=== PATIENT | female | born 1955 | race Caucasian/White ===

== ENCOUNTER 2023-12-20 21:27 | Outpatient (REF) | payer MEDICARE, MEDICAID, SELFPAY | END 2023-12-20 21:28 | disposition home or self-care (01) | LOC: LAB 21:27 | DX: E87.5 Hyperkalemia (principal) | CPT/HCPCS: 36415; 84132 ==

== ENCOUNTER 2024-01-14 17:17 | Outpatient (REF) | payer MEDICARE, MEDICAID, SELFPAY ==
--- OUTSIDE RECORDS SUMMARY | 2024-01-14 17:38 | XMS_ITS | CCD ---
Author Name Unknown Address [address] [place] [address] Organization [facility] Care Team Providers Care Infrastructure Architect Name Role Phone VALENTINA Santos Attending Provider [phone] Lizandro Mcpherson MD Primary Care Provider MD Lizandro Mcpherson Attending Provider [phone] MD Lizandro Mcpherson Primary Care Provider LIZANDRO MCPHERSON Primary Care Unavailable FILOMENA SKELTON Attending Unavailable KARMEN BAGLEY Consulting Unavailable SHANTEL ALEX Admitting Unavailable GEORGESCU CHAPIN A Consulting Unavailable RELIEF, [facility]MPT[facility] Cons ulting Unavailable FILOMENA SKELTON Attending Unavailable FILOMENA SKELTON Referring Unavailable VIDA, LIZANDRO Primary Care Unavailable FELIBERTOTOMMY PEREZUSH Referring Unavailable VIDA, LIZANDRO Primary Care Unavailable NANCY MCPHERSONWN Referring Unavailable VIDA, LIZANDRO Primary Care Unavailable NANCY MCPHERSONWN Referring Unavailable VIDA, LIZANDRO Primary Care Unavailable NANCY MCPHERSONWN Referring Unavailable VIDA, LIZANDRO Primary Care Unavailable Nancy Mcphersonwn W Attending Unavailable NO FAMILY, PHYSICIAN Primary Care Unavailable Nancy Mcphersonwn W Admitting Unavailable Nancy Mcphersonwn W Admitting Unavailable Vida Lizandro W Primary Care Unavailable Nancy Mcphersonwn W Attending Unavailable Medications Current Medications Medication Drug Class(es) Dates Sig (Normalized) Sig (Original) acetaminophen 500 mg oral tablet (10 sources) take 1 tablet by mouth every six hours as needed for pain acetaminophen (TYLENOL EXTRA STRENGTH) 500 mg tablet Take 1 tablet (500 mg total) by mouth every 6 (six) hours as needed for pain. 0 Active acetaminophen 325 mg / HYDROcodone bitartrate 5 mg oral tablet (11 sources) Opioid Agonist take 1 tablet by mouth every six hours as needed for pain HYDROcodone-acetamin ophen (NORCO) 5-325 mg per tablet Indications: pain Take 1 tablet by mouth every 6 (six) hours as needed for pain Indications: pain. 0 Active aspirin 81 mg delayed release oral tablet (11 sources) Platelet Aggregation Inhibitor, Nonsteroidal Anti-inflammatory Drug take 1 tablet by mouth in the morning aspirin 81 mg Take 1 tablet (81 mg total) by mouth in the morning. 0 Active calcitriol 0.30042 mg oral capsule (11 sources) Vitamin D3 Analog take 2 capsules by mouth in the morning calcitriol (ROCALTROL) 0.25 MCG capsule Take 2 capsules (0.5 mcg total) by mouth in the morning. 0 Active take 1 capsule by mouth once nelsy ly calcitriol (ROCALTROL) 0.25 MCG capsule Take 0.25 mcg by mouth daily. 0 Active carvedilol 12.5 mg oral tablet (9 sources) alpha-Adrenergic Ghassan, beta-Adrenergic Ghassan Start: 11-17-2023 take 1 tablet by mouth in the morning, then take 1 tablet by mouth at bedtime carvediloL (COREG) 12.5 mg tablet Take 1 tablet (12.5 mg total) by mouth in the morning and 1 tablet (12.5 mg total) before bedtime. 60 tablet 1 11/17/2023 Active cholecalciferol 1.25 mg oral capsule (7 sources) Vitamin D take 1 capsule by mouth in the morning cholecalciferol (VITAMIN D3) 50,000 units capsule Take 1 capsule (50,000 Units total) by mouth in the morning. 0 Active dextran 70 1 mg/ml / hypromellose 3 mg/ml ophthalmic solution (9 sources) Plasma Volume Radio Mechanic hypromellose (NATURES TEARS) drops Administer 1 drop to both eyes as needed for dry eyes. 0 Active docusate sodium 100 mg oral capsule (2 sources) take 1 capsule by mouth twice daily docusate sodium (COLACE) 100 mg capsule Take 100 mg by mouth 2 (two) times a day. 0 Active ergocalciferol 1.25 mg oral capsule (10 sources) Provitamin D2 Compound take 1 capsule by mouth once ergocalciferol (DRISDOL) 1,250 mcg (50,000 unit) capsule Take 1 capsule (50,000 Units total) by mouth every 14 (fourteen) days. 0 Active ertapenem 1,000 mg in sodium chloride 0.9 % 50 mL IVPB MINI-BAG Plus (2 sources) Start: 11-16-2023 End: 11-20-2023 take 1000 mg intravenously every twenty-four hours ertapenem 1,000 mg in sodium chloride 0.9 % 50 mL IVPB MINI-BAG Plus Infuse 1,000 mg into a venous catheter daily for 4 days. 1 each 0 11/16/2023 11/20/2023 Active ferrous sulfate 250 mg extended release oral tablet (11 sources) take 1 tablet by mouth in the morning ferrous sulfate 250 mg (50 mg iron) tablet extended release Take 50 mg by mouth in the morning. 0 Active ferrous sulfate 325 (65 FE) mg tablet Take 1 tablet (325 mg total) by mouth daily with breakfast. ER Tablet Extended Release 50 MG 0 Active FLUoxetine 20 mg oral capsule (10 sources) Serotonin Reuptake Inhibitor take 1 capsule by mouth in the morning FLUoxetine (PROzac) 20 mg capsule Take 1 capsule (20 mg total) by mouth in the morning. HCL Capsule. 0 Active folic acid 1 mg oral tablet (10 sources) take 1 tablet by mouth in the morning folic acid (FOLVITE) 1 mg tablet Take 400 mcg by mouth in the morning. 0 Active gabapentin 100 mg oral capsule (10 sources) Anti-epileptic Agent take 1 capsule by mouth three times daily gabapentin (NEURONTIN) 100 mg capsule Take 1 capsule (100 mg total) by mouth 3 (three) times a day. 0 Active hydroCHLOROthiazide 12.5 mg oral tablet (1 source) Thiazide Diuretic take 1 tablet by mouth once daily hydroCHLOROthiazide (HYDRODIURIL) 12.5 mg tablet Take 1 tablet (12.5 mg total) by mouth daily. 0 Active hypromellose 25 mg/ml ophthalmic solution (10 sources) take 1 drop(s) into the eye(s) in the morning hydroxypropyl methylcellulose (GONAK) 2.5 % ophthalmic solution Administer 1 drop to both eyes in the morning and 1 drop before bedtime. 0 Active ibuprofen 600 mg oral tablet (5 sources) Nonsteroidal Anti-inflammatory Drug End: 2023 take 1 tablet by mouth in the morning, then take 1 tablet by mouth at bedtime ibuprofen (ADVIL,MOTRIN) 600 mg tablet Take 1 tablet (600 mg total) by mouth in the morning and 1 tablet (600 mg total) before bedtime. 0 11/28/2023 Discontinued ammonium lactate 120 mg/ml topical cream (10 sources) ammonium lactate (AMLACTIN) 12 % cream Apply 1 Application topically as needed for dry skin. 0 Active lactulose 667 mg/ml oral solution (4 sources) Osmotic Laxative End: 2023 take 15 mL by mouth every other day lactulose (CHRONULAC) 10 gram/15 mL solution Take 15 mL (10 g total) by mouth every other day. 0 11/28/2023 Discontinued take 30 mL by mouth every other day lactulose (CHRONULAC) 10 gram/15 mL solution Take 30 mL (20 g total) by mouth every other day. 0 Active latanoprost 0.05 mg/ml ophthalmic solution (10 sources) Prostaglandin Analog take 1 drop(s) into the eye(s) once daily latanoprost (XALATAN) 0.005 % ophthalmic solution Administer 1 drop to both eyes nightly. 0 Active levothyroxine sodium 0.15 mg oral tablet (11 sources) l-Thyroxine take 1 tablet by mouth in the morning levothyroxine (SYNTHROID, LEVOTHROID) 150 MCG tablet Take 1 tablet (150 mcg total) by mouth in the morning. 0 Active levothyroxine (S YNTHROID, LEVOTHROID) 125 MCG tablet Take 150 mcg by mouth daily. 0 Active magnesium oxide 400 mg oral tablet (11 sources) take 1 tablet by rinku th in the morning magnesium oxide (MAG-OX) 400 mg tablet Take 1 tablet (400 mg total) by mouth in the morning. 0 Active melatonin 3 mg oral capsule (10 sources) take 1 capsule by mo uth once daily melatonin 3 mg capsule Take 3 mg by mouth nightly. 0 Active mirtazapine 15 mg oral table t (11 sources) take 0.5 tablet by m outh in the morning mirtazapine (REMERON) 15 mg tablet Take 0.5 tablets (7.5 mg total) by mouth in the morning. 0 Active take 1 tablet by mouth once pierce y mirtazapine (REMERON) 15 mg tablet Take 15 mg by mouth nightly. 0 Active MULTIVITAMIN ORAL (2 sources) take 1 tablet by mouth once daily MULTIVITAMIN ORAL Take 1 tablet by mouth daily. 0 Active phenytoin sodium 30 mg extended release oral capsule (20 sources) Anti-epileptic Agent take 1 capsule by mouth in the morning, then take 1 capsule by mouth at bedtime phenytoin (DILANTIN) 100 mg ER capsule Take 1 capsule (100 mg total) by mouth in the morning and 1 capsule (100 mg total) before bedtime. 0 Active take 1 capsule by mo uth in the morning, then take 1 capsule by mouth at bedtime phenytoin (DILANTIN) 30 mg ER capsule Take 1 capsule (30 mg total) by mouth in the morning and 1 capsule (30 mg total) before bedtime. 0 Active sevelamer carbonate 800 mg oral tablet (10 sources) Phosphate Binder sevelamer (RENV SHAQUILLE) 800 mg tablet Take 1 tablet (800 mg total) by mouth in the morning and 1 tablet (800 mg total) at noon and 1 tablet (800 mg total) in the evening. Take with meals. 0 Active sodium bicarbonate 650 mg oral tablet (7 sources) take 1 tablet by mouth three times daily sodium bicarbonate 650 mg tablet Take 1 tablet (650 mg total) by mouth 3 (three) times a day. 0 Active tiZANidine 4 mg oral tablet (10 sources) Central alpha-2 Adrenergic Agonist take 1 tablet by mouth in the morning tiZANidine (ZANAFLEX) 4 mg tablet Take 1 tablet (4 mg total) by mouth in the morning. 0 Active traZODone hydrochloride 50 mg oral tablet (10 sources) Serotonin Reuptake Inhibitor take 1 tablet by mouth once daily traZODone (DESYREL) 50 mg tablet Take 1 tablet (50 mg total) by mouth nightly. 0 Active divalproex sodium 125 mg delayed release oral tablet (9 sources) Mood Stabilizer, Anti-epileptic Agent Start: 10-27-20 take 1 tablet by mouth in the morning, then take 1 tablet by mouth at bedtime divalproex (DEPAKOTE) 125 mg EC tablet Take 1 tablet (125 mg total) by mouth in the morning and 1 tablet (125 mg total) before bedtime. 0 10/27/2023 Active vitamin b12 1 mg oral tablet (10 sources) Vitamin B12 take 1 tablet by mouth in the morning cyanocobalamin 1000 MCG tablet Take 1 tablet (1,000 mcg total) by mouth in the morning. 0 Active Problems Active Problems Problem Classification Problem Date Documented Date Episodic/Chronic Acute and unspecified renal failure (2 sources) Acute injury of kidney; Translations: [Acute kidney failure, unspecified] Onset: 11-13-2023 11-28-2023 Episodic Acute cerebrovascular disease (11 sources) Embolic stroke; Translations: [Cerebral infarction due to embolism of unspecified precerebral artery] Onset: 02-26-2018 02-26-2018 Chronic Chronic kidney disease (5 sources) Chronic kidney disease stage 3B ; Translations: [Stage 3b chronic kidney disease (CKD) ([facility])] Onset: 11-26-2023 11-10-2023 Chronic Diseases of white blood cells (1 source) Elevated white blood cell count, unspecified; Translations: [Elevated white blood cell count, unspecified] Onset: 11-13-2023 Chronic E Codes: Adverse effects of medical drugs (1 source) Adverse effect of macrolides, initial encounter; Translations: [Adverse effect of macrolides, initial encounter] Onset: 11-13-2023 Episodic Essential hypertension (11 sources) Benign essential hypertension; Translations: [Essential (primary) hypertension] Onset: 02-26-2018 05-28-2018 Chronic Fluid and electrolyte disorders (2 sources) Hypo-osmolality and hyponatremia; Translations: [Other disorders of electrolyte and fluid balance, not elsewhere classified] Onset: 11-13-2023 Episodic Immunizations and screening for infectious disease (1 source) Anti-nuclear factor positive; Translations: [Other specified abnormal immunological findings in serum] 12-13-2023 Episodic Other and ill-defined cerebrovascular disease (11 sources) Moyamoya disease; 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] Onset: 02-26-2018 02-26-2018 Chronic Other circulatory disease (10 sources) Low blood pressure; Translations: [Hypotension, unspecified] Onset: 11-13-2023 11-13-2023 Episodic Other circulatory disease (1 source) Hypotension, unspecified; Translations: [Hypotension, unspecified] Onset: 11-13-2023 Episodic Other nutritional; endocrine; and metabolic disorders (11 sources) Disorder of mineral metabolism; 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 Onset: 11-13-2023 Past or Other Problems Problem Classification Problem Date Documented Da te Episodic/Chronic Calculus of urinary tract (20 sources) Kidney stone; Translations: [Calculus of kidney] Onset: 02-26-2018 10-21-2019 Episodic Other bone disease and musculoskeletal deformities (11 sources) Osteopenia; Translations: [Other specified disorders of bone density and structure, multiple sites] Onset: 03-24-2018 03-09-2020 Episodic Results Test Name Value Interpretation Reference Range Facility Comprehensive metabolic 2000 panelon 01-12-2024 Albumin BCP dye [Mass/Vol] 3.1 g/dL Low 3.4-5.0 [facility] Comment on above: Performed By: #### 2 4323-8 #### KATLIN ANGLIN ([id number]) [facility] ([facility]) [address] [place] [address] ALP [Catalytic activity/Vol] 60 U/L Normal 33-136 [facility] Comment on above: Performed By: #### 2 4323-8 #### KATLIN ANGLIN ([id number]) [facility] ([facility]) [address] [place] [address] ALT With P-5'-P [Catalytic activity/Vol] 5 U/L Low 7-45 [facility] Comment on above: Result Comment: Kanchan ents treated with Sulfasalazine may generate falsely decreased results for ALT. Performed By: #### 2 4323-8 #### KATLIN ANGLIN ([id number]) [facility] ([facility]) [address] [place] [address] Anion gap [Moles/Vol] 13 mmol/L Normal 10-20 [facility] Comment on above: Performed By: #### 2 4323-8 #### KATLIN ANGLIN ([id number]) [facility] ([facility]) [address] [place] [address] AST With P-5'-P [Catalytic activity/Vol] 10 U/L Normal 9-39 [facility] Comment on above: Performed By: #### 2 4323-8 #### KATLIN ANGLIN ([id number]) [facility] ([facility]) [address] [place] [address] Bilirubin [Mass/Vol] 0.2 mg/dL Normal 0.0-1.2 [facility] Comment on above: Performed By: #### 2 4323-8 #### KATLIN ANGLIN ([id number]) [facility] ([facility]) [address] [place] [address] Calcium [Mass/Vol] 8.1 mg/dL Low 8.6-10.3 [facility] Comment on above: Performed By: #### 2 432-8 #### KATLIN ANGLIN ([id number]) [facility] ([facility]) [address] [place] [address] Chloride [Moles/Vol] 106 mmol/L Normal 98-107 [facility] Comment on above: Performed By: #### 2 4323-8 #### KATLIN KNOWLESI ([id number]) [facility] ([facility]) [address] [place] [address] CO2 [Moles/Vol] 27 mmol/L Normal 21-32 [facility] Comment on above: Performed By: #### 2 4323-8 #### KATLIN KNOWLESI ([id number]) [facility] ([facility]) [address] [place] [address] Creatinine [Mass/Vol] 2.03 mg/dL High 0.50-1.05 [facility] Comment on above: Performed By: #### 2 4323-8 #### KATLIN DASILVAFRI ([id number]) [facility] ([facility]) [address] [place] [address] Glomerular filtration rate/1.73 sq M.predicted 26 mL/min/1.73m*2 Low >60 [facility] Comment on above: Result Comment: Calc ulations of estimated GFR are performed using the 2020 CKD-EPI Study Refit equation without the race variable for the IDMS-Traceable creatinine methods. https://jasn.asnjournals.org/content//ASN.485 4648389 Performed By: #### 2 4323-8 #### KATLIN ANGLIN ([id number]) [facility] ([facility]) [address] [place] [address] Glucose [Mass/Vol] 82 mg/dL Normal 74-99 [facility] Comment on above: Performed By: #### 2 4323-8 #### KATLIN ANGLIN ([id number]) [facility] ([facility]) [address] [place] [address] Potassium [Moles/Vol] 4.6 mmol/L Normal 3.5-5.3 [facility] Comment on above: Performed By: #### 2 4323-8 #### KATLIN ANGLIN ([id number]) [facility] ([facility]) [address] [place] [address] Protein [Mass/Vol] 6.0 g/dL Low 6.4-8.2 [facility] Comment on above: Performed By: #### 2 4323-8 #### KATLIN ANGLIN ([id number]) [facility] ([facility]) [address] [place] [address] Sodium [Moles/Vol] 141 mmol/L Normal 136-145 [facility] Comment on above: Performed By: #### 2 4323-8 #### KATLIN ANGLIN ([id number]) [facility] ([facility]) [address] [place] [address] Urea nitrogen [Mass/Vol] 62 mg/dL High 6-23 [facility] Comment on above: Performed By: #### 2 4323-8 #### KATLIN ANGLIN ([id number]) [facility] ([facility]) [address] [place] [address] Potassiumon 12-22-2023 Potassium [Moles/Vol] 4.8 mmol/L Normal 3.4-4.9 [facility] Comment on above: Order Comment: CALL doctor [id number] tel. [phone], [place] [facility] [place] [id number] tel. [phone], [place] [facility] Performed By: #### K #### [facility] [address] [place] [address] 36on 12-03-2023 36 I think monitoring would be ok. She has no oral options. Seeing as initial infection was from urinary source I would be less worried Normal [facility] Potassiumon 11-27-2023 Potassium [Moles/Vol] 5.7 mmol/L High 3.5-5.1 [facility] Comment on above: Result Comment: Crit ical Result Called to and read back by: LIZANDRO MCPHERSON at: 11/27/2023 17:45:10 by:[id number] PERFORMED BY: [place] [address] PATHOLOGIST DRAG SEINER JONG SORENSON M.D. Performed By: #### K #### [facility] [address] Potassium [Moles/volume] in Serum or PlasmaOrdered By: Lizandro Mcpherson on 11-27-2023 Potassium [Moles/Vol] 5.7 mmol/L 3.5-5.1 [facility] Comment on above: Critical Result Call ed to and read back by: LIZANDRO MCPHERSON at: 11/27/2023 17:45:10 by:[id number] Basic Metabolic Panelon 11-11 Anion gap [Moles/Vol] 14.0 mmol/L Normal 6.0-15.0 [facility] Comment on above: Performed By: #### B MP, CBC, MG, PHOS #### [facility] [address] [place] [id number] [place] Calcium [Mass/Vol] 9.0 mg/dL Normal 8.6-10.3 [facility] Comment on above: Performed By: #### B MP, CBC, MG, PHOS #### [facility] [address] [place] [address] [place] Chloride [Moles/Vol] 109 mmol/L High 98-107 [facility] Comment on above: Performed By: #### B MP, CBC, MG, PHOS #### [facility] [address] CO2 [Moles/Vol] 23.1 mmol/L Normal 21.0-31.0 [facility] Comment on above: Performed By: #### B MP, CBC, MG, PHOS #### [facility] [address] Creatinine [Mass/Vol] 1.61 mg/dL High 0.60-1.20 [facility] Comment on above: Performed By: #### B MP, CBC, MG, PHOS #### [facility] [address] [place] [address] [place] GFR/1.73 sq M.predicted MDRD (S/P/Bld) [Vol rate/Area] 34.868 mL/min/{1.73_m2} Normal [facility] Comment on above: Performed By: #### B MP, CBC, MG, PHOS #### [facility] [address] Glucose [Mass/Vol] 91 mg/dL Normal 70-100 [facility] Comment on above: Result Comment: [place] Glucose Reference Range is dependent on time and content of last meal. Glucose of more than 200 mg/dL in a nonstressed, ambulatory subject supports the diagnosis of Diabetes Mellitus. ADA recommended reference range Performed By: #### B MP, CBC, MG, PHOS #### [facility] [address] [place] [address] [place] Potassium [Moles/Vol] 6.1 mmol/L Off scale high 3.5-5.1 [facility] Comment on above: Result Comment: Crit ical Result Called to and read back by: MARIA T CHING at: 11/26/2023 21:14:05 by:HELADIO Performed By: #### B MP, CBC, MG, PHOS #### [facility] [address] Sodium [Moles/Vol] 140 mmol/L Normal 136-145 [facility] Comment on above: Performed By: #### B MP, CBC, MG, PHOS #### [facility] [address] Urea nitrogen [Mass/Vol] 30 mg/dL High 7-25 [facility] Comment on above: Performed By: #### B MP, CBC, MG, PHOS #### [facility] [address] Basophils Auto (Bld) [#/Vol] Ordered By: Lizandro Mcpherson on 11-26-2023 Basophils (Bld) [#/Vol] 0.1 10*3/uL 0.0-0.2 [facility] Basophils/100 WBC Auto (Bld) Ordered By: Lizandro Mcpherson on 11-26-2023 Basophils/100 WBC (Bld) 1.6 % . F [facility] Calcium [Mass/volume] in Ser um or PlasmaOrdered By: Lizandro Mcpherson on 11-26-2023 Calcium [Mass/Vol] 9.0 mg/dL 8.6-10.3 [facility] Carbon dioxide, total [Moles /volume] in Serum or PlasmaOrdered By: Lizandro Mcpherson on 11-26-2023 CO2 [Moles/Vol] 23.1 mmol/L 21.0-31.0 [facility] Chloride [Moles/volume] in [place] or PlasmaOrdered By: Lizandro Mcpherson on 11-26-2023 Chloride [Moles/Vol] 109 mmol/L 98-107 [facility] Complete Blood Count Auto Di ffon 11-26-2023 Basophils (Bld) [#/Vol] 0.1 10*3/uL Normal 0.0-0.2 [facility] Comment on above: Result Comment: PERF ORMED BY: [facility] [address] [place] [address] PATHOLOG[address] DRAG SEINER JONG SORENSON M.D. Performed By: #### B MP, CBC, MG, PHOS #### [facility] [address] [place] [address] Basophils/100 WBC (Bld) 1.6 % Normal . [facility] Comment on above: Performed By: #### B MP, CBC, MG, PHOS #### [facility] [address] [place] [address] Eosinophils (Bld) [#/Vol] 0.2 10*3/uL Normal 0.0-0.45 [facility] Comment on above: Performed By: #### B MP, CBC, MG, PHOS #### [facility] [address] [place] [address] Eosinophils/100 WBC (Bld) 3.0 % Normal . [facility] Comment on above: Performed By: #### B MP, CBC, MG, PHOS #### [address] Erythrocyte distribution width (RBC) [Ratio] 16.9 % High 11.9-15.3 [facility] Comment on above: Performed By: #### B MP, CBC, MG, PHOS #### [address] Hematocrit (Bld) [Volume fraction] 26.7 % Low 34.0-46.4 [facility] Comment on above: Performed By: #### B MP, CBC, MG, PHOS #### [place] [address] [place] Hemoglobin (Bld) [Mass/Vol] 8.5 g/dL Low 11.8-15.4 [facility] Comment on above: Performed By: #### B MP, CBC, MG, PHOS #### [facility] [address] [place] [address] [place] Lymphocytes (Bld) [#/Vol] 1.8 10*3/uL Normal 1.00-4.8 [facility] Comment on above: Performed By: #### B MP, CBC, MG, PHOS #### [facility] [address] [place] [address] [place] Lymphocytes/100 WBC (Bld) 24.2 % Normal . [facility] Comment on above: Performed By: #### B MP, CBC, MG, PHOS #### [address] MCH (RBC) [Entitic mass] 30.3 pg Normal 24.7-34.3 [facility] Comment on above: Performed By: #### B MP, CBC, MG, PHOS #### [address] MCV (RBC) [Entitic vol] 95.5 fL Normal 80-100 [facility] Comment on above: Performed By: #### B MP, CBC, MG, PHOS #### [address] Mean Corpuscular HGB Conc 31.8 g/dL Low 32.0-35.0 [facility] Comment on above: Performed By: #### B MP, CBC, MG, PHOS #### [address] Monocytes (Bld) [#/Vol] 0.3 10*3/uL Normal 0.0-0.8 [facility] Comment on above: Performed By: #### B MP, CBC, MG, PHOS #### [address] Monocytes/100 WBC (Bld) 4.2 % Normal . [facility] Comment on above: Performed By: #### B MP, CBC, MG, PHOS #### [address] Neutrophils (Bld) [#/Vol] 4.9 10*3/uL Normal 1.8-7.7 [facility] Comment on above: Performed By: #### B MP, CBC, MG, PHOS #### [address] Neutrophils/100 WBC (Bld) 67.0 % Normal . [facility] Comment on above: Performed By: #### B MP, CBC, MG, PHOS #### [facility] [address] [place] [address] NRBC% 0.1 /100{WBC} Normal 0-0.5 [facility] Comment on above: Performed By: #### B MP, CBC, MG, PHOS #### [facility] [address] [place] [address] Platelet mean volume (Bld) [Entitic vol] 8.4 fL Normal 6.3-10.7 [facility] Comment on above: Performed By: #### B MP, CBC, MG, PHOS #### [facility] [address] [place] [address] Platelets (Bld) [#/Vol] 585 10*3/uL High 150-450 [facility] Comment on above: Performed By: #### B MP, CBC, MG, PHOS #### [facility] [address] [place] [address] RBC (Bld) [#/Vol] 2.80 10*6/uL Low 3.60-5.00 [facility] Comment on above: Performed By: #### B MP, CBC, MG, PHOS #### [facility] [address] [place] [address] WBC (Bld) [#/Vol] 7.3 10*3/uL Normal 3.8-11.6 [facility] Comment on above: Performed By: #### B MP, CBC, MG, PHOS #### [facility] [address] [place] [address] Creatinine [Mass/volume] in Serum or PlasmaOrdered By: Lizandro Mcpherson on 11-26-2023 Creatinine [Mass/Vol] 1.61 mg/dL 0.60-1.20 [facility] Eosinophils Auto (Bld) [#/Vo l]Ordered By: Lizandro Mcpherson on 11-26-2023 Eosinophils (Bld) [#/Vol] 0.2 10*3/uL 0.0-0.45 [facility] Eosinophils/100 WBC Auto (Bl d)Ordered By: Lizandro Mcpherson on 11-26-2023 Eosinophils/100 WBC (Bld) 3.0 % . [facility] Erythrocyte distribution wid th Auto (RBC) [Ratio]Ordered By: Lizandro Mcpherson on 11-26-2023 Erythrocyte distribution width (RBC) [Ratio] 16.9 % 11.9-15.3 [facility] Glucose [Mass/volume] in Ser um or PlasmaOrdered By: Lizandro Mcpherson on 11-26-2023 Glucose [Mass/Vol] 91 mg/dL 70-100 [facility] Comment on above: ADA recommended refe rence rangeRandom Glucose Reference Range is dependent on time and content of last meal. Glucose of more than 200 mg/dL in a nonstressed, ambulatory subject supports the diagnosis of Diabetes Mellitus. Hematocrit Auto (Bld) [Volum e fraction]Ordered By: Lizandro Mcpherson on 11-26-2023 Hematocrit (Bld) [Volume fraction] 26.7 % 34.0-46.4 [facility] Hemoglobin [Mass/volume] in BloodOrdered By: Lizandro Mcpherson on 11-26-2023 Hemoglobin (Bld) [Mass/Vol] 8.5 g/dL 11.8-15.4 [facility] Leukocytes [#/volume] correc dominick for nucleated erythrocytes in Blood by Automated counOrdered By: Lizandro Mcpherson on 11-26-2023 WBC corrected for nucl RBC Auto (Bld) [#/Vol] 7.3 10*3/uL 3.8-11.6 [facility] Lymphocytes Auto (Bld) [#/Vo l]Ordered By: Lizandro Mcpherson on 11-26-2023 Lymphocytes (Bld) [#/Vol] 1.8 10*3/uL 1.00-4.8 [facility] Lymphocytes/100 WBC Auto (Bl d)Ordered By: Lizandro Mcpherson on 11-26-2023 Lymphocytes/100 WBC (Bld) 24.2 % . [facility] MCH Auto (RBC) [Entitic mass ]Ordered By: Lizandro Mcpherson on 11-26-2023 MCH (RBC) [Entitic mass] 30.3 pg 24.7-34.3 [facility] MCHC Auto (RBC) [Mass/Vol]Or dered By: Lizandro Mcpherson on 11-26-2023 MCHC (RBC) [Mass/Vol] 31.8 g/dL 32.0-35.0 [facility] MCV Auto (RBC) [Entitic vol] Ordered By: Lizandro Mcpherson on 11-26-2023 MCV (RBC) [Entitic vol] 95.5 fL 80-100 [facility] Magnesiumon 11-26-2023 Magnesium [Mass/Vol] 1.9 mg/dL Normal 1.9-2.7 [facility] Comment on above: Result Comment: PERF ORMED BY: [place] [address] PATHOLOGIST DRAG SEINER JONG SORENSON M.D. Performed By: #### B MP, CBC, MG, PHOS #### [address] Magnesium [Mass/volume] in S [place] or PlasmaOrdered By: Lizandro Mcpherson on 11-26-2023 Magnesium [Mass/Vol] 1.9 mg/dL 1.9-2.7 [facility] Monocytes Auto (Bld) [#/Vol] Ordered By: Lizandro Mcpherson on 11-26-2023 Monocytes (Bld) [#/Vol] 0.3 10*3/uL 0.0-0.8 [facility] Monocytes/100 WBC Auto (Bld) Ordered By: Lizandro Mcpherson on 11-26-2023 Monocytes/100 WBC (Bld) 4.2 % . F [facility] Neutrophils Auto (Bld) [#/Vo l]Ordered By: Lizandro Mcpherson on 11-26-2023 Neutrophils (Bld) [#/Vol] 4.9 10*3/uL 1.8-7.7 [facility] Neutrophils/100 WBC Auto (Bl d)Ordered By: Lizandro Mcpherson on 11-26-2023 Neutrophils/100 WBC (Bld) 67.0 % . [facility] No Panel InformationOrdered By: Lizandro Mcpherson on 11-26-2023 Estimated GFR (CKD-EPI) 34.868 mL/Min [facility] Creatinine Clearance (Chem N/A [facility] Nucleated erythrocytes [Pres ence] in Blood by Automated countOrdered By: Lizandro Mcpherson on 11-26-2023 Nucleated RBC Auto Ql (Bld) 0.1 /100{WBC} 0-0.5 [facility] Phosphate [Mass/volume] in S [place] or PlasmaOrdered By: Lizandro Mcpherson on 11-26-2023 Phosphate [Mass/Vol] 5.2 mg/dL 2.5-4.5 [facility] Phosphoruson 11-26-2023 Phosphate [Mass/Vol] 5.2 mg/dL High 2.5-4.5 [facility] Comment on above: Performed By: #### B MP, CBC, MG, PHOS #### [facility] [address] Platelet mean volume Auto (B ld) [Entitic vol]Ordered By: Liznadro Mcpherson on 11-26-2023 Platelet mean volume (Bld) [Entitic vol] 8.4 fL 6.3-10.7 [facility] Platelets Auto (Bld) [#/Vol] Ordered By: Lizandro Mcpherson on 11-26-2023 Platelets (Bld) [#/Vol] 585 10*3/uL 150-450 [facility] Potassium [Moles/volume] in Serum or PlasmaOrdered By: Lizandro Mcpherson on 11-26-2023 Potassium [Moles/Vol] 6.1 mmol/L 3.5-5.1 [facility] Comment on above: Critical Result Call ed to and read back by: MARIA T CHING at: 11/26/2023 21:14:05 by:HELADIO RBC Auto (Bld) [#/Vol]Ordere d By: Lizandro Mcpherson on 11-26-2023 RBC (Bld) [#/Vol] 2.80 10*6/uL 3.60-5.00 [facility] Serum or plasma anion gap de terminationOrdered By: Lizandro Mcpherson on 11-26-2023 Anion gap [Moles/Vol] 14.0 mmol/L 6.0-15.0 [facility] Sodium [Moles/volume] in Ser um or PlasmaOrdered By: Lizandro Mcpherson on 11-26-2023 Sodium [Moles/Vol] 140 mmol/L 136-145 [facility] Urea nitrogen [Mass/volume] in Serum or PlasmaOrdered By: Lizandro Mcpherson on 11-26-2023 Urea nitrogen [Mass/Vol] 30 mg/dL 7-25 [facility] WBC Auto (Bld) [#/Vol]Ordere d By: Lizandro Mcpherson on 11-26-2023 WBC (Bld) [#/Vol] 7.3 10*3/uL 3.8-11.6 [facility] CBC AND AUTO DIFFon 11-17-19 24 ABSOLUTE BASOPHIL 0.0 X10E9/L Normal 0.0-0.2 [facility] Comment on above: Performed By: #### C BCA, 81277-5, CMP, THYR, 6873-4 #### [facility] ([id number]) [address] [place] [address] ABSOLUTE NEUTROPHIL 6.9 X10E9/L High 1.5-6.6 [facility] Comment on above: Performed By: #### C BCA, 28321-0, CMP, THYR, 6873-4 #### [facility] ([id number]) [address], [address] [place] [address] Basophils/100 WBC (Bld) 0.3 % Normal [facility] Comment on above: Performed By: #### C BCA, 13578-9, CMP, THYR, 6873-4 #### [facility] ([id number]) [address], [address] [place] [address] Eosinophils (Bld) [#/Vol] 0.4 10*3/uL Normal 0.0-0.[address] [facility] Comment on above: Performed By: #### C BCA, 48773-2, CMP, THYR, 6873-4 #### [facility] ([id number]) [address], [address] [place] [address] Eosinophils/100 WBC (Bld) 4.0 % Normal [facility] Comment on above: Performed By: #### C BCA, 90679-6, CMP, THYR, 6873-4 #### [facility] ([id number]) [address], [address] [place] [address] Erythrocyte distribution width (RBC) [Ratio] 16.1 % High 11.5-15.[address] [facility] Comment on above: Performed By: #### C BCA, 17309-2, CMP, THYR, 6873-4 #### [facility] ([id number]) [address], [facility] [address] [place] [address] Hematocrit (Bld) [Volume fraction] 21.5 % Low 35-[address] [facility] Comment on above: Performed By: #### Rohith BCA, 11357-0, CMP, THYR, 6873-4 #### [facility] ([id number]) [address], [facility] [address] [place] [address] Hemoglobin (Bld) [Mass/Vol] 7.2 g/dL Low 11.7-15.[address] [facility] Comment on above: Performed By: #### C BCA, 74770-7, CMP, THYR, 6873-4 #### [facility] ([id number]) [address] [address] [place] [address] Lymphocytes (Bld) [#/Vol] 1.5 10*3/uL Normal 1.0-3.[address] [facility] Comment on above: Performed By: #### C BCA, 69535-4, CMP, THYR, 6873-4 #### [facility] ([id number]) [address] [address] [place] [address] Lymphocytes/100 WBC (Bld) 15.8 % Normal [facility] Comment on above: Performed By: #### C BCA, 25638-1, CMP, THYR, 6873-4 #### [facility] ([id number]) [address], [address] [place] [address] MCH (RBC) [Entitic mass] 30.6 pg Normal 27-[address] [facility] Comment on above: Performed By: #### C BCA, 65453-8, CMP, THYR, 6873-4 #### [facility] ([id number]) [address], [address] [place] [address] MCHC (RBC) [Mass/Vol] 33.4 g/dL Normal 32-[address] [facility] Comment on above: Performed By: #### C BCA, 29818-8, CMP, THYR, 6873-4 #### [facility] ([id number]) [address], [address] [place] [address] MCV (RBC) [Entitic vol] 92 fL Normal 80-100 [facility] Comment on above: Performed By: #### C BCA, 47780-8, CMP, THYR, 6873-4 #### [facility] ([id number]) [address], [address] [place] [address] Monocytes (Bld) [#/Vol] 0.6 10*3/uL Normal 0-0.[address] [facility] Comment on above: Performed By: #### C BCA, 27619-8, CMP, THYR, 6873-4 #### [facility] ([id number]) [address], [address] [place] [address] Monocytes/100 WBC (Bld) 6.4 % Normal P [facility] Comment on above: Performed By: #### C BCA, 18823-2, CMP, THYR, 6873-4 #### [facility] ([id number]) [address], [address] [place] [address] Neutrophils/100 WBC (Bld) 73.5 % Normal [facility] Comment on above: Performed By: #### C BCA, 67681-3, CMP, THYR, 6873-4 #### [facility] ([id number]) [address], [address] [place] [address] Platelet mean volume (Bld) [Entitic vol] 8.1 fL Normal 7-[address] [facility] Comment on above: Performed By: #### C BCA, 22173-0, CMP, THYR, 6873-4 #### [facility] ([id number]) [address], [address] [place] [address] Platelets (Bld) [#/Vol] 611 10*3/uL High 150-[address] [facility] Comment on above: Performed By: #### C BCA, 79338-6, CMP, THYR, 6873-4 #### [facility] ([id number]) [address], [facility] [address] [place] [address] RBC COUNT 2.34 X10E12/L Low 3.80-5.[address] [facility] Comment on above: Performed By: #### C BCA, 97686-0, CMP, THYR, 6873-4 #### [facility] ([id number]) [address], [address] [place] [address] WBC (Bld) [#/Vol] 9.4 10*3/uL Normal 4.0-11.0 [facility] Comment on above: Performed By: #### C BCA, 95922-9, CMP, THYR, 6873-4 #### [facility] ([id number]) [address], [address] [place] [address] COMPREHENSIVE METABOLIC PANE Edstin 11-17-2023 Albumin [Mass/Vol] 2.3 g/dL Low 3.2-5.3 [facility] Comment on above: Performed By: #### C BCA, 68862-8, CMP, THYR, 6873-4 #### [facility] ([id number]) [address], [address] [place] [address] ALP [Catalytic activity/Vol] 91 U/L Normal 39-[address] [facility] Comment on above: Performed By: #### C BCA, 75004-0, CMP, THYR, 6873-4 #### [facility] ([id number]) [address], [address] [place] [address] ALT [Catalytic activity/Vol] 6 U/L Normal 0-[address] [facility] Comment on above: Performed By: #### C BCA, 65929-4, CMP, THYR, 6873-4 #### [facility] ([id number]) [address], [address] [place] [address] Anion gap [Moles/Vol] 8 mmol/L Normal 5-[address] [facility] Comment on above: Performed By: #### C BCA, 77166-3, CMP, THYR, 6873-4 #### [facility] ([id number]) [address], [address] [place] [address] AST [Catalytic activity/Vol] 17 U/L Normal 0-[address] [facility] Comment on above: Performed By: #### C BCA, 58186-7, CMP, THYR, 6873-4 #### [facility] ([id number]) [address], [address] [place] [address] Bilirubin [Mass/Vol] 0.2 mg/dL Low 0.3-1.2 [facility] Comment on above: Performed By: #### C BCA, 30764-9, CMP, THYR, 6873-4 #### [facility] ([id number]) [address], [address] [place] [address] Calcium [Mass/Vol] 7.3 mg/dL Low 8.5-10.5 [facility] Comment on above: Performed By: #### C BCA, 94884-9, CMP, THYR, 6873-4 #### [facility] ([id number]) [address], [address] [place] [address] Chloride [Moles/Vol] 110 mmol/L High 98-109 [facility] Comment on above: Performed By: #### C BCA, 05527-4, CMP, THYR, 6873-4 #### [facility] ([id number]) [address], [address] [place] [address] CO2 [Moles/Vol] 22 mmol/L Normal 22-[address] [facility] Comment on above: Performed By: #### C BCA, 19568-1, CMP, THYR, 6873-4 #### [facility] ([id number]) [address], [address] [place] [address] Creatinine [Mass/Vol] 1.16 mg/dL High 0.40-1.[address] [facility] Comment on above: Result Comment: METH OD TRACEABLE TO IDMS STANDARD Performed By: #### C BCA, 58206-3, CMP, THYR, 6873-4 #### [facility] ([id number]) [address], [address] [place] [address] GFR/1.73 sq M.predicted among non-blacks MDRD (S/P/Bld) [Vol rate/Area] 52 mL/min/{1.73_m2} Low >[address] [facility] Comment on above: Result Comment: Reported eGFR is based on the CKD-EPI 2020 equation that does not use a race coefficient. Performed By: #### C BCA, 67585-0, CMP, THYR, 6873-4 #### [facility] ([id number]) [address] [place] [address] Glucose [Mass/Vol] 115 mg/dL High 65-99 [facility] Comment on above: Performed By: #### C BCA, 33262-0, CMP, THYR, 6873-4 #### [facility] ([id number]) [address], [address] [place] [address] Potassium [Moles/Vol] 4.4 mmol/L Normal 3.5-5.[address] [facility] Comment on above: Performed By: #### C BCA, 11750-2, CMP, THYR, 6873-4 #### [facility] ([id number]) [address], [address] [place] [address] Protein [Mass/Vol] 5.4 g/dL Low 6.0-8.0 [facility] Comment on above: Performed By: #### C BCA, 13175-7, CMP, THYR, 6873-4 #### [facility] ([id number]) [address], [address] [place] [address] Sodium [Moles/Vol] 140 mmol/L Normal 134-146 [facility] Comment on above: Performed By: #### C BCA, 76178-2, CMP, THYR, 6873-4 #### [facility] ([id number]) [address] [place] [address] Urea nitrogen [Mass/Vol] 32 mg/dL High 5-[address] [facility] Comment on above: Performed By: #### C BCA, 78128-1, CMP, THYR, 6873-4 #### [facility] ([id number]) [address], [address] [place] [address] FERRITINon 11-17-2023 Ferritin [Mass/Vol] 1382 ng/mL High 11-307 [facility] Comment on above: Performed By: #### C BCA, 23143-0, CMP, THYR, 6873-4 #### [facility] ([id number]) [address], [address] [place] [address] IRON PROFILEon 11-17-2023 Iron [Mass/Vol] 31 ug/dL Low 50-[address] [facility] Comment on above: Performed By: #### C BCA, 81340-1, CMP, THYR, 6873-4 #### [facility] ([id number]) [address] [address] IRON BINDING <105 Low 250-[address] [facility] Comment on above: Performed By: #### C BCA, 86502-6, CMP, THYR, 6873-4 #### [facility] ([id number]) [address], [address] [place] [address] IRON SATURATION >30 Normal 15-[address] [facility] Comment on above: Performed By: #### C BCA, 45237-1, CMP, THYR, 6873-4 #### [facility] ([id number]) [address] [address] MAGNESIUMon 11-17-2023 Magnesium [Mass/Vol] 2.8 mg/dL High 1.8-2.6 [facility] Comment on above: Performed By: #### C BCA, 35983-1, CMP, THYR, 6873-4 #### [facility] ([id number]) [address] [address] CBC AND AUTO DIFFon 11-16-19 24 ABSOLUTE BASOPHIL 0.2 X10E9/L Normal 0.0-0.2 [facility] Comment on above: Performed By: #### C BCA, 38798-8, CMP, THYR, 6873-4 #### [facility] ([id number]) [address] [address] ABSOLUTE NEUTROPHIL 11.0 X10E9/L High 1.5-6.[address] [facility] Comment on above: Performed By: #### C BCA, 96554-1, CMP, THYR, 6873-4 #### [facility] ([id number]) [address] [address] [place] [address] Basophils/100 WBC (Bld) 1.4 % Normal [facility] Comment on above: Performed By: #### C BCA, 50576-5, CMP, THYR, 6873-4 #### [facility] ([id number]) [address] [address] [place] [address] Eosinophils (Bld) [#/Vol] 0.3 10*3/uL Normal 0.0-0.[address] [facility] Comment on above: Performed By: #### C BCA, 21400-6, CMP, THYR, 6873-4 #### [facility] ([id number]) [address], [facility] [address] [place] [address] Eosinophils/100 WBC (Bld) 2.3 % Normal [facility] Comment on above: Performed By: #### C BCA, 49905-5, CMP, THYR, 6873-4 #### [facility] ([id number]) [address], [facility] [address] [place] [address] Erythrocyte distribution width (RBC) [Ratio] 15.9 % High 11.5-15.[address] [facility] Comment on above: Performed By: #### C BCA, 33864-1, CMP, THYR, 6873-4 #### [facility] ([id number]) [address] [address] [place] [address] Hematocrit (Bld) [Volume fraction] 22.4 % Low 35-[address] [facility] Comment on above: Performed By: #### C BCA, 00841-4, CMP, THYR, 6873-4 #### [facility] ([id number]) [address] [address] [place] [address] Hemoglobin (Bld) [Mass/Vol] 7.4 g/dL Low 11.7-15.[address] [facility] Comment on above: Performed By: #### C BCA, 50563-0, CMP, THYR, 6873-4 #### [facility] ([id number]) [address] [place] [address] Lymphocytes (Bld) [#/Vol] 1.1 10*3/uL Normal 1.0-3.[address] [facility] Comment on above: Performed By: #### C BCA, 49974-5, CMP, THYR, 6873-4 #### [facility] ([id number]) [address], [facility] [address] [place] [address] Lymphocytes/100 WBC (Bld) 8.2 % Normal [facility] Comment on above: Performed By: #### C BCA, 51260-0, CMP, THYR, 6873-4 #### [facility] ([id number]) [address], [facility] [address] [place] [address] MCH (RBC) [Entitic mass] 30.1 pg Normal 27-[address] [facility] Comment on above: Performed By: #### C BCA, 23594-5, CMP, THYR, 6873-4 #### [facility] ([id number]) [address] [address] [place] [address] MCHC (RBC) [Mass/Vol] 32.9 g/dL Normal 32-[address] [facility] Comment on above: Performed By: #### C BCA, 18490-4, CMP, THYR, 6873-4 #### [facility] ([id number]) [address] [address] [place] [address] MCV (RBC) [Entitic vol] 91 fL Normal 80-100 [facility] Comment on above: Performed By: #### C BCA, 35501-0, CMP, THYR, 6873-4 #### [facility] ([id number]) [address] [address] [place] [address] Monocytes (Bld) [#/Vol] 0.7 10*3/uL Normal 0-0.[address] [facility] Comment on above: Performed By: #### C BCA, 65104-7, CMP, THYR, 6873-4 #### [facility] ([id number]) [address] [place] [address] Monocytes/100 WBC (Bld) 5.5 % Normal P [facility] Comment on above: Performed By: #### C BCA, 19890-8, CMP, THYR, 6873-4 #### [facility] ([id number]) [address] [place] [address] Neutrophils/100 WBC (Bld) 82.6 % Normal [facility] Comment on above: Performed By: #### C BCA, 59160-6, CMP, THYR, 6873-4 #### [facility] ([id number]) [address] [place] [address] Platelet mean volume (Bld) [Entitic vol] 8.5 fL Normal 7-[address] [facility] Comment on above: Performed By: #### C BCA, 87630-0, CMP, THYR, 6873-4 #### [facility] ([id number]) [address] [place] [address] Platelets (Bld) [#/Vol] 632 10*3/uL High 150-[address] [facility] Comment on above: Performed By: #### Rohith BCA, 77345-4, CMP, THYR, 6873-4 #### [facility] ([id number]) [address] [place] [address] RBC COUNT 2.46 X10E12/L Low 3.80-5.[address] [facility] Comment on above: Performed By: #### C BCA, 92884-8, CMP, THYR, 6873-4 #### [facility] ([id number]) [address] [place] [address] WBC (Bld) [#/Vol] 13.3 10*3/uL High 4.0-11.0 [facility] Comment on above: Performed By: #### C BCA, 77900-3, CMP, THYR, 6873-4 #### [facility] ([id number]) [address] [place] [address] COMPREHENSIVE METABOLIC PANE Destin 11-16-2023 Albumin [Mass/Vol] 2.3 g/dL Low 3.2-5.3 [facility] Comment on above: Performed By: #### C BCA, 54080-8, CMP, THYR, 6873-4 #### [facility] ([id number]) [address], [address] [place] [address] ALP [Catalytic activity/Vol] 107 U/L Normal 39-[address] [facility] Comment on above: Performed By: #### C BCA, 53132-9, CMP, THYR, 6873-4 #### [facility] ([id number]) [address], [address] [place] [address] ALT [Catalytic activity/Vol] 7 U/L Normal 0-[address] [facility] Comment on above: Performed By: #### C BCA, 23066-1, CMP, THYR, 6873-4 #### [facility] ([id number]) [address], [address] [place] [address] Anion gap [Moles/Vol] 8 mmol/L Normal 5-[address] [facility] Comment on above: Performed By: #### C BCA, 70534-4, CMP, THYR, 6873-4 #### [facility] ([id number]) [address], [address] [place] [address] AST [Catalytic activity/Vol] 17 U/L Normal 0-[address] [facility] Comment on above: Performed By: #### C BCA, 32164-1, CMP, THYR, 6873-4 #### [facility] ([id number]) [address], [address] [place] [address] Bilirubin [Mass/Vol] 0.2 mg/dL Low 0.3-1.2 [facility] Comment on above: Performed By: #### C BCA, 95748-5, CMP, THYR, 6873-4 #### [facility] ([id number]) [address], [address] [place] [address] Calcium [Mass/Vol] 7.2 mg/dL Low 8.5-10.5 [facility] Comment on above: Performed By: #### C BCA, 54991-7, CMP, THYR, 6873-4 #### [facility] ([id number]) [address], [address] [place] [address] Chloride [Moles/Vol] 114 mmol/L High 98-109 [facility] Comment on above: Performed By: #### C BCA, 37369-1, CMP, THYR, 6873-4 #### [facility] ([id number]) [address] [place] [address] CO2 [Moles/Vol] 19 mmol/L Low 22-[address] [facility] Comment on above: Performed By: #### C BCA, 57077-6, CMP, THYR, 6873-4 #### [facility] ([id number]) [address] [place] [address] Creatinine [Mass/Vol] 1.30 mg/dL High 0.40-1.[address] [facility] Comment on above: Result Comment: METH OD TRACEABLE TO IDMS STANDARD Performed By: #### C BCA, 23171-9, CMP, THYR, 6873-4 #### [facility] ([id number]) [address], [address] [place] [address] GFR/1.73 sq M.predicted among non-blacks MDRD (S/P/Bld) [Vol rate/Area] 45 mL/min/{1.73_m2} Low >[address] [facility] Comment on above: Result Comment: Reported eGFR is based on the CKD-EPI 2020 equation that does not use a race coefficient. Performed By: #### C BCA, 86186-1, CMP, THYR, 6873-4 #### [facility] ([id number]) [address], [address] [place] [address] Glucose [Mass/Vol] 121 mg/dL High 65-99 [facility] Comment on above: Performed By: #### C BCA, 44259-3, CMP, THYR, 6873-4 #### [facility] ([id number]) [address], [address] [place] [address] Potassium [Moles/Vol] 4.3 mmol/L Normal 3.5-5.[address] [facility] Comment on above: Performed By: #### C BCA, 22239-8, CMP, THYR, 6873-4 #### [facility] ([id number]) [address], [address] [place] [address] Protein [Mass/Vol] 5.5 g/dL Low 6.0-8.0 [facility] Comment on above: Performed By: #### C BCA, 46966-4, CMP, THYR, 6873-4 #### [facility] ([id number]) [address], [address] [place] [address] Sodium [Moles/Vol] 141 mmol/L Normal 134-146 [facility] Comment on above: Performed By: #### C BCA, 68648-1, CMP, THYR, 6873-4 #### [facility] ([id number]) [address], [address] [place] [address] Urea nitrogen [Mass/Vol] 38 mg/dL High 5-[address] [facility] Comment on above: Performed By: #### C BCA, 81705-6, CMP, THYR, 6873-4 #### [facility] ([id number]) [address] [place] [address] Lactate (P abida) [Moles/Vol]o n 11-16-2023 LACTATE W/REFLEX 1.3 mmol/L Normal 0.4-2.0 [facility] Comment on above: Result Comment: Result did not trigger repeat Lactate, re-order if needed. Performed By: #### C BCA, 04395-0, CMP, THYR, 6873-4 #### [facility] ([id number]) [address], [address] [place] [address] MAGNESIUMon 11-16-2023 Magnesium [Mass/Vol] 1.6 mg/dL Low 1.8-2.6 [facility] Comment on above: Performed By: #### C JAVIER, 09325-0, CMP, THYR, 6873-4 #### [facility] ([id number]) [address] [place] [address] BLOOD CULTUREon 11-15-2023 Bacteria identified Aer cx Nom (Bld) SPECIMEN NOTES SUBOPTIMAL VOLUME OF BLOOD COLLECTED, RESULTS MAY BE AFFECTED. CULTURE RESULTS NO GROWTH 5 DAYS Normal [facility] Comment on above: Performed By: #### C BCA, 93347-0, CMP, THYR, 6873-4 #### [facility] ([id number]) [address] [address] CBC AND AUTO DIFFon 11-15-19 24 ABSOLUTE BASOPHIL 0.1 X10E9/L Normal 0.0-0.2 [facility] Comment on above: Performed By: #### C BCA, 92509-3, CMP, THYR, 6873-4 #### [facility] ([id number]) [address], [address] [place] [address] ABSOLUTE NEUTROPHIL 15.3 X10E9/L High 1.5-6.[address] [facility] Comment on above: Performed By: #### C BCA, 98530-4, CMP, THYR, 6873-4 #### [facility] ([id number]) [address], [address] [place] [address] Basophils/100 WBC (Bld) 0.5 % Normal [facility] Comment on above: Performed By: #### C BCA, 56346-5, CMP, THYR, 6873-4 #### [facility] ([id number]) [address], [facility] [address] [place] [address] Eosinophils (Bld) [#/Vol] 0.2 10*3/uL Normal 0.0-0.[address] [facility] Comment on above: Performed By: #### C BCA, 40044-3, CMP, THYR, 6873-4 #### [facility] ([id number]) [address] [address] [place] [address] Eosinophils/100 WBC (Bld) 1.3 % Normal [facility] Comment on above: Performed By: #### C BCA, 74183-9, CMP, THYR, 6873-4 #### [facility] ([id number]) [address] [address] [place] [address] Erythrocyte distribution width (RBC) [Ratio] 15.9 % High 11.5-15.[address] [facility] Comment on above: Performed By: #### C BCA, 18586-9, CMP, THYR, 6873-4 #### [facility] ([id number]) [address] [address] [place] [address] Hematocrit (Bld) [Volume fraction] 22.9 % Low 35-[address] [facility] Comment on above: Performed By: #### C BCA, 21550-1, CMP, THYR, 6873-4 #### [facility] ([id number]) [address] [address] [place] [address] Hemoglobin (Bld) [Mass/Vol] 7.7 g/dL Low 11.7-15.[address] [facility] Comment on above: Performed By: #### C BCA, 82772-0, CMP, THYR, 6873-4 #### [facility] ([id number]) [address] [address] Lymphocytes (Bld) [#/Vol] 1.0 10*3/uL Normal 1.0-3.[address] [facility] Comment on above: Performed By: #### C BCA, 57008-6, CMP, THYR, 6873-4 #### [facility] ([id number]) [address] [address] Lymphocytes/100 WBC (Bld) 5.6 % Normal [facility] Comment on above: Performed By: #### C BCA, 82928-4, CMP, THYR, 6873-4 #### [facility] ([id number]) [address] [address] MCH (RBC) [Entitic mass] 30.8 pg Normal 27-[address] [facility] Comment on above: Performed By: #### C BCA, 29787-3, CMP, THYR, 6873-4 #### [facility] ([id number]) [address] [address] MCHC (RBC) [Mass/Vol] 33.6 g/dL Normal 32-36 [facility] Comment on above: Performed By: #### C BCA, 90253-8, CMP, THYR, 6873-4 #### [facility] ([id number]) [address] [address] [place] [address] MCV (RBC) [Entitic vol] 92 fL Normal 80-100 [facility] Comment on above: Performed By: #### C BCA, 97410-8, CMP, THYR, 6873-4 #### [facility] ([id number]) [address], [address] [place] [address] Monocytes (Bld) [#/Vol] 0.9 10*3/uL Normal 0-0.[address] [facility] Comment on above: Performed By: #### C BCA, 27761-7, CMP, THYR, 6873-4 #### [facility] ([id number]) [address], [facility] [address] [place] [address] Monocytes/100 WBC (Bld) 5.1 % Normal P [facility] Comment on above: Performed By: #### C BCA, 45897-3, CMP, THYR, 6873-4 #### [facility] ([id number]) [address], [address] [place] [address] Neutrophils/100 WBC (Bld) 87.5 % Normal [facility] Comment on above: Performed By: #### Rohith BCA, 70734-4, CMP, THYR, 6873-4 #### [facility] ([id number]) [address] [place] [address] Platelet mean volume (Bld) [Entitic vol] 8.5 fL Normal 7-[address] [facility] Comment on above: Performed By: #### C BCA, 78385-6, CMP, THYR, 6873-4 #### [facility] ([id number]) [address], [address] [place] [address] Platelets (Bld) [#/Vol] 559 10*3/uL High 150-[address] [facility] Comment on above: Performed By: #### C BCA, 74382-6, CMP, THYR, 6873-4 #### [facility] ([id number]) [address], [address] [place] [address] RBC COUNT 2.49 X10E12/L Low 3.80-5.[address] [facility] Comment on above: Performed By: #### C BCA, 08219-3, CMP, THYR, 6873-4 #### [facility] ([id number]) [address], [address] [place] [address] WBC (Bld) [#/Vol] 17.5 10*3/uL High 4.0-11.0 [facility] Comment on above: Performed By: #### C BCA, 11190-6, CMP, THYR, 6873-4 #### [facility] ([id number]) [address], [address] [place] [address] COMPREHENSIVE METABOLIC PANE Destin 11-15-2023 Albumin [Mass/Vol] 2.4 g/dL Low 3.2-5.3 [facility] Comment on above: Performed By: #### C BCA, 89918-7, CMP, THYR, 6873-4 #### [facility] ([id number]) [address], [address] [place] [address] ALP [Catalytic activity/Vol] 109 U/L Normal 39-[address] [facility] Comment on above: Performed By: #### C BCA, 16022-9, CMP, THYR, 6873-4 #### [facility] ([id number]) [address], [address] [place] [address] ALT [Catalytic activity/Vol] 5 U/L Normal 0-[address] [facility] Comment on above: Performed By: #### C BCA, 29451-4, CMP, THYR, 6873-4 #### [facility] ([id number]) [address], [address] [place] [address] Anion gap [Moles/Vol] 9 mmol/L Normal 5-[address] [facility] Comment on above: Performed By: #### C BCA, 82375-5, CMP, THYR, 6873-4 #### [facility] ([id number]) [address], [address] [place] [address] AST [Catalytic activity/Vol] 10 U/L Normal 0-[address] [facility] Comment on above: Performed By: #### C BCA, 59211-3, CMP, THYR, 6873-4 #### [facility] ([id number]) [address], [address] [place] [address] Bilirubin [Mass/Vol] 0.2 mg/dL Low 0.3-1.2 [facility] Comment on above: Performed By: #### C BCA, 30397-1, CMP, THYR, 6873-4 #### [facility] ([id number]) [address], [address] [place] [address] Calcium [Mass/Vol] 7.4 mg/dL Low 8.5-10.5 [facility] Comment on above: Performed By: #### C BCA, 38521-2, CMP, THYR, 6873-4 #### [facility] ([id number]) [address], [address] [place] [address] Chloride [Moles/Vol] 112 mmol/L High 98-109 [facility] Comment on above: Performed By: #### C BCA, 87051-8, CMP, THYR, 6873-4 #### [facility] ([id number]) [address], [address] [place] [address] CO2 [Moles/Vol] 16 mmol/L Low 22-[address] [facility] Comment on above: Performed By: #### C BCA, 39907-8, CMP, THYR, 6873-4 #### [facility] ([id number]) [address], [address] [place] [address] Creatinine [Mass/Vol] 1.59 mg/dL High 0.40-1.[address] [facility] Comment on above: Result Comment: METH OD TRACEABLE TO IDMS STANDARD Performed By: #### C BCA, 37527-1, CMP, THYR, 6873-4 #### [facility] ([id number]) [address] [address] [place] [address] GFR/1.73 sq M.predicted among non-blacks MDRD (S/P/Bld) [Vol rate/Area] 35 mL/min/{1.73_m2} Low >[address] [facility] Comment on above: Result Comment: Reported eGFR is based on the CKD-EPI 2020 equation that does not use a race coefficient. Performed By: #### C BCA, 21362-6, CMP, THYR, 6873-4 #### [facility] ([id number]) [address] [address] [place] [address] Glucose [Mass/Vol] 124 mg/dL High 65-99 [facility] Comment on above: Performed By: #### C BCA, 30249-9, CMP, THYR, 6873-4 #### [facility] ([id number]) [address] [address] [place] [address] Potassium [Moles/Vol] 4.1 mmol/L Normal 3.5-5.[address] [facility] Comment on above: Performed By: #### C BCA, 04835-0, CMP, THYR, 6873-4 #### [facility] ([id number]) [address] [address] [place] [address] Protein [Mass/Vol] 5.6 g/dL Low 6.0-8.0 [facility] Comment on above: Performed By: #### C BCA, 79010-1, CMP, THYR, 6873-4 #### [facility] ([id number]) [address] [address] [place] [address] Sodium [Moles/Vol] 137 mmol/L Normal 134-146 [facility] Comment on above: Performed By: #### C BCA, 54708-0, CMP, THYR, 6873-4 #### [facility] ([id number]) [address] [address] [place] [address] Urea nitrogen [Mass/Vol] 49 mg/dL High 5-[address] [facility] Comment on above: Performed By: #### C BCA, 64605-7, CMP, THYR, 6873-4 #### [facility] ([id number]) [address] [place] [address] MAGNESIUMon 11-15-2023 Magnesium [Mass/Vol] 1.8 mg/dL Normal 1.8-2.6 [facility] Comment on above: Performed By: #### C BCA, 09102-4, CMP, THYR, 6873-4 #### [facility] ([id number]) [address], [address] [address] CBC AND AUTO DIFFon 11-14-19 24 ABSOLUTE BASOPHIL 0.1 X10E9/L Normal 0.0-0.2 [facility] Comment on above: Performed By: #### C BCA, 63925-1, CMP, THYR, 6873-4 #### [facility] ([id number]) [address], [address] [place] [address] ABSOLUTE NEUTROPHIL 15.6 X10E9/L High 1.5-6.[address] [facility] Comment on above: Performed By: #### C BCA, 35693-5, CMP, THYR, 6873-4 #### [facility] ([id number]) [address], [address] [place] [address] Basophils/100 WBC (Bld) 0.4 % Normal [facility] Comment on above: Performed By: #### C BCA, 34708-2, CMP, THYR, 6873-4 #### [facility] ([id number]) [address] [place] [address] Eosinophils (Bld) [#/Vol] 0.2 10*3/uL Normal 0.0-0.[address] [facility] Comment on above: Performed By: #### C BCA, 10789-1, CMP, THYR, 6873-4 #### [facility] ([id number]) [address] [place] [address] Eosinophils/100 WBC (Bld) 1.2 % Normal [facility] Comment on above: Performed By: #### C BCA, 70872-8, CMP, THYR, 6873-4 #### [facility] ([id number]) [address] [address] [place] [address] Erythrocyte distribution width (RBC) [Ratio] 15.6 % High 11.5-15.[address] [facility] Comment on above: Performed By: #### C BCA, 77179-3, CMP, THYR, 6873-4 #### [facility] ([id number]) [address] [address] [place] [address] Hematocrit (Bld) [Volume fraction] 21.1 % Low 35-[address] [facility] Comment on above: Performed By: #### C BCA, 25131-3, CMP, THYR, 6873-4 #### [facility] ([id number]) [address] [address] [place] [address] Hemoglobin (Bld) [Mass/Vol] 6.8 g/dL Critically low 11.7-15.[address] [facility] Comment on above: Performed By: #### Rohith BCA, 54265-6, CMP, THYR, 6873-4 #### [facility] ([id number]) [address] [address] [place] [address] Lymphocytes (Bld) [#/Vol] 1.0 10*3/uL Normal 1.0-3.[address] [facility] Comment on above: Performed By: #### C BCA, 50235-3, CMP, THYR, 6873-4 #### [facility] ([id number]) [address] [place] [address] Lymphocytes/100 WBC (Bld) 5.4 % Normal [facility] Comment on above: Performed By: #### C BCA, 08471-3, CMP, THYR, 6873-4 #### [facility] ([id number]) [address] [place] [address] MCH (RBC) [Entitic mass] 29.9 pg Normal 27-[address] [facility] Comment on above: Performed By: #### C BCA, 29287-0, CMP, THYR, 6873-4 #### [facility] ([id number]) [address] [address] [place] [address] MCHC (RBC) [Mass/Vol] 32.3 g/dL Normal 32-[address] [facility] Comment on above: Performed By: #### C BCA, 68888-6, CMP, THYR, 6873-4 #### [facility] ([id number]) [address] [place] [address] MCV (RBC) [Entitic vol] 93 fL Normal 80-100 [facility] Comment on above: Performed By: #### C BCA, 50637-0, CMP, THYR, 6873-4 #### [facility] ([id number]) [address] [address] [place] [address] Monocytes (Bld) [#/Vol] 1.0 10*3/uL High 0-0.[address] [facility] Comment on above: Performed By: #### C BCA, 71724-4, CMP, THYR, 6873-4 #### [facility] ([id number]) [address] [address] [place] [address] Monocytes/100 WBC (Bld) 5.4 % Normal [facility] Comment on above: Performed By: #### C BCA, 94292-2, CMP, THYR, 6873-4 #### [facility] ([id number]) [address] [place] [address] Neutrophils/100 WBC (Bld) 87.6 % Normal [facility] Comment on above: Performed By: #### C BCA, 85974-9, CMP, THYR, 6873-4 #### [facility] ([id number]) [address] [address] Platelet mean volume (Bld) [Entitic vol] 8.8 fL Normal 7-[address] [facility] Comment on above: Performed By: #### C BCA, 31577-8, CMP, THYR, 6873-4 #### [facility] ([id number]) [address] [address] Platelets (Bld) [#/Vol] 493 10*3/uL High 150-[address] [facility] Comment on above: Performed By: #### C BCA, 02136-8, CMP, THYR, 6873-4 #### [facility] ([id number]) [address] [address] RBC COUNT 2.28 X10E12/L Low 3.80-5.[address] [facility] Comment on above: Performed By: #### C BCA, 61715-7, CMP, THYR, 6873-4 #### [facility] ([id number]) [address] [address] WBC (Bld) [#/Vol] 17.8 10*3/uL High 4.0-11.0 [facility] Comment on above: Performed By: #### C BCA, 17049-7, CMP, THYR, 6873-4 #### [facility] ([id number]) [address] [address] COMPREHENSIVE METABOLIC PANE Destin 11-14-2023 Albumin [Mass/Vol] 2.4 g/dL Low 3.2-5.3 [facility] Comment on above: Performed By: #### C BCA, 50244-0, CMP, THYR, 6873-4 #### [facility] ([id number]) [address] [place] [address] ALP [Catalytic activity/Vol] 97 U/L Normal 39-[address] [facility] Comment on above: Performed By: #### C BCA, 14117-7, CMP, THYR, 6873-4 #### [facility] ([id number]) [address] [place] [address] ALT [Catalytic activity/Vol] 5 U/L Normal 0-[address] [facility] Comment on above: Performed By: #### C BCA, 40376-4, CMP, THYR, 6873-4 #### [facility] ([id number]) [address] [place] [address] Anion gap [Moles/Vol] 11 mmol/L Normal 5-[address] [facility] Comment on above: Performed By: #### C BCA, 81051-3, CMP, THYR, 6873-4 #### [facility] ([id number]) [address] [place] [address] AST [Catalytic activity/Vol] 9 U/L Normal 0-[address] [facility] Comment on above: Performed By: #### C BCA, 64483-6, CMP, THYR, 6873-4 #### [facility] ([id number]) [address] [place] [address] Bilirubin [Mass/Vol] 0.2 mg/dL Low 0.3-1.2 [facility] Comment on above: Performed By: #### C BCA, 16007-2, CMP, THYR, 6873-4 #### [facility] ([id number]) [address] [place] [address] Calcium [Mass/Vol] 7.4 mg/dL Low 8.5-10.5 [facility] Comment on above: Performed By: #### C BCA, 84441-3, CMP, THYR, 6873-4 #### [facility] ([id number]) [address] [place] [address] Chloride [Moles/Vol] 107 mmol/L Normal 98-109 [facility] Comment on above: Performed By: #### C BCA, 97824-7, CMP, THYR, 6873-4 #### [facility] ([id number]) [address] [place] [address] CO2 [Moles/Vol] 16 mmol/L Low 22-[address] [facility] Comment on above: Performed By: #### C BCA, 49608-4, CMP, THYR, 6873-4 #### [facility] ([id number]) [address] [place] [address] Creatinine [Mass/Vol] 2.06 mg/dL High 0.40-1.[address] [facility] Comment on above: Result Comment: METH OD TRACEABLE TO IDMS STANDARD Performed By: #### C BCA, 00738-1, CMP, THYR, 6873-4 #### [facility] ([id number]) [address] [place] [address] GFR/1.73 sq M.predicted among non-blacks MDRD (S/P/Bld) [Vol rate/Area] 26 mL/min/{1.73_m2} Low >[address] [facility] Comment on above: Result Comment: Reported eGFR is based on the CKD-EPI 2020 equation that does not use a race coefficient. Performed By: #### C BCA, 40738-5, CMP, THYR, 6873-4 #### [facility] ([id number]) [address] [place] [address] Glucose [Mass/Vol] 103 mg/dL High 65-99 [facility] Comment on above: Performed By: #### C BCA, 15835-2, CMP, THYR, 6873-4 #### [facility] ([id number]) [address] [place] [address] Potassium [Moles/Vol] 3.9 mmol/L Normal 3.5-5.[address] [facility] Comment on above: Performed By: #### C BCA, 77422-8, CMP, THYR, 6873-4 #### [facility] ([id number]) [address] [place] [address] Protein [Mass/Vol] 5.3 g/dL Low 6.0-8.0 [facility] Comment on above: Performed By: #### C BCA, 18934-9, CMP, THYR, 6873-4 #### [facility] ([id number]) [address] [place] [address] Sodium [Moles/Vol] 134 mmol/L Normal 134-146 [facility] Comment on above: Performed By: #### C BCA, 31477-0, CMP, THYR, 6873-4 #### [facility] ([id number]) [address] [place] [address] Urea nitrogen [Mass/Vol] 61 mg/dL High 5-[address] [facility] Comment on above: Performed By: #### C BCA, 19429-0, CMP, THYR, 6873-4 #### [facility] ([id number]) [address] [place] [address] HGB AND HCTon 11-14-2023 Hematocrit (Bld) [Volume fraction] 23.7 % Low 35-[address] [facility] Comment on above: Performed By: #### C BCA, 99255-3, CMP, THYR, 6873-4 #### [facility] ([id number]) [address], [address] [place] [address] Hemoglobin (Bld) [Mass/Vol] 7.7 g/dL Low 11.7-15.[address] [facility] Comment on above: Performed By: #### C BCA, 83128-9, CMP, THYR, 6873-4 #### [facility] ([id number]) [address], [address] [place] [address] MAGNESIUMon 11-14-2023 Magnesium [Mass/Vol] 1.8 mg/dL Normal 1.8-2.6 [facility] Comment on above: Performed By: #### C JAVIER, 57839-3, CMP, THYR, 6873-4 #### [facility] ([id number]) [address], [address] [place] [address] PHOSPHORUSon 11-14-2023 Phosphate [Mass/Vol] 3.8 mg/dL Normal 2.4-4.9 [facility] Comment on above: Performed By: #### C JAVIER, 71941-5, CMP, THYR, 6873-4 #### [facility] ([id number]) [address], [address] [place] [address] BLOOD CULTUREon 11-13-2023 Bacteria identified Aer cx Nom (Bld) SPECIMEN NOTES SUBOPTIMAL VOLUME OF BLOOD COLLECTED, RESULTS MAY BE AFFECTED. CULTURE RESULTS ESCHERICHIA COLI Escherichia coli detected by PCR. CTXM gene detected by PCR (ESBL). Organism: ESCHERICHIA COLI Antibiotic Interpretation VIRGINIE Status AMPICILLIN R >=32 F AMP/SULBACTAM R >=32/16 F CEFAZOLIN R >=64 F CEFTRIAXONE R >=64 F CIPROFLOXACIN R >=4 F GENTAMICIN R >=16 F LEVOFLOXACIN R >=8 F PIPERACIL/TAZOBACTA M S 8 F TOBRAMYCIN R >=16 F TRIMETH/SULFAMETHOX AZOLE R >=16/304 F ESBL Test A F ESBL Test Organism produces an extended spectrum beta lactamase (ESBL). It may be clinically resistant to therapy with penicillins, cephalosporins, or aztreonam. Contact laboratory if further information is required. F ERTAPENEM S <=0.5 F Susceptible [facility] Comment on above: Performed By: #### C BCA, 58582-1, CMP, THYR, 6873-4 #### [facility] ([id number]) [address] [address] [place] [address] Bacteria identified Aer cx Nom (Bld) CULTURE RESULTS NO GROWTH 5 DAYS Normal [facility] Beta hydroxybutyrate [Moles/ Vol]on 11-13-2023 BetaHydroxybutyrate 0.16 mmol/L Normal 0.02-0.27 [facility] Comment on above: Performed By: #### C BCA, 54841-1, CMP, THYR, 6873-4 #### [facility] ([id number]) [address] [address] CBC AND AUTO DIFFon 11-13-19 24 ABSOLUTE BASOPHIL 0.0 X10E9/L Normal 0.0-0.2 [facility] Comment on above: Performed By: #### C BCA, 84621-8, CMP, THYR, 6873-4 #### [facility] ([id number]) [address] [address] ABSOLUTE NEUTROPHIL 17.3 X10E9/L High 1.5-6.[address] [facility] Comment on above: Performed By: #### Rohith BCA, 19123-8, CMP, THYR, 6873-4 #### [facility] ([id number]) [address] [address] Basophils/100 WBC (Bld) 0.2 % Normal [facility] Comment on above: Performed By: #### C BCA, 35350-5, CMP, THYR, 6873-4 #### [facility] ([id number]) [address] [address] [place] [address] Eosinophils (Bld) [#/Vol] 0.1 10*3/uL Normal 0.0-0.[address] [facility] Comment on above: Performed By: #### C BCA, 04847-8, CMP, THYR, 6873-4 #### [facility] ([id number]) [address] [place] [address] Eosinophils/100 WBC (Bld) 0.3 % Normal [facility] Comment on above: Performed By: #### C BCA, 31336-8, CMP, THYR, 6873-4 #### [facility] ([id number]) [address] [facility] [address] [place] [address] Erythrocyte distribution width (RBC) [Ratio] 15.6 % High 11.5-15.[address] [facility] Comment on above: Performed By: #### C BCA, 74416-6, CMP, THYR, 6873-4 #### [facility] ([id number]) [address] [address] [place] [address] Hematocrit (Bld) [Volume fraction] 24.1 % Low 35-[address] [facility] Comment on above: Performed By: #### C BCA, 12285-5, CMP, THYR, 6873-4 #### [facility] ([id number]) [address] [address] [place] [address] Hemoglobin (Bld) [Mass/Vol] 7.8 g/dL Low 11.7-15.[address] [facility] Comment on above: Performed By: #### C BCA, 31234-5, CMP, THYR, 6873-4 #### [facility] ([id number]) [address] [place] [address] Lymphocytes (Bld) [#/Vol] 1.2 10*3/uL Normal 1.0-3.[address] [facility] Comment on above: Performed By: #### C BCA, 27928-9, CMP, THYR, 6873-4 #### [facility] ([id number]) [address] [place] [address] Lymphocytes/100 WBC (Bld) 6.1 % Normal [facility] Comment on above: Performed By: #### C BCA, 37313-1, CMP, THYR, 6873-4 #### [facility] ([id number]) [address] [address] [place] [address] MCH (RBC) [Entitic mass] 29.7 pg Normal 27-[address] [facility] Comment on above: Performed By: #### C BCA, 53541-2, CMP, THYR, 6873-4 #### [facility] ([id number]) [address] [address] [place] [address] MCHC (RBC) [Mass/Vol] 32.4 g/dL Normal 32-[address] [facility] Comment on above: Performed By: #### C BCA, 12499-7, CMP, THYR, 6873-4 #### [facility] ([id number]) [address] [address] [place] [address] MCV (RBC) [Entitic vol] 92 fL Normal 80-100 P [facility] Comment on above: Performed By: #### Rohith BCA, 78990-7, CMP, THYR, 6873-4 #### [facility] ([id number]) [address] [address] Monocytes (Bld) [#/Vol] 0.7 10*3/uL Normal 0-0.[address] [facility] Comment on above: Performed By: #### C BCA, 67012-3, CMP, THYR, 6873-4 #### [facility] ([id number]) [address] [address] Monocytes/100 WBC (Bld) 3.8 % Normal P [facility] Comment on above: Performed By: #### C BCA, 67903-0, CMP, THYR, 6873-4 #### [facility] ([id number]) [address] [place] [address] Neutrophils/100 WBC (Bld) 89.6 % Normal [facility] Comment on above: Performed By: #### C BCA, 73654-4, CMP, THYR, 6873-4 #### [facility] ([id number]) [address] [facility] [address] [place] [address] Platelet mean volume (Bld) [Entitic vol] 8.8 fL Normal 7-[address] [facility] Comment on above: Performed By: #### C BCA, 34880-8, CMP, THYR, 6873-4 #### [facility] ([id number]) [address] [address] Platelets (Bld) [#/Vol] 508 10*3/uL High 150-[address] [facility] Comment on above: Performed By: #### C BCA, 77213-0, CMP, THYR, 6873-4 #### [facility] ([id number]) [address] [place] [address] RBC COUNT 2.63 X10E12/L Low 3.80-5.[address] [facility] Comment on above: Performed By: #### C BCA, 37920-2, CMP, THYR, 6873-4 #### [facility] ([id number]) [address] [address] [place] [address] WBC (Bld) [#/Vol] 19.3 10*3/uL High 4.0-11.0 [facility] Comment on above: Performed By: #### C BCA, 92275-3, CMP, THYR, 6873-4 #### [facility] ([id number]) [address] [place] [address] COMPREHENSIVE METABOLIC PANE [place] 11-13-2023 Albumin [Mass/Vol] 2.9 g/dL Low 3.2-5.3 [facility] Comment on above: Performed By: #### C BCA, 39403-5, CMP, THYR, 6873-4 #### [facility] ([id number]) [address] [place] [address] ALP [Catalytic activity/Vol] 111 U/L Normal 39-[address] [facility] Comment on above: Performed By: #### C BCA, 10803-2, CMP, THYR, 6873-4 #### [facility] ([id number]) [address] [place] [address] ALT [Catalytic activity/Vol] 5 U/L Normal 0-[address] [facility] Comment on above: Performed By: #### C BCA, 23019-5, CMP, THYR, 6873-4 #### [facility] ([id number]) [address] [place] [address] Anion gap [Moles/Vol] 12 mmol/L Normal 5-[address] [facility] Comment on above: Performed By: #### C BCA, 88235-6, CMP, THYR, 6873-4 #### [facility] ([id number]) [address] [place] [address] AST [Catalytic activity/Vol] 10 U/L Normal 0-[address] [facility] Comment on above: Performed By: #### C BCA, 27426-8, CMP, THYR, 6873-4 #### [facility] ([id number]) [address] [place] [address] Bilirubin [Mass/Vol] 0.3 mg/dL Normal 0.3-1.2 [facility] Comment on above: Performed By: #### C BCA, 65261-1, CMP, THYR, 6873-4 #### [facility] ([id number]) [address] [place] [address] Calcium [Mass/Vol] 8.1 mg/dL Low 8.5-10.5 [facility] Comment on above: Performed By: #### C BCA, 53614-7, CMP, THYR, 6873-4 #### [facility] ([id number]) [address] [place] [address] Chloride [Moles/Vol] 103 mmol/L Normal 98-109 [facility] Comment on above: Performed By: #### C BCA, 42751-7, CMP, THYR, 6873-4 #### [facility] ([id number]) [address] [place] [address] CO2 [Moles/Vol] 16 mmol/L Low 22-[address] [facility] Comment on above: Performed By: #### C BCA, 70579-3, CMP, THYR, 6873-4 #### [facility] ([id number]) [address] [place] [address] Creatinine [Mass/Vol] 2.34 mg/dL High 0.40-1.[address] [facility] Comment on above: Result Comment: METH OD TRACEABLE TO IDMS STANDARD Performed By: #### C BCA, 88775-4, CMP, THYR, 6873-4 #### [facility] ([id number]) [address] [place] [address] GFR/1.73 sq M.predicted among non-blacks MDRD (S/P/Bld) [Vol rate/Area] 22 mL/min/{1.73_m2} Low >[address] [facility] Comment on above: Result Comment: Reported eGFR is based on the CKD-EPI 2020 equation that does not use a race coefficient. Performed By: #### C BCA, 73796-7, CMP, THYR, 6873-4 #### [facility] ([id number]) [address] [place] [address] Glucose [Mass/Vol] 147 mg/dL High 65-99 [facility] Comment on above: Performed By: #### C BCA, 91322-8, CMP, THYR, 6873-4 #### [facility] ([id number]) [address] [place] [address] Potassium [Moles/Vol] 4.3 mmol/L Normal 3.5-5.[address] [facility] Comment on above: Performed By: #### C BCA, 60623-4, CMP, THYR, 6873-4 #### [facility] ([id number]) [address] [place] [address] Protein [Mass/Vol] 6.4 g/dL Normal 6.0-8.0 [facility] Comment on above: Performed By: #### C BCA, 52511-2, CMP, THYR, 6873-4 #### [facility] ([id number]) [address] [place] [address] Sodium [Moles/Vol] 131 mmol/L Low 134-146 [facility] Comment on above: Performed By: #### C BCA, 71258-4, CMP, THYR, 6873-4 #### [facility] ([id number]) [address] [place] [address] Urea nitrogen [Mass/Vol] 67 mg/dL High 5-[address] [facility] Comment on above: Performed By: #### C BCA, 54697-8, CMP, THYR, 6873-4 #### [facility] ([id number]) [address] [place] [address] Creatinine (U) [Mass/Vol]on 11-13-2023 URINE CREATININE,RDM 60.20 mg/dL Normal [facility] Comment on above: Performed By: #### C BCA, 96413-3, CMP, THYR, 6873-4 #### [facility] ([id number]) [address] [place] [address] Lactate (P abida) [Moles/Vol]o n 11-13-2023 LACTATE W/REFLEX 0.8 mmol/L Normal 0.4-2.0 [facility] Comment on above: Result Comment: Result did not trigger repeat Lactate, re-order if needed. Performed By: #### C BCA, 47758-1, CMP, THYR, 6873-4 #### [facility] ([id number]) [address] [place] [address] Protein (U) [Mass/Vol]on RANDOM URINE PROTEIN 1280 mg/L High <120 [facility] Comment on above: Performed By: #### C BCA, 98673-7, CMP, THYR, 6873-4 #### [facility] ([id number]) [address] [place] [address] THYROID PROFILEon 11-13-2023 Free T4 [Mass/Vol] 1.07 ng/dL Normal 0.61-1.60 [facility] Comment on above: Performed By: #### C BCA, 00876-0, CMP, THYR, 6873-4 #### [facility] ([id number]) [address] [place] [address] TSH 1.09 uIU/mL Normal 0.49-4.[address] [facility] Comment on above: Performed By: #### C BCA, 26742-2, CMP, THYR, 6873-4 #### [facility] ([id number]) [address] [place] [address] Troponin I.cardiac (Bld) [Ma ss/Vol]on 11-13-2023 PORTABLE TROPONIN <0.01 Normal 0.00-0.08 [facility] Comment on above: Result Comment: NEW REFERENCE RANGE Performed By: #### 4 2757-5 #### [facility] ([id number]) [address] [place] [address] URINALYSISon 11-13-2023 Bilirubin Ql (U) Negative Normal NEG [facility] Comment on above: Performed By: #### U A #### [facility] ([id number]) [address] [place] [address] BLOOD/HGB MODERATE Abnormal NEG [facility] Comment on above: Performed By: #### U A #### [facility] ([id number]) [address] [place] [address] Color (U) YELLOW Normal YELLOW [facility] Comment on above: Performed By: #### U A #### [facility] ([id number]) [address] [facility] [facility] [place] [address] Glucose Ql (U) Negative Normal NEG [facility] Comment on above: Performed By: #### U A #### [facility] ([id number]) [address] [facility] [place] [address] Ketones Ql (U) Negative Normal NEG [facility] Comment on above: Performed By: #### U A #### [facility] ([id number]) [address] [place] [address] Leukocyte esterase Test strip Ql (U) Large Abnormal NEG [facility] Comment on above: Performed By: #### U A #### [facility] ([id number]) [address] [place] [address] MUCOUS PRESENT Abnormal NONE [facility] Comment on above: Performed By: #### U A #### [facility] ([id number]) [address] [facility] [facility] [place] [address] Nitrite Ql (U) Negative Normal NEG [facility] Comment on above: Performed By: #### U A #### [facility] ([id number]) [address] [place] [address] pH (U) 5.5 [pH] Normal 5.0-8.[address] [facility] Comment on above: Performed By: #### U A #### [facility] ([id number]) [address] [address] Protein Ql (U) 70 mg/dL Abnormal NEG [facility] Comment on above: Performed By: #### U A #### [facility] ([id number]) [address] [address] R.B.CELLS 16 /hpf High 0-[address] [facility] Comment on above: Performed By: #### U A #### [facility] ([id number]) [address] [address] Specific gravity (U) [Rel density] 1.013 Normal 1.003-1.[address] [facility] Comment on above: Performed By: #### U A #### [facility] ([id number]) [address] [address] TURBIDITY HAZY Abnormal CLEAR [facility] Comment on above: Performed By: #### U A #### [facility] ([id number]) [address] [address] Urinalysis dipstick W Reflex Microscopic panel (U) URINE RECEIVED WITHOUT PRESERVATIVE-DELAYS IN TRANSPORT MAY AFFECT RESULTS.INTERPRET WITH CAUTION AND CLINICAL CORRELATION IS RECOMMENDED. Normal [facility] Comment on above: Performed By: #### U A #### [facility] ([id number]) [address] [address] Urobilinogen (U) [Mass/Vol] mg/dL Normal <1.[address] [facility] Comment on above: Performed By: #### U A #### [facility] ([id number]) [address] [address] W.B.CELLS 493 /hpf High 0-[address] [facility] Comment on above: Performed By: #### U A #### [facility] ([id number]) [address] [facility] [place] [address] URINE CULTUREon 11-13-2023 Bacteria identified Cx Nom (U) CULTURE RESULTS >100,000 ORGANISMS/mL ESCHERICHIA COLI ALONG WITH RARE NORMAL URO GENITAL TILA Organism: ESCHERICHIA COLI Antibiotic Interpretation VIRGINIE Status AMPICILLIN R >=32 F AMP/SULBACTAM R >=32/16 F CEFAZOLIN R >=64 F CEFTRIAXONE R >=64 F CIPROFLOXACIN R >=4 F GENTAMICIN R >=16 F LEVOFLOXACIN R >=8 F NITROFURANTOIN R 128 F PIPERACIL/TAZOBACTA M S 8 F TOBRAMYCIN R >=16 F TRIMETH/SULFAMETHOX AZOLE R >=16/304 F ESBL Test A F ESBL Test Organism produces an extended spectrum beta lactamase (ESBL). It may be clinically resistant to therapy with penicillins, cephalosporins, or aztreonam. Contact laboratory if further information is required. F ERTAPENEM S <=0.5 F Susceptible [facility] Comment on above: Performed By: #### C BCA, 52349-6, CMP, THYR, 6873-4 #### [facility] ([id number]) [address] [facility] [facility] [place] [address] URN MACROSCOPIC NURon 2023 BILIRUBIN CHLOE Negative Normal NEG [facility] Comment on above: Performed By: #### N UM #### [facility] ([id number]) [address] [place] [address] BLOOD/HGB CHLOE Large Abnormal NEG [facility] Comment on above: Performed By: #### N UM #### [facility] ([id number]) [address] [place] [address] GLUCOSE CHLOE Negative Normal NEG [facility] Comment on above: Performed By: #### N UM #### [facility] ([id number]) [address] [place] [address] KETONES CHLOE Negative Normal NEG [facility] Comment on above: Performed By: #### N UM #### [facility] ([id number]) [address] [place] [address] LEUKOCYTE ESTERASE CHLOE Large Abnormal NEG [facility] Comment on above: Performed By: #### N UM #### [facility] ([id number]) [address] [place] [address] NITRITE CHLOE Negative Normal NEG [facility] Comment on above: Performed By: #### N UM #### [facility] ([id number]) [address] [place] [address] PH CHLOE 5.5 Normal 5.0-8.[address] [facility] Comment on above: Performed By: #### N UM #### [facility] ([id number]) [address] [place] [address] PROTEIN CHLOE 100 mg/dL Abnormal NEG [facility] Comment on above: Performed By: #### N UM #### [facility] ([id number]) [address] [place] [address] SPECIFIC GRAVITY CHLOE 1.015 Normal 1.003-1.[address] [facility] Comment on above: Performed By: #### N UM #### [facility] ([id number]) [address] [place] [address] UROBILINOGEN CHLOE 0.2 eu/dL Normal <1.1 [facility] Comment on above: Performed By: #### N UM #### [facility] ([id number]) [address] [place] [address] US RETROPERITONEAL COMPLETEo n 11-13-2023 US RETROPERITONEAL COMPLETE US RETROPERITONEAL COMPLETE Urinary tract Ultrasound History: nidia on ckd, concerns for pyelonephritis Comparison:None Technique: Real-time ultrasound performed of the kidneys and bladder Findings: Kidneys show appropriate size and echo pattern. No hydronephrosis. Bladder grossly appropriate but incompletely distended measuring only 24 mL. Urine jets not documented. Right kidney 98 and left kidney 99 mm in length Impression: * No acute urinary tract findings. 0 Finalized by David Card MD on 11/13/2023 9:46 PM Normal [facility] Urea nitrogen (U) [Mass/Vol] on 11-13-2023 URINE UREA NITROGEN,RANDOM 420 mg/dL Normal [facility] Comment on above: Performed By: #### C BCA, 81826-9, CMP, THYR, 6873-4 #### [facility] ([id number]) [address] [place] [address] Urine collection deviceon ER EXTRA URINES ER EXTRA URINE ORDER IN PROCESS Normal [facility] XR CHEST 1 VWon 11-13-2023 XR CHEST 1 VW XR CHEST 1 VW Indication: Evaluate central line placement. TECHNIQUE: Frontal view the chest obtained portably and compared to prior exam dated 09/15/2013. FINDINGS: The heart is moderately enlarged. Mild left lower lobe airspace process is present with possible small left effusion. Central pulmonary vasculature appears congested. Right IJ central venous catheter tip overlies proximal SVC region. No pneumothorax seen. Patient's turned somewhat to the right which makes mediastinum appear more prominent. IMPRESSION: 1. Apparent congestive changes. Superimposed pneumonic process is never excluded in the appropriate clinical setting. 2. Right IJ central venous catheter placement with tip over superior SVC region and no pneumothorax. 3. Mediastinal widening is apparent but this is at least partially due to portable technique and patient position turned to the right. 0 Finalized by Anna Mcnair MD on 11/13/2023 2:32 PM Normal [facility] aPTT Coag (PPP) [Time]on aPTT Coag (Bld) [Time] 32 s Normal 26-37 [facility] Comment on above: Performed By: #### C BCA, 48772-0, CMP, THYR, 6873-4 #### [facility] ([id number]) [address] [place] [address] Vital Signs Date Time Vital Sign Value Performing Clinician Eliazbeth campbell 11-28-2023 08:40-0500 Body height 165.1 cm January Oberneder TIGHTENING MACHINE OPERATOR-STATISTICAL REPORTING ANALYST Work Phone: [facility] [employer] 11-28-2023 08:40-0500 Body mass index (BMI) [Ratio] 23.53 kg/m2 January Oberneder TIGHTENING MACHINE OPERATOR-STATISTICAL REPORTING ANALYST Work Phone: [facility] [employer] 11-28-2023 08:40-0500 Body weight 64.14 kg January Oberneder TIGHTENING MACHINE OPERATOR-STATISTICAL REPORTING ANALYST [facility] 11-28-2023 08:40-0500 Diastolic blood pressure 68 mm[Hg] January Oberneder TIGHTENING MACHINE OPERATOR-STATISTICAL REPORTING ANALYST [facility] 11-28-2023 08:40-0500 Heart rate 62 /min January Oberneder TIGHTENING MACHINE OPERATOR-STATISTICAL REPORTING ANALYST Work Phone: [facility] [employer] 11-28-2023 08:40-0500 Systolic blood pressure 132 mm[Hg] January Oberneder TIGHTENING MACHINE OPERATOR-STATISTICAL REPORTING ANALYST Work Phone: [facility] [employer] 11-13-2023 08:09-0500 Body height 152.4 cm Karmen Bagley MD [facility] 11-13-2023 08:09-0500 Body mass index (BMI) [Ratio] 26.17 kg/m2 Karmen Bagley MD [facility] 11-13-2023 08:09-0500 Body weight 60.78 kg Karmen Bagley MD [facility] 11-13-2023 08:09-0500 Diastolic blood pressure 42 mm[Hg] Karmen Bagley MD [facility] 11-13-2023 08:09-0500 Heart rate 58 /min Karmen Bagley MD Work Phone: [facility] 11-13-2023 08:09-0500 SaO2% (BldA) [Mass fraction] 95 % Karmen Bagley MD Work Phone: [facility] 11-13-2023 08:09-0500 Systolic blood pressure 73 mm[Hg] Karmen Bagley MD Work Phone: [facility] Encounters Encounter Date Encounter Type Care Provider Facility Start: 01-07-2024 Telephone encounter Nery Manning CMA [facility] Start: 12-26-2023 Telephone encounter Tayla rinaldi LPN N [facility] Start: 12-11-2023 Telephone encounter Li hernandes TIGHTENING MACHINE OPERATOR-STATISTICAL REPORTING ANALYST Work Phone: [facility] Start: 12-10-2023 End: 12-10-2023 ambulatory [facility] Start: 12-02-2023 Telephone encounter Nery Manning CMA N [facility] Start: 11-29-2023 Telephone encounter Beatrice Goldstein RN [facility] Start: 11-28-2023 End: 11-28-2023 Office outpatient visit 25 minutes January Simpson TIGHTENING MACHINE OPERATOR-STATISTICAL REPORTING ANALYST Work Phone: [facility] Comment on above: NIDIA (acute kidney in jury) ([facility]) (Primary Dx); Stage 3a chronic kidney disease ([facility]) Start: 11-27-2023 End: 11-27-2023 ambulatory Lizandro Mcpherson Facility:[facility] Start: 11-27-2023 End: 11-27-2023 ambulatory MD Lizandro Mcpherson Work Phone: [facility] Work Phone: Start: 11-27-2023 End: 11-27-2023 Patient encounter procedure MD Lizandro Mcpherson Work Phone: [facility] Start: 11-26-2023 End: 11-26-2023 ambulatory Lizandro Mcpherson Facility:[facility] Start: 11-26-2023 End: 11-26-2023 ambulatory MD Lizandro Mcpherson Work Phone: [facility] Work Phone: Start: 11-26-2023 End: 11-26-2023 Departed Referred MD Lizandro Mcpherson Work Phone: [facility] [place] Work Phone: Start: 11-18-2023 End: 11-18-2023 Orders Only Li Alcantar TIGHTENING MACHINE OPERATOR-STATISTICAL REPORTING ANALYST Work Phone: [facility] Comment on above: Stage 3b chronic kid jen disease ([facility]) (Primary Dx) Start: 11-13-2023 End: 11-17-2023 Evaluation and management of inpatient [facility] Start: 11-13-2023 End: 11-17-2023 Emergency department patient visit [facility] Start: 11-13-2023 End: 11-17-2023 Evaluation and management of inpatient [facility] Start: 11-13-2023 End: 11-13-2023 Office outpatient new 45 minutes Karmen Bagley MD Work Phone: [facility] Comment on above: Stage 3b chronic kid jen disease (CKD) ([facility]) (Primary Dx); Stage 3 chronic kidney disease, unspecified whether stage 3a or 3b CKD ([facility]-HCC) Start: 10-29-2023 Telephone encounter Shanae King [facility] Start: 01-02-2023 End: 01-02-2023 ambulatory LIME H[employer] INSPECTOR Radha Santos Work Phone: [facility] Work Phone: Start: 01-02-2023 End: 01-02-2023 Departed Referred LIME HIDE INSPECTOR Radha Dashkenneth Work Phone: [facility] [place] Work Phone: Plan of Treatment Date Care Activity Detail Author Start: 11-28-2024 Adult BMI Screening Adult BMI Screening [facility] Start: 11-28-2024 Tobacco Screening Tobacco Screening [facility] Start: 11-16-2024 Adult BMI Screening Adult BMI Screening [facility] Start: 11-13-2024 Adult BMI Screening Adult BMI Screening [facility] Start: 08-20-2024 Tobacco Screening Tobacco Screening [facility] Start: 04-23-2024 End: 04-23-2024 Patient encounter procedure 04/23/2024 12:30 PM EDT [facility] [address] [facility] [address] [place] [phone] Li Alcantar, TIGHTENING MACHINE OPERATOR-STATISTICAL REPORTING ANALYST [address] [facility] [address] [place] [address] Cesario Keenan MD [address] [facility] [address] [place] [address] [facility] Start: 01-16-2024 End: 01-16-2024 Patient encounter procedure 01/16/2024 8:20 AM EST Office Visit [facility] [address] [place] [phone] January Simpson, TIGHTENING MACHINE OPERATOR-STATISTICAL REPORTING ANALYST [address] [facility], [address] [place], [place] [phone] [facility] Start: 12-05-2023 End: 11-28-2024 FELIX Screen w/ Reflex FELIX Screen w/ Reflex Lab Routine Stage 3a chronic kidney disease (CMS-HCC) Expected: 12/05/2023 (Approximate), Expires: 11/28/2024 [facility] Comment on above: Expected: 12/05/2023 (Approximate), Expi res: 11/28/2024 Start: 12-05-2023 End: 11-28-2024 ANCA ANCA Lab Routine Stage 3a chronic kidney disease ([facility]) Expected: 12/05/2023 (Approximate), Expires: 11/28/2024 [facility] Comment on above: Expected: 12/05/2023 (Approximate), Expi res: 11/28/2024 Start: 12-05-2023 End: 11-28-2024 Anti-DNA antibody, double-stranded Anti-DNA antibody, double-stranded Lab Routine Stage 3a chronic kidney disease ([facility]) Expected: 12/05/2023 (Approximate), Expires: 11/28/2024 [facility] Comment on above: Expected: 12/05/2023 (Approximate), Expi res: 11/28/2024 Start: 12-05-2023 End: 11-28-2024 Complement profile (C3 AND C4) Complement profile (C3 AND C4) Lab Routine Stage 3a chronic kidney disease ([facility]) Expected: 12/05/2023 (Approximate), Expires: 11/28/2024 [facility] Comment on above: Expected: 12/05/2023 (Approximate), Expi res: 11/28/2024 Start: 12-05-2023 End: 11-28-2024 Free light chains Free light chains Lab Routine Stage 3a chronic kidney disease ([facility]) Expected: 12/05/2023 (Approximate), Expires: 11/28/2024 [facility] Comment on above: Expected: 12/05/2023 (Approximate), Expi res: 11/28/2024 Start: 12-05-2023 End: 11-28-2024 Glomerular basement membrane IgG AB Glomerular basement membrane IgG AB Lab Routine Stage 3a chronic kidney disease ([facility]) Expected: 12/05/2023 (Approximate), Expires: 11/28/2024 [facility] Comment on above: Expected: 12/05/2023 (Approximate), Expi res: 11/28/2024 Start: 12-05-2023 End: 11-28-2024 Myeloperoxidase AB Myeloperoxidase AB Lab Routine Stage 3a chronic kidney disease ([facility]) Expected: 12/05/2023 (Approximate), Expires: 11/28/2024 [facility] Comment on above: Expected: 12/05/2023 (Approximate), Expi res: 11/28/2024 Start: 12-05-2023 End: 11-28-2024 Protein electrophoresis, serum Protein electrophoresis, serum Lab Routine Stage 3a chronic kidney disease ([facility]) Expected: 12/05/2023 (Approximate), Expires: 11/28/2024 [facility] Comment on above: Expected: 12/05/2023 (Approximate), Expi res: 11/28/2024 Start: 12-05-2023 End: 11-28-2024 Proteinase 3 AB PR3 Proteinase 3 AB PR3 Lab Routine Stage 3a chronic kidney disease ([facility]) Expected: 12/05/2023 (Approximate), Expires: 11/28/2024 [facility] Comment on above: Expected: 12/05/2023 (Approximate), Expi res: 11/28/2024 Start: 12-05-2023 End: 11-28-2024 Rheumatoid factor Rheumatoid factor Lab Routine Stage 3a chronic kidney disease ([facility]) Expected: 12/05/2023 (Approximate), Expires: 11/28/2024 [facility] Comment on above: Expected: 12/05/2023 (Approximate), Expi res: 11/28/2024 Start: 11-29-2023 End: 11-28-2024 Basic metabolic 2000 panel - Serum or Plasma Basic Metabolic Panel Lab Routine Stage 3a chronic kidney disease ([facility]) Expected: 11/29/2023 (Approximate), Expires: 11/28/2024 [facility] Comment on above: Expected: 11/29/2023 (Approximate), Expi res: 11/28/2024 Start: 11-29-2023 End: 11-28-2024 Magnesium [Mass/volume] in Serum or Plasma Magnesium Lab Routine Stage 3a chronic kidney disease ([facility]) Expected: 11/29/2023 (Approximate), Expires: 11/28/2024 [facility] Comment on above: Expected: 11/29/2023 (Approximate), Expi res: 11/28/2024 Start: 11-28-2023 End: 11-28-2023 Patient encounter procedure 11/28/2023 8:40 AM EST Office Visit [facility] [address] [place] [phone] January Simpson, TIGHTENING MACHINE OPERATOR-STATISTICAL REPORTING ANALYST [address] [facility], [address] [place], [place] [phone] [facility] Start: 11-25-2023 End: 11-18-2024 Basic metabolic 2000 panel - Serum or Plasma Basic Metabolic Panel Lab Routine Stage 3b chronic kidney disease ([facility]) Expected: 11/25/2023 (Approximate), Expires: 11/18/2024 [facility] Work Phone: Comment on above: Expected: 11/25/2023 (Approximate), Expi res: 11/18/2024 Start: 11-25-2023 End: 11-18-2024 CBC panel - Blood by Automated count CBC without diff Lab Routine Stage 3b chronic kidney disease ([facility]) Expected: 11/25/2023 (Approximate), Expires: 11/18/2024 [facility] Comment on above: Expected: 11/25/2023 (Approximate), Expi res: 11/18/2024 Start: 11-25-2023 End: 11-18-2024 Magnesium [Mass/volume] in Serum or Plasma Magnesium Lab Routine Stage 3b chronic kidney disease ([facility]) Expected: 11/25/2023 (Approximate), Expires: 11/18/2024 [facility] Comment on above: Expected: 11/25/2023 (Approximate), Expi res: 11/18/2024 Start: 11-25-2023 End: 11-18-2024 Parathyroid Hormone, intact Parathyroid Hormone, intact Lab Routine Stage 3b chronic kidney disease ([facility]) Expected: 11/25/2023 (Approximate), Expires: 11/18/2024 [facility] Comment on above: Expected: 11/25/2023 (Approximate), Expi res: 11/18/2024 Start: 11-25-2023 End: 11-18-2024 Phosphate [Mass/volume] in Serum or Plasma Phosphorus Lab Routine Stage 3b chronic kidney disease ([facility]) Expected: 11/25/2023 (Approximate), Expires: 11/18/2024 [facility] Comment on above: Expected: 11/25/2023 (Approximate), Expi res: 11/18/2024 Start: 11-25-2023 End: 11-18-2024 Protein creat ratio Protein creat ratio Lab Routine Stage 3b chronic kidney disease ([facility]) Expected: 11/25/2023 (Approximate), Expires: 11/18/2024 [facility] Comment on above: Expected: 11/25/2023 (Approximate), Expi res: 11/18/2024 Start: 11-25-2023 End: 11-18-2024 Urinalysis Urinalysis Lab Routine Stage 3b chronic kidney disease ([facility]) Expected: 11/25/2023 (Approximate), Expires: 11/18/2024 [facility] Comment on above: Expected: 11/25/2023 (Approximate), Expi res: 11/18/2024 Start: 11-25-2023 End: 11-18-2024 Vitamin D 25 hydroxy Vitamin D 25 hydroxy Lab Routine Stage 3b chronic kidney disease ([facility]) Expected: 11/25/2023 (Approximate), Expires: 11/18/2024 [facility] Comment on above: Expected: 11/25/2023 (Approximate), Expi res: 11/18/2024 Start: 11-19-2023 End: 11-19-2023 Patient encounter procedure 11/19/2023 10:30 AM EST Office Visit [facility] [address] [place] [phone] Kianna Bass MD [address] [place] [address], [address], [address] [place] [address] [facility] Start: 11-13-2023 End: 11-13-2023 Patient encounter procedure 11/13/2023 8:00 AM EST Office Visit [facility] [address] [place] [address] Karmen Bagley MD [address] [place] [phone] [facility] Start: 07-12-2023 Influenza vaccination Influenza Vaccine [facility] Start: 01-02-2023 Superficial Wound Culture Superficial Wound Culture [facility] Start: 2021 Fall Risk Screening Fall Risk Screening [facility] Start: 2006 Administration of varicella zoster vaccine Zoster (Shingles) Vaccine (1 of 2) [facility] Start: 1975 DTaP,Tdap and Td Vaccines (1 - Tdap) DTaP,Tdap and Td Vaccines (1 - Tdap) [facility] Start: 1974 Adult BMI Follow Up Plan Adult BMI Follow Up Plan [facility] Start: 1974 Adult BMI Screening Adult BMI Screening [facility] Start: 1974 Diabetic foot examination Diabetic Foot Exam [facility] Start: 1968 Depression Screening Depression Screening [facility] Start: 1956 Glaucoma screening Diabetic Ophthalmology Exam [facility] Start: 1956 Medicare Annual Wellness Visit Medicare Annual Wellness Visit [facility] Bacteria identified in Unspecified specimen by Aerobe culture [facility] End: 11-28-2024 Basic metabolic 2000 panel - Serum or Plasma Basic Metabolic Panel Lab Routine Stage 3a chronic kidney disease ([facility]) 1 Occurrences starting 11/28/2023 until 11/28/2024 [facility] Comment on above: 1 Occurrences starting 11/28/2023 until 11/28/2024 End: 11-28-2024 CBC panel - Blood by Automated count CBC without diff Lab Routine Stage 3a chronic kidney disease ([facility]) 1 Occurrences starting 11/28/2023 until 11/28/2024 [facility] Comment on above: 1 Occurrences starting 11/28/2023 until 11/28/2024 End: 11-28-2024 Magnesium [Mass/volume] in Serum or Plasma Magnesium Lab Routine Stage 3a chronic kidney disease ([facility]) 1 Occurrences starting 11/28/2023 until 11/28/2024 [facility] Comment on above: 1 Occurrences starting 11/28/2023 until 11/28/2024 End: 11-28-2024 Parathyroid Hormone, intact Parathyroid Hormone, intact Lab Routine Stage 3a chronic kidney disease ([facility]) 1 Occurrences starting 11/28/2023 until 11/28/2024 [facility] Work Phone: Comment on above: 1 Occurrences starting 11/28/2023 until 11/28/2024 End: 11-28-2024 Phosphate [Mass/volume] in Serum or Plasma Phosphorus Lab Routine Stage 3a chronic kidney disease ([facility]) 1 Occurrences starting 11/28/2023 until 11/28/2024 [facility] Comment on above: 1 Occurrences starting 11/28/2023 until 11/28/2024 End: 11-28-2024 Protein creat ratio Protein creat ratio Lab Routine Stage 3a chronic kidney disease ([facility]) 1 Occurrences starting 11/28/2023 until 11/28/2024 [facility] Comment on above: 1 Occurrences starting 11/28/2023 until 11/28/2024 End: 11-28-2024 Urinalysis Urinalysis Lab Routine Stage 3a chronic kidney disease ([facility]) 1 Occurrences starting 11/28/2023 until 11/28/2024 [facility] Comment on above: 1 Occurrences starting 11/28/2023 until 11/28/2024 End: 11-28-2024 Vitamin D 25 hydroxy Vitamin D 25 hydroxy Lab Routine Stage 3a chronic kidney disease ([facility]) 1 Occurrences starting 11/28/2023 until 11/28/2024 [facility] Comment on above: 1 Occurrences starting 11/28/2023 until 11/28/2024 Immunizations Immunization Date Immunization Notes Care Provider Fa erlinda 11-10-2020 influenza virus vaccine, unspecified formulation Scanning External [facility] Payers Date Payer Category Payer Self-pay 2017 [place] [id number] 2017-Present [phone] [address] [place] [address] [id number] 2017 Medicaid [id number] 1990 Medicare MEDICARE MEDICAR E PART A & B [id number] 1990-Present [phone] [address] [place] [address] [id number] 1990 Medicare [id number] 1955 Unknown [id number] 1956 Unknown [id number] 1956 Unknown [id number] 1956 Unknown [id number] 1956 Unknown [id number] 1955 Unknown [id number] Medicare [employer] [id number] Unknown [id number] Unknown [id number] Social History Date Type Detail Facility Tobacco smoking stat [facility] Unknown if ever smoked [facility] Work Phone: Start: 1955 Sex Assigned At Female F [facility] Start: 03-12-2018 End: 11-28-2023 Tobacco smoking status NHIS Never smoked tobacco [facility] Start: 03-12-2018 End: 11-28-2023 Tobacco use and exposure Smokeless tobacco non-user [facility] Start: 12-22-2020 End: 08-20-2023 History of Social function [facility] Start: 12-22-2020 End: 08-20-2023 Tobacco use panel [facility] Housing Instability Unknown [facility] Start: 1955 Sex Assigned At Not on file P [facility] Medical Equipment Procedure Code Equipment Code Equipment Origin al Text Equipment Identifier Dates Stnt Uret 6fr 26 cm Pgtl Crv Rpl [id number] - [id number] - [id number] Start: 10-10-2018 Stnt Uret 6fr 26 cm Pgtl Crv Rpl [id number] - [id number] Start: 11-27-2018 Clinical Notes 10-29-2023 to 01-07-2024 Telephone Encounter - Nery Manning - 01/07/2024 1:57 PM ESTTelephone Encounter - Nery Manning - 01/07/2024 1:57 PM ESTTelephone Encounter - Tayla Hargrove LPN - 12/26/2023 3:09 PM EST Note Date & Type Note Facility 01-07-2024 Miscellaneous Notes Call and spoke with Nurse at [facility] to confirm appt for 01/16/24 with Leather Tooler January at 8:20 as well faxed labs over. documented in this encounter [facility] 01-07-2024 Telephone encounter Note Call and spoke with Nurse at [facility] to confirm appt for 01/16/24 with Leather Tooler January at 8:20 as well faxed labs over. [facility] 12-26-2023 Miscellaneous Notes Orders faxed to [facility] documented in this encounter [facility] 12-26-2023 Telephone encounter Note Orders faxed to [facility] 12-26-2023 Miscellaneous Notes ----- Message from RACHELLE Horton sent at 12/24/2023 8:23 AM EST ----- K is 6.1 needs 30 g dose of kayexe or lokelma 10 g tid for 3 doses then start 10 g daily with weekly bmp RACHELLE Horton 12/24/23823 ----- Message ----- From: Fadia Spencer Sent: 12/23/2023 4:27 PM EST To: RACHELLE Horton documented in this encounter [facility] 12-26-2023 Telephone encounter Note ----- Message from RACHELLE Horton sent at 12/24/2023 8:23 AM EST ----- K is 6.1 needs 30 g dose of kayexe or lokelma 10 g tid for 3 doses then start 10 g daily with weekly bmp RACHELLE Horton 12/24/23823 ----- Message ----- From: Fadia Spencer Sent: 12/23/2023 4:27 PM EST To: RACHELLE Horton [facility] 12-11-2023 Miscellaneous Notes ----- Message from Fadia Spencer sent at 12/11/2023 12:25 PM EST ----- January is off Positive FELIX screen and positive C-ANCA although MPO and PR3 are negative. She is not on hydralazine that can cause a false positive. Please refer to rheumatology for further workup Referral placed for Rheumatology. Called [facility]-message will be given to DON-based off of positive FELIX and C-ANCA referral to Rheumatology was made. documented in this encounter [facility] 12-11-2023 Telephone encounter Note ----- Message from Fadia Spencer sent at 12/11/2023 12:25 PM EST ----- [facility] Work Phone: 12-11-2023 Telephone encounter Note Positive FELIX screen and positive C-ANCA although MPO and PR3 are negative. She is not on hydralazine that can cause a false positive. Please refer to rheumatology for further workup [facility] 12-11-2023 Telephone encounter Note Referral placed for Rheumatology. Called [facility]-message will be given to DON-based off of positive FELIX and C-ANCA referral to Rheumatology was made. [facility] 12-02-2023 Miscellaneous Notes Mahad from [facility] called in and wanting to know about a order that was for a fluid restriction she didn't state who wrote the other she would like for someone to call her back to recheck the order . [phone] she stated that she is on the 2nd floor documented in this encounter [facility] 12-02-2023 Telephone encounter Note Mahad from [facility] called in and wanting to know about a order that was for a fluid restriction she didn't state who wrote the other she would like for someone to call her back to recheck the order . [phone] she stated that she is on the 2nd floor [facility] 11-29-2023 Miscellaneous Notes ----- Message from Karmen Bagley MD sent at 11/27/2023 4:36 PM EST ----- Regarding: Hyperkalemia Note laboratories from the showing potassium of 6.1 and creatinine of 1.6 at [facility] in [place]. It is unclear whether she was admitted to that hospital and what was done to treat the patient's hyperkalemia. I have asked that the patient's sister, extended care facility and or [facility] be contacted to see what was done about the hyperkalemia or if the patient was admitted to the hospital. Her discharge med rec does not include potassium chloride. Karmen Bagley MD PhD FACP ----- Message ----- From: Fadia Spencer Sent: 11/27/2023 10:16 AM EST To: Karmen Bagley MD Late entry: After speaking w/Dr. Bagley-called [facility] and was on hold for a nurse x 13 minutes. Pt was treated with Lokelma 5g x 3 doses for hyperkalemia. I asked her if the patient had any other med changes and her response I don't usually work here I'm from agency . I asked her to fax pt's med list. Spoke with HEMA Turner and she will go over med list with Dr. Bagley in the morning-. Dr. Bagley notified of above. documented in this encounter [facility] 11-29-2023 Telephone encounter Note ----- Message from Karmen Bagley MD sent at 11/27/2023 4:36 PM EST ----- Regarding: Hyperkalemia Note laboratories from the showing potassium of 6.1 and creatinine of 1.6 at [facility] in [place]. It is unclear whether she was admitted to that hospital and what was done to treat the patient's hyperkalemia. I have asked that the patient's sister, extended care facility and or [facility] be contacted to see what was done about the hyperkalemia or if the patient was admitted to the hospital. Her discharge med rec does not include potassium chloride. Karmen Bagley MD PhD FACP ----- Message ----- From: Fadia Spencer Sent: 11/27/2023 10:16 AM EST To: [facility]-29-2023 Telephone encounter Note Late entry: After speaking w/Dr. Bagley-called [facility] and was on hold for a nurse x 13 minutes. Pt was treated with Lokelma 5g x 3 doses for hyperkalemia. I asked her if the patient had any other med changes and her response I don't usually work here I'm from agency . I asked her to fax pt's med list. Spoke with HEMA Turner and she will go over med list with Dr. Bagley in the morning-. Dr. Bagley notified of above. [facility] 11-28-2023 History of Presen t illness Narrative Images from the original note were not included. Date of Service: 11/28/23 PCP: LIZANDRO MCPHERSON MD History of Present Illness Lulu Yeung is a 68 y.o. female, who is following with us for management of her chronic kidney disease, hypertension, and volume status. She was seen in the hospital in November 2023 for acute kidney injury secondary to prerenal fluctuations. Renal function was down to 1.2 mg/dL by discharge. Most recent laboratory studies shows a creatinine of 1.6 mg/dL. Problem List Acute on Stage IIIB chronic kidney disease. Renal ultrasound from November 2023 showed a right kidney measuring 9.8 cm left kidney measuring 9.9 cm. 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 She is status post bilateral craniotomies in the past. Hypertension Hypothyroidism Nephrolithiasis with history of very large left-sided staghorn calculus which almost completely fills the left renal pelvis. There was right-sided staghorn calculus is well. In 2018 there was no evidence of obstruction. Risk factors have included low urine volume and hypocitraturia. She has been treated with increase fluid intake as well as Urocit-K. In 2017 she underwent a left percutaneous nephrolithotomy with stent placement. That same year she underwent right-sided percutaneous nephrolithotomy with Holmium in laser lithotripsy. On November 27, 2018 she had bilateral ureteroscopy with holmium laser lithotripsy, left-sided ureteral stent exchange right-sided ureteral stent placement. She was last seen by Dr. Cross in February of 2020. 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 Status post bilateral craniotomies in the past.with neurosurgical intervention at the [facility] or [facility] in the past History of gout History of anxiety and depression History of multi-infarct dementia History of seizure disorder Moyamoya Disease, an uncommon cerebrovascular condition characterized by progressive narrowing of large intracranial arteries and the secondary development of prominent small-vessel collaterals. Moyamoya is a progressive disorder that may lead to ischemic stroke or intracranial hemorrhage. DNR cc status. Medical, Surgical, Family & Social History Medical History: Past Medical History: Diagnosis Date Anemia Anxiety Apraxia Arthritis Carotid stenosis Chronic headaches Chronic renal failure CVA (cerebral vascular accident) ([facility]) Depression Difficult intravenous access Gout attack HTN (hypertension) Hypothyroidism ICH (intracerebral hemorrhage) ([facility]) Intracerebral hemorrhage ([facility] [place] Kidney stones Moyamoya disease Multi-infarct dementia ([facility] [place]) Renal artery stenosis ([facility] [place]) Rickets Seizures ([facility] [place]) Urinary tract infection Visual impairment glasses Surgical History: Past Surgical History: Procedure Laterality Date BILATERAL CYSTOSCOPY URETEROSCOPY / BILATERAL STENT INSERTION / BILATERAL LASER LITHOTRIPSY Bilateral 11/27/2018 Performed by Juan Pablo Cross MD at [facility] BRAIN SURGERY CYSTOSCOPY REMOVAL STENT Bilateral 12/31/2018 Performed by Juan Pablo Cross MD at [facility] CYTOSCOPY WITH INSERTION BALLOON OCCLUSION CATHETER N/A 10/09/2018 Performed by Juan Pablo Cross MD at [facility] CYTOSCOPY WITH INSERTION BALLOON OCCLUSION CATHETER RIGHT/RETROGRADE PYLEGRAM Right 2018 Performed by Juan Pablo Cross MD at [facility] PERCUTANEOUS NEPHROLITHOTOMY KIDNEY, URETERAL STENT PLACEMENT, LASER Left 10/10/2018 Performed by Juan Pablo Cross MD at [facility] PERCUTANEOUS NEPHROLITHOTOMY RIGHT WITH HOLMIUM LASER Right 06/05/2018 Performed by Juan Pablo Cross MD at [facility] TOOTH EXTRACTION Social History: Social History Socioeconomic History Marital status: Single Spouse name: Not on file Number of children: Not on file Years of education: Not on file Highest education level: Not on file Occupational History Not on file Tobacco Use Smoking status: Never Smokeless tobacco: Never Substance and Sexual Activity Alcohol use: Not on file Drug use: Not on file Sexual activity: Defer Other Topics Concern Not on file Social History Narrative Not on file Social Determinants of Health Financial Resource Strain: Not on file Food Insecurity: No Food Insecurity (11/13/2023) Hunger Screening Food Insecurity - Worry: Never True Food Insecurity - Inability: Never True Transportation Needs: Not on file Physical Activity: Not on file Stress: Not on file Social Connections: Not on file Interpersonal Safety: Not on file Family History: No family history on file. Allergies & Medications Allergies: No Known Allergies Current Meds: Current Outpatient Medications Medication Sig Dispense Refill acetaminophen (TYLENOL EXTRA STRENGTH) 500 mg tablet Take 1 tablet (500 mg total) by mouth every 6 (six) hours as needed for pain. ammonium lactate (AMLACTIN) 12 % cream Apply 1 Application topically as needed for dry skin. aspirin 81 mg Take 1 tablet (81 mg total) by mouth in the morning. calcitriol (ROCALTROL) 0.25 MCG capsule Take 2 capsules (0.5 mcg total) by mouth in the morning. carvediloL (COREG) 12.5 mg tablet Take 1 tablet (12.5 mg total) by mouth in the morning and 1 tablet (12.5 mg total) before bedtime. 60 tablet 1 cholecalciferol (VITAMIN D3) 50,000 units capsule Take 1 capsule (50,000 Units total) by mouth in the morning. cyanocobalamin 1000 MCG tablet Take 1 tablet (1,000 mcg total) by mouth in the morning. divalproex (DEPAKOTE) 125 mg EC tablet Take 1 tablet (125 mg total) by mouth in the morning and 1 tablet (125 mg total) before bedtime. ergocalciferol (DRISDOL) 1,250 mcg (50,000 unit) capsule Take 1 capsule (50,000 Units total) by mouth every 14 (fourteen) days. ferrous sulfate 250 mg (50 mg iron) tablet extended release Take 50 mg by mouth in the morning. FLUoxetine (PROzac) 20 mg capsule Take 1 capsule (20 mg total) by mouth in the morning. HCL Capsule. folic acid (FOLVITE) 1 mg tablet Take 400 mcg by mouth in the morning. gabapentin (NEURONTIN) 100 mg capsule Take 1 capsule (100 mg total) by mouth 3 (three) times a day. HYDROcodone-acetaminophen (NORCO) 5-325 mg per tablet Take 1 tablet by mouth every 6 (six) hours as needed for pain Indications: pain. hydroxypropyl methylcellulose (GONAK) 2.5 % ophthalmic solution Administer 1 drop to both eyes in the morning and 1 drop before bedtime. hypromellose (NATURES TEARS) drops Administer 1 drop to both eyes as needed for dry eyes. latanoprost (XALATAN) 0.005 % ophthalmic solution Administer 1 drop to both eyes nightly. levothyroxine (SYNTHROID, LEVOTHROID) 150 MCG tablet Take 1 tablet (150 mcg total) by mouth in the morning. magnesium oxide (MAG-OX) 400 mg tablet Take 1 tablet (400 mg total) by mouth in the morning. melatonin 3 mg capsule Take 3 mg by mouth nightly. mirtazapine (REMERON) 15 mg tablet Take 0.5 tablets (7.5 mg total) by mouth in the morning. phenytoin (DILANTIN) 100 mg ER capsule Take 1 capsule (100 mg total) by mouth in the morning and 1 capsule (100 mg total) before bedtime. phenytoin (DILANTIN) 30 mg ER capsule Take 1 capsule (30 mg total) by mouth in the morning and 1 capsule (30 mg total) before bedtime. sevelamer (RENVELA) 800 mg tablet Take 1 tablet (800 mg total) by mouth in the morning and 1 tablet (800 mg total) at noon and 1 tablet (800 mg total) in the evening. Take with meals. sodium bicarbonate 650 mg tablet Take 1 tablet (650 mg total) by mouth 3 (three) times a day. tiZANidine (ZANAFLEX) 4 mg tablet Take 1 tablet (4 mg total) by mouth in the morning. traZODone (DESYREL) 50 mg tablet Take 1 tablet (50 mg total) by mouth nightly. No current facility-administered medications for this visit. Review of Systems Review of Systems Constitutional: Negative for chills, diaphoresis, fatigue and fever. HENT: Negative for congestion, ear discharge, ear pain, facial swelling and hearing loss. Eyes: Negative for pain, discharge, redness and itching. Respiratory: Negative for cough, shortness of breath and wheezing. Cardiovascular: Negative for chest pain, palpitations and leg swelling. Gastrointestinal: Negative for abdominal pain, constipation, diarrhea, nausea and vomiting. Endocrine: Negative for polydipsia, polyphagia and polyuria. Genitourinary: Negative for decreased urine volume, difficulty urinating, dysuria, enuresis, flank pain, frequency, hematuria and urgency. Musculoskeletal: Negative for arthralgias, joint swelling and myalgias. Skin: Negative for rash and wound. Neurological: Negative for dizziness, tremors, weakness, light-headedness and numbness. Hematological: Negative for adenopathy. Does not bruise/bleed easily. Physical Exam Vital Signs: Vitals: 11/28/23 0840 BP: 132/68 BP Site: Right Arm BP Postition: Sitting BP CUFF SIZE: M (9-13 inches) Pulse: 62 Weight: 64.1 kg (141 lb 6.4 oz) Height: 165.1 cm (5' 5 ) BMI: Body mass index is 23.53 kg/m . General appearance: alert in no apparent distress. Psychiatric: Oriented to place, time and person HEENT: atraumatic, supple, moist oral mucosa, no JVD Cardiovascular: normal S1-S2 Respiratory: No respiratory distress with no use of accessory muscles. Clear to auscultation bilaterally with no wheezes or crackles Abdomen: soft, no tenderness, no guarding, positive bowel sounds and no hepato or splenomegaly Vascular: adequate pulses and no carotid bruits. Musculoskeletal: no joint swelling or tenderness. Neurologic: No focal deficit in upper or lower extremities Lymphatic: no cervical or axillary lymphadenopathy. Edema: No edema Laboratory Studies Chemistry: Lab Results Component Value Date SODIUM 140 11/17/2023 K 4.4 11/17/2023 CL 110 (H) 11/17/2023 CO2 22 11/17/2023 ANIONGAP 8 11/17/2023 BUN 32 (H) 11/17/2023 CREATININE 1.16 (H) 11/17/2023 EGFR 52 (L) 11/17/2023 CALCIUM 7.3 (L) 11/17/2023 MG 2.8 (H) 11/17/2023 PHOSPHORUS 3.8 11/14/2023 IONIZEDCALC 4.5 09/17/2013 Hematology: Lab Results Component Value Date WBC 9.4 11/17/2023 HGB 7.2 (L) 11/17/2023 HCT 21.5 (L) 11/17/2023 PLT 611 (H) 11/17/2023 Anemia Studies: Lab Results Component Value Date IRONSAT >30 11/17/2023 Mineral and Bone Labs: Lab Results Component Value Date CALCIUM 7.3 (L) 11/17/2023 PHOSPHORUS 3.8 11/14/2023 VITD25 30.0 11/07/2021 PTH 438 (H) 11/07/2021 Urine Studies: Lab Results Component Value Date COLOR YELLOW 11/13/2023 TURBIDITY HAZY (A) 11/13/2023 SPECIFICGRA 1.013 11/13/2023 SPECIFICGRA 1.015 11/13/2023 NITRITE Negative 11/13/2023 PHURINE 5.5 11/13/2023 LEUKOCYTE Large (A) 11/13/2023 LEUKOCYTE Large (A) 11/13/2023 PROTEIN 70 (A) 11/13/2023 KETONES Negative 11/13/2023 UROBILINOGEN <1.1 11/13/2023 UROBILINOGEN 0.2 11/13/2023 BLOODHGB MODERATE (A) 11/13/2023 No results found for: UPROCRTRAT , ALBCREATRA Immunology Profile No results found for: PROTELECTR , SEDRATE , CRP , RF , ANASCREEN , ANTIDSDNA , C3 , C4 , ANCA , MYELOP , PROTEINASE3 , ANTIGLOMERU No results found for: HAV , HEPAIGM , HEPBIGM , HEPBCAB , HBEAG , HEPCAB Imaging Echocardiogram: No results found. Assessment & Plan 1. Acute kidney injury on Chronic kidney disease stage IIIA with worsening creatinine since hospital discharge. With underlying kidney disease likely related hypertensive nephrosclerosis versus diabetic nephropathy. She was advised on the importance of proper blood pressure control, blood sugar control avoidance of NSAID medications, IV contrast dyes, possible. Follow-up in 2 months, as I am checking labs for her hyperkalemia tomorrow. I will check GN workup. 2. Hypertension: Blood pressures are well controlled. 3. Iron Deficiency anemia, on iron supplement. Anemia is improving. 4. Hyperkalemia. Potassium level was 6.1 per long term records she received 3 doses of 5 g of Lokelma. I will repeat labs tomorrow. Low-potassium and salt diet was educated Thank you LIZANDRO MCPHERSON MD for the allowing us to continue participant in the care of this patient. Please contact me at [phone] (Office) or [phone] (Answering service) with any questions. January Simpson, TIGHTENING MACHINE OPERATOR-STATISTICAL REPORTING ANALYST [facility] This note was created with the assistance of a speech-recognition program. Although the intention is to generate a document that actually reflects the content of the visit, no guarantees can be provided that every mistake has been identified and corrected by editing. RACHELLE Horton 11/28/23 0906 documented in this encounter [facility] 11-28-2023 Evaluation note Diagnosis NIDIA (acute kidney injury) ([facility] Primary Stage 3a chronic kidney disease ([facility]) documented in this encounter [facility]01-08-2024 Miscellaneous Notes* Telephone Encounter - Fadia Johanna - 11/18/2023 10:28 AM EST [facility] to schedule pts hos f/u appt in [place]. Appt scheduled and labs ordered and faxed to [facility]. [facility] Telephone encounter Note* Telephone Encounter - Fadiadoris Spencer - 11/18/2023 10:28 AM EST [facility] with Rebeca to schedule pts hos f/u appt in [place]. Appt scheduled and labs ordered and faxed to [facility]. [facility]01-03-2024 History of Present illness Narrative* Karmen Bagley MD - 11/13/2023 8:00 AM EST Images from the original note were not included. PCP: LIZANDRO MCPHERSON MD Date of Service: 11/13/23 Reason for Referral: Will stage 3B chronic kidney disease Referring Physician: Lizandro Mcpherson MD History of Present Illness Lulu Yeung is a 68 y.o. female, who was referred to us for evaluation of stage IIIB chronic kidney disease. In 10/03 she was treated for UTI for 2 weeks.She also has a recent episodeCOVID- 19 jsut after Thanksgiving. Her creatinine was 1.03 mg/dL on April 20, 2021. On 11/07/2021 the creatinine was 1.08. On November 16, 2021 the creatinine was 1.5 and the EGFR was 35 mL/min. Laboratories of October 21, 2023 show sodium of 141 potassium 6.3 chloride 111 total CO2 20 BUN 40 creatinine 1.8 calcium 8.8 hemoglobin 7.4 hematocrit 22.9 while platelet count 421. Repeat labs of 10/25/2023 show K 5, BUN 51 Cr 1.6 mg/dl.On11/08/2023 the K was 5.1, BUN 63, Cr 2.5 mg/dl. The patient resides at [facility]. She has a legal guardian. The patient was to have been transported from [facility] to my office but the transportation company never showed. She therefore was transported by her daughter and son-in-law. The patient apparently was hypotensive at [facility]. Her daughter feels as though her mentation is altered with right-sided weakness. The patientdenies nausea, vomiting, diarrhea, urgency or frequency. She does complain of flank pain. She was markedly hypotensive on my examination with 3 different blood pressures being measured between 63 and73 mmHg. Problem List Stage IIIB chronic kidney disease Hypertension Hypothyroidism Nephrolithiasis with history of very large left-sided staghorn calculus which almost completely fills the left renal pelvis. There was right-sided staghorn calculus is well. In 2018 there was no evidence of obstruction. Risk factors have included low urine volume and hypocitraturia. She has been treated with increase fluid intake as well as Urocit-K. In 2017 she underwent a left percutaneous nephrolithotomy with stent placement. That same year she underwent right-sided percutaneous nephrolithotomy with Holmium in laser lithotripsy. On November 27, 2018 she had bilateral ureteroscopy with holmium laser lithotripsy, left-sided ureteral stent exchange right-sided ureteral stent placement. She was last seen by Dr. Cross in February of 2020. 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 It appears that she had bilateral craniotomies in the past. History of gout History of anxiety and depression History of multi-infarct dementia History of seizure disorder Moyamoya Disease, an uncommon cerebrovascular condition characterized by progressive narrowing of large intracranial arteries and the secondary development of prominent small-vessel collaterals. Moyamoya is a progressive disorder that may lead to ischemic stroke or intracranial hemorrhage. DNR cc status. Surgical, Family & Social History Medical History: Surgical History: Past Surgical History: Procedure Laterality Date BILATERAL CYSTOSCOPY URETEROSCOPY / BILATERAL STENT INSERTION / BILATERAL LASER LITHOTRIPSY Bilateral 11/27/2018 Performed by Juan Pablo Cross MD at [facility] BRAIN SURGERY CYSTOSCOPY REMOVAL STENT Bilateral 12/31/2018 Performed by Juan Pablo Cross MD at [facility] CYTOSCOPY WITH INSERTION BALLOON OCCLUSION CATHETER N/A 10/09/2018 Performed by Juan Pablo Cross MD at [facility] CYTOSCOPY WITH INSERTION BALLOON OCCLUSION CATHETER RIGHT/RETROGRADE PYLEGRAM Right 2018 Performed by Juan Pablo Cross MD at [facility] PERCUTANEOUS NEPHROLITHOTOMY KIDNEY, URETERAL STENT PLACEMENT, LASER Left 10/10/2018 Performed by Juan Pablo Cross MD at [facility] PERCUTANEOUS NEPHROLITHOTOMY RIGHT WITH HOLMIUM LASER Right 06/05/2018 Performed by Juan Pablo Cross MD at [facility] TOOTH EXTRACTION Social History: Social History Socioeconomic History Marital status: Single Spouse name: Not on file Number of children: Not on file Years of education: Not on file Highest education level: Not on file Occupational History Not on file Tobacco Use Smoking status: Never Smokeless tobacco: Never Substance and Sexual Activity Alcohol use: Not on file Drug use: Not on file Sexual activity: Defer Other Topics Concern Not on file Social History Narrative Not on file Social Determinants of Health Financial Resource Strain: Not on file Food Insecurity: No Food Insecurity (08/20/2023) Hunger Screening Food Insecurity - Worry: Never True Food Insecurity - Inability: Never True Transportation Needs: Not on file Physical Activity: Not on file Stress: Not on file Social Connections: Not on file Interpersonal Safety: Not on file Family History: No family history on file. Allergies & Medications Allergies: No Known Allergies Current Meds: Current Outpatient Medications Medication Sig Dispense Refill aspirin 81 mg Take 81 mg by mouth daily. calcitriol (ROCALTROL) 0.25 MCG capsule Take 0.25 mcg by mouth daily. docusate sodium (COLACE) 100 mg capsule Take 100 mg by mouth 2 (two) times a day. ferrous sulfate 325 (65 FE) mg tablet Take 325 mg by mouth daily with breakfast. HYDROcodone-acetaminophen (NORCO) 5-325 mg per tablet Take 1 tablet by mouth every 6 (six) hours asneeded for pain. ibuprofen (ADVIL,MOTRIN) 600 mg tablet Take 600 mg by mouth 2 (two) times a day. levothyroxine (SYNTHROID, LEVOTHROID) 125 MCG tablet Take 150 mcg by mouth daily. magnesium oxide (MAG-OX) 400 mg tablet Take 400 mg by mouth daily. mirtazapine (REMERON) 15 mg tablet Take 15 mg by mouth nightly. MULTIVITAMIN ORAL Take 1 tablet by mouth daily. phenytoin (DILANTIN) 100 mg ER capsule Take 100 mg by mouth 2 (two) times a day. phenytoin (DILANTIN) 30 mg ER capsule Take 30 mg by mouth 2 (two) times a day. No current facility-administered medications for this visit. Review of Systems Review of Systems Constitutional: Negative for chills, diaphoresis, fatigue and fever. HENT: Negative for congestion, ear discharge, ear pain, facial swelling and hearing loss. Eyes: Positive for pain. Negative for discharge, redness and itching. Respiratory: Negative for cough, shortness of breath and wheezing. Cardiovascular: Positive for chest pain and leg swelling. Negative for palpitations. Gastrointestinal: Positive for diarrhea. Negative for abdominal pain, constipation, nausea and vomiting. Endocrine: Negative for polydipsia, polyphagia and polyuria. Genitourinary: Positive for flank pain. Negative for decreased urine volume, difficulty urinating, dysuria, enuresis, frequency, hematuria and urgency. Musculoskeletal: Negative for arthralgias, joint swelling and myalgias. Skin: Negative for rash and wound. Neurological: Positive for dizziness and weakness. Negative for tremors, light- headedness and numbness. Hematological: Negative for adenopathy. Bruises/bleeds easily. Physical Exam Vital Signs: Vitals: 11/13/23 0809 BP: (!) 73/42 BP Site: Right Arm BP Postition: Sitting BP CUFF SIZE: M (9-13 inches) Pulse: 58 SpO2: 95% Weight: 60.8 kg (134 lb) Height: 152.4 cm (5') BMI: Body mass index is 26.17 kg/m . General appearance chronically ill-appearing 68-year-old woman in no acute respiratory distress shedemonstrates right-sided weakness Pyhiatric: Oriented to place, time and person HEENT: atraumatic, supple, moist oral mucosa, no JVD Cardiovascular: normal S1-S2, no edema Respiratory: No respiratory distress with no use of accessory muscles. Clear to auscultation bilaterally with no wheezes or crackles Abdomen: soft, no tenderness, no guarding, positive bowel sounds and no hepato or splenomegaly Vascular: adequate pulses and no carotid bruits. Musculoskeletal: no joint swelling or tenderness. Neurologic: No focal deficit in upper or lower extremities Lymphatic: no cervical or axillary lymphadenopathy. Laboratory Studies Chemistry: Lab Results Component Value Date SODIUM 136 11/16/2021 SODIUM 139 11/07/2021 SODIUM 139 10/12/2021 SODIUM 142 04/20/2021 SODIUM 139 11/15/2020 K 3.7 11/16/2021 K 4.6 11/07/2021 K 4.9 10/12/2021 K 4.4 04/20/2021 K 4.0 11/15/2020 CL 104 11/16/2021 CL 107 11/07/2021 CL 106 10/12/2021 CL 111 (H) 04/20/2021 CL 107 11/15/2020 CO2 18 (L) 11/16/2021 CO2 24 11/07/2021 CO2 23 10/12/2021 CO2 22 04/20/2021 CO2 23 11/15/2020 ANIONGAP 14 11/16/2021 ANIONGAP 8 11/07/2021 ANIONGAP 10 10/12/2021 ANIONGAP 9 04/20/2021 ANIONGAP 9 11/15/2020 BUN 53 (H) 11/16/2021 BUN 48 (H) 11/07/2021 BUN 40 (H) 10/12/2021 BUN 45 (H) 04/20/2021 BUN 39 (H) 11/15/2020 CREATININE 1.50 (H) 11/16/2021 CREATININE 1.08 (H) 11/07/2021 CREATININE 1.06 (H) 10/12/2021 CREATININE 1.03 (H) 04/20/2021 CREATININE 0.92 11/15/2020 CALCIUM 8.0 (L) 11/16/2021 CALCIUM 7.9 (L) 11/07/2021 CALCIUM 7.8 (L) 11/07/2021 CALCIUM 8.0 (L) 10/12/2021 CALCIUM 8.2 (L) 04/20/2021 MG 2.5 11/07/2021 MG 2.1 11/15/2020 MG 2.2 05/16/2020 MG 2.3 11/16/2019 MG 2.2 09/02/2019 PHOSPHORUS 4.4 11/07/2021 PHOSPHORUS 4.2 04/19/2021 PHOSPHORUS 3.8 11/15/2020 PHOSPHORUS 3.8 08/15/2020 PHOSPHORUS 3.6 05/16/2020 IONIZEDCALC 4.5 09/17/2013 IONIZEDCALC 4.2 (L) 09/16/2013 IONIZEDCALC 4.5 09/15/2013 Lab Results Component Value Date TOTALPROTEI 6.5 11/16/2021 TOTALPROTEI 6.3 04/20/2021 ALBUMIN 3.5 11/16/2021 ALBUMIN 3.4 11/07/2021 AST 16 11/16/2021 AST 10 04/20/2021 ALT 11 11/16/2021 ALT 7 04/20/2021 BILIRUBIN 0.5 11/16/2021 BILIRUBIN 0.2 (L) 04/20/2021 ALKPHOS 101 11/16/2021 ALKPHOS 114 04/20/2021 Hematology: Lab Results Component Value Date WBC 4.9 10/12/2021 WBC 4.8 04/20/2021 HGB 9.1 (L) 10/12/2021 HGB 8.7 (L) 04/20/2021 HCT 28.2 (L) 10/12/2021 HCT 26.5 (L) 04/20/2021 PLT 297 10/12/2021 PLT 273 04/20/2021 Anemia Studies: Lab Results Component Value Date FERRITIN 516 (H) 06/29/2021 FERRITIN 601 (H) 06/13/2020 Mineral and Bone Labs: Lab Results Component Value Date CALCIUM 8.0 (L) 11/16/2021 CALCIUM 7.9 (L) 11/07/2021 CALCIUM 7.8 (L) 11/07/2021 PHOSPHORUS 4.4 11/07/2021 PHOSPHORUS 4.2 04/19/2021 VITD25 30.0 11/07/2021 VITD25 44.4 04/20/2021 PTH 438 (H) 11/07/2021 PTH 483 (H) 09/26/2021 Urine Studies: Lab Results Component Value Date COLOR YELLOW 09/23/2018 TURBIDITY CLEAR 09/23/2018 SPECIFICGRA 1.010 09/23/2018 NITRITE Negative 09/23/2018 PHURINE 6.0 09/23/2018 LEUKOCYTE Trace (A) 09/23/2018 PROTEIN Negative 09/23/2018 KETONES Negative 09/23/2018 UROBILINOGEN 0.2 09/23/2018 BLOODHGB MODERATE (A) 09/23/2018 No results found for: UPROCRTRAT , MICROALBUR , MICRAU Immunology Profile No results found for: PROTELECTR , SEDRATE , CRP , RF , ANASCREEN , ANTIDSDNA , C3 , C4 , ANCA , MYELOP , PROTEINASE3 , ANTIGLOMERU No results found for: HAV , HEPAIGM , HEPBIGM , HEPBCAB , HBEAG , HEPCAB Imaging Echocardiogram: No results found. IMPRESSION 1. Stage IIIB chronic kidney disease: The differential includes: 1. Decreased renal mass due to extensive involvement of staghorn calculi in both right and left kidney. 2. Obstruction may be playing a role she has not been seen by her urologist since February 2020. The last CT scan of the abdomen pelvis on October 11, 2018 demonstrated a a left percutaneous nephrostomycatheter and internal left ureteral stent to be in place. There was a significant decrease in stoneburden with each kidney at that time. However she has had additional urological procedures since that time. 3. Adverse effect of NSAID;s. 4. Ischemic acute tubular necrosis secondary 2. Nephrolithiasis with history of staghorn calculi: Status post numerous urological procedures. Contributing factors have included decreased urinary volume and hypocitraturia. It appears that she had a Litholink last in March of 2019. 3. Hyperkalemia: Contributing factors could include : 1. Chronic kidney disease. 2. Renal tubular acidosis 3.Adverse effect of NSAID ibuprofen.. 4. Hypotension: May be septic, hypovolemic or pharmacologically induced. PLAN 1. She cannot be managed in the office. I have sent her to the ER for volume resuscitation and evaluation. I discussed her care with the emergency room doctor. I advised her that the patient's code status is DNR cc and the family is not wanting aggressive interventions. 2. Further investigations may be done as an outpatient depending on the results of her evaluation today. Thank you LIZANDRO MCPHERSON MD for the referral and opportunity to participate in the care of your patients! Please contact me at [phone] (Office) or [phone] (Answering service) with any questions. KARMEN BAGLEY MD [facility] This note was created with the assistance of a speech-recognition program. Although the intention is to generate a document that actually reflects the content of the visit, no guarantees can be provided that every mistake has been identified and corrected by editing. documented [facility] this [email or web address] Evaluation note* Diagnosis Stage 3b chronic kidney disease (CKD) ([facility])- Primary Stage 3 chronic kidney disease, unspecified whether stage 3a or 3b CKD ([facility]) documented in this encounter [facility] Rapportive [id number] Reason for visit Narrative* Consultation (Routine) - Pending Review Specialty Diagnoses / Procedures Referred By Contbarbara t Referred To Contact Nephrology Diagnoses Stage 3 chronic kidney disease, unspecified whether stage 3a or 3b CKD ([facility]) n Nephrology [facility] [place] [address] [place] [address] Phn Nephrology [facility] [address] [place] [address] Referral ID Status Reason Start Date Expiration Date Visits Requested Visits Authorized [id number] Pending Review Specialty Services Required 3 10/28/2024 1 1 [facility] [id number] Miscellaneous Notes* Telephone Encounter - Fadia Spencer - 10/29/2023 11:39 AM EST Spoke to nurse for pt who stated they were willing to bring her to [place]. I informed of add on clinics and that I would call around 11/06/23 to schedule. * Telephone Encounter - Fadia Ramirezkenney - 10/29/2023 11:39 AM EST Called and spoke to pts nurse to schedule new pt appt. Nephro- No Other Spec- No Echo- No Abd Img- Epic Labs- in referral in media Reminders- [facility] encounter Note* Telephone Encounter - Fadia Johanna - 10/29/2023 11:39 AM EST Spoke to nurse for pt who stated they were willing to bring her to [place]. I informed of add on clinics and that I would call around 11/06/23 to schedule. [facility] Rapportive [id number] Telephone encounter Note* Telephone Encounter - Fadia Johanna - 10/29/2023 11:39 AM EST Called and spoke to pts nurse to schedule new pt appt. Nephro- No Other Spec- No Echo- No Abd Img- Epic Labs- in referral in media Reminders- Given [facility] Work Phone: Evaluation note* Diagnosis Stage 3b chronic kidney disease (CMS-HCC)- Primary [facility] encounter [facility] Diagnosis Positive FELIX (antinuclear antibody)- Primary Other and unspecified nonspecific immunological findings documented in this encounter [facility]ructionsNot on filedocumented in this encounter [facility]ructionsNot on filedocumented in this encounter [facility]ructionsNot on filedocumented in this encounter [facility] on filedocumented in this [facility] Advance Directives No Advanced Directives Records FoundDocuments on File 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 Date 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 Order 08/23/2023 10:19 AM Advance Directive 08/20/2023 6:16 PM DNR Latest Code Status on File Code Status Date Activated Date Inactivated Comments Full Code 10/10/2018 7:13 PM 10/12/2018 8:28 PM Code Status History Code Status Date Activated Date Inactivated Comments Full Code 06/05/2018 7:51 PM 06/07/2018 5:14 PM Documents on File Type Date 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 Order 08/23/2023 10:19 AM Advance Directive 08/20/2023 6:16 PM DNR Latest Code Status on File Code Status Date Activated Date Inactivated Comments Full Code 10/10/2018 7:13 PM 10/12/2018 8:28 PM Code Status History Code Status Date Activated Date Inactivated Comments Full Code 06/05/2018 7:51 PM 06/07/2018 5:14 PM Latest Code Status on File Code Status Date Activated Date Inactivated Comments Modified Code Status [place] 11/14/2023 2:57 PM 11/17/2023 9: 12 PM Question Answer Comments Code Limitations: No Intubation No Chest Compressions No Defibrillation or Cardioversion No Mechanical Ventilation Code Status History Code Status Date Activated Date Inactivated Comments DNR Comfort Care (DNRCC) [place] 11/13/2023 4:59 PM 2:57 PM Full Code 10/10/2018 7:13 PM 10/12/2018 8:28 PM Full Code 06/05/2018 7:51 PM 06/07/2018 5:14 PM Advance Directive Response Recorded Date/ Time Advance Directives No January 11 7:19pm Summary Purpose Family History No Family History Records FoundNo Family History Records FoundNo Family History Records FoundNo Family History Records FoundNo Family History Records Found Additional Source Comments Care Teams (unrecognized sec tion and content) Team Status: Inactive Member Role Status Dates Radha Santos NP Attending Provider Active Infrastructure Architect Relationship Specialty Start Date End Date Lizandro Mcpherson MD [address] [place] [address] PCP - General Internal Medicine 10/29/23 Infrastructure Architect Relationship Specialty Start Date End Date Lizandro Mcpherson MD [address] [place] [address] PCP - General Internal Medicine 10/29/23 Infrastructure Architect Relationship Specialty Start Date End Date Lizandro Mcpherson MD [address] [place] [address] PCP - General Internal Medicine 10/29/23 Infrastructure Architect Relationship Specialty Start Date End Date Lizandro Mcpherson MD [address] [place] [address] PCP - General Internal Medicine 10/29/23 Team Status: Inactive Member Role Status Dates Lizandro Mcpherson MD Attending Provider Active Team Status: Active Member Role Status Dates Lizandro Mcpherson MD Primary Care Provider Active Team Status: Inactive Member Role Status Dates Lizandro Mcpherson MD Attending Provider Active St art: November 26, 2023 End: November 26, 2023 Team Status: Inactive Member Role Status Dates Lizandro Mcpherson MD Primary Care Provide r, Attending Provider Active Start: November 27, 2023 End: November 27, 2023 Infrastructure Architect Relationship Specialty Start Date End Date Lizandro Mcpherson MD [address] [place] [address] PCP - General Internal Medicine 10/29/23 Infrastructure Architect Relationship Specialty Start Date End Date Lizandro Mcpherson MD [address] [place] [address] PCP - General Internal Medicine 10/29/23 Infrastructure Architect Relationship Specialty Start Date End Date Lizandro Mcpherson MD [address] [place] [address] PCP - General Internal Medicine 10/29/23 Infrastructure Architect Relationship Specialty Start Date End Date Lizandro Mcpherson MD [address] [place] [address] PCP - General Internal Medicine 10/29/23 Infrastructure Architect Relationship Specialty Start Date End Date Lizandro Mcpherson MD [address] [place] [address] PCP - General Internal Medicine 10/29/23 Goals (unrecognized section and content) Goals may be documented in a n alternate sectionNot on filedocumented as of this encounterNot on filedocumented as of this encounterNot on filedocumented as of this encounterNot on filedocumented as of this encounterGoals may be documented in an alternate sectionGoals may be documented in an alternate sectionNot on filedocumented as of this encounterNot on filedocumented as of this encounterNot on filedocumented as of this encounterNot on filedocumented as of this encounterNot on filedocumented as of this encounterNot on filedocumented as of this encounterNot on filedocumented as of this encounter INFORMATION SOURCE (unrecogn ized section and content) DATE CREATED AUTHOR 12/07/2023 [facility] DATE CREATED AUTHOR AUTHOR'S ORGANIZ ATION 12/15/[address] [facility] DATE CREATED AUTHOR AUTHOR'S ORGANIZ ATION 12/23/2023 [facility] DATE CREATED AUTHOR AUTHOR'S ORGANIZ ATION 01/11/2024 [facility] DATE CREATED AUTHOR AUTHOR'S ORGANIZ ATION 01/13/2024 [facility] FOR RECORDS PERTAINING TO PATIENTS WHO ARE OR HAVE BEEN ENROLLED IN A CHEMICAL DEPENDENCY/SUBSTANCEABUSE PROGRAM, SOME INFORMATION MAY BE OMITTED. This clinical summary was aggregated from multiple sources. Caution should be exercised in using it in the provision of clinical care. This summary normalizes information from multiple sources, and as a consequence, information in this document may materially change the coding, format and clinical context of patient data. In addition, data may be omitted in some cases. CLINICAL DECISIONS SHOULD BE BASED ON THE PRIMARY CLINICAL RECORDS. [employer] [facility]. provides no warranty or guarantee of the accuracy or completeness of information in this document.
[2024-01-14 18:21] LABS: BUN Creatinine Ratio 34.7; Calcium 8.8 mg/dL (8.5-10.1); Carbon Dioxide 28.3 mmol/L (21.0-32.0); Chloride 107 mmol/L (98-107); Estimated GFR (African America 36 (>=60); Estimated GFR (Non-African Ame 29 (>=60); Glucose 87 mg/dL (74-106); Potassium 5.3 mmol/L (3.5-5.1); Sodium 142 mmol/L (136-145)
== END 2024-01-14 17:18 | disposition home or self-care (01) ==
LOC: LAB 17:17
DX: E87.5 Hyperkalemia (principal)
CPT/HCPCS: 36415; 80048

== ENCOUNTER 2024-01-16 19:00 | Outpatient (REF) | payer MEDICARE, MEDICAID, SELFPAY ==
--- OUTSIDE RECORDS SUMMARY | 2024-01-16 19:04 | XMS_ITS | CCD ---
Author Name Unknown Address [id number] [place] [address] Organization [facility] Care Team Providers Care Sexton Helper Name Role Phone VALENTINA Santos Attending Provider Lizandro Mcpherson MD Primary Care Provider MD Lizandro Mcpherson Attending Provider [phone] MD Lizandro Mcpherson Primary Care Provider LIZANDRO MCPHERSON Primary Care Unavailable FILOMENA SKELTON Attending Unavailable KARMEN BAGLEY Consulting Unavailable SHANTEL, ALEX Admitting Unavailable GEORGEPHUCU CHAPIN A Consulting Unavailable RELIEF, SINC[facility] Cons ulting Unavailable FILOMENA SKELTON Attending Unavailable FILOMENA SKELTON Referring Unavailable VIDA, LIZANDRO Primary Care Unavailable FELIBERTOTOMMY PEREZUSH Referring Unavailable VIDA, LIZANDRO Primary Care Unavailable NANCY MCPHERSONWN Referring Unavailable VIDA, LIZANDRO Primary Care Unavailable NANCY MCPHERSONWN Referring Unavailable VIDA, LIZANDRO Primary Care Unavailable VIDA LIZANDRO Referring Unavailable VIDA, LIZANDRO Primary Care Unavailable Nancy Mcphersonwn W Attending Unavailable NO FAMILY, PHYSICIAN Primary Care Unavailable Nancy Mcphersonwn W Admitting Unavailable Vida Lizandro W Admitting Unavailable Vida Lizandro W Primary Care Unavailable Nancy Mcphersonwn W Attending Unavailable Medications Current Medications Medication Drug Class(es) Dates Sig (Normalized) Sig (Original) acetaminophen 500 mg oral tablet (11 sources) take 1 tablet by mouth every six hours as needed for pain acetaminophen (TYLENOL EXTRA STRENGTH) 500 mg tablet Take 1 tablet (500 mg total) by mouth every 6 (six) hours as needed for pain. 0 Active acetaminophen 325 mg / HYDROcodone bitartrate 5 mg oral tablet (12 sources) Opioid Agonist take 1 tablet by mouth every six hours as needed for pain HYDROcodone-acetamin ophen (NORCO) 5-325 mg per tablet Indications: pain Take 1 tablet by mouth every 6 (six) hours as needed for pain Indications: pain. 0 Active aspirin 81 mg delayed release oral tablet (12 sources) Platelet Aggregation Inhibitor, Nonsteroidal Anti-inflammatory Drug take 1 tablet by mouth in the morning aspirin 81 mg Take 1 tablet (81 mg total) by mouth in the morning. 0 Active calcitriol 0.34916 mg oral capsule (12 sources) Vitamin D3 Analog take 4 capsules by mouth in the morning calcitriol (ROCALTROL) 0.25 MCG capsule Take 4 capsules (1 mcg total) by mouth in the morning. 0 Active take 2 capsules by mouth in the morning calcitriol (ROCALTROL) 0.25 MCG capsule Take 2 capsules (0.5 mcg total) by mouth in the morning. 0 Active take 1 capsule by mouth once nelsy ly calcitriol (ROCALTROL) 0.25 MCG capsule Take 0.25 mcg by mouth daily. 0 Active carvedilol 12.5 mg oral tablet (10 sources) alpha-Adrenergic Ghassan, beta-Adrenergic Ghassan Start: 11-17-2023 take 1 tablet by mouth in the morning, then take 1 tablet by mouth at bedtime carvediloL (COREG) 12.5 mg tablet Take 1 tablet (12.5 mg total) by mouth in the morning and 1 tablet (12.5 mg total) before bedtime. 60 tablet 1 11/17/2023 Active cholecalciferol 1.25 mg oral capsule (8 sources) Vitamin D End: 01-16-2024 take 1 capsule by mouth in the morning cholecalciferol (VITAMIN D3) 50,000 units capsule Take 1 capsule (50,000 Units total) by mouth in the morning. 0 01/16/2024 Discontinued dextran 70 1 mg/ml / hypromellose 3 mg/ml ophthalmic solution (10 sources) Plasma Volume Senior Ui Web Developer hypromellose (NATURES TEARS) drops Administer 1 drop to both eyes as needed for dry eyes. 0 Active docusate sodium 100 mg oral capsule (2 sources) take 1 capsule by mouth twice daily docusate sodium (COLACE) 100 mg capsule Take 100 mg by mouth 2 (two) times a day. 0 Active ergocalciferol 1.25 mg oral capsule (11 sources) Provitamin D2 Compound take 1 capsule [...] sulfate 250 mg extended release oral tablet (12 sources) take 1 tablet by mouth in the morning ferrous sulfate 250 mg (50 mg iron) tablet extended release Take 50 mg by mouth in the morning. 0 Active ferrous sulfate 325 (65 FE) mg tablet Take 1 tablet (325 mg total) by mouth daily with breakfast. ER Tablet Extended Release 50 MG 0 Active FLUoxetine 20 mg oral capsule (11 sources) Serotonin Reuptake Inhibitor take 1 capsule by mouth in the morning FLUoxetine (PROzac) 20 mg capsule Take 1 capsule (20 mg total) by mouth in the morning. HCL Capsule. 0 Active folic acid 1 mg oral tablet (11 sources) take 1 tablet by mouth in the morning folic acid (FOLVITE) 1 mg tablet Take 400 mcg by mouth in the morning. 0 Active gabapentin 100 mg oral capsule (11 sources) Anti-epileptic Agent take 1 capsule by mouth three times daily gabapentin (NEURONTIN) 100 mg capsule Take 1 capsule (100 mg total) by mouth 3 (three) times a day. 0 Active hydrALAZINE hydrochloride 25 mg oral tablet (1 source) Arteriolar Vasodilator Start: take 1 tablet by mouth three times daily hydrALAZINE (APRESOLINE) 25 mg tablet Take 1 tablet (25 mg total) by mouth 3 (three) times a day. 0 01/16/2024 Active Start: 01-16-2024 take 1 tablet by rinku th three times daily hydrALAZINE (APRESOLINE) 25 mg tablet Take 1 tablet (25 mg total) by mouth 3 (three) times a day. 0 01/16/2024 Active hydroCHLOROthiazide 12.5 mg oral tablet (1 source) Thiazide Diuretic take 1 tablet by mouth once daily hydroCHLOROthiazide (HYDRODIURIL) 12.5 mg tablet Take 1 tablet (12.5 mg total) by mouth daily. 0 Active hypromellose 25 mg/ml ophthalmic solution (11 sources) take 1 drop(s) into the eye(s) [...] Discontinued ammonium lactate 120 mg/ml topical cream (11 sources) ammonium lactate (AMLACTIN) 12 % cream [...] 0 Active latanoprost 0.05 mg/ml ophthalmic solution (11 sources) Prostaglandin Analog take 1 drop(s) into the eye(s) once daily latanoprost (XALATAN) 0.005 % ophthalmic solution Administer 1 drop to both eyes nightly. 0 Active levothyroxine sodium 0.15 mg oral tablet (12 sources) l-Thyroxine take 1 tablet by mouth in the morning levothyroxine (SYNTHROID, LEVOTHROID) 150 MCG tablet Take 1 tablet (150 mcg total) by mouth in the morning. 0 Active levothyroxine (S YNTHROID, LEVOTHROID) 125 MCG tablet Take 150 mcg by mouth daily. 0 Active magnesium oxide 400 mg oral tablet (12 sources) take 1 tablet by rinku th in the morning magnesium oxide (MAG-OX) 400 mg tablet Take 1 tablet (400 mg total) by mouth in the morning. 0 Active melatonin 3 mg oral capsule (11 sources) take 1 capsule by mo uth once daily melatonin 3 mg capsule Take 3 mg by mouth nightly. 0 Active mirtazapine 15 mg oral table t (12 sources) take 0.5 tablet by m outh [...] Active sevelamer carbonate 800 mg oral tablet (11 sources) Phosphate Binder sevelamer (RENV SHAQUILLE) 800 mg tablet Take 1 tablet (800 mg total) by mouth in the morning and 1 tablet (800 mg total) at noon and 1 tablet (800 mg total) in the evening. Take with meals. 0 Active sodium bicarbonate 650 mg oral tablet (8 sources) take 1 tablet by mouth once daily after lunch sodium bicarbonate 650 mg tablet Take 1 tablet (650 mg total) by mouth Daily after lunch. 0 Active take 1 tablet by rinku three times daily sodium bicarbonate 650 mg tablet Take 1 tablet (650 mg total) by mouth 3 (three) times a day. 0 Active sodium zirconium cyclosilica te 5000 mg powder for oral suspension (1 source) Start: 01-17-2024 sodium zirconi um cyclosilicate (LOKELMA) 5 gram packet Take 5 g by mouth 3 (three) times a week. 0 01/17/2024 Active Start: 01-17-2024 sodium zirconi um cyclosilicate (LOKELMA) 5 gram packet Take 5 g by mouth 3 (three) times a week. 0 01/17/2024 Active tiZANidine 4 mg oral tablet (11 sources) Central alpha-2 Adrenergic Agonist take 1 tablet by mouth in the morning tiZANidine (ZANAFLEX) 4 mg tablet Take 1 tablet (4 mg total) by mouth in the morning. 0 Active traZODone hydrochloride 50 mg oral tablet (11 sources) Serotonin Reuptake Inhibitor take 1 tablet by mouth once daily traZODone (DESYREL) 50 mg tablet Take 1 tablet (50 mg total) by mouth nightly. 0 Active divalproex sodium 125 mg delayed release oral tablet (10 sources) Mood Stabilizer, Anti-epileptic Agent Start: 10-27-20 take 1 tablet by mouth in the morning, then take 1 tablet by mouth at bedtime divalproex (DEPAKOTE) 125 mg EC tablet Take 1 tablet (125 mg total) by mouth in the morning and 1 tablet (125 mg total) before bedtime. 0 10/27/2023 Active vitamin b12 1 mg oral tablet (11 sources) Vitamin B12 take 1 tablet by mouth in the morning cyanocobalamin 1000 MCG tablet Take 1 tablet (1,000 mcg total) by mouth in the morning. 0 Active Problems Active Problems Problem Classification Problem Date Documented Date Episodic/Chronic Acute and unspecified renal failure (2 sources) Acute injury of kidney; Translations: [Acute kidney failure, unspecified] Onset: 11-13-2023 11-28-2023 Episodic Acute cerebrovascular disease (12 sources) Embolic stroke; Translations: [Cerebral infarction due to embolism of unspecified precerebral artery] Onset: 02-26-2018 02-26-2018 Chronic Chronic kidney disease (6 sources) Chronic kidney disease stage 3B ; Translations: [Stage 3b chronic kidney disease (CKD) ([facility])] Onset: 11-26-2023 11-10-2023 Chronic Diseases of white blood cells (1 source) Elevated white blood cell count, unspecified; Translations: [Elevated white blood cell count, unspecified] Onset: 11-13-2023 Chronic E Codes: Adverse effects of medical drugs (1 source) Adverse effect of macrolides, initial encounter; Translations: [Adverse effect of macrolides, initial encounter] Onset: 11-13-2023 Episodic Essential hypertension (12 sources) Benign essential hypertension; Translations: [Essential (primary) hypertension] Onset: 02-26-2018 05-28-2018 Chronic Fluid and electrolyte disorders (2 sources) Hypo-osmolality and hyponatremia; Translations: [Other disorders of electrolyte and fluid balance, not elsewhere classified] Onset: 11-13-2023 Episodic Immunizations and screening for infectious disease (1 source) Anti-nuclear factor positive; Translations: [Other specified abnormal immunological findings in serum] 12-13-2023 Episodic Other and ill-defined cerebrovascular disease (12 sources) Moyamoya disease; 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] Onset: 02-26-2018 02-26-2018 Chronic Other circulatory disease (11 sources) Low blood pressure; Translations: [Hypotension, unspecified] Onset: 11-13-2023 11-13-2023 Episodic Other circulatory disease (1 source) Hypotension, unspecified; Translations: [Hypotension, unspecified] Onset: 11-13-2023 Episodic Other nutritional; endocrine; and metabolic disorders (12 sources) Disorder of mineral metabolism; 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 Onset: 11-13-2023 Past or Other Problems Problem Classification Problem Date Documented Da te Episodic/Chronic Calculus of urinary tract (20 sources) Kidney stone; Translations: [Calculus of kidney] Onset: 02-26-2018 10-21-2019 Episodic Other bone disease and musculoskeletal deformities (12 sources) Osteopenia; Translations: [Other specified disorders of bone density and structure, multiple sites] Onset: 03-24-2018 03-09-2020 Episodic Results Test Name Value Interpretation Reference Range Facility Comprehensive metabolic 2000 panelon 01-12-2024 Albumin BCP dye [Mass/Vol] 3.1 g/dL Low 3.4-5.0 [facility] Comment on above: Performed By: #### 2 4323-8 #### KATLIN ANGLIN ([id number]) [facility] ([facility]) [address] [place] [address] ALP [Catalytic activity/Vol] 60 U/L Normal 33-136 [facility] Comment on above: Performed By: #### 2 432-8 #### KATLIN ANGLIN ([id number]) [facility] ([facility]) [address] [place] [address] ALT With P-5'-P [Catalytic activity/Vol] 5 U/L Low 7-45 [facility] Comment on above: Result Comment: Kanchan ents treated with Sulfasalazine may generate falsely decreased results for ALT. Performed By: #### 2 432-8 #### KATLIN ANGLIN ([id number]) [facility] ([facility]) [address] [place] [address] Anion gap [Moles/Vol] 13 mmol/L Normal 10-20 [facility] Comment on above: Performed By: #### 2 432-8 #### KATLIN ANGLIN ([id number]) [facility] ([facility]) [address] [place] [address] AST With P-5'-P [Catalytic activity/Vol] 10 U/L Normal 9-39 [facility] Comment on above: Performed By: #### 2 432-8 #### KATLIN ANGLIN ([id number]) [facility] ([facility]) [address] [place] [address] Bilirubin [Mass/Vol] 0.2 mg/dL Normal 0.0-1.2 [facility] Comment on above: Performed By: #### 2 432-8 #### KATLIN ANGLIN ([id number]) [facility] ([facility]) [address] [place] [address] Calcium [Mass/Vol] 8.1 mg/dL Low 8.6-10.3 [facility] Comment on above: Performed By: #### 2 432-8 #### KATLIN ANGLIN ([id number]) [facility] ([facility]) [address] [facility] [place] [address] Chloride [Moles/Vol] 106 mmol/L Normal 98-107 [facility] Comment on above: Performed By: #### 2 4323-8 #### KATLIN DASILVAFRI ([id number]) [facility] ([facility]) [address] [place] [address] CO2 [Moles/Vol] 27 mmol/L Normal 21-32 [facility] Comment on above: Performed By: #### 2 4323-8 #### KATLIN DASILVAFRI ([id number]) [facility] ([facility]) [address] [place] [address] Creatinine [Mass/Vol] 2.03 mg/dL High 0.50-1.05 [facility] Comment on above: Performed By: #### 2 4323-8 #### KATLIN DASILVAFRI ([id number]) [facility] ([facility]) [address] [place] [address] Glomerular filtration rate/1.73 sq M.predicted 26 mL/min/1.73m*2 Low >60 [facility] Comment on above: Result Comment: Calc ulations of estimated GFR are performed using the 2020 CKD-EPI Study Refit equation without the race variable for the IDMS-Traceable creatinine methods. https://jasn.asnjournals.org/content//ASN.664 6292150 Performed By: #### 2 4323-8 #### KATLIN DASILVAFRI ([id number]) [facility] ([facility]) [address] [place] [address] Glucose [Mass/Vol] 82 mg/dL Normal 74-99 [facility] Comment on above: Performed By: #### 2 4323-8 #### KATLIN DASILVAFRI ([id number]) [facility]) [address] [place] [address] Potassium [Moles/Vol] 4.6 mmol/L Normal 3.5-5.3 [facility] Comment on above: Performed By: #### 2 4323-8 #### KATLIN ANGLIN ([id number]) [facility]) [address] [place] [address] Protein [Mass/Vol] 6.0 g/dL Low 6.4-8.2 [facility] Comment on above: Performed By: #### 2 4323-8 #### KATLIN ANGLIN ([id number]) [facility] ([facility]) [address] [place] [address] Sodium [Moles/Vol] 141 mmol/L Normal 136-145 [facility] Comment on above: Performed By: #### 2 4323-8 #### KATLIN ANGLIN ([id number]) [facility] ([facility]) [address] [place] [address] Urea nitrogen [Mass/Vol] 62 mg/dL High 6-23 [facility] Comment on above: Performed By: #### 2 4323-8 #### KATLIN ANGLIN ([id number]) [facility] ([facility]) [address] [place] [address] Potassiumon 12-22-2023 Potassium [Moles/Vol] 4.8 mmol/L Normal 3.4-4.9 [facility] Comment on above: Order Comment: CALL doctor [id number] tel. [phone], [facility] CALL doctor [id number] tel. [phone], [facility] Performed By: #### K #### [facility] [address] [place] [id number] 36on 12-03-2023 36 I think monitoring would be ok. She has no oral options. Seeing as initial infection was from urinary source I would be less worried Normal [facility] Potassiumon 11-27-2023 Potassium [Moles/Vol] 5.7 mmol/L High 3.5-5.1 [facility] Comment on above: Result Comment: Crit ical Result Called to and read back by: LIZANDRO MCPHERSON at: 11/27/2023 17:45:10 by:[id number] PERFORMED BY: [place] [address] PATHOLOGIST SUPERVISOR STAGE CARPENTRY JONG SORENSON M.D. Performed By: #### K #### [facility] [address] [place] [address] [place] Potassium [Moles/volume] in Serum or PlasmaOrdered By: Lizandro Mcpherson on 11-27-2023 Potassium [Moles/Vol] 5.7 mmol/L 3.5-5.1 [facility] Comment on above: Critical Result Call ed to and read back by: LIZANDRO MCPHERSON at: 11/27/2023 17:45:10 by:[id number] Basic Metabolic Panelon 11-11 Anion gap [Moles/Vol] 14.0 mmol/L Normal 6.0-15.0 [facility] Comment on above: Performed By: #### B MP, CBC, MG, PHOS #### [facility] [address] [place] [address] [place] Calcium [Mass/Vol] 9.0 mg/dL Normal 8.6-10.3 [facility] Comment on above: Performed By: #### B MP, CBC, MG, PHOS #### [facility] [address] [place] [address] [place] Chloride [Moles/Vol] 109 mmol/L High 98-107 [facility] Comment on above: Performed By: #### B MP, CBC, MG, PHOS #### [facility] [address] [place] [address] [place] CO2 [Moles/Vol] 23.1 mmol/L Normal 21.0-31.0 [place] Comment on above: Performed By: #### B MP, CBC, MG, PHOS #### [facility] [address] [place] [address] [place] Creatinine [Mass/Vol] 1.61 mg/dL High 0.60-1.20 [facility] Comment on above: Performed By: #### B MP, CBC, MG, PHOS #### [address] GFR/1.73 sq M.predicted MDRD (S/P/Bld) [Vol rate/Area] 34.868 mL/min/{1.73_m2} Normal [facility] Comment on above: Performed By: #### B MP, CBC, MG, PHOS #### [address] Glucose [Mass/Vol] 91 mg/dL Normal 70-100 [facility] Comment on above: Result Comment: [facility] Glucose Reference Range is dependent on time and content of last meal. Glucose of more than 200 mg/dL in a nonstressed, ambulatory subject supports the diagnosis of Diabetes Mellitus. ADA recommended reference range Performed By: #### B MP, CBC, MG, PHOS #### [address] Potassium [Moles/Vol] 6.1 mmol/L Off scale high 3.5-5.1 [facility] Comment on above: Result Comment: Crit ical Result Called to and read back by: MARIA T CHING at: 11/26/2023 21:14:05 by:HELADIO Performed By: #### B MP, CBC, MG, PHOS #### [address] Sodium [Moles/Vol] 140 mmol/L Normal 136-145 [facility] Comment on above: Performed By: #### B MP, CBC, MG, PHOS #### [address] Urea nitrogen [Mass/Vol] 30 mg/dL High 7-25 [facility] Comment on above: Performed By: #### B MP, CBC, MG, PHOS #### [address] Basophils Auto (Bld) [#/Vol] Ordered By: Lizandro Mcpherson on 11-26-2023 Basophils (Bld) [#/Vol] 0.1 10*3/uL 0.0-0.2 [facility] Basophils/100 WBC Auto (Bld) Ordered By: Lizandro Mcpherson on 11-26-2023 Basophils/100 WBC (Bld) 1.6 % . [facility] Calcium [Mass/volume] in Ser um or PlasmaOrdered By: Lizandro Mcpherson on 11-26-2023 Calcium [Mass/Vol] 9.0 mg/dL 8.6-10.3 [facility] Carbon dioxide, total [Moles /volume] in Serum or PlasmaOrdered By: Lizandro Mcpherson on 11-26-2023 CO2 [Moles/Vol] 23.1 mmol/L 21.0-31.0 [place] Chloride [Moles/volume] in [place] or PlasmaOrdered By: Lizandro Mcpherson on 11-26-2023 Chloride [Moles/Vol] 109 mmol/L 98-107 [facility] Complete Blood Count Auto Di ffon 11-26-2023 Basophils (Bld) [#/Vol] 0.1 10*3/uL Normal 0.0-0.2 [facility] Comment on above: Result Comment: PERF ORMED BY: [facility] [address] [place] [address] PATHOLOGIST SUPERVISOR STAGE CARPENTRY JONG SORENSON M.D. Performed By: #### B MP, CBC, MG, PHOS #### [facility] [address] [place] [address] [place] Basophils/100 WBC (Bld) 1.6 % Normal . [facility] Comment on above: Performed By: #### B MP, CBC, MG, PHOS #### [facility] [address] [place] [address] [place] Eosinophils (Bld) [#/Vol] 0.2 10*3/uL Normal 0.0-0.45 [facility] Comment on above: Performed By: #### B MP, CBC, MG, PHOS #### [facility] [address] [place] [address] [place] Eosinophils/100 WBC (Bld) 3.0 % Normal . [facility] Comment on above: Performed By: #### B MP, CBC, MG, PHOS #### [address] Erythrocyte distribution width (RBC) [Ratio] 16.9 % High 11.9-15.3 [facility] Comment on above: Performed By: #### B MP, CBC, MG, PHOS #### [address] Hematocrit (Bld) [Volume fraction] 26.7 % Low 34.0-46.4 [facility] Comment on above: Performed By: #### B MP, CBC, MG, PHOS #### [address] Hemoglobin (Bld) [Mass/Vol] 8.5 g/dL Low 11.8-15.4 [facility] Comment on above: Performed By: #### B MP, CBC, MG, PHOS #### [address] Lymphocytes (Bld) [#/Vol] 1.8 10*3/uL Normal 1.00-4.8 [facility] Comment on above: Performed By: #### B MP, CBC, MG, PHOS #### [address] Lymphocytes/100 WBC (Bld) 24.2 % Normal . [facility] Comment on above: Performed By: #### B MP, CBC, MG, PHOS #### [address] MCH (RBC) [Entitic mass] 30.3 pg Normal 24.7-34.3 [facility] Comment on above: Performed By: #### B MP, CBC, MG, PHOS #### [address] MCV (RBC) [Entitic vol] 95.5 fL Normal 80-100 [facility] Comment on above: Performed By: #### B MP, CBC, MG, PHOS #### [address] Mean Corpuscular HGB Conc 31.8 g/dL Low 32.0-35.0 [facility] Comment on above: Performed By: #### B MP, CBC, MG, PHOS #### [facility] [address] Monocytes (Bld) [#/Vol] 0.3 10*3/uL Normal 0.0-0.8 [facility] Comment on above: Performed By: #### B MP, CBC, MG, PHOS #### [address] Monocytes/100 WBC (Bld) 4.2 % Normal . [facility] Comment on above: Performed By: #### B MP, CBC, MG, PHOS #### [facility] [address] [place] [address] Neutrophils (Bld) [#/Vol] 4.9 10*3/uL Normal 1.8-7.7 [facility] Comment on above: Performed By: #### B MP, CBC, MG, PHOS #### [address] Neutrophils/100 WBC (Bld) 67.0 % Normal . [facility] Comment on above: Performed By: #### B MP, CBC, MG, PHOS #### [address] NRBC% 0.1 /100{WBC} Normal 0-0.5 [facility] Comment on above: Performed By: #### B MP, CBC, MG, PHOS #### [facility] [address] [place] [address] Platelet mean volume (Bld) [Entitic vol] 8.4 fL Normal 6.3-10.7 [facility] Comment on above: Performed By: #### B MP, CBC, MG, PHOS #### [facility] [address] [place] [address] [place] Platelets (Bld) [#/Vol] 585 10*3/uL High 150-450 [facility] Comment on above: Performed By: #### B MP, CBC, MG, PHOS #### [facility] [address] RBC (Bld) [#/Vol] 2.80 10*6/uL Low 3.60-5.00 [facility] Comment on above: Performed By: #### B MP, CBC, MG, PHOS #### [facility] [address] WBC (Bld) [#/Vol] 7.3 10*3/uL Normal 3.8-11.6 [facility] Comment on above: Performed By: #### B MP, CBC, MG, PHOS #### [facility] [address] Creatinine [Mass/volume] in Serum or PlasmaOrdered By: Lizandro Mcpherson on 11-26-2023 Creatinine [Mass/Vol] 1.61 mg/dL 0.60-1.20 [facility] Eosinophils Auto (Bld) [#/Vo l]Ordered By: Lizandro Mcpherson on 11-26-2023 Eosinophils (Bld) [#/Vol] 0.2 10*3/uL 0.0-0.45 [facility] Eosinophils/100 WBC Auto (Bl d)Ordered By: Lizandro Mcpherson on 11-26-2023 Eosinophils/100 WBC (Bld) 3.0 % . [facility] Erythrocyte distribution wid th Auto (RBC) [Ratio]Ordered By: Lizandro Mcpherson on 11-26-2023 Erythrocyte distribution width (RBC) [Ratio] 16.9 % 11.9-15.3 [facility] Glucose [Mass/volume] in Ser um or PlasmaOrdered By: Lizandro Mcpherson on 11-26-2023 Glucose [Mass/Vol] 91 mg/dL 70-100 [facility] Comment on above: ADA recommended refe rence rangeRandom Glucose Reference Range is dependent on time and content of last meal. Glucose of more than 200 mg/dL in a nonstressed, ambulatory subject supports the diagnosis of Diabetes Mellitus. Hematocrit Auto (Bld) [Volum e fraction]Ordered By: Lizandro Mcpherson on 11-26-2023 Hematocrit (Bld) [Volume fraction] 26.7 % 34.0-46.4 [facility] Hemoglobin [Mass/volume] in BloodOrdered By: Lizandro Mcpherson on 11-26-2023 Hemoglobin (Bld) [Mass/Vol] 8.5 g/dL 11.8-15.4 [facility] Leukocytes [#/volume] correc dominick for nucleated erythrocytes in Blood by Automated counOrdered By: Lizandro Mcpherson on 11-26-2023 WBC corrected for nucl RBC Auto (Bld) [#/Vol] 7.3 10*3/uL 3.8-11.6 [facility] Lymphocytes Auto (Bld) [#/Vo l]Ordered By: Lizandro Mcpherson on 11-26-2023 Lymphocytes (Bld) [#/Vol] 1.8 10*3/uL 1.00-4.8 [facility] Lymphocytes/100 WBC Auto (Bl d)Ordered By: Lizandro Mcpherson on 11-26-2023 Lymphocytes/100 WBC (Bld) 24.2 % . [facility] MCH Auto (RBC) [Entitic mass ]Ordered By: Lizandro Mcpherson on 11-26-2023 MCH (RBC) [Entitic mass] 30.3 pg 24.7-34.3 [facility] MCHC Auto (RBC) [Mass/Vol]Or dered By: Lizandro Mcpherson on 11-26-2023 MCHC (RBC) [Mass/Vol] 31.8 g/dL 32.0-35.0 [facility] MCV Auto (RBC) [Entitic vol] Ordered By: Lizandro Mcpherson on 11-26-2023 MCV (RBC) [Entitic vol] 95.5 fL 80-100 [facility] Magnesiumon 11-26-2023 Magnesium [Mass/Vol] 1.9 mg/dL Normal 1.9-2.7 [facility] Comment on above: Result Comment: PERF ORMED BY: [facility] [address] [place] [address] PATHOLOGIST SUPERVISOR [employer] JONG SORENSON M.D. Performed By: #### B MP, CBC, MG, PHOS #### [facility] [address] Magnesium [Mass/volume] in S [place] or PlasmaOrdered By: Lizandro Mcpherson on 11-26-2023 Magnesium [Mass/Vol] 1.9 mg/dL 1.9-2.7 [facility] Monocytes Auto (Bld) [#/Vol] Ordered By: Lizandro Mcpherson on 11-26-2023 Monocytes (Bld) [#/Vol] 0.3 10*3/uL 0.0-0.8 [facility] Monocytes/100 WBC Auto (Bld) Ordered By: Lizandro Mcpherson on 11-26-2023 Monocytes/100 WBC (Bld) 4.2 % . [facility] Neutrophils Auto (Bld) [#/Vo l]Ordered By: Lizandro Mcpherson on 11-26-2023 Neutrophils (Bld) [#/Vol] 4.9 10*3/uL 1.8-7.7 [facility] Neutrophils/100 WBC Auto (Bl d)Ordered By: Lizandro Mcpherson on 11-26-2023 Neutrophils/100 WBC (Bld) 67.0 % . [facility] No Panel InformationOrdered By: Lizandro Mcpherson on 11-26-2023 Estimated GFR (CKD-EPI) 34.868 mL/Min [facility] Creatinine Clearance (Chem N/A [facility] Nucleated erythrocytes [Pres ence] in Blood by Automated countOrdered By: Lizandro Mcpherson on 11-26-2023 Nucleated RBC Auto Ql (Bld) 0.1 /100{WBC} 0-0.5 [facility] Phosphate [Mass/volume] in S [place] or PlasmaOrdered By: Lizandro Mcpherson on 11-26-2023 Phosphate [Mass/Vol] 5.2 mg/dL 2.5-4.5 [facility] Phosphoruson 11-26-2023 Phosphate [Mass/Vol] 5.2 mg/dL High 2.5-4.5 [facility] Comment on above: Performed By: #### B MP, CBC, MG, PHOS #### [facility] [address] [place] [id number] [place] Platelet mean volume Auto (B ld) [Entitic vol]Ordered By: Lizandro Mcpherson on 11-26-2023 Platelet mean volume (Bld) [Entitic vol] 8.4 fL 6.3-10.7 [facility] Platelets Auto (Bld) [#/Vol] Ordered By: Lizandro Mcpherson on 11-26-2023 Platelets (Bld) [#/Vol] 585 10*3/uL 150-450 [facility] Potassium [Moles/volume] in Serum or PlasmaOrdered By: Lizandro Mcpherson on 11-26-2023 Potassium [Moles/Vol] 6.1 mmol/L 3.5-5.1 [facility] Comment on above: Critical Result Call ed to and read back by: MARIA T CHING at: 11/26/2023 21:14:05 by:HELADIO RBC Auto (Bld) [#/Vol]Ordere d By: Lizandro Mcpherson on 11-26-2023 RBC (Bld) [#/Vol] 2.80 10*6/uL 3.60-5.00 [facility] Serum or plasma anion gap de terminationOrdered By: Lizandro Mcpherson on 11-26-2023 Anion gap [Moles/Vol] 14.0 mmol/L 6.0-15.0 [facility] Sodium [Moles/volume] in Ser um or PlasmaOrdered By: Lizandro Mcpherson on 11-26-2023 Sodium [Moles/Vol] 140 mmol/L 136-145 [facility] Urea nitrogen [Mass/volume] in Serum or PlasmaOrdered By: Lizandro Mcpherson on 11-26-2023 Urea nitrogen [Mass/Vol] 30 mg/dL 7-25 [facility] WBC Auto (Bld) [#/Vol]Ordere d By: Lizandro Mcpherson on 11-26-2023 WBC (Bld) [#/Vol] 7.3 10*3/uL 3.8-11.6 [facility] CBC AND AUTO DIFFon 11-17-19 24 ABSOLUTE BASOPHIL 0.0 X10E9/L Normal 0.0-0.2 [facility] Comment on above: Performed By: #### C BCA, 07901-6, CMP, THYR, 6873-4 #### [facility] ([id number]) [address], [address] [place] [address] ABSOLUTE NEUTROPHIL 6.9 X10E9/L High 1.5-6.6 [facility] Comment on above: Performed By: #### C BCA, 81455-3, CMP, THYR, 6873-4 #### [facility] ([id number]) [address], [address] [place] [address] Basophils/100 WBC (Bld) 0.3 % Normal [facility] Comment on above: Performed By: #### C BCA, 23346-5, CMP, THYR, 6873-4 #### [facility] ([id number]) [address], [address] [place] [address] Eosinophils (Bld) [#/Vol] 0.4 10*3/uL Normal 0.0-0.4 [facility] Comment on above: Performed By: #### C BCA, 84183-2, CMP, THYR, 6873-4 #### [facility] ([id number]) [address], [address] [place] [address] Eosinophils/100 WBC (Bld) 4.0 % Normal [facility] Comment on above: Performed By: #### C BCA, 36115-0, CMP, THYR, 6873-4 #### [facility] ([id number]) [address], [address] [place] [address] Erythrocyte distribution width (RBC) [Ratio] 16.1 % High 11.5-15.0 [facility] Comment on above: Performed By: #### C BCA, 27732-6, CMP, THYR, 6873-4 #### [facility] ([id number]) [address], [address] [place] [address] Hematocrit (Bld) [Volume fraction] 21.5 % Low 35-47 [facility] Comment on above: Performed By: #### C BCA, 27824-4, CMP, THYR, 6873-4 #### [facility] ([id number]) [address], [address] [place] [address] Hemoglobin (Bld) [Mass/Vol] 7.2 g/dL Low 11.7-15.5 [facility] Comment on above: Performed By: #### C BCA, 16675-4, CMP, THYR, 6873-4 #### [facility] ([id number]) [address], [facility] [address] [place] [address] Lymphocytes (Bld) [#/Vol] 1.5 10*3/uL Normal 1.0-3.5 [facility] Comment on above: Performed By: #### Rohith BCA, 71586-9, CMP, THYR, 6873-4 #### [facility] ([id number]) [address], [facility] [address] [place] [address] Lymphocytes/100 WBC (Bld) 15.8 % Normal [facility] Comment on above: Performed By: #### Rohith BCA, 14200-9, CMP, THYR, 6873-4 #### [facility] ([id number]) [address], [address] [place] [address] MCH (RBC) [Entitic mass] 30.6 pg Normal 27-34 [facility] Comment on above: Performed By: #### C BCA, 87713-4, CMP, THYR, 6873-4 #### [facility] ([id number]) [address], [address] [place] [address] MCHC (RBC) [Mass/Vol] 33.4 g/dL Normal 32-36 [facility] Comment on above: Performed By: #### C BCA, 68528-3, CMP, THYR, 6873-4 #### [facility] ([id number]) [address], [address] [place] [address] MCV (RBC) [Entitic vol] 92 fL Normal 80-100 [facility] Comment on above: Performed By: #### C BCA, 24398-1, CMP, THYR, 6873-4 #### [facility] ([id number]) [address], [address] [place] [address] Monocytes (Bld) [#/Vol] 0.6 10*3/uL Normal 0-0.9 [facility] Comment on above: Performed By: #### C BCA, 70558-3, CMP, THYR, 6873-4 #### [facility] ([id number]) [address], [address] [place] [address] Monocytes/100 WBC (Bld) 6.4 % Normal [facility] Comment on above: Performed By: #### C BCA, 09670-2, CMP, THYR, 6873-4 #### [facility] ([id number]) [address], [address] [place] [address] Neutrophils/100 WBC (Bld) 73.5 % Normal [facility] Comment on above: Performed By: #### C BCA, 79672-9, CMP, THYR, 6873-4 #### [facility] ([id number]) [address], [address] [place] [address] Platelet mean volume (Bld) [Entitic vol] 8.1 fL Normal 7-12 [facility] Comment on above: Performed By: #### C BCA, 11112-3, CMP, THYR, 6873-4 #### [facility] ([id number]) [address], [address] [place] [address] Platelets (Bld) [#/Vol] 611 10*3/uL High 150-450 [facility] Comment on above: Performed By: #### C BCA, 21433-3, CMP, THYR, 6873-4 #### [facility] ([id number]) [address] [address] [place] [address] RBC COUNT 2.34 X10E12/L Low 3.80-5.20 [facility] Comment on above: Performed By: #### C BCA, 20133-0, CMP, THYR, 6873-4 #### [facility] ([id number]) [address], [facility] [address] [place] [address] WBC (Bld) [#/Vol] 9.4 10*3/uL Normal 4.0-11.0 [facility] Comment on above: Performed By: #### C BCA, 79170-1, CMP, THYR, 6873-4 #### [facility] ([id number]) [address], [address] [place] [address] COMPREHENSIVE METABOLIC PANE [place] 11-17-2023 Albumin [Mass/Vol] 2.3 g/dL Low 3.2-5.3 [facility] Comment on above: Performed By: #### C BCA, 50097-1, CMP, THYR, 6873-4 #### [facility] ([id number]) [address] [place] [address] ALP [Catalytic activity/Vol] 91 U/L Normal 39-130 [facility] Comment on above: Performed By: #### C BCA, 01871-0, CMP, THYR, 6873-4 #### [facility] ([id number]) [address], [address] [place] [address] ALT [Catalytic activity/Vol] 6 U/L Normal 0-31 [facility] Comment on above: Performed By: #### C BCA, 91083-9, CMP, THYR, 6873-4 #### [facility] ([id number]) [address] [place] [address] Anion gap [Moles/Vol] 8 mmol/L Normal 5-15 [facility] Comment on above: Performed By: #### C BCA, 32601-3, CMP, THYR, 6873-4 #### [facility] ([id number]) [address], [address] [place] [address] AST [Catalytic activity/Vol] 17 U/L Normal 0-41 [facility] Comment on above: Performed By: #### C BCA, 71979-0, CMP, THYR, 6873-4 #### [facility] ([id number]) [address], [address] [place] [address] Bilirubin [Mass/Vol] 0.2 mg/dL Low 0.3-1.2 [facility] Comment on above: Performed By: #### C BCA, 96844-1, CMP, THYR, 6873-4 #### [facility] ([id number]) [address], [address] [place] [address] Calcium [Mass/Vol] 7.3 mg/dL Low 8.5-10.5 [facility] Comment on above: Performed By: #### C BCA, 90765-5, CMP, THYR, 6873-4 #### [facility] ([id number]) [address], [address] [place] [address] Chloride [Moles/Vol] 110 mmol/L High 98-109 [facility] Comment on above: Performed By: #### C BCA, 27443-0, CMP, THYR, 6873-4 #### [facility] ([id number]) [address], [address] [place] [address] CO2 [Moles/Vol] 22 mmol/L Normal 22-32 [facility] Comment on above: Performed By: #### C BCA, 64016-6, CMP, THYR, 6873-4 #### [facility] ([id number]) [address] [place] [address] Creatinine [Mass/Vol] 1.16 mg/dL High 0.40-1.00 [facility] Comment on above: Result Comment: METH OD TRACEABLE TO IDMS STANDARD Performed By: #### C BCA, 67072-6, CMP, THYR, 6873-4 #### [facility] ([id number]) [address] [address] [place] [address] GFR/1.73 sq M.predicted among non-blacks MDRD (S/P/Bld) [Vol rate/Area] 52 mL/min/{1.73_m2} Low >59 [facility] Comment on above: Result Comment: Reported eGFR is based on the CKD-EPI 2020 equation that does not use a race coefficient. Performed By: #### C BCA, 65099-2, CMP, THYR, 6873-4 #### [facility] ([id number]) [address] [address] [place] [address] Glucose [Mass/Vol] 115 mg/dL High 65-99 [facility] Comment on above: Performed By: #### C BCA, 83611-0, CMP, THYR, 6873-4 #### [facility] ([id number]) [address] [address] [place] [address] Potassium [Moles/Vol] 4.4 mmol/L Normal 3.5-5.0 [facility] Comment on above: Performed By: #### C BCA, 35332-4, CMP, THYR, 6873-4 #### [facility] ([id number]) [address] [address] [place] [address] Protein [Mass/Vol] 5.4 g/dL Low 6.0-8.0 [facility] Comment on above: Performed By: #### C BCA, 06579-1, CMP, THYR, 6873-4 #### [facility] ([id number]) [address], [address] [place] [address] Sodium [Moles/Vol] 140 mmol/L Normal 134-146 [facility] Comment on above: Performed By: #### C BCA, 11757-8, CMP, THYR, 6873-4 #### [facility] ([id number]) [address], [address] [place] [address] Urea nitrogen [Mass/Vol] 32 mg/dL High 5-27 [facility] Comment on above: Performed By: #### C BCA, 44099-9, CMP, THYR, 6873-4 #### [facility] ([id number]) [address], [address] [place] [address] FERRITINon 11-17-2023 Ferritin [Mass/Vol] 1382 ng/mL High 11-307 [facility] Comment on above: Performed By: #### C BCA, 94679-6, CMP, THYR, 6873-4 #### [facility] ([id number]) [address], [address] [place] [address] IRON PROFILEon 11-17-2023 Iron [Mass/Vol] 31 ug/dL Low 50-170 [facility] Comment on above: Performed By: #### C BCA, 89829-2, CMP, THYR, 6873-4 #### [facility] ([id number]) [address], [address] [place] [address] IRON BINDING <105 Low 250-425 [facility] Comment on above: Performed By: #### C BCA, 49566-1, CMP, THYR, 6873-4 #### [facility] ([id number]) [address], [address] [place] [address] IRON SATURATION >30 Normal 15-50 [facility] Comment on above: Performed By: #### C BCA, 40677-0, CMP, THYR, 6873-4 #### [facility] ([id number]) [address], [address] [place] [address] MAGNESIUMon 11-17-2023 Magnesium [Mass/Vol] 2.8 mg/dL High 1.8-2.6 [facility] Comment on above: Performed By: #### C BCA, 15837-3, CMP, THYR, 6873-4 #### [facility] ([id number]) [address], [address] [place] [address] CBC AND AUTO DIFFon 11-16-19 24 ABSOLUTE BASOPHIL 0.2 X10E9/L Normal 0.0-0.2 [facility] Comment on above: Performed By: #### C BCA, 17601-4, CMP, THYR, 6873-4 #### [facility] ([id number]) [address], [address] [place] [address] ABSOLUTE NEUTROPHIL 11.0 X10E9/L High 1.5-6.6 [facility] Comment on above: Performed By: #### C BCA, 98666-2, CMP, THYR, 6873-4 #### [facility] ([id number]) [address], [address] [place] [address] Basophils/100 WBC (Bld) 1.4 % Normal P [facility] Comment on above: Performed By: #### C BCA, 87626-0, CMP, THYR, 6873-4 #### [facility] ([id number]) [address], [address] [place] [address] Eosinophils (Bld) [#/Vol] 0.3 10*3/uL Normal 0.0-0.4 [facility] Comment on above: Performed By: #### C BCA, 61882-9, CMP, THYR, 6873-4 #### [facility] ([id number]) [address], [address] [place] [address] Eosinophils/100 WBC (Bld) 2.3 % Normal [facility] Comment on above: Performed By: #### C BCA, 69772-6, CMP, THYR, 6873-4 #### [facility] ([id number]) [address] [address] [place] [address] Erythrocyte distribution width (RBC) [Ratio] 15.9 % High 11.5-15.0 [facility] Comment on above: Performed By: #### C BCA, 93360-9, CMP, THYR, 6873-4 #### [facility] ([id number]) [address] [address] [place] [address] Hematocrit (Bld) [Volume fraction] 22.4 % Low 35-47 [facility] Comment on above: Performed By: #### C BCA, 24066-8, CMP, THYR, 6873-4 #### [facility] ([id number]) [address] [address] [place] [address] Hemoglobin (Bld) [Mass/Vol] 7.4 g/dL Low 11.7-15.5 [facility] Comment on above: Performed By: #### C BCA, 01956-3, CMP, THYR, 6873-4 #### [facility] ([id number]) [address] [address] Lymphocytes (Bld) [#/Vol] 1.1 10*3/uL Normal 1.0-3.5 [facility] Comment on above: Performed By: #### C BCA, 18232-9, CMP, THYR, 6873-4 #### [facility] ([id number]) [address] [address] Lymphocytes/100 WBC (Bld) 8.2 % Normal [facility] Comment on above: Performed By: #### C BCA, 43573-9, CMP, THYR, 6873-4 #### [facility] ([id number]) [address], [address] [place] [address] MCH (RBC) [Entitic mass] 30.1 pg Normal 27-34 [facility] Comment on above: Performed By: #### C BCA, 43584-1, CMP, THYR, 6873-4 #### [facility] ([id number]) [address], [facility] [address] [place] [address] MCHC (RBC) [Mass/Vol] 32.9 g/dL Normal 32-36 [facility] Comment on above: Performed By: #### C BCA, 29082-8, CMP, THYR, 6873-4 #### [facility] ([id number]) [address], [facility] [address] [place] [address] MCV (RBC) [Entitic vol] 91 fL Normal 80-100 P [facility] Comment on above: Performed By: #### Rohith BCA, 49166-3, CMP, THYR, 73-4 #### [facility] ([id number]) [address], [facility] [address] [place] [address] Monocytes (Bld) [#/Vol] 0.7 10*3/uL Normal 0-0.9 [facility] Comment on above: Performed By: #### C BCA, 96811-6, CMP, THYR, 6873-4 #### [facility] ([id number]) [address], [facility] [address] [place] [address] Monocytes/100 WBC (Bld) 5.5 % Normal P [facility] Comment on above: Performed By: #### C BCA, 35340-6, CMP, THYR, 6873-4 #### [facility] ([id number]) [address], [facility] [address] [place] [address] Neutrophils/100 WBC (Bld) 82.6 % Normal [facility] Comment on above: Performed By: #### Rohith BCA, 77275-1, CMP, THYR, 6873-4 #### [facility] ([id number]) [address], [address] [place] [address] Platelet mean volume (Bld) [Entitic vol] 8.5 fL Normal 7-12 [facility] Comment on above: Performed By: #### C BCA, 26029-8, CMP, THYR, 6873-4 #### [facility] ([id number]) [address], [address] [place] [address] Platelets (Bld) [#/Vol] 632 10*3/uL High 150-450 [facility] Comment on above: Performed By: #### C BCA, 73238-8, CMP, THYR, 6873-4 #### [facility] ([id number]) [address] [address] [place] [address] RBC COUNT 2.46 X10E12/L Low 3.80-5.20 [facility] Comment on above: Performed By: #### C BCA, 47279-6, CMP, THYR, 6873-4 #### [facility] ([id number]) [address] [address] [place] [address] WBC (Bld) [#/Vol] 13.3 10*3/uL High 4.0-11.0 [facility] Comment on above: Performed By: #### C BCA, 33486-0, CMP, THYR, 6873-4 #### [facility] ([id number]) [address], [address] [place] [address] COMPREHENSIVE METABOLIC PANE [place] 11-16-2023 Albumin [Mass/Vol] 2.3 g/dL Low 3.2-5.3 [facility] Comment on above: Performed By: #### C BCA, 97106-8, CMP, THYR, 6873-4 #### [facility] ([id number]) [address], [address] [place] [address] ALP [Catalytic activity/Vol] 107 U/L Normal 39-130 [facility] Comment on above: Performed By: #### C BCA, 25156-9, CMP, THYR, 6873-4 #### [facility] ([id number]) [address], [address] [place] [address] ALT [Catalytic activity/Vol] 7 U/L Normal 0-31 [facility] Comment on above: Performed By: #### C BCA, 28079-0, CMP, THYR, 6873-4 #### [facility] ([id number]) [address] [place] [address] Anion gap [Moles/Vol] 8 mmol/L Normal 5-15 [facility] Comment on above: Performed By: #### C BCA, 97762-2, CMP, THYR, 6873-4 #### [facility] ([id number]) [address] [place] [address] AST [Catalytic activity/Vol] 17 U/L Normal 0-41 [facility] Comment on above: Performed By: #### C BCA, 04549-2, CMP, THYR, 6873-4 #### [facility] ([id number]) [address], [address] [place] [address] Bilirubin [Mass/Vol] 0.2 mg/dL Low 0.3-1.2 [facility] Comment on above: Performed By: #### C BCA, 84564-1, CMP, THYR, 6873-4 #### [facility] ([id number]) [address], [address] [place] [address] Calcium [Mass/Vol] 7.2 mg/dL Low 8.5-10.5 [facility] Comment on above: Performed By: #### C BCA, 91325-0, CMP, THYR, 6873-4 #### [facility] ([id number]) [address] [place] [place] [address] Chloride [Moles/Vol] 114 mmol/L High 98-109 [facility] Comment on above: Performed By: #### C BCA, 02776-3, CMP, THYR, 6873-4 #### [facility] ([id number]) [address], [address] [place] [address] CO2 [Moles/Vol] 19 mmol/L Low 22-32 [facility] Comment on above: Performed By: #### C BCA, 76433-0, CMP, THYR, 6873-4 #### [facility] ([id number]) [address], [address] [place] [address] Creatinine [Mass/Vol] 1.30 mg/dL High 0.40-1.00 [facility] Comment on above: Result Comment: METH OD TRACEABLE TO IDMS STANDARD Performed By: #### C BCA, 56931-8, CMP, THYR, 6873-4 #### [facility] ([id number]) [address], [address] [place] [address] GFR/1.73 sq M.predicted among non-blacks MDRD (S/P/Bld) [Vol rate/Area] 45 mL/min/{1.73_m2} Low >59 [facility] Comment on above: Result Comment: Reported eGFR is based on the CKD-EPI 2020 equation that does not use a race coefficient. Performed By: #### C BCA, 21662-8, CMP, THYR, 6873-4 #### [facility] ([id number]) [address], [address] [place] [address] Glucose [Mass/Vol] 121 mg/dL High 65-99 [facility] Comment on above: Performed By: #### C BCA, 96541-5, CMP, THYR, 6873-4 #### [facility] ([id number]) [address], [address] [place] [address] Potassium [Moles/Vol] 4.3 mmol/L Normal 3.5-5.0 [facility] Comment on above: Performed By: #### C BCA, 06997-5, CMP, THYR, 6873-4 #### [facility] ([id number]) [address], [address] [place] [address] Protein [Mass/Vol] 5.5 g/dL Low 6.0-8.0 [facility] Comment on above: Performed By: #### C BCA, 29297-6, CMP, THYR, 6873-4 #### [facility] ([id number]) [address], [address] [place] [address] Sodium [Moles/Vol] 141 mmol/L Normal 134-146 [facility] Comment on above: Performed By: #### C BCA, 53497-7, CMP, THYR, 6873-4 #### [facility] ([id number]) [address], [address] [place] [address] Urea nitrogen [Mass/Vol] 38 mg/dL High 5-27 [facility] Comment on above: Performed By: #### C BCA, 52500-5, CMP, THYR, 6873-4 #### [facility] ([id number]) [address], [address] [place] [address] Lactate (P abida) [Moles/Vol]o n 11-16-2023 LACTATE W/REFLEX 1.3 mmol/L Normal 0.4-2.0 [facility] Comment on above: Result Comment: Result did not trigger repeat Lactate, re-order if needed. Performed By: #### C BCA, 04023-0, CMP, THYR, 6873-4 #### [facility] ([id number]) [address], [address] [place] [address] MAGNESIUMon 11-16-2023 Magnesium [Mass/Vol] 1.6 mg/dL Low 1.8-2.6 [facility] Comment on above: Performed By: #### C BCA, 82196-3, CMP, THYR, 6873-4 #### [facility] ([id number]) [address], [address] [place] [address] BLOOD CULTUREon 11-15-2023 Bacteria identified Aer cx Nom (Bld) SPECIMEN NOTES SUBOPTIMAL VOLUME OF BLOOD COLLECTED, RESULTS MAY BE AFFECTED. CULTURE RESULTS NO GROWTH 5 DAYS Normal [facility] Comment on above: Performed By: #### C BCA, 98006-4, CMP, THYR, 6873-4 #### [facility] ([id number]) [address], [address] [address] CBC AND AUTO DIFFon 11-15-19 24 ABSOLUTE BASOPHIL 0.1 X10E9/L Normal 0.0-0.2 [facility] Comment on above: Performed By: #### C BCA, 94485-3, CMP, THYR, 6873-4 #### [facility] ([id number]) [address], [address] [place] [address] ABSOLUTE NEUTROPHIL 15.3 X10E9/L High 1.5-6.6 [facility] Comment on above: Performed By: #### C BCA, 25195-8, CMP, THYR, 6873-4 #### [facility] ([id number]) [address], [address] [address] Basophils/100 WBC (Bld) 0.5 % Normal [facility] Comment on above: Performed By: #### C BCA, 46746-4, CMP, THYR, 6873-4 #### [facility] ([id number]) [address] [place] [address] Eosinophils (Bld) [#/Vol] 0.2 10*3/uL Normal 0.0-0.4 [facility] Comment on above: Performed By: #### C BCA, 86932-7, CMP, THYR, 6873-4 #### [facility] ([id number]) [address], [address] [place] [address] Eosinophils/100 WBC (Bld) 1.3 % Normal [facility] Comment on above: Performed By: #### C BCA, 08483-4, CMP, THYR, 6873-4 #### [facility] ([id number]) [address], [facility] [address] [place] [address] Erythrocyte distribution width (RBC) [Ratio] 15.9 % High 11.5-15.0 [facility] Comment on above: Performed By: #### C BCA, 64095-2, CMP, THYR, 6873-4 #### [facility] ([id number]) [address], [facility] [address] [place] [address] Hematocrit (Bld) [Volume fraction] 22.9 % Low 35-47 [facility] Comment on above: Performed By: #### C BCA, 20007-3, CMP, THYR, 6873-4 #### [facility] ([id number]) [address], [facility] [address] [place] [address] Hemoglobin (Bld) [Mass/Vol] 7.7 g/dL Low 11.7-15.5 [facility] Comment on above: Performed By: #### C BCA, 05880-8, CMP, THYR, 6873-4 #### [facility] ([id number]) [address], [facility] [address] [place] [address] Lymphocytes (Bld) [#/Vol] 1.0 10*3/uL Normal 1.0-3.5 [facility] Comment on above: Performed By: #### C BCA, 86558-8, CMP, THYR, 6873-4 #### [facility] ([id number]) [address] [address] [place] [address] Lymphocytes/100 WBC (Bld) 5.6 % Normal [facility] Comment on above: Performed By: #### C BCA, 72873-1, CMP, THYR, 6873-4 #### [facility] ([id number]) [address], [address] [place] [address] MCH (RBC) [Entitic mass] 30.8 pg Normal 27-34 [facility] Comment on above: Performed By: #### C BCA, 02911-1, CMP, THYR, 6873-4 #### [facility] ([id number]) [address], [address] [place] [address] MCHC (RBC) [Mass/Vol] 33.6 g/dL Normal 32-36 [facility] Comment on above: Performed By: #### C BCA, 87943-6, CMP, THYR, 6873-4 #### [facility] ([id number]) [address], [address] [place] [address] MCV (RBC) [Entitic vol] 92 fL Normal 80-100 [facility] Comment on above: Performed By: #### Rohith BCA, 03471-2, CMP, THYR, 6873-4 #### [facility] ([id number]) [address], [address] [place] [address] Monocytes (Bld) [#/Vol] 0.9 10*3/uL Normal 0-0.9 [facility] Comment on above: Performed By: #### C BCA, 34457-0, CMP, THYR, 6873-4 #### [facility] ([id number]) [address], [address] [place] [address] Monocytes/100 WBC (Bld) 5.1 % Normal [facility] Comment on above: Performed By: #### C BCA, 27837-8, CMP, THYR, 6873-4 #### [facility] ([id number]) [address], [address] [place] [address] Neutrophils/100 WBC (Bld) 87.5 % Normal [facility] Comment on above: Performed By: #### C BCA, 86781-3, CMP, THYR, 6873-4 #### [facility] ([id number]) [address], [address] [place] [address] Platelet mean volume (Bld) [Entitic vol] 8.5 fL Normal 7-12 [facility] Comment on above: Performed By: #### C BCA, 10783-2, CMP, THYR, 6873-4 #### [facility] ([id number]) [address], [facility] [address] [place] [address] Platelets (Bld) [#/Vol] 559 10*3/uL High 150-450 [facility] Comment on above: Performed By: #### C BCA, 07057-7, CMP, THYR, 6873-4 #### [facility] ([id number]) [address], [address] [place] [address] RBC COUNT 2.49 X10E12/L Low 3.80-5.20 [facility] Comment on above: Performed By: #### C BCA, 03984-8, CMP, THYR, 6873-4 #### [facility] ([id number]) [address] [address] [place] [address] WBC (Bld) [#/Vol] 17.5 10*3/uL High 4.0-11.0 [facility] Comment on above: Performed By: #### C BCA, 79703-5, CMP, THYR, 6873-4 #### [facility] ([id number]) [address], [address] [place] [address] COMPREHENSIVE METABOLIC PANE Destin 11-15-2023 Albumin [Mass/Vol] 2.4 g/dL Low 3.2-5.3 [facility] Comment on above: Performed By: #### C BCA, 28587-7, CMP, THYR, 6873-4 #### [facility] ([id number]) [address], [address] [place] [address] ALP [Catalytic activity/Vol] 109 U/L Normal 39-130 [facility] Comment on above: Performed By: #### C BCA, 26124-9, CMP, THYR, 6873-4 #### [facility] ([id number]) [address], [address] [place] [address] ALT [Catalytic activity/Vol] 5 U/L Normal 0-31 [facility] Comment on above: Performed By: #### C BCA, 15597-1, CMP, THYR, 6873-4 #### [facility] ([id number]) [address], [address] [place] [address] Anion gap [Moles/Vol] 9 mmol/L Normal 5-15 [facility] Comment on above: Performed By: #### C BCA, 38277-1, CMP, THYR, 6873-4 #### [facility] ([id number]) [address], [address] [place] [address] AST [Catalytic activity/Vol] 10 U/L Normal 0-41 [facility] Comment on above: Performed By: #### C BCA, 43338-6, CMP, THYR, 6873-4 #### [facility] ([id number]) [address], [address] [place] [address] Bilirubin [Mass/Vol] 0.2 mg/dL Low 0.3-1.2 [facility] Comment on above: Performed By: #### C BCA, 28337-4, CMP, THYR, 6873-4 #### [facility] ([id number]) [address], [address] [place] [address] Calcium [Mass/Vol] 7.4 mg/dL Low 8.5-10.5 [facility] Comment on above: Performed By: #### C BCA, 42101-6, CMP, THYR, 6873-4 #### [facility] ([id number]) [address], [address] [place] [address] Chloride [Moles/Vol] 112 mmol/L High 98-109 [facility] Comment on above: Performed By: #### C BCA, 75278-6, CMP, THYR, 6873-4 #### [facility] ([id number]) [address], [address] [place] [address] CO2 [Moles/Vol] 16 mmol/L Low 22-32 [facility] Comment on above: Performed By: #### C BCA, 17470-7, CMP, THYR, 6873-4 #### [facility] ([id number]) [address], [address] [place] [address] Creatinine [Mass/Vol] 1.59 mg/dL High 0.40-1.00 [facility] Comment on above: Result Comment: METH OD TRACEABLE TO IDMS STANDARD Performed By: #### C BCA, 39441-9, CMP, THYR, 6873-4 #### [facility] ([id number]) [address], [address] [place] [address] GFR/1.73 sq M.predicted among non-blacks MDRD (S/P/Bld) [Vol rate/Area] 35 mL/min/{1.73_m2} Low >59 [facility] Comment on above: Result Comment: Reported eGFR is based on the CKD-EPI 2020 equation that does not use a race coefficient. Performed By: #### C BCA, 72819-5, CMP, THYR, 6873-4 #### [facility] ([id number]) [address], [address] [place] [address] Glucose [Mass/Vol] 124 mg/dL High 65-99 [facility] Comment on above: Performed By: #### C BCA, 75821-5, CMP, THYR, 6873-4 #### [facility] ([id number]) [address], [address] [place] [address] Potassium [Moles/Vol] 4.1 mmol/L Normal 3.5-5.0 [facility] Comment on above: Performed By: #### C BCA, 48738-9, CMP, THYR, 6873-4 #### [facility] ([id number]) [address], [address] [place] [address] Protein [Mass/Vol] 5.6 g/dL Low 6.0-8.0 [facility] Comment on above: Performed By: #### C BCA, 08482-2, CMP, THYR, 6873-4 #### [facility] ([id number]) [address], [address] [place] [address] Sodium [Moles/Vol] 137 mmol/L Normal 134-146 [facility] Comment on above: Performed By: #### C BCA, 87930-1, CMP, THYR, 6873-4 #### [facility] ([id number]) [address], [address] [place] [address] Urea nitrogen [Mass/Vol] 49 mg/dL High 5-27 [facility] Comment on above: Performed By: #### C BCA, 36104-5, CMP, THYR, 6873-4 #### [facility] ([id number]) [address], [address] [place] [address] MAGNESIUMon 11-15-2023 Magnesium [Mass/Vol] 1.8 mg/dL Normal 1.8-2.6 [facility] Comment on above: Performed By: #### C BCA, 04059-4, CMP, THYR, 6873-4 #### [facility] ([id number]) [address] [place] [address] CBC AND AUTO DIFFon 11-14-19 24 ABSOLUTE BASOPHIL 0.1 X10E9/L Normal 0.0-0.2 [facility] Comment on above: Performed By: #### C BCA, 36760-1, CMP, THYR, 6873-4 #### [facility] ([id number]) [address], [address] [place] [address] ABSOLUTE NEUTROPHIL 15.6 X10E9/L High 1.5-6.6 [facility] Comment on above: Performed By: #### C BCA, 64335-9, CMP, THYR, 6873-4 #### [facility] ([id number]) [address], [facility] [address] [place] [address] Basophils/100 WBC (Bld) 0.4 % Normal [facility] Comment on above: Performed By: #### C BCA, 18106-0, CMP, THYR, 6873-4 #### [facility] ([id number]) [address], [address] [place] [address] Eosinophils (Bld) [#/Vol] 0.2 10*3/uL Normal 0.0-0.4 [facility] Comment on above: Performed By: #### C BCA, 76539-7, CMP, THYR, 6873-4 #### [facility] ([id number]) [address], [address] [address] Eosinophils/100 WBC (Bld) 1.2 % Normal [facility] Comment on above: Performed By: #### C BCA, 12636-5, CMP, THYR, 6873-4 #### [facility] ([id number]) [address], [address] [place] [address] Erythrocyte distribution width (RBC) [Ratio] 15.6 % High 11.5-15.0 [facility] Comment on above: Performed By: #### C BCA, 79828-7, CMP, THYR, 6873-4 #### [facility] ([id number]) [address], [address] [place] [address] Hematocrit (Bld) [Volume fraction] 21.1 % Low 35-47 [facility] Comment on above: Performed By: #### C BCA, 59131-4, CMP, THYR, 6873-4 #### [facility] ([id number]) [address], [address] [place] [address] Hemoglobin (Bld) [Mass/Vol] 6.8 g/dL Critically low 11.7-15.5 [facility] Comment on above: Performed By: #### C BCA, 95034-2, CMP, THYR, 6873-4 #### [facility] ([id number]) [address], [facility] [address] [place] [address] Lymphocytes (Bld) [#/Vol] 1.0 10*3/uL Normal 1.0-3.5 [facility] Comment on above: Performed By: #### C BCA, 80968-3, CMP, THYR, 6873-4 #### [facility] ([id number]) [address] [address] [place] [address] Lymphocytes/100 WBC (Bld) 5.4 % Normal [facility] Comment on above: Performed By: #### C BCA, 21469-8, CMP, THYR, 6873-4 #### [facility] ([id number]) [address], [address] [place] [address] MCH (RBC) [Entitic mass] 29.9 pg Normal 27-34 [facility] Comment on above: Performed By: #### C BCA, 70179-2, CMP, THYR, 6873-4 #### [facility] ([id number]) [address], [address] [place] [address] MCHC (RBC) [Mass/Vol] 32.3 g/dL Normal 32-36 [facility] Comment on above: Performed By: #### C BCA, 75786-5, CMP, THYR, 6873-4 #### [facility] ([id number]) [address], [address] [place] [address] MCV (RBC) [Entitic vol] 93 fL Normal 80-100 [facility] Comment on above: Performed By: #### C BCA, 91051-6, CMP, THYR, 6873-4 #### [facility] ([id number]) [address], [address] [place] [address] Monocytes (Bld) [#/Vol] 1.0 10*3/uL High 0-0.9 [facility] Comment on above: Performed By: #### C BCA, 17168-0, CMP, THYR, 6873-4 #### [facility] ([id number]) [address], [address] [place] [address] Monocytes/100 WBC (Bld) 5.4 % Normal [facility] Comment on above: Performed By: #### C BCA, 26256-4, CMP, THYR, 6873-4 #### [facility] ([id number]) [address], [address] [place] [address] Neutrophils/100 WBC (Bld) 87.6 % Normal [facility] Comment on above: Performed By: #### C BCA, 53366-4, CMP, THYR, 6873-4 #### [facility] ([id number]) [address], [address] [place] [address] Platelet mean volume (Bld) [Entitic vol] 8.8 fL Normal 7-12 [facility] Comment on above: Performed By: #### C BCA, 28465-3, CMP, THYR, 6873-4 #### [facility] ([id number]) [address], [address] [place] [address] Platelets (Bld) [#/Vol] 493 10*3/uL High 150-450 [facility] Comment on above: Performed By: #### C BCA, 55493-5, CMP, THYR, 6873-4 #### [facility] ([id number]) [address], [address] [place] [address] RBC COUNT 2.28 X10E12/L Low 3.80-5.20 [facility] Comment on above: Performed By: #### C BCA, 76506-3, CMP, THYR, 6873-4 #### [facility] ([id number]) [address], [address] [place] [address] WBC (Bld) [#/Vol] 17.8 10*3/uL High 4.0-11.0 [facility] Comment on above: Performed By: #### C BCA, 48560-3, CMP, THYR, 6873-4 #### [facility] ([id number]) [address], [address] [place] [address] COMPREHENSIVE METABOLIC PANE [place] 11-14-2023 Albumin [Mass/Vol] 2.4 g/dL Low 3.2-5.3 [facility] Comment on above: Performed By: #### C BCA, 36860-7, CMP, THYR, 6873-4 #### [facility] ([id number]) [address], [address] [place] [address] ALP [Catalytic activity/Vol] 97 U/L Normal 39-130 [facility] Comment on above: Performed By: #### C BCA, 25511-3, CMP, THYR, 6873-4 #### [facility] ([id number]) [address], [address] [place] [address] ALT [Catalytic activity/Vol] 5 U/L Normal 0-31 [facility] Comment on above: Performed By: #### C BCA, 56713-5, CMP, THYR, 6873-4 #### [facility] ([id number]) [address], [address] [place] [address] Anion gap [Moles/Vol] 11 mmol/L Normal 5-15 [facility] Comment on above: Performed By: #### C BCA, 68818-1, CMP, THYR, 6873-4 #### [facility] ([id number]) [address], [address] [place] [address] AST [Catalytic activity/Vol] 9 U/L Normal 0-41 [facility] Comment on above: Performed By: #### C BCA, 83303-8, CMP, THYR, 6873-4 #### [facility] ([id number]) [address] [place] [address] Bilirubin [Mass/Vol] 0.2 mg/dL Low 0.3-1.2 [facility] Comment on above: Performed By: #### C BCA, 31534-9, CMP, THYR, 6873-4 #### [facility] ([id number]) [address], [address] [place] [address] Calcium [Mass/Vol] 7.4 mg/dL Low 8.5-10.5 [facility] Comment on above: Performed By: #### C BCA, 67299-8, CMP, THYR, 6873-4 #### [facility] ([id number]) [address], [address] [place] [address] Chloride [Moles/Vol] 107 mmol/L Normal 98-109 [facility] Comment on above: Performed By: #### C BCA, 69943-4, CMP, THYR, 6873-4 #### [facility] ([id number]) [address], [address] [place] [address] CO2 [Moles/Vol] 16 mmol/L Low 22-32 [facility] Comment on above: Performed By: #### C BCA, 52574-3, CMP, THYR, 6873-4 #### [facility] ([id number]) [address], [address] [place] [address] Creatinine [Mass/Vol] 2.06 mg/dL High 0.40-1.00 [facility] Comment on above: Result Comment: METH OD TRACEABLE TO IDMS STANDARD Performed By: #### C BCA, 71983-3, CMP, THYR, 6873-4 #### [facility] ([id number]) [address], [facility] [address] [place] [address] GFR/1.73 sq M.predicted among non-blacks MDRD (S/P/Bld) [Vol rate/Area] 26 mL/min/{1.73_m2} Low >59 [facility] Comment on above: Result Comment: Reported eGFR is based on the CKD-EPI 2020 equation that does not use a race coefficient. Performed By: #### C BCA, 14895-7, CMP, THYR, 6873-4 #### [facility] ([id number]) [address], [address] [place] [address] Glucose [Mass/Vol] 103 mg/dL High 65-99 [facility] Comment on above: Performed By: #### C BCA, 73988-3, CMP, THYR, 6873-4 #### [facility] ([id number]) [address] [address] [place] [address] Potassium [Moles/Vol] 3.9 mmol/L Normal 3.5-5.0 [facility] Comment on above: Performed By: #### C BCA, 66689-8, CMP, THYR, 6873-4 #### [facility] ([id number]) [address], [address] [place] [address] Protein [Mass/Vol] 5.3 g/dL Low 6.0-8.0 [facility] Comment on above: Performed By: #### C BCA, 90195-3, CMP, THYR, 6873-4 #### [facility] ([id number]) [address], [address] [place] [address] Sodium [Moles/Vol] 134 mmol/L Normal 134-146 [facility] Comment on above: Performed By: #### C BCA, 05534-7, CMP, THYR, 6873-4 #### [facility] ([id number]) [address], [address] [place] [address] Urea nitrogen [Mass/Vol] 61 mg/dL High 5-27 [facility] Comment on above: Performed By: #### C BCA, 67286-5, CMP, THYR, 6873-4 #### [facility] ([id number]) [address] [address] [address] [place] [address] HGB AND HCTon 11-14-2023 Hematocrit (Bld) [Volume fraction] 23.7 % Low 35-47 [facility] Comment on above: Performed By: #### C BCA, 50402-8, CMP, THYR, 6873-4 #### [facility] ([id number]) [address] [address] [place] [address] Hemoglobin (Bld) [Mass/Vol] 7.7 g/dL Low 11.7-15.5 [facility] [facility] Comment on above: Performed By: #### C BCA, 10170-8, CMP, THYR, 6873-4 #### [facility] ([id number]) [address] [place] [address] MAGNESIUMon 11-14-2023 Magnesium [Mass/Vol] 1.8 mg/dL Normal 1.8-2.6 [facility] Comment on above: Performed By: #### C BCA, 15421-6, CMP, THYR, 6873-4 #### [facility] ([id number]) [address], [address] [place] [address] PHOSPHORUSon 11-14-2023 Phosphate [Mass/Vol] 3.8 mg/dL Normal 2.4-4.9 [facility] Comment on above: Performed By: #### C JAVIER, 16871-2, CMP, THYR, 6873-4 #### [facility] ([id number]) [address], [address] [place] [address] BLOOD CULTUREon 11-13-2023 Bacteria identified Aer cx [...] required. F ERTAPENEM S <=0.5 F Susceptible [facility] Comment on above: Performed By: #### C JAVIER, 04899-5, CMP, THYR, 6873-4 #### [facility] ([id number]) [address], [address] [place] [address] Bacteria identified Aer cx Nom (Bld) CULTURE RESULTS NO GROWTH 5 DAYS Normal [facility] Beta hydroxybutyrate [Moles/ Vol]on 11-13-2023 BetaHydroxybutyrate 0.16 mmol/L Normal 0.02-0.27 [facility] Comment on above: Performed By: #### C JAVIER, 11184-2, CMP, THYR, 6873-4 #### [facility] ([id number]) [address], [address] [place] [address] CBC AND AUTO DIFFon 11-13-19 24 ABSOLUTE BASOPHIL 0.0 X10E9/L Normal 0.0-0.2 [facility] Comment on above: Performed By: #### C BCA, 73846-8, CMP, THYR, 6873-4 #### [facility] ([id number]) [address], [address] [place] [address] ABSOLUTE NEUTROPHIL 17.3 X10E9/L High 1.5-6.6 [facility] Comment on above: Performed By: #### C BCA, 86323-4, CMP, THYR, 6873-4 #### [facility] ([id number]) [address], [address] [address] Basophils/100 WBC (Bld) 0.2 % Normal [facility] Comment on above: Performed By: #### C BCA, 75664-9, CMP, THYR, 6873-4 #### [facility] ([id number]) [address], [address] [address] Eosinophils (Bld) [#/Vol] 0.1 10*3/uL Normal 0.0-0.4 [facility] Comment on above: Performed By: #### C BCA, 86105-4, CMP, THYR, 6873-4 #### [facility] ([id number]) [address], [address] [address] Eosinophils/100 WBC (Bld) 0.3 % Normal [facility] Comment on above: Performed By: #### C BCA, 75125-4, CMP, THYR, 6873-4 #### [facility] ([id number]) [address], [address] [place] [address] Erythrocyte distribution width (RBC) [Ratio] 15.6 % High 11.5-15.0 [facility] Comment on above: Performed By: #### C BCA, 25243-4, CMP, THYR, 6873-4 #### [facility] ([id number]) [address], [address] [place] [address] Hematocrit (Bld) [Volume fraction] 24.1 % Low 35-47 [facility] Comment on above: Performed By: #### C BCA, 21440-0, CMP, THYR, 6873-4 #### [facility] ([id number]) [address], [facility] [address] [place] [address] Hemoglobin (Bld) [Mass/Vol] 7.8 g/dL Low 11.7-15.5 [facility] Comment on above: Performed By: #### C BCA, 29317-4, CMP, THYR, 6873-4 #### [facility] ([id number]) [address] [facility] [address] [place] [address] Lymphocytes (Bld) [#/Vol] 1.2 10*3/uL Normal 1.0-3.5 [facility] Comment on above: Performed By: #### C BCA, 40617-3, CMP, THYR, 6873-4 #### [facility] ([id number]) [address] [address] [place] [address] Lymphocytes/100 WBC (Bld) 6.1 % Normal [facility] Comment on above: Performed By: #### C BCA, 09168-0, CMP, THYR, 6873-4 #### [facility] ([id number]) [address], [address] [place] [address] MCH (RBC) [Entitic mass] 29.7 pg Normal 27-34 [facility] Comment on above: Performed By: #### C BCA, 26623-7, CMP, THYR, 6873-4 #### [facility] ([id number]) [address], [address] [place] [address] MCHC (RBC) [Mass/Vol] 32.4 g/dL Normal 32-36 [facility] Comment on above: Performed By: #### C BCA, 15655-7, CMP, THYR, 6873-4 #### [facility] ([id number]) [address], [address] [place] [address] MCV (RBC) [Entitic vol] 92 fL Normal 80-100 [facility] Comment on above: Performed By: #### Rohith BCA, 46418-2, CMP, THYR, 6873-4 #### [facility] ([id number]) [address], [address] [place] [address] Monocytes (Bld) [#/Vol] 0.7 10*3/uL Normal 0-0.9 [facility] Comment on above: Performed By: #### C BCA, 23176-6, CMP, THYR, 6873-4 #### [facility] ([id number]) [address], [address] [place] [address] Monocytes/100 WBC (Bld) 3.8 % Normal [facility] Comment on above: Performed By: #### Rohith BCA, 05331-4, CMP, THYR, 6873-4 #### [facility] ([id number]) [address], [address] [place] [address] Neutrophils/100 WBC (Bld) 89.6 % Normal [facility] Comment on above: Performed By: #### Rohith BCA, 13659-5, CMP, THYR, 6873-4 #### [facility] ([id number]) [address], [address] [place] [address] Platelet mean volume (Bld) [Entitic vol] 8.8 fL Normal 7-12 [facility] Comment on above: Performed By: #### C BCA, 93275-0, CMP, THYR, 6873-4 #### [facility] ([id number]) [address], [address] [place] [address] Platelets (Bld) [#/Vol] 508 10*3/uL High 150-450 [facility] Comment on above: Performed By: #### C BCA, 29161-4, CMP, THYR, 6873-4 #### [facility] ([id number]) [address], [address] [place] [address] RBC COUNT 2.63 X10E12/L Low 3.80-5.20 [facility] Comment on above: Performed By: #### C BCA, 06715-2, CMP, THYR, 6873-4 #### [facility] ([id number]) [address], [address] [place] [address] WBC (Bld) [#/Vol] 19.3 10*3/uL High 4.0-11.0 [facility] Comment on above: Performed By: #### C BCA, 01603-0, CMP, THYR, 6873-4 #### [facility] ([id number]) [address], [address] [place] [address] COMPREHENSIVE METABOLIC PANE [place] 11-13-2023 Albumin [Mass/Vol] 2.9 g/dL Low 3.2-5.3 [facility] Comment on above: Performed By: #### C BCA, 21456-2, CMP, THYR, 6873-4 #### [facility] ([id number]) [address], [address] [place] [address] ALP [Catalytic activity/Vol] 111 U/L Normal 39-130 [facility] Comment on above: Performed By: #### C BCA, 03641-8, CMP, THYR, 6873-4 #### [facility] ([id number]) [address], [address] [place] [address] ALT [Catalytic activity/Vol] 5 U/L Normal 0-31 [facility] Comment on above: Performed By: #### C BCA, 63185-0, CMP, THYR, 6873-4 #### [facility] ([id number]) [address], [address] [place] [address] Anion gap [Moles/Vol] 12 mmol/L Normal 5-15 [facility] Comment on above: Performed By: #### C BCA, 65868-6, CMP, THYR, 6873-4 #### [facility] ([id number]) [address], [address] [place] [address] AST [Catalytic activity/Vol] 10 U/L Normal 0-41 [facility] Comment on above: Performed By: #### C BCA, 51562-3, CMP, THYR, 6873-4 #### [facility] ([id number]) [address], [address] [place] [address] Bilirubin [Mass/Vol] 0.3 mg/dL Normal 0.3-1.2 [facility] Comment on above: Performed By: #### C BCA, 87214-1, CMP, THYR, 6873-4 #### [facility] ([id number]) [address], [address] [place] [address] Calcium [Mass/Vol] 8.1 mg/dL Low 8.5-10.5 [facility] Comment on above: Performed By: #### C BCA, 93684-3, CMP, THYR, 6873-4 #### [facility] ([id number]) [address], [address] [place] [address] Chloride [Moles/Vol] 103 mmol/L Normal 98-109 [facility] Comment on above: Performed By: #### C BCA, 52273-9, CMP, THYR, 6873-4 #### [facility] ([id number]) [address], [address] [place] [address] CO2 [Moles/Vol] 16 mmol/L Low 22-32 [facility] Comment on above: Performed By: #### C BCA, 96120-0, CMP, THYR, 6873-4 #### [facility] ([id number]) [address], [address] [place] [address] Creatinine [Mass/Vol] 2.34 mg/dL High 0.40-1.00 [facility] Comment on above: Result Comment: METH OD TRACEABLE TO IDMS STANDARD Performed By: #### C BCA, 05666-7, CMP, THYR, 6873-4 #### [facility] ([id number]) [address], [facility] [address] [place] [address] GFR/1.73 sq M.predicted among non-blacks MDRD (S/P/Bld) [Vol rate/Area] 22 mL/min/{1.73_m2} Low >59 [facility] Comment on above: Result Comment: Reported eGFR is based on the CKD-EPI 2020 equation that does not use a race coefficient. Performed By: #### C BCA, 03971-9, CMP, THYR, 6873-4 #### [facility] ([id number]) [address], [address] [place] [address] Glucose [Mass/Vol] 147 mg/dL High 65-99 [facility] Comment on above: Performed By: #### C BCA, 84501-5, CMP, THYR, 6873-4 #### [facility] ([id number]) [address] [place] [address] Potassium [Moles/Vol] 4.3 mmol/L Normal 3.5-5.0 [facility] Comment on above: Performed By: #### C BCA, 30267-4, CMP, THYR, 6873-4 #### [facility] ([id number]) [address], [address] [place] [address] Protein [Mass/Vol] 6.4 g/dL Normal 6.0-8.0 [facility] Comment on above: Performed By: #### C BCA, 73465-2, CMP, THYR, 6873-4 #### [facility] ([id number]) [address], [address] [place] [address] Sodium [Moles/Vol] 131 mmol/L Low 134-146 [facility] Comment on above: Performed By: #### C BCA, 07486-4, CMP, THYR, 6873-4 #### [facility] ([id number]) [address], [address] [place] [address] Urea nitrogen [Mass/Vol] 67 mg/dL High 5-27 [facility] Comment on above: Performed By: #### C BCA, 22858-2, CMP, THYR, 6873-4 #### [facility] ([id number]) [address], [address] [place] [address] Creatinine (U) [Mass/Vol]on 11-13-2023 URINE CREATININE,RDM 60.20 mg/dL Normal [facility] Comment on above: Performed By: #### C BCA, 53295-0, CMP, THYR, 6873-4 #### [facility] ([id number]) [address], [address] [place] [address] Lactate (P abida) [Moles/Vol]o n 11-13-2023 LACTATE W/REFLEX 0.8 mmol/L Normal 0.4-2.0 [facility] Comment on above: Result Comment: Result did not trigger repeat Lactate, re-order if needed. Performed By: #### C BCA, 87073-4, CMP, THYR, 6873-4 #### [facility] ([id number]) [address], [address] [place] [address] Protein (U) [Mass/Vol]on RANDOM URINE PROTEIN 1280 mg/L High <120 [facility] Comment on above: Performed By: #### C BCA, 85219-0, CMP, THYR, 6873-4 #### [facility] ([id number]) [address] [place] [address] THYROID PROFILEon 11-13-2023 Free T4 [Mass/Vol] 1.07 ng/dL Normal 0.61-1.60 [facility] Comment on above: Performed By: #### C BCA, 34788-2, CMP, THYR, 6873-4 #### [facility] ([id number]) [address] [place] [address] TSH 1.09 uIU/mL Normal 0.49-4.67 [facility] Comment on above: Performed By: #### C BCA, 51685-3, CMP, THYR, 6873-4 #### [facility] ([id number]) [address], [address] [place] [address] Troponin I.cardiac (Bld) [Ma ss/Vol]on 11-13-2023 PORTABLE TROPONIN <0.01 Normal 0.00-0.08 [facility] Comment on above: Result Comment: NEW REFERENCE RANGE Performed By: #### 4 2757-5 #### [facility] ([id number]) [address] [place] [address] URINALYSISon 11-13-2023 Bilirubin Ql (U) Negative Normal NEG [facility] Comment on above: Performed By: #### U A #### [facility] ([id number]) [address] [facility] [address] [place] [address] BLOOD/HGB MODERATE Abnormal NEG [facility] Comment on above: Performed By: #### U A #### [facility] ([id number]) [address] [place] [address] Color (U) YELLOW Normal YELLOW [facility] Comment on above: Performed By: #### U A #### [facility] ([id number]) [address] [place] [address] Glucose Ql (U) Negative Normal NEG [facility] Comment on above: Performed By: #### U A #### [facility] ([id number]) [address] [place] [address], [address] [place] [address] Ketones Ql (U) Negative Normal NEG [facility] Comment on above: Performed By: #### U A #### [facility] ([id number]) [address] [place] [address], [address] [place] [address] Leukocyte esterase Test strip Ql (U) Large Abnormal NEG [facility] Comment on above: Performed By: #### U A #### [facility] ([id number]) [address] [place] [address], [address] [place] [address] MUCOUS PRESENT Abnormal NONE [facility] Comment on above: Performed By: #### U A #### [facility] ([id number]) [address] [place] [address], [address] [place] [address] Nitrite Ql (U) Negative Normal NEG [facility] Comment on above: Performed By: #### U A #### [facility] ([id number]) [address] [place] [address], [address] [place] [address] pH (U) 5.5 [pH] Normal 5.0-8.5 [facility] Comment on above: Performed By: #### U A #### [facility] ([id number]) [address] [place] [address], [address] [place] [address] Protein Ql (U) 70 mg/dL Abnormal NEG [facility] Comment on above: Performed By: #### U A #### [facility] ([id number]) [address] [place] [address], [address] [place] [address] R.B.CELLS 16 /hpf High 0-5 [facility] Comment on above: Performed By: #### U A #### [facility] ([id number]) [address], [address] [place] [address] Specific gravity (U) [Rel density] 1.013 Normal 1.003-1.035 [facility] Comment on above: Performed By: #### U A #### [facility] ([id number]) [address], [address] [place] [address] TURBIDITY HAZY Abnormal CLEAR [facility] Comment on above: Performed By: #### U A #### [facility] ([id number]) [address], [address] [place] [address] Urinalysis dipstick W Reflex Microscopic panel (U) URINE RECEIVED WITHOUT PRESERVATIVE-DELAYS IN TRANSPORT MAY AFFECT RESULTS.INTERPRET WITH CAUTION AND CLINICAL CORRELATION IS RECOMMENDED. Normal [facility] Comment on above: Performed By: #### U A #### [facility] ([id number]) [address], [address] [place] [address] Urobilinogen (U) [Mass/Vol] mg/dL Normal <1.1 [facility] Comment on above: Performed By: #### U A #### [facility] ([id number]) [address], [address] [place] [address] W.B.CELLS 493 /hpf High 0-5 [facility] Comment on above: Performed By: #### U A #### [facility] ([id number]) [address] [place] [address] URINE CULTUREon 11-13-2023 Bacteria identified Cx Nom [...] required. F ERTAPENEM S <=0.5 F Susceptible [facility] Comment on above: Performed By: #### C BCA, 59338-7, CMP, THYR, 6873-4 #### [facility] ([id number]) [address] [place] [address] URN MACROSCOPIC NURon 2023 BILIRUBIN CHLOE Negative Normal NEG [facility] Comment on above: Performed By: #### N UM #### [facility] ([id number]) [address] [place] [address] BLOOD/HGB CHLOE Large Abnormal NEG [facility] Comment on above: Performed By: #### N UM #### [facility] ([id number]) [address] [place] [address] GLUCOSE CHLOE Negative Normal NEG [facility] Comment on above: Performed By: #### N UM #### [facility] ([id number]) [address] [place] [address] KETONES CHLOE Negative Normal NEG [facility] Comment on above: Performed By: #### N UM #### [facility] ([id number]) [address] [place] [address] LEUKOCYTE ESTERASE CHLOE Large Abnormal NEG [facility] Comment on above: Performed By: #### N UM #### [facility] ([id number]) [address] [place] [address] NITRITE CHLOE Negative Normal NEG [facility] Comment on above: Performed By: #### N UM #### [facility] ([id number]) [address] [place] [address] PH CHLOE 5.5 Normal 5.0-8.5 [facility] Comment on above: Performed By: #### N UM #### [facility] ([id number]) [address] [place] [address] PROTEIN CHLOE 100 mg/dL Abnormal NEG [facility] Comment on above: Performed By: #### N UM #### [facility] ([id number]) [address] [place] [address] SPECIFIC GRAVITY CHLOE 1.015 Normal 1.003-1.035 [facility] Comment on above: Performed By: #### N UM #### [facility] ([id number]) [address] [place] [address] UROBILINOGEN CHLOE 0.2 eu/dL Normal <1.1 [facility] Comment on above: Performed By: #### N UM #### [facility] ([id number]) [address] [place] [address] US RETROPERITONEAL COMPLETEo n 11-13-2023 US RETROPERITONEAL [...] Card MD on 11/13/2023 9:46 PM Normal [facility] Urea nitrogen (U) [Mass/Vol] on 11-13-2023 URINE UREA NITROGEN,RANDOM 420 mg/dL Normal [facility] Comment on above: Performed By: #### C BCA, 11804-3, CMP, THYR, 6873-4 #### [facility] ([id number]) [address] [place] [address] Urine collection deviceon ER EXTRA URINES ER EXTRA URINE ORDER IN PROCESS Normal [facility] XR CHEST 1 VWon 11-13-2023 XR CHEST [...] Mcnair MD on 11/13/2023 2:32 PM Normal [facility] aPTT Coag (PPP) [Time]on aPTT Coag (Bld) [Time] 32 s Normal 26-37 [facility] Comment on above: Performed By: #### C BCA, 36735-5, CMP, THYR, 6873-4 #### [facility] ([id number]) [address] [place] [address] Vital Signs Date Time Vital Sign Value Performing Clinician Elizabeth campbell 01-16-2024 08:110500 Body mass index (BMI) [Ratio] 22.47 kg/m2 January Simpson APRN-[employer] SERVICER Work Phone: [facility] 01-16-2024 08:11-0500 Body weight 61.24 kg January Simpson APRN-[employer]IC[employer] Work Phone: [facility] 01-16-2024 08:11-0500 Diastolic blood pressure 75 mm[Hg] January Simpson APRN-[employer]IC[employer] Work Phone: [facility] 01-16-2024 08:11-0500 Heart rate 54 /min January Oberneder FACILITY PRACTICE SPECIALIST-[employer]ICER [facility]: [facility] 01-16-2024 08:11-0500 SaO2% (BldA) [Mass fraction] 98 % January Oberneder FACILITY PRACTICE SPECIALIST-[employer] SERVICER Work Phone: [facility] [employer] 01-16-2024 08:11-0500 Systolic blood pressure 181 mm[Hg] January Oberneder FACILITY PRACTICE SPECIALIST-[employer]ICER Work Phone: [facility] [employer] 11-28-2023 08:40-0500 Body height 165.1 cm January Oberneder FACILITY PRACTICE SPECIALIST-[employer]IC[employer] Work Phone: [facility] [employer] 11-28-2023 08:40-0500 Body mass index (BMI) [Ratio] 23.53 kg/m2 January Oberneder FACILITY PRACTICE SPECIALIST-[employer]ICER Work Phone: [facility] [employer] 11-28-2023 08:40-0500 Body weight 64.14 kg January Oberneder FACILITY PRACTICE SPECIALIST-[employer]ICER Work Phone: [facility] [employer] 11-28-2023 08:40-0500 Diastolic blood pressure 68 mm[Hg] January Oberneder FACILITY PRACTICE SPECIALIST-[employer]ICER Work Phone: [facility] [employer] 11-28-2023 08:40-0500 Heart rate 62 /min January Oberneder FACILITY PRACTICE SPECIALIST-[employer]ICER Work Phone: [facility] [employer] 11-28-2023 08:40-0500 Systolic blood pressure 132 mm[Hg] January Oberneder FACILITY PRACTICE SPECIALIST-[employer]ICER [facility]: [facility] 11-13-2023 08:09-0500 Body height 152.4 cm Karmen Bagley MD Work Phone: [facility] [employer] 11-13-2023 08:09-0500 Body mass index (BMI) [Ratio] 26.17 kg/m2 Karmen Bagley MD Work Phone: [facility] 11-13-2023 08:09-0500 Body weight 60.78 kg Karmen Bagley MD Work Phone: [facility] [employer] [facility] 11-13-2023 08:09-0500 Diastolic blood pressure 42 mm[Hg] Karmen Bagley MD Work Phone: [facility] 11-13-2023 08:09-0500 Heart rate 58 /min Karmen Bagley MD Work Phone: [facility] 11-13-2023 08:09-0500 SaO2% (BldA) [Mass fraction] 95 % Karmen Bagley MD Work Phone: [facility] [employer] 11-13-2023 08:09-0500 Systolic blood pressure 73 mm[Hg] Karmen Bagley MD Work Phone: [facility] Encounters Encounter Date Encounter Type Care Provider Facility Start: 01-16-2024 End: 01-16-2024 Office outpatient visit 40 minutes January Simpson FACILITY PRACTICE SPECIALIST-[employer]ICER Work Phone: [facility] Comment on above: Stage 3b chronic kid jen disease (CMS-HCC) (Primary Dx) Start: 01-07-2024 Telephone encounter Nery Manning CMA [facility] Start: 12-26-2023 Telephone encounter Tayla rinaldi LPN [facility] Start: 12-11-2023 Telephone encounter Li hernandes FACILITY PRACTICE SPECIALIST-WATER PUMP SERVICER Work Phone: [facility] Start: 12-10-2023 End: 12-10-2023 ambulatory [facility] Start: 12-02-2023 Telephone encounter Nery Manning CMA N [facility] Start: 11-29-2023 Telephone encounter Beatrice Goldstein RN N [facility] Start: 11-28-2023 End: 11-28-2023 Office outpatient visit 25 minutes January Simpson FACILITY PRACTICE SPECIALIST-WATER PUMP SERVICER Work Phone: [facility] Comment on above: NIDIA (acute kidney in jury) [place] (Primary Dx); Stage 3a chronic kidney disease ([facility]) Start: 11-27-2023 End: 11-27-2023 ambulatory Lizandro Mcpherson Facility:[facility] Start: 11-27-2023 End: 11-27-2023 ambulatory MD Lizandro Mcpherson Work Phone: [facility] Work Phone: Start: 11-27-2023 End: 11-27-2023 Patient encounter procedure MD Lizandro Mcpherson Work Phone: [facility] Start: 11-26-2023 End: 11-26-2023 ambulatory Lizandro Mcpherson Facility:[facility] Start: 11-26-2023 End: 11-26-2023 ambulatory MD Lizandro Mcpherson Work Phone: [facility] Work Phone: Start: 11-26-2023 End: 11-26-2023 Departed Referred MD Lizandro Mcpherson Work Phone: [facility] [place] Work Phone: Start: 11-18-2023 End: 11-18-2023 Orders Only Li Alcantar FACILITY PRACTICE SPECIALIST-WATER PUMP SERVICER Work Phone: [facility] Comment on above: Stage 3b chronic kid jen disease ([facility]) (Primary Dx) Start: 11-13-2023 End: 11-17-2023 [facility] Start: 11-13-2023 End: 11-17-2023 Emergency department patient visit FILOMENA Heidi SKELTON [facility] Start: 11-13-2023 End: 11-17-2023 [facility] Start: 11-13-2023 End: 11-13-2023 Office outpatient new 45 minutes Karmen Bagley MD Work Phone: N [facility] Comment on above: Stage 3b chronic kid jen disease (CKD) ([facility]) (Primary Dx); Stage 3 chronic kidney disease, unspecified whether stage 3a or 3b CKD ([facility]) Start: 10-29-2023 Telephone encounter Scanning Olivia King N [facility] Start: 01-02-2023 End: 01-02-2023 ambulatory HOLE FILLER Radha Santos Work Phone: [facility] Work Phone: Start: 01-02-2023 End: 01-02-2023 Departed Referred HOLE FILLER Radha Santos Work Phone: [facility] [place] Work Phone: Plan of Treatment Date Care Activity Detail Author Start: 01-15-2025 Adult BMI Screening Adult BMI Screening [facility] Start: 11-28-2024 Adult BMI Screening Adult BMI Screening [facility] Start: 11-28-2024 Tobacco Screening Tobacco Screening [facility] Start: 11-16-2024 Adult BMI Screening [facility] Start: 11-13-2024 Adult BMI Screening Adult BMI Screening [facility] Start: 08-20-2024 Tobacco Screening Tobacco Screening [facility] Start: 04-30-2024 End: 04-30-2024 Patient encounter procedure 04/30/2024 8:20 AM EDT Office Visit N [facility] [address] [place] [address] January Simpson, FACILITY PRACTICE SPECIALIST-WATER PUMP SERVICER [address] [place] [address] [facility] Start: 04-23-2024 End: 04-23-2024 Patient encounter procedure 04/23/2024 12:30 PM EDT Office Visit [facility] [address] [place] [address] Li Alcantar, FACILITY PRACTICE SPECIALIST-WATER PUMP SERVICER [address], [facility] [address] [place] [address] Cesario Keenan MD [address] [facility] [address] [place] [address] [facility] Start: 01-23-2024 End: 01-15-2025 Basic metabolic 2000 panel - Serum or Plasma Basic Metabolic Panel Lab Routine Stage 3b chronic kidney disease ([facility]) Expected: 01/23/2024 (Approximate), Expires: [facility]/20[facility] Comment on above: Expected: 01/23/2024 (Approximate), Expi res: 01/15/2025 Start: 01-23-2024 End: 01-15-2025 Magnesium [Mass/volume] in Serum or Plasma Magnesium Lab Routine Stage 3b chronic kidney disease ([facility]) Expected: 01/23/2024 (Approximate), Expires: [facility] Comment on above: Expected: 01/23/2024 (Approximate), Expi res: 01/15/2025 Start: 01-23-2024 End: 01-15-2025 Parathyroid Hormone, intact Parathyroid Hormone, intact Lab Routine Stage 3b chronic kidney disease ([facility]) Expected: 01/23/2024 (Approximate), Expires: 01/15/2025 [facility] Comment on above: Expected: 01/23/2024 (Approximate), Expi res: 01/15/2025 Start: 01-23-2024 End: 01-15-2025 Phosphate [Mass/volume] in Serum or Plasma Phosphorus Lab Routine Stage 3b chronic kidney disease ([facility]) Expected: 01/23/2024 (Approximate), Expires: 01/15/2025 [facility] Comment on above: Expected: 01/23/2024 (Approximate), Expi res: 01/15/2025 Start: 01-23-2024 End: 01-15-2025 Protein creat ratio Protein creat ratio Lab Routine Stage 3b chronic kidney disease ([facility]) Expected: 01/23/2024 (Approximate), Expires: 01/15/2025 [facility] Comment on above: Expected: 01/23/2024 (Approximate), Expi res: 01/15/2025 Start: 01-23-2024 End: 01-15-2025 Urinalysis Urinalysis Lab Routine Stage 3b chronic kidney disease ([facility]) Expected: 01/23/2024 (Approximate), Expires: 01/15/2025 [facility] Comment on above: Expected: 01/23/2024 (Approximate), Expi res: 01/15/2025 Start: 01-23-2024 End: 01-15-2025 Vitamin D 25 hydroxy Vitamin D 25 hydroxy Lab Routine Stage 3b chronic kidney disease ([facility]) Expected: 01/23/2024 (Approximate), Expires: 01/15/2025 [facility] Comment on above: Expected: 01/23/2024 (Approximate), Expi res: 01/15/2025 Start: 01-16-2024 End: 01-15-2025 Protein creat ratio Protein creat ratio Lab Routine Stage 3b chronic kidney disease ([facility]) Expected: 01/16/2024 (Approximate), Expires: 01/15/2025 [facility] Comment on above: Expected: 01/16/2024 (Approximate), Expi res: 01/15/2025 Start: 01-16-2024 End: 01-15-2025 Urinalysis Urinalysis Lab Routine Stage 3b chronic kidney disease ([facility]) Expected: 01/16/2024 (Approximate), Expires: [facility]15[facility] Comment on above: Expected: 01/16/2024 (Approximate), Expi res: 01/15/2025 Start: 01-16-2024 End: 01-16-2024 Patient encounter procedure 01/16/2024 8:20 AM EST Office Visit [facility] [address] [address] January Simpson, FACILITY PRACTICE SPECIALIST-WATER PUMP SERVICER [address], [address] [place], [place] [id number] [facility] Start: 12-05-2023 End: 11-28-2024 FELIX Screen w/ Reflex FELIX Screen w/ Reflex Lab Routine Stage 3a chronic kidney disease ([facility]) Expected: 12/05/2023 (Approximate), Expires: 11/28/2024 [facility] Comment on above: Expected: 12/05/2023 (Approximate), Expi res: 11/28/2024 Start: 12-05-2023 End: 11-28-2024 ANCA ANCA Lab Routine Stage 3a chronic kidney disease ([facility]) Expected: 12/05/2023 (Approximate), Expires: 11/28/2024 [facility] [employer] [facility] Comment on above: Expected: 12/05/2023 (Approximate), Expi res: 11/28/2024 Start: 12-05-2023 End: 11-28-2024 Anti-DNA antibody, double-stranded Anti-DNA antibody, double-stranded Lab Routine Stage 3a chronic kidney disease ([facility]) Expected: 12/05/2023 (Approximate), Expires: 11/28/2024 [facility] [employer] Comment on above: Expected: 12/05/2023 (Approximate), Expi res: 11/28/2024 Start: 12-05-2023 End: 11-28-2024 Complement profile (C3 AND C4) Complement profile (C3 AND C4) Lab Routine Stage 3a chronic kidney disease ([facility]) Expected: 12/05/2023 (Approximate), Expires: 11/28/2024 [facility] [employer] Comment on above: Expected: 12/05/2023 (Approximate), Expi res: 11/28/2024 Start: 12-05-2023 End: 11-28-2024 Free light chains Free light chains Lab Routine Stage 3a chronic kidney disease ([facility]) Expected: 12/05/2023 (Approximate), Expires: 11/28/2024 [facility] [employer] Comment on above: Expected: 12/05/2023 (Approximate), Expi res: 11/28/2024 Start: 12-05-2023 End: 11-28-2024 Glomerular basement membrane IgG AB Glomerular basement membrane IgG AB Lab Routine Stage 3a chronic kidney disease ([facility]) Expected: 12/05/2023 (Approximate), Expires: 11/28/2024 [facility] Comment on above: Expected: 12/05/2023 (Approximate), Expi res: 11/28/2024 Start: 12-05-2023 End: 11-28-2024 Myeloperoxidase AB Myeloperoxidase AB Lab Routine Stage 3a chronic kidney disease ([facility]) Expected: 12/05/2023 (Approximate), Expires: 11/28/2024 [facility] Comment on above: Expected: 12/05/2023 (Approximate), Expi res: 11/28/2024 Start: 12-05-2023 End: 11-28-2024 Protein electrophoresis, serum Protein electrophoresis, serum Lab Routine Stage 3a chronic kidney disease ([facility]) Expected: 12/05/2023 (Approximate), Expires: 11/28/2024 [facility] Comment on above: Expected: 12/05/2023 (Approximate), Expi res: 11/28/2024 Start: 12-05-2023 End: 11-28-2024 Proteinase 3 AB PR3 Proteinase 3 AB PR3 Lab Routine Stage 3a chronic kidney disease ([facility]) Expected: 12/05/2023 (Approximate), Expires: 11/28/2024 [facility] Comment on above: Expected: 12/05/2023 (Approximate), Expi res: 11/28/2024 Start: 12-05-2023 End: 11-28-2024 Rheumatoid factor Rheumatoid factor Lab Routine Stage 3a chronic kidney disease ([facility]) Expected: 12/05/2023 (Approximate), Expires: 11/28/2024 [facility] Comment on above: Expected: 12/05/2023 (Approximate), Expi res: 11/28/2024 Start: 11-29-2023 End: 11-28-2024 Basic metabolic 2000 panel - Serum or Plasma Basic Metabolic Panel Lab Routine Stage 3a chronic kidney disease ([facility]) Expected: 11/29/2023 (Approximate), Expires: 11/28/2024 [facility] Comment on above: Expected: 11/29/2023 (Approximate), Expi res: 11/28/2024 Start: 11-29-2023 End: 11-28-2024 Magnesium [Mass/volume] in Serum or Plasma Magnesium Lab Routine Stage 3a chronic kidney disease ([facility]) Expected: 11/29/2023 (Approximate), Expires: 11/28/2024 [facility] Comment on above: Expected: 11/29/2023 (Approximate), Expi res: 11/28/2024 Start: 11-28-2023 End: 11-28-2023 Patient encounter procedure 11/28/2023 8:40 AM EST Office Visit [facility] [address] [place] [address] January Simpson, FACILITY PRACTICE SPECIALIST-WATER PUMP SERVICER [address] [place] [address] [facility] Start: 11-25-2023 End: 11-18-2024 Basic metabolic 2000 panel - Serum or Plasma Basic Metabolic Panel Lab Routine Stage 3b chronic kidney disease ([facility]) Expected: 11/25/2023 (Approximate), Expires: 11/18/2024 [facility] Work Phone: Comment on above: Expected: 11/25/2023 (Approximate), Expi res: 11/18/2024 Start: 11-25-2023 End: 11-18-2024 CBC panel - Blood by Automated count CBC without diff Lab Routine Stage 3b chronic kidney disease (CMS-HCC) Expected: 11/25/2023 (Approximate), Expires: 11/18/2024 [facility] Comment on above: Expected: 11/25/2023 (Approximate), Expi res: 11/18/2024 Start: 11-25-2023 End: 11-18-2024 Magnesium [Mass/volume] in Serum or Plasma Magnesium Lab Routine Stage 3b chronic kidney disease (CMS-HCC) Expected: 11/25/2023 (Approximate), Expires: 11/18/2024 [facility] Comment on above: Expected: 11/25/2023 (Approximate), Expi res: 11/18/2024 Start: 11-25-2023 End: 11-18-2024 Parathyroid Hormone, intact Parathyroid Hormone, intact Lab Routine Stage 3b chronic kidney disease ([facility]) Expected: 11/25/2023 (Approximate), Expires: 11/18/2024 [facility] Comment on above: Expected: 11/25/2023 (Approximate), Expi res: 11/18/2024 Start: 11-25-2023 End: 11-18-2024 Phosphate [Mass/volume] in Serum or Plasma Phosphorus Lab Routine Stage 3b chronic kidney disease ([facility]) Expected: 11/25/2023 (Approximate), Expires: 11/18/2024 [facility] Comment on above: Expected: 11/25/2023 (Approximate), Expi res: 11/18/2024 Start: 11-25-2023 End: 11-18-2024 Protein creat ratio Protein creat ratio Lab Routine Stage 3b chronic kidney disease ([facility]) Expected: 11/25/2023 (Approximate), Expires: 11/18/2024 [facility] Comment on above: Expected: 11/25/2023 (Approximate), Expi res: 11/18/2024 Start: 11-25-2023 End: 11-18-2024 Urinalysis Urinalysis Lab Routine Stage 3b chronic kidney disease ([facility]) Expected: 11/25/2023 (Approximate), Expires: 11/18/2024 [facility] Comment on above: Expected: 11/25/2023 (Approximate), Expi res: 11/18/2024 Start: 11-25-2023 End: 11-18-2024 Vitamin D 25 hydroxy Vitamin D 25 hydroxy Lab Routine Stage 3b chronic kidney disease ([facility]) Expected: 11/25/2023 (Approximate), Expires: 11/18/2024 [facility] Comment on above: Expected: 11/25/2023 (Approximate), Expi res: 11/18/2024 Start: 11-19-2023 End: 11-19-2023 Patient encounter procedure 11/19/2023 10:30 AM EST Office Visit [facility] [address] [place] [phone] Kianna Bass MD [address] [place] [address], [address], [address] [place] [phone] [facility] Start: 11-13-2023 End: 11-13-2023 Patient encounter procedure 11/13/2023 8:00 AM EST Office Visit [facility] [address] [place] [phone] Karmen Bagley MD [address] [place] [phone] [facility] Start: 07-12-2023 Influenza vaccination Influenza Vaccine [facility] Start: 01-02-2023 Superficial Wound Culture Superficial Wound Culture [facility] Start: 2021 Fall Risk Screening Fall Risk Screening [facility] Start: 2006 Administration of varicella zoster vaccine Zoster (Shingles) Vaccine (1 of 2) [facility] Start: 1975 DTaP,Tdap and Td Vaccines (1 - Tdap) DTaP,Tdap and Td Vaccines (1 - Tdap) [facility] Start: 1974 Adult BMI Follow Up Plan Adult BMI Follow Up Plan [facility] Start: 1974 Adult BMI Screening Adult BMI Screening [facility] Start: 1974 Diabetic foot examination Diabetic Foot Exam [facility] Start: 1968 Depression Screening Depression Screening [facility] Start: 1956 Glaucoma screening Diabetic Ophthalmology Exam [facility] Start: 1956 Medicare Annual Wellness Visit Medicare Annual Wellness Visit [facility] Bacteria identified in Unspecified specimen by Aerobe culture [facility] End: 11-28-2024 Basic metabolic 2000 panel - Serum or Plasma Basic Metabolic Panel Lab Routine Stage 3a chronic kidney disease (CMS-HCC) 1 Occurrences starting 11/28/2023 until 11/28/2024 [employer] [facility] Comment on above: 1 Occurrences starting 11/28/2023 until 11/28/2024 End: 01-15-2025 Basic metabolic 2000 panel - Serum or Plasma [facility] Work Phone: Comment on above: 1 Occurrences starting 01/16/2024 until 01/15/2025 weekly for 4 Occurre nces starting 01/16/2024 until 01/15/2025 End: 11-28-2024 CBC panel - Blood by Automated count CBC without diff Lab Routine Stage 3a chronic kidney disease (CMS-HCC) 1 Occurrences starting 11/28/2023 until 11/28/2024 [employer] Comment on above: 1 Occurrences starting 11/28/2023 until 11/28/2024 End: 01-15-2025 CBC panel - Blood by Automated count CBC without diff Lab Routine Stage 3b chronic kidney disease (CMS-HCC) 1 Occurrences starting 01/16/2024 until 01/15/2025 [employer] Comment on above: 1 Occurrences starting 01/16/2024 until 01/15/2025 End: 11-28-2024 Magnesium [Mass/volume] in Serum or Plasma Magnesium Lab Routine Stage 3a chronic kidney disease (CMS-HCC) 1 Occurrences starting 11/28/2023 until 11/28/2024 [employer] Comment on above: 1 Occurrences starting 11/28/2023 until 11/28/2024 End: 01-15-2025 Magnesium [Mass/volume] in Serum or Plasma Magnesium Lab Routine Stage 3b chronic kidney disease (CMS-HCC) 1 Occurrences starting 01/16/2024 until 01/15/2025 [employer] Comment on above: 1 Occurrences starting 01/16/2024 until 01/15/2025 End: 11-28-2024 Parathyroid Hormone, intact Parathyroid Hormone, intact Lab Routine Stage 3a chronic kidney disease (CMS-HCC) 1 Occurrences starting 11/28/2023 until 11/28/2024 [facility] Work Phone: Comment on above: 1 Occurrences starting 11/28/2023 until 11/28/2024 End: 01-15-2025 Parathyroid Hormone, intact Parathyroid Hormone, intact Lab Routine Stage 3b chronic kidney disease ([facility]) 1 Occurrences starting 01/16/2024 until 01/15/2025 [employer] Comment on above: 1 Occurrences starting 01/16/2024 until 01/15/2025 End: 11-28-2024 Phosphate [Mass/volume] in Serum or Plasma Phosphorus Lab Routine Stage 3a chronic kidney disease ([facility]) 1 Occurrences starting 11/28/2023 until 11/28/2024 [employer] Comment on above: 1 Occurrences starting 11/28/2023 until 11/28/2024 End: 01-15-2025 Phosphate [Mass/volume] in Serum or Plasma Phosphorus Lab Routine Stage 3b chronic kidney disease ([facility]) 1 Occurrences starting 01/16/2024 until 01/15/2025 [employer] Comment on above: 1 Occurrences starting 01/16/2024 until 01/15/2025 End: 11-28-2024 Protein creat ratio Protein creat ratio Lab Routine Stage 3a chronic kidney disease ([facility]) 1 Occurrences starting 11/28/2023 until 11/28/2024 [employer] Comment on above: 1 Occurrences starting 11/28/2023 until 11/28/2024 End: 01-15-2025 Protein creat ratio Protein creat ratio Lab Routine Stage 3b chronic kidney disease ([facility]) 1 Occurrences starting 01/16/2024 until 01/15/2025 [employer] Comment on above: 1 Occurrences starting 01/16/2024 until 01/15/2025 End: 11-28-2024 Urinalysis Urinalysis Lab Routine Stage 3a chronic kidney disease ([facility]) 1 Occurrences starting 11/28/2023 until 11/28/2024 [employer] Comment on above: 1 Occurrences starting 11/28/2023 until 11/28/2024 End: 01-15-2025 Urinalysis Urinalysis Lab Routine Stage 3b chronic kidney disease ([facility]) 1 Occurrences starting 01/16/2024 until 01/15/2025 [employer] Comment on above: 1 Occurrences starting 01/16/2024 until 01/15/2025 End: 11-28-2024 Vitamin D 25 hydroxy Vitamin D 25 hydroxy Lab Routine Stage 3a chronic kidney disease ([facility]) 1 Occurrences starting 11/28/2023 until 11/28/2024 [facility] Comment on above: 1 Occurrences starting 11/28/2023 until 11/28/2024 End: 01-15-2025 Vitamin D 25 hydroxy Vitamin D 25 hydroxy Lab Routine Stage 3b chronic kidney disease ([facility]) 1 Occurrences starting 01/16/2024 until 01/15/2025 [facility] [employer] Comment on above: 1 Occurrences starting 01/16/2024 until 01/15/2025 Immunizations Immunization Date Immunization Notes Care Provider Fa cili 11-10-2020 influenza virus vaccine, unspecified formulation Scanning External [facility] Payers Date Payer Category Payer Self-pay 2017 [place] [id number] 2017-Present [phone] [address] [place] [address] [id number] 2017 Medicaid [id number] 1990 Medicare MEDICARE MEDICAR E PART A & B [id number] 1990-Present [phone] [address] [place] [address] [id number] 1990 Medicare [id number] 1956 Unknown [id number] 1956 Unknown [id number] 1956 Unknown [id number] 1956 Unknown [id number] 1956 Unknown [id number] 1956 Unknown [id number] Medicare [employer] [id number] Unknown [id number] Unknown [id number] Social History Date Type Detail Facility [facility] if ever [facility] Work Phone: Start: 1955 Sex Assigned At Female F [facility] Start: 03-12-2018 End: 11-28-2023 Tobacco smoking status NHIS Never smoked tobacco [facility] Start: 03-12-2018 End: 11-28-2023 Tobacco use and exposure Smokeless tobacco non-user [facility] Start: 12-22-2020 End: 08-20-2023 History of Social function [facility] Start: 12-22-2020 End: 08-20-2023 Tobacco use panel [facility] Housing Instability Unknown [facility] Start: 1955 Sex Assigned At Not on file P [facility] Medical Equipment Procedure Code Equipment Code Equipment Origin al Text Equipment Identifier Dates Stnt Uret 6fr 26 cm Pgtl Crv Rpl 07339 - [id number] - [id number] Start: 10-10-2018 Stnt Uret 6fr 26 cm Pgtl Crv Rpl [id number] - [id number] Start: 11-27-2018 Clinical Notes 10-29-2023 to 01-16-2024 RACHELLE Horton - 01/16/2024 8:20 AM ESTTelephone Linda - Nery Manning - 01/07/2024 1:57 PM ESTTelephone Encounter - Nery Manning - 01/07/2024 1:57 PM EST Note Date & Type Note Facility 01-16-2024 History of Present illness Narrative Images from the original note were not included. Date of Service: 01/16/24 PCP: LIZANDRO MCPHERSON MD History of Present Illness Thi Yeung is a 68 y.o. female, who is following with us for management of her chronic kidney disease, hypertension, and volume status. She reports no new issues since her last visit. Presently, she denies any shortness of breath, chest pain lower extremity edema, or difficulty with urination. At the time of her last visit her creatinine was 1.6 mg/dL. Most recent laboratory studies shows a creatinine of 1.7 mg/dL. Problem List Acute on Stage IIIB chronic kidney disease. Renal ultrasound from November 2023 showed a right kidney measuring 9.8 cm left kidney measuring 9.9 cm. Serological workup from November 2023 showed an SPEP negative for monoclonal proteins, FELIX was positive, rheumatoid factor was less than 10, C ANCA was positive anti MPO and PR3 were negative. Septic shock, hypovolemic shock Extended spectrum beta [...] in the past.with neurosurgical intervention at the [facility] or [facility] in the past History of gout History [...] Chronic renal failure CVA (cerebral vascular accident) ([facility]) Depression Difficult intravenous access Gout attack HTN (hypertension) Hypothyroidism ICH (intracerebral hemorrhage) ([facility]) Intracerebral hemorrhage ([facility]) Kidney stones Moyamoya disease Multi-infarct dementia ([facility]) Renal artery stenosis ([facility]) Rickets Seizures ([facility]) Urinary tract infection Visual impairment glasses Surgical History: Past Surgical History: Procedure Laterality Date BILATERAL CYSTOSCOPY URETEROSCOPY / BILATERAL STENT INSERTION / BILATERAL LASER LITHOTRIPSY Bilateral 11/27/2018 Performed by Juan Pablo Cross MD at [facility] BRAIN SURGERY CYSTOSCOPY REMOVAL STENT Bilateral 12/31/2018 Performed by Juan Pablo Cross MD at [facility] CYTOSCOPY WITH INSERTION BALLOON OCCLUSION CATHETER N/A 10/09/2018 Performed by Juan Pablo Cross MD at [facility] CYTOSCOPY WITH INSERTION BALLOON OCCLUSION CATHETER RIGHT/RETROGRADE PYLEGRAM Right 2018 Performed by Juan Pablo Cross MD at [facility] PERCUTANEOUS NEPHROLITHOTOMY KIDNEY, URETERAL STENT PLACEMENT, LASER Left 10/10/2018 Performed by Juan Pablo Cross MD at [facility] PERCUTANEOUS NEPHROLITHOTOMY RIGHT WITH HOLMIUM LASER Right 06/05/2018 Performed by Juan Pablo Cross MD at [facility] TOOTH EXTRACTION Social History: Social History [...] on file Interpersonal Safety: Not on file Housing Instability: Not on file Family History: No family [...] mg total) before bedtime. 60 tablet 1 cyanocobalamin 1000 MCG tablet Take 1 tablet [...] bruise/bleed easily. Physical Exam Vital Signs: Vitals: 01/16/24 0811 BP: 181/75 BP Site: Left Arm BP Postition: Sitting BP CUFF SIZE: L (13-17 inches) Pulse: 54 SpO2: 98% Weight: 61.2 kg (135 lb) BMI: Body mass index is 22.47 kg/m . General appearance: alert in no [...] No results found. Assessment & Plan 1. Chronic kidney disease stage IIIB with an estimated GFR of 30 mL/min and a stable creatinine since her last visit. With underlying kidney disease likely related hypertensive nephrosclerosis versus diabetic nephropathy. She was advised on the importance of proper blood pressure control, blood sugar control avoidance of NSAID medications, IV contrast dyes, possible. No recent urine test. She did have a positive FELIX and C ANCA with negative MPO and PR3. Repeat labs are pending for this. I will order a urinalysis and UPC to be drawn soon given that her renal function is higher than it was since hospital discharge. She will follow up in 3 months. If urinalysis is positive and repeat serologies are positive we may proceed with a renal biopsy. 2. Hypertension: Blood pressures are elevated. She has not get her carvedilol consistently due to bradycardia. Add hydralazine 25 mg t.i.d.. 3. Iron Deficiency anemia, on iron supplement. Anemia is improving. 4. Hyperkalemia. Potassium level continues to be elevated. I will start her on [facility] Saturday with weekly BMPs. 5. Hyperphosphatemia: On Renvela. No recent phosphorus level. Check phosphorus soon. 6. Secondary hyperparathyroidism of renal origin. No recent vitamin-D level. Increase calcitriol to 1 mcg daily. 7. Metabolic acidosis: Decrease bicarb to once a day. Thank you LIZANDRO MCPHERSON MD for the allowing us to continue participant in the care of this patient. Please contact me at [phone] (Office) or [phone] (Answering service) with any questions. RACHELLE Pineda [facility] This note was created with the assistance of a speech-recognition program. Although the intention is to generate a document that actually reflects the content of the visit, no guarantees can be provided that every mistake has been identified and corrected by editing. RACHELLE Horton 11/28/23 0906 RACHELLE Horton 01/16/24 0850 documented in this encounter [facility] 01-07-2024 Miscellaneous Notes Call and spoke with Nurse at [facility] to confirm appt for 01/16/24 with Do All Operator January at 8:20 as well faxed labs over. documented in this encounter [facility] 01-07-2024 Telephone encounter Note Call and spoke with Nurse at [facility] to confirm appt for 01/16/24 with Do All Operator January at 8:20 as well faxed labs over. [facility] 12-26-2023 Miscellaneous Notes Orders faxed to [facility] documented in this encounter [facility] 12-26-2023 Telephone encounter Note Orders faxed to [facility] 12-26-2023 Miscellaneous Notes ----- Message from RACHELLE Horton sent at 12/24/2023 8:23 AM EST ----- K is 6.1 needs 30 g dose of kayexe or lokelma 10 g tid for 3 doses then start 10 g daily with weekly bmp RACHELLE Horton 12/24/23823 ----- Message ----- From: Fadia Spencer Sent: 12/23/2023 4:27 PM EST To: RACHELLE Horton documented in this encounter [facility] 12-26-2023 Telephone encounter Note ----- Message from RACHELLE Horton sent at 12/24/2023 8:23 AM EST ----- K is 6.1 needs 30 g dose of kayexe or lokelma 10 g tid for 3 doses then start 10 g daily with weekly bmp RACHELLE Horton 12/24/23823 ----- Message ----- From: Fadia Spencer Sent: 12/23/2023 4:27 PM EST To: RACHELLE Horton [facility] 12-11-2023 Miscellaneous Notes ----- Message from Fadia Spencer sent at 12/11/2023 12:25 PM EST ----- January is off Positive FELIX screen and positive C-ANCA although MPO and PR3 are negative. She is not on hydralazine that can cause a false positive. Please refer to rheumatology for further workup Referral placed for Rheumatology. Called [facility]-message will be given to DON-based off of positive FELIX and C-ANCA referral to Rheumatology was made. documented in this encounter [facility] 12-11-2023 Telephone encounter Note ----- Message from Fadia Spencer sent at 12/11/2023 12:25 PM EST ----- January is off [facility] Work Phone: 12-11-2023 Telephone encounter Note Positive FELIX screen and positive C-ANCA although MPO and PR3 are negative. She is not on hydralazine that can cause a false positive. Please refer to rheumatology for further workup [facility] 12-11-2023 Telephone encounter Note Referral placed for Rheumatology. Called [facility]-message will be given to DON-based off of positive FELIX and C-ANCA referral to Rheumatology was made. [facility] 12-02-2023 Miscellaneous Notes Mahad from [facility] or [place] called in and wanting to know about a order that was for a fluid restriction she didn't state who wrote the other she would like for someone to call her back to recheck the order . [phone] she stated that she is on the 2nd floor documented in this encounter [facility] 12-02-2023 Telephone encounter Note Mahad from [facility] or [place] called in and wanting to know about a order that was for a fluid restriction she didn't state who wrote the other she would like for someone to call her back to recheck the order . [phone] she stated that she is on the 2nd floor [facility] Miscellaneous Notes ----- Message from Karmen Bagley MD sent at 11/27/2023 4:36 PM EST ----- Regarding: Hyperkalemia Note laboratories from the showing potassium of 6.1 and creatinine of 1.6 at [facility] in [place]. It is unclear whether she was admitted to that hospital and what was done to treat the patient's hyperkalemia. I have asked that the patient's sister, extended care facility and or [facility] be contacted to see what was done about the hyperkalemia or if the patient was admitted to the hospital. Her discharge med rec does not include potassium chloride. Karmen Bagley MD PhD FACP ----- Message ----- From: Fadia Spencer Sent: 11/27/2023 10:16 AM EST To: Karmen Bagley MD Late entry: After speaking w/Dr. Bagley-called [facility] and was on hold for a nurse [...] notified of above. documented in this encounter [facility] 11-29-2023 Telephone encounter Note ----- Message from Karmen Bagley MD sent at 11/27/2023 4:36 PM EST ----- Regarding: Hyperkalemia Note laboratories from the showing potassium of 6.1 and creatinine of 1.6 at [facility] in [place]. It is unclear whether she was admitted to that hospital and what was done to treat the patient's hyperkalemia. I have asked that the patient's sister, extended care facility and or [facility] be contacted to see what was done about the hyperkalemia or if the patient was admitted to the hospital. Her discharge med rec does not include potassium chloride. Karmen Bagley MD PhD FACP ----- Message ----- From: Fadia Spencer Sent: 11/27/2023 10:16 AM EST To: Karmen Bagley MD [facility]23 Telephone encounter Note Late entry: After speaking w/Dr. Bagley-called [facility] and was on hold for a nurse [...] the morning-. Dr. Bagley notified of above. [facility] 11-28-2023 History of Present illness Narrative Images from the original note were not included. Date of Service: 11/28/23 PCP: LIZANDRO MCPHERSON MD History of Present Illness Thi Yeung is a 68 y.o. female, who [...] in the past.with neurosurgical intervention at the [facility] or [facility] in the past History of gout History [...] Chronic renal failure CVA (cerebral vascular accident) ([facility]) Depression Difficult intravenous access Gout attack HTN (hypertension) Hypothyroidism ICH (intracerebral hemorrhage) ([facility]) Intracerebral hemorrhage ([facility]) Kidney stones Moyamoya disease Multi-infarct dementia ([facility]) Renal artery stenosis ([facility]) Rickets Seizures ([facility]) Urinary tract infection Visual impairment glasses Surgical History: Past Surgical History: Procedure Laterality Date BILATERAL CYSTOSCOPY URETEROSCOPY / BILATERAL STENT INSERTION / BILATERAL LASER LITHOTRIPSY Bilateral 11/27/2018 Performed by Juan Pablo Cross MD at [facility] BRAIN SURGERY CYSTOSCOPY REMOVAL STENT Bilateral 12/31/2018 Performed by Juan Pablo Cross MD at [facility] CYTOSCOPY WITH INSERTION BALLOON OCCLUSION CATHETER N/A 10/09/2018 Performed by Juan Pablo Cross MD at [facility] CYTOSCOPY WITH INSERTION BALLOON OCCLUSION CATHETER RIGHT/RETROGRADE PYLEGRAM Right 2018 Performed by Juan Pablo Cross MD at [facility] PERCUTANEOUS NEPHROLITHOTOMY KIDNEY, URETERAL STENT PLACEMENT, LASER Left 10/10/2018 Performed by Juan Pablo Cross MD at [facility] PERCUTANEOUS NEPHROLITHOTOMY RIGHT WITH HOLMIUM LASER Right 06/05/2018 Performed by Juan Pablo Cross MD at [facility] TOOTH EXTRACTION Social History: Social History [...] 4. Hyperkalemia. Potassium level was 6.1 per half-way records she received 3 doses of 5 g of Lokelma. I will repeat labs tomorrow. Low-potassium and salt diet was educated Thank you LIZANDRO MCPHERSON MD for the allowing us to continue participant in the care of this patient. Please contact me at [phone] (Office) or [phone] (Answering service) with any questions. RACHELLE Pineda [facility] This note was created with the assistance of a speech-recognition program. Although the intention is to generate a document that actually reflects the content of the visit, no guarantees can be provided that every mistake has been identified and corrected by editing. RACHELLE Horton 11/28/23 0906 documented in this encounter [facility] 11-28-2023 Evaluation note Diagnosis NIDIA (acute kidney injury) ([facility] Primary Stage 3a chronic kidney disease ([facility]) documented in this encounter [facility]01-08-2024 Miscellaneous Notes* Telephone Encounter - Fadia Brianangelique - 11/18/2023 10:28 AM EST Called [facility] and spoke with Rebeca to schedule pts hos f/u appt in [place]. Appt scheduled and labs ordered and faxed to [facility]. [facility] Tele[facility] encounter Note* Telephone Encounter - Fadia Ramirezkenney - 11/18/2023 10:28 AM EST Called [facility] and spoke with Rebeca to schedule pts hos f/u appt in [place]. Appt scheduled and labs ordered and faxed to [facility]. [facility]01-03-2024 History of Present illness Narrative* Karmen Bagley MD - 11/13/2023 8:00 AM EST Images from the original note were not included. PCP: LIZANDRO MCPHERSON MD Date of Service: 11/13/23 Reason for Referral: Will stage 3B chronic kidney disease Referring Physician: Lizandro Mcpherson MD History of Present Illness Thi Yeung is a 68 y.o. female, who [...] Cr 2.5 mg/dl. The patient resides at [facility]. She has a legal guardian. The patient was to have been transported from [facility] to my office but the transportation company never showed. She therefore was transported by her daughter and son-in-law. The patient apparently was hypotensive at [facility]. Her daughter feels as though her mentation [...] Performed by Juan Pablo Cross MD at [facility] BRAIN SURGERY CYSTOSCOPY REMOVAL STENT Bilateral 12/31/2018 Performed by Juan Pablo Cross MD at [facility] CYTOSCOPY WITH INSERTION BALLOON OCCLUSION CATHETER N/A 10/09/2018 Performed by Juan Pablo Cross MD at [facility] CYTOSCOPY WITH INSERTION BALLOON OCCLUSION CATHETER RIGHT/RETROGRADE PYLEGRAM Right 2018 Performed by Juan Pablo Cross MD at [facility] PERCUTANEOUS NEPHROLITHOTOMY KIDNEY, URETERAL STENT PLACEMENT, LASER Left 10/10/2018 Performed by Juan Pablo Cross MD at [facility] PERCUTANEOUS NEPHROLITHOTOMY RIGHT WITH HOLMIUM LASER Right 06/05/2018 Performed by Juan Pablo Cross MD at [facility] TOOTH EXTRACTION Social History: Social History [...] of your patients! Please contact me at [phone] (Office) or [phone] (Answering service) with any questions. KARMEN BAGLEY MD [facility] This note was created with the assistance of a speech-recognition program. Although the intention is to generate a document that actually reflects the content of the visit, no guarantees can be provided that every mistake has been identified and corrected by editing. [facility]* Diagnosis Stage 3b chronic kidney disease (CKD) ([facility] Primary Stage 3 chronic kidney disease, unspecified whether stage 3a or 3b CKD ([facility]) documented in this encounter [facility]01-03-2024 Reason for visit Narrative* Consultation (Routine) - Pending Review Specialty Diagnoses / Procedures Referred By Contac t Referred To Contact Nephrology Diagnoses Stage 3 chronic kidney disease, unspecified whether stage 3a or 3b CKD ([facility]) n Nephrology [facility] [address] [place] [address] Phn Nephrology [facility] [address] [place] [address] Referral ID Status Reason Start Date Expiration Date Visits Requested Visits Authorized [id number] Pending Review Specialty Services Required 3 10/28/2024 1 1 [facility]12-19-2023 Miscellaneous Notes* Telephone Encounter - Fadia Spencer - 10/29/2023 11:39 AM EST Spoke to nurse for pt who stated they were willing to bring her to [place]. I informed of add on clinics and that I would call around 11/06/23 to schedule. * Telephone Encounter - Fadia Spencer - 10/29/2023 11:39 AM EST Called and spoke to pts nurse to schedule new pt appt. Nephro- No Other Spec- No Echo- No Abd Img- Epic Labs- in referral in media Reminders- Given [facility] Telephone encounter Note* Telephone Encounter - Fadia Spencer - 10/29/2023 11:39 AM EST Spoke to nurse for pt who stated they were willing to bring her to [place]. I informed of add on clinics and that I would call around 11/06/23 to schedule. [id number] Telephone encounter Note* Telephone Encounter - Fadia Brianangelique - 10/29/2023 11:39 AM EST Called and spoke to pts nurse to schedule new pt appt. Nephro- No Other Spec- No Echo- No Abd Img- Epic Labs- in referral in media Reminders- Given [facility] SystemEvaluation noteNo assessment information available [facility] Work Phone: Evaluation note* Diagnosis Stage 3b chronic kidney disease (CMS-HCC)- Primary [facility] Diagnosis Positive FELIX (antinuclear antibody)- Primary Other and unspecified nonspecific immunological findings documented [facility] Diagnosis Stage 3b chronic kidney disease (CMS-HCC)- Primary documented in this encounter [facility] SystemInstructionsNot on filedocumented in this encounter [facility] SystemInstructionsNot on filedocumented in this encounter [facility] SystemInstructionsNot on filedocumented in this encounter [facility] SystemInstructionsNot on filedocumented in this encounter [facility] SystemInstructionsNot on filedocumented in this encounter [facility] [employer] [facility] Advance Directives Documents on File Type Date Recorded Patient Bird Raiser Expl anation DNR Physician Order 08/23/2023 10:19 AM Advance Directive 08/20/2023 6:16 PM DNR Latest Code Status on File Code Status Date Activated Date Inactivated Comments Full Code 10/10/2018 7:13 PM 10/12/2018 8:28 PM Code Status History Code Status Date Activated Date Inactivated Comments Full Code 06/05/2018 7:51 PM 06/07/2018 5:14 PM Documents on File Type Date Recorded Patient Bird Raiser Expl anation DNR Physician Order 08/23/2023 10:19 [...] Activated Date Inactivated Comments Modified Code Status [place] 11/14/2023 2:57 PM 11/17/2023 9: 12 PM Question Answer Comments Code Limitations: No Intubation No Chest Compressions No Defibrillation or Cardioversion No Mechanical Ventilation Code Status History Code Status Date Activated Date Inactivated Comments DNR Comfort Care (DNRCC) [place] 11/13/2023 4:59 PM 2:57 PM Full Code [...] Dates Radha Santos NP Attending Provider Active Sexton Helper Relationship Specialty Start Date End Date Lizandro Mcpherson MD [address] [place] [address] PCP - General Internal Medicine 10/29/23 Sexton Helper Relationship Specialty Start Date End Date Lizandro Mcpherson MD [address] [place] [address] PCP - General Internal Medicine 10/29/23 Sexton Helper Relationship Specialty Start Date End Date Lizandro Mcpherson MD [address] [place] [address] PCP - General Internal Medicine 10/29/23 Sexton Helper Relationship Specialty Start Date End Date Lizandro Mcpherson MD [address] [place] [address] PCP - General Internal Medicine 10/29/23 Team [...] November 27, 2023 End: November 27, 2023 Sexton Helper Relationship Specialty Start Date End Date Lizandro Mcpherson MD [address] [place] [id number] PCP - General Internal Medicine 10/29/23 Sexton Helper Relationship Specialty Start Date End Date Lizandro Mcpherson MD [address] [place] [address] PCP - General Internal Medicine 10/29/23 Sexton Helper Relationship Specialty Start Date End Date Lizandro Mcpherson MD [address] [place] [address] PCP - General Internal Medicine 10/29/23 Sexton Helper Relationship Specialty Start Date End Date Lizandro Mcpherson MD [address] [place] [address] PCP - General Internal Medicine 10/29/23 Sexton Helper Relationship Specialty Start Date End Date Lizandro Mcpherson MD [address] [place] [address] PCP - General Internal Medicine 10/29/23 Sexton Helper Relationship Specialty Start Date End Date Lizandro Mcpherson MD [address] [place] [address] PCP - General Internal Medicine 10/29/23 Goals [...] content) DATE CREATED AUTHOR 12/07/2023 [facility] DATE CREATED AUTHOR AUTHOR'S ORGANIZ ATION 12/15/2023 [facility] DATE CREATED AUTHOR AUTHOR'S ORGANIZ ATION 12/23/2023 [facility] DATE CREATED AUTHOR AUTHOR'S ORGANIZ ATION 01/11/2024 [facility] DATE CREATED AUTHOR AUTHOR'S ORGANIZ ATION 01/13/2024 [facility] FOR RECORDS PERTAINING TO PATIENTS WHO [...] BE BASED ON THE PRIMARY CLINICAL RECORDS. [employer] [facility]. provides no warranty or guarantee of the accuracy or completeness of information in this document.
[2024-01-16 20:22] LABS: Anion Gap 10.3; BUN Creatinine Ratio 30.3; Carbon Dioxide 27.8 mmol/L (21.0-32.0); Chloride 108 mmol/L (98-107); Estimated GFR (African America 34 (>=60); Estimated GFR (Non-African Ame 28 (>=60); Glucose 98 mg/dL (74-106); Potassium 5.1 mmol/L (3.5-5.1); Sodium 141 mmol/L (136-145)
== END 2024-01-16 19:01 | disposition home or self-care (01) ==
LOC: LAB 19:00
DX: E87.5 Hyperkalemia (principal)
CPT/HCPCS: 36415; 80048

== ENCOUNTER 2024-04-25 12:09 | Outpatient (REF) | payer MEDICARE, MEDICAID, SELFPAY ==
--- OUTSIDE RECORDS SUMMARY | 2024-04-25 12:14 | XMS_ITS ---
Patient Summarization (C-CDA 2.1 CCD) Created on: April 25, 2024 YEUNGLULU Enriquez : 1955 Sex: Female Author Organization Sample organization Care Team Providers Care Offset Press Operator Name Role Phone VALENTINA Santos Attending Provider Lizandro Mcpherson MD Primary Care Provider MD Lizandro Mcpherson Attending Provider [phone] MD Lizandro Mcpherson Primary Care Provider [phone] Lizandro Mcpherson Attending Unavailable NO FAMILY, PHYSICIAN Primary Care Unavailable Lizandro Mcpherson Admitting Unavailable Lizandro Mcpherson W Admitting Unavailable Lizandro Mcpherson W Primary Care Unavailable Lizandro Mcpherson Attending Unavailable JANUARY WOLFE Referring Unavailable PAYTON, LIZANDRO Primary Care Unavailable KWAME MELARA Admitting Unavailable KWAME MELARA Attending Unavailable NANCY MCPHERSONWN Primary Care Unavailable FILOMENA SKELTON Attending Unavailable KARMEN BAGLEY Consulting Unavailable SHANTEL, ALEX Admitting Unavailable GEORGESCU, CHAPIN A Consulting Unavailable RELIEF, SINCERA [facility] AND SYMPTOM Cons ulting Unavailable FILOMENA SKELTON Attending Unavailable FILOMENA SKELTON Referring Unavailable NANCY MCPHERSONWN Primary Care Unavailable FELIBERTO, NAHUSH EMILEE Referring Unavailable MCPHERSON, LIZANDRO Primary Care Unavailable MCPHERSONNANCYWN Referring Unavailable MCPHERSON, LIZANDRO Primary Care Unavailable MCPHERSONNANCYWN Referring Unavailable MCPHERSON, LIZANDRO Primary Care Unavailable MCPHERSONNANCYWN Referring Unavailable MCPHERSON, LIZANDRO Primary Care Unavailable MCPHEROSN LIZANDRO Primary Care Physician LIZANDRO MCPHERSON Attending Unavailable MCPHERSON, LIZANDRO Primary Care Unavailable NANCY MCPHERSONWN Admitting Unavailable NANCY MCPHERSONWN Attending Unavailable MCPHERSON, LIZANDRO Admitting Unavailable Encounters Encounter Date Encounter Type Care Provider Facility Start: 04-04-2024 End: 04-05-2024 ambulatory [facility] Facility:[facility] Start: 04-04-2024 End: 04-04-2024 Lab Drop off [facility] Start: 02-05-2024 Chart abstracting Beatrice Goldstein RN P [facility] Start: 02-05-2024 Telephone encounter Beatrice Goldstein RN PHDoris [facility] Start: 02-05-2024 End: 02-05-2024 ambulatory [facility] Start: 01-22-2024 Telephone encounter Tayla DOMINGUEZ [facility] Start: 01-16-2024 End: 01-16-2024 Office outpatient visit 40 minutes January Wolfe FOOD SERVICE SPECIALIST-VOCATIONAL CASE MANAGER Work Phone: [facility] Comment on above: Stage 3b chronic kid jen disease (CMS-HCC) (Primary Dx) Start: 01-07-2024 Telephone encounter Nery Manning CMA [facility] Start: 12-26-2023 Telephone encounter Tayla rinaldi LPN [facility] Start: 12-11-2023 Telephone encounter Li hernandes FOOD SERVICE SPECIALIST-VOCATIONAL CASE MANAGER Work Phone: [facility] Start: 12-10-2023 End: 12-10-2023 ambulatory [facility] Start: 12-02-2023 Telephone encounter Nery Manning CMA [facility] Start: 11-29-2023 Telephone encounter Beatrice Goldstein RN [facility] Start: 11-28-2023 End: 11-28-2023 Office outpatient visit 25 minutes January Wolfe FOOD SERVICE SPECIALIST-VOCATIONAL CASE MANAGER Work Phone: [facility] Comment on above: NIDIA (acute kidney in jury) ([facility]) (Primary Dx); Stage 3a chronic kidney disease ([facility]) Start: 11-27-2023 End: 11-27-2023 ambulatory Lizandro Mcpherson Facility:[facility] Start: 11-27-2023 End: 11-27-2023 ambulatory MD Lizandro Mcpherson Work Phone: [facility] Work Phone: Start: 11-27-2023 End: 11-27-2023 Patient encounter procedure MD Lizandro Mcpherson Work Phone: [facility] Home [facility] Start: 11-26-2023 End: 11-26-2023 ambulatory Lizandro Mcpherson Facility:[facility] Start: 11-26-2023 End: 11-26-2023 ambulatory MD Lizandro Mcpherson Work Phone: [facility] Work Phone: Start: 11-26-2023 End: 11-26-2023 Departed Referred MD Lizandro Mcpherson Work Phone: [facility] [place] Work Phone: Start: 11-18-2023 End: 11-18-2023 Orders Only Li Alcantar FOOD SERVICE SPECIALIST-VOCATIONAL CASE MANAGER Work Phone: [facility] Comment on above: Stage 3b chronic kid jen disease ([facility]) (Primary Dx) Start: 11-13-2023 End: 11-17-2023 [facility] Start: 11-13-2023 End: 11-17-2023 Emergency department patient visit FILOMENA SKELTON [facility] Start: 11-13-2023 End: 11-17-2023 Evaluation and management of inpatient LIZANDRO [facility] Start: 11-13-2023 End: 11-13-2023 Office outpatient new 45 minutes Karmen Bagley MD Work Phone: [facility] Comment on above: Stage 3b chronic kid jen disease (CKD) ([facility] [place]) (Primary Dx); Stage 3 chronic kidney disease, unspecified whether stage 3a or 3b CKD ([facility]) Start: 10-29-2023 Telephone encounter Scanning P michael External [facility] [place] Start: 01-02-2023 End: 01-02-2023 ambulatory DEVELOPMENT ASSOCIATE Radha Dashkenneth Work Phone: [facility] Work Phone: Start: 01-02-2023 End: 01-02-2023 Departed Referred DEVELOPMENT ASSOCIATE Radha Danielle Work Phone: [facility] [place] Work Phone: Medical Equipment Procedure Code Equipment Code Equipment Origin al Text Equipment Identifier Dates Stnt Uret 6fr 26 cm Pgtl Crv Rpl [id number] - [id number] - [id number] Start: 10-10-2018 Stnt Uret 6fr 26 cm Pgtl Crv Rpl [id number] - [id number] Start: 11-27-2018 Immunizations Immunization Date Immunization Notes Care Provider Zack lopes 11-10-2020 influenza virus vaccine, unspecified formulation [facility]anning [facility] Medications Current Medications Medication Drug Class(es) Dates Sig (Normalized) Sig (Original) acetaminophen 500 mg oral tablet (14 sources) take 1 tablet by mouth every six hours as needed for pain acetaminophen (TYLENOL EXTRA STRENGTH) 500 mg tablet Take 1 tablet (500 mg total) by mouth every 6 (six) hours as needed for pain. 0 Active acetaminophen 325 mg / HYDROcodone bitartrate 5 mg oral tablet (15 sources) Opioid Agonist take 1 tablet by mouth every six hours as needed for pain HYDROcodone-acetamin ophen (NORCO) 5-325 mg per tablet Indications: pain Take 1 tablet by mouth every 6 (six) hours as needed for pain Indications: pain. 0 Active aspirin 81 mg delayed release oral tablet (15 sources) Platelet Aggregation Inhibitor, Nonsteroidal Anti-inflammatory Drug take 1 tablet by mouth in the morning aspirin 81 mg Take 1 tablet (81 mg total) by mouth in the morning. 0 Active calcitriol 0.18046 mg oral capsule (15 sources) Vitamin D3 Analog take 4 capsules [...] 0 Active carvedilol 12.5 mg oral tablet (13 sources) alpha-Adrenergic Ghassan, beta-Adrenergic Ghassan Start: 11-17-2023 [...] mg/ml / hypromellose 3 mg/ml ophthalmic solution (13 sources) Plasma Volume Trim Installer hypromellose (NATURES TEARS) drops Administer 1 drop to both eyes as needed for dry eyes. 0 Active docusate sodium 100 mg oral capsule (2 sources) take 1 capsule by mouth twice daily docusate sodium (COLACE) 100 mg capsule Take 100 mg by mouth 2 (two) times a day. 0 Active ergocalciferol 1.25 mg oral capsule (14 sources) Provitamin D2 Compound take 1 capsule [...] sulfate 250 mg extended release oral tablet (15 sources) take 1 tablet by mouth in the morning ferrous sulfate 250 mg (50 mg iron) tablet extended release Take 50 mg by mouth in the morning. 0 Active ferrous sulfate 325 (65 FE) mg tablet Take 1 tablet (325 mg total) by mouth daily with breakfast. ER Tablet Extended Release 50 MG 0 Active FLUoxetine 20 mg oral capsule (14 sources) Serotonin Reuptake Inhibitor take 1 capsule by mouth in the morning FLUoxetine (PROzac) 20 mg capsule Take 1 capsule (20 mg total) by mouth in the morning. HCL Capsule. 0 Active folic acid 1 mg oral tablet (14 sources) take 1 tablet by mouth in the morning folic acid (FOLVITE) 1 mg tablet Take 400 mcg by mouth in the morning. 0 Active gabapentin 100 mg oral capsule (14 sources) Anti-epileptic Agent take 1 capsule by mouth three times daily gabapentin (NEURONTIN) 100 mg capsule Take 1 capsule (100 mg total) by mouth 3 (three) times a day. 0 Active hydrALAZINE hydrochloride 25 mg oral tablet (4 sources) Arteriolar Vasodilator Start: 2023 take 1 tablet by mouth three times [...] 0 Active hypromellose 25 mg/ml ophthalmic solution (14 sources) take 1 drop(s) into the eye(s) [...] Discontinued ammonium lactate 120 mg/ml topical cream (14 sources) ammonium lactate (AMLACTIN) 12 % cream [...] 0 Active latanoprost 0.05 mg/ml ophthalmic solution (14 sources) Prostaglandin Analog take 1 drop(s) into the eye(s) once daily latanoprost (XALATAN) 0.005 % ophthalmic solution Administer 1 drop to both eyes nightly. 0 Active levothyroxine sodium 0.15 mg oral tablet (15 sources) l-Thyroxine take 1 tablet by mouth in the morning levothyroxine (SYNTHROID, LEVOTHROID) 150 MCG tablet Take 1 tablet (150 mcg total) by mouth in the morning. 0 Active levothyroxine (S YNTHROID, LEVOTHROID) 125 MCG tablet Take 150 mcg by mouth daily. 0 Active magnesium oxide 400 mg oral tablet (15 sources) take 1 tablet by rinku th in the morning magnesium oxide (MAG-OX) 400 mg tablet Take 1 tablet (400 mg total) by mouth in the morning. 0 Active melatonin 3 mg oral capsule (14 sources) take 1 capsule by mo uth once daily melatonin 3 mg capsule Take 3 mg by mouth nightly. 0 Active mirtazapine 15 mg oral table t (15 sources) take 0.5 tablet by m outh [...] 0 Active take 1 capsule by mo [facility] in the morning, then take 1 capsule by mouth at bedtime phenytoin (DILANTIN) 30 mg ER capsule Take 1 capsule (30 mg total) by mouth in the morning and 1 capsule (30 mg total) before bedtime. 0 Active sevelamer carbonate 800 mg oral tablet (14 sources) Phosphate Binder sevelamer (RENV SHAQUILLE) 800 mg tablet Take 1 tablet (800 mg total) by mouth in the morning and 1 tablet (800 mg total) at noon and 1 tablet (800 mg total) in the evening. Take with meals. 0 Active sodium bicarbonate 650 mg oral tablet (11 sources) take 1 tablet by mouth once [...] te 5000 mg powder for oral suspension (5 sources) Start: 02-05-2024 sodium zirconi um cyclosilicate (LOKELMA) 5 gram packet Take 5 g by mouth daily with lunch. 0 02/05/2024 Active Start: 01-17-2024 End: 02-05-2024 sodium zirconium cyclosilica te (LOKELMA) 5 gram packet Take 5 g by mouth 3 (three) times a week. 0 01/17/2024 02/05/2024 Discontinued (Reorder) Start: 01-17-2024 sodium zirconi um cyclosilicate (LOKELMA) 5 gram packet Take 5 g by mouth 3 (three) times a week. 0 01/17/2024 Active tiZANidine 4 mg oral tablet (14 sources) Central alpha-2 Adrenergic Agonist take 1 tablet by mouth in the morning tiZANidine (ZANAFLEX) 4 mg tablet Take 1 tablet (4 mg total) by mouth in the morning. 0 Active traZODone hydrochloride 50 mg oral tablet (14 sources) Serotonin Reuptake Inhibitor take 1 tablet by mouth once daily traZODone (DESYREL) 50 mg tablet Take 1 tablet (50 mg total) by mouth nightly. 0 Active divalproex sodium 125 mg delayed release oral tablet (13 sources) Mood Stabilizer, Anti-epileptic Agent Start: 10-27-20 take 1 tablet by mouth in the morning, then take 1 tablet by mouth at bedtime divalproex (DEPAKOTE) 125 mg EC tablet Take 1 tablet (125 mg total) by mouth in the morning and 1 tablet (125 mg total) before bedtime. 0 10/27/2023 Active vitamin b12 1 mg oral tablet (14 sources) Vitamin B12 take 1 tablet by mouth in the morning cyanocobalamin 1000 MCG tablet Take 1 tablet (1,000 mcg total) by mouth in the morning. 0 Active Payers Date Payer Category Payer Self-pay 2017 Medicaid MEDICAID [facility] M EDICAID [id number] 2017-Present [phone] [address] [place] [address] [id number] 2017 Medicaid [id number] 1990 Medicare MEDICARE MEDICAR E PART A & B [id number] 1990-Present [phone] [address] [place] [address] [id number] 1990 Medicare [id number] 1955 Unknown [id number] 1955 Unknown [id number] 1955 Unknown [id number] 1955 Unknown [id number] 1955 Unknown [id number] 1955 Unknown [id number] 1955 Unknown [id number] 1955 Unknown [id number] 1955 Unknown [id number] Medicare Meddle [id number] Unknown [id number] Unknown [id number] Plan of Treatment Date Care Activity Detail Author Start: 01-15-2025 Adult BMI Screening Adult BMI Screening [facility] Start: 11-28-2024 Adult BMI Screening Adult BMI Screening [facility] Start: 11-28-2024 Tobacco Screening Tobacco Screening [facility] Start: 11-16-2024 Adult BMI Screening Adult BMI Screening [facility] Start: 11-13-2024 Adult BMI Screening Adult BMI Screening [facility] Start: 08-20-2024 Tobacco Screening Tobacco Screening [facility] Start: 04-30-2024 End: 04-30-2024 Patient encounter procedure 04/30/2024 8:20 AM EDT Office Visit [facility] [place] Williamson [address] [place] [address] January Wolfe, FOOD SERVICE SPECIALIST-VOCATIONAL CASE MANAGER [address] [facility] [place] [address] [facility] Start: 04-23-2024 End: 04-23-2024 Patient encounter procedure 04/23/2024 12:30 PM EDT Office Visit [facility] [address] [place] [id number] Li Alcantar, FOOD SERVICE SPECIALIST-VOCATIONAL CASE MANAGER [address] [facility] [address] [place], [place] [id number] Cesario Keenan MD [address] [facility] [address] [place] [address] [facility] Start: 01-23-2024 End: 01-15-2025 Basic metabolic 2000 panel - Serum or Plasma Basic Metabolic Panel Lab Routine Stage 3b chronic kidney disease ([facility]) Expected: 01/23/2024 (Approximate), Expires: [facility]/20[facility] Comment on above: Expected: 01/23/2024 (Approximate), Expi res: 01/15/2025 Start: 01-23-2024 End: 01-15-2025 Magnesium [Mass/volume] in Serum or Plasma Magnesium Lab Routine Stage 3b chronic kidney disease ([facility]) Expected: 01/23/2024 (Approximate), Expires: 01/15/2025 [facility] Comment on above: Expected: 01/23/2024 (Approximate), Expi res: 01/15/2025 Start: 01-23-2024 End: 01-15-2025 Parathyroid Hormone, intact Parathyroid Hormone, intact Lab Routine Stage 3b chronic kidney disease ([facility]) Expected: 01/23/2024 (Approximate), Expires: 01/15/2025 [facility] Comment on above: Expected: 01/23/2024 (Approximate), Expi res: 01/15/2025 Start: 01-23-2024 End: 01-15-2025 Phosphate [Mass/volume] in Serum or Plasma Phosphorus Lab Routine Stage 3b chronic kidney disease ([facility]) Expected: 01/23/2024 (Approximate), Expires: 01/15/2025 [facility] Comment on above: Expected: 01/23/2024 (Approximate), Expi res: 01/15/2025 Start: 01-23-2024 End: 01-15-2025 Protein creat ratio Protein creat ratio Lab Routine Stage 3b chronic kidney disease ([facility] [place] [facility]) Expected: 01/23/2024 (Approximate), Expires: 01/15/2025 [facility] Comment on above: Expected: 01/23/2024 (Approximate), Expi res: 01/15/2025 Start: 01-23-2024 End: 01-15-2025 Urinalysis Urinalysis Lab Routine Stage 3b chronic kidney disease ([facility] [place]) Expected: 01/23/2024 (Approximate), Expires: 01/15/2025 [facility] Comment on above: Expected: 01/23/2024 (Approximate), Expi res: 01/15/2025 Start: 01-23-2024 End: 01-15-2025 Vitamin D 25 hydroxy Vitamin D 25 hydroxy Lab Routine Stage 3b chronic kidney disease ([facility] [place] [facility]) Expected: 01/23/2024 (Approximate), Expires: 01/15/2025 [facility] Comment on above: Expected: 01/23/2024 (Approximate), Expi res: 01/15/2025 Start: 01-22-2024 End: 01-21-2025 CT Guidance for biopsy of Kidney - left IR percutaneous biopsy renal left Imaging Routine Stage 3b chronic kidney disease (CKD) ([facility] [place]) Expected: 01/22/2024, Expires: 01/21/2025 [facility] Work Phone: Comment on above: Expected: 01/22/2024, Expires: Start: 01-16-2024 End: 01-15-2025 Protein creat ratio Protein creat ratio Lab Routine Stage 3b chronic kidney disease ([facility]) Expected: 01/16/2024 (Approximate), Expires: 01/15/2025 [facility] [employer] Comment on above: Expected: 01/16/2024 (Approximate), Expi res: 01/15/2025 Start: 01-16-2024 End: 01-15-2025 Urinalysis Urinalysis Lab Routine Stage 3b chronic kidney disease ([facility]) Expected: 01/16/2024 (Approximate), Expires: 01/15/2025 [facility] [employer] Comment on above: Expected: 01/16/2024 (Approximate), Expi res: 01/15/2025 Start: 01-16-2024 End: 01-16-2024 Patient encounter procedure 01/16/2024 8:20 AM EST Office Visit [facility] [address] [place] [address] January Wolfe, FOOD SERVICE SPECIALIST-VOCATIONAL CASE MANAGER [address] [place] [address], [address] [place], [place] [phone] [facility] Start: 12-05-2023 End: 11-28-2024 FELIX Screen w/ Reflex FELIX Screen w/ Reflex Lab Routine Stage 3a chronic kidney disease ([facility]) Expected: 12/05/2023 (Approximate), Expires: 11/28/2024 [facility] Comment on above: Expected: 12/05/2023 (Approximate), Expi res: 11/28/2024 Start: 12-05-2023 End: 11-28-2024 ANCA ANCA Lab Routine Stage 3a chronic kidney disease ([facility]) Expected: 12/05/2023 (Approximate), Expires: 11/28/2024 [facility] [employer] [facility] Comment on above: Expected: 12/05/2023 (Approximate), Expi res: 11/28/2024 Start: 12-05-2023 End: 11-28-2024 Anti-DNA antibody, double-stranded Anti-DNA antibody, double-stranded Lab Routine Stage 3a chronic kidney disease ([facility]) Expected: 12/05/2023 (Approximate), Expires: 11/28/2024 [facility] Comment on above: Expected: 12/05/2023 (Approximate), Expi res: 11/28/2024 Start: 12-05-2023 End: 11-28-2024 Complement profile (C3 AND C4) Complement profile (C3 AND C4) Lab Routine Stage 3a chronic kidney disease ([facility] [place]) Expected: 12/05/2023 (Approximate), Expires: 11/28/2024 [facility] Comment on above: Expected: 12/05/2023 (Approximate), Expi res: 11/28/2024 Start: 12-05-2023 End: 11-28-2024 Free light chains Free light chains Lab Routine Stage 3a chronic kidney disease ([facility] [place]) Expected: 12/05/2023 (Approximate), Expires: 11/28/2024 [facility] Comment on above: Expected: 12/05/2023 (Approximate), Expi res: 11/28/2024 Start: 12-05-2023 End: 11-28-2024 Glomerular basement membrane IgG AB Glomerular basement membrane IgG AB Lab Routine Stage 3a chronic kidney disease ([facility] [place] [facility]) Expected: 12/05/2023 (Approximate), Expires: 11/28/2024 [facility] Comment on above: Expected: 12/05/2023 (Approximate), Expi res: 11/28/2024 Start: 12-05-2023 End: 11-28-2024 Myeloperoxidase AB Myeloperoxidase AB Lab Routine Stage 3a chronic kidney disease ([facility] [place] [facility]) Expected: 12/05/2023 (Approximate), Expires: 11/28/2024 [facility] Comment on above: Expected: 12/05/2023 (Approximate), Expi res: 11/28/2024 Start: 12-05-2023 End: 11-28-2024 Protein electrophoresis, serum Protein electrophoresis, serum Lab Routine Stage 3a chronic kidney disease ([facility] [place]) Expected: 12/05/2023 (Approximate), Expires: 11/28/2024 [facility] Comment on above: Expected: 12/05/2023 (Approximate), Expi res: 11/28/2024 Start: 12-05-2023 End: 11-28-2024 Proteinase 3 AB PR3 Proteinase 3 AB PR3 Lab Routine Stage 3a chronic kidney disease ([facility]) Expected: 12/05/2023 (Approximate), Expires: 11/28/2024 [facility] Comment on above: Expected: 12/05/2023 (Approximate), Expi res: 11/28/2024 Start: 12-05-2023 End: 11-28-2024 Rheumatoid factor Rheumatoid factor Lab Routine Stage 3a chronic kidney disease ([facility]) Expected: 12/05/2023 (Approximate), Expires: 11/28/2024 [facility] Comment on above: Expected: 12/05/2023 (Approximate), Expi res: 11/28/2024 Start: 11-29-2023 End: 11-28-2024 Basic metabolic 2000 panel - Serum or Plasma Basic Metabolic Panel Lab Routine Stage 3a chronic kidney disease ([facility]) Expected: 11/29/2023 (Approximate), Expires: 11/28/2024 [facility] Comment on above: Expected: 11/29/2023 (Approximate), Expi res: 11/28/2024 Start: 11-29-2023 End: 11-28-2024 Magnesium [Mass/volume] in Serum or Plasma Magnesium Lab Routine Stage 3a chronic kidney disease ([facility]) Expected: 11/29/2023 (Approximate), Expires: 11/28/2024 [facility] Comment on above: Expected: 11/29/2023 (Approximate), Expi res: 11/28/2024 Start: 11-28-2023 End: 11-28-2023 Patient encounter procedure 11/28/2023 8:40 AM EST Office Visit [facility] [address] [place] [address] January Wolfe, FOOD SERVICE SPECIALIST-VOCATIONAL CASE MANAGER [address] [place] [address], [address] [place] [address] [facility] Start: 11-25-2023 End: 11-18-2024 Basic metabolic 2000 panel - Serum or Plasma Basic Metabolic Panel Lab Routine Stage 3b chronic kidney disease ([facility]) Expected: 11/25/2023 (Approximate), Expires: 11/18/2024 [facility] Work Phone: Comment on above: Expected: 11/25/2023 (Approximate), Expi res: 11/18/2024 Start: 11-25-2023 End: 11-18-2024 CBC panel - Blood by Automated count CBC without diff Lab Routine Stage 3b chronic kidney disease ([facility]) Expected: 11/25/2023 (Approximate), Expires: 11/18/2024 [facility] [employer] [facility] [place] Comment on above: Expected: 11/25/2023 (Approximate), Expi res: 11/18/2024 Start: 11-25-2023 End: 11-18-2024 Magnesium [Mass/volume] in Serum or Plasma Magnesium Lab Routine Stage 3b chronic kidney disease ([facility]) Expected: 11/25/2023 (Approximate), Expires: 11/18/2024 [facility] [employer] Comment on above: Expected: 11/25/2023 (Approximate), Expi res: 11/18/2024 Start: 11-25-2023 End: 11-18-2024 Parathyroid Hormone, intact Parathyroid Hormone, intact Lab Routine Stage 3b chronic kidney disease ([facility]) Expected: 11/25/2023 (Approximate), Expires: 11/18/2024 [facility] [employer] Comment on above: Expected: 11/25/2023 (Approximate), Expi res: 11/18/2024 Start: 11-25-2023 End: 11-18-2024 Phosphate [Mass/volume] in Serum or Plasma Phosphorus Lab Routine Stage 3b chronic kidney disease ([facility]) Expected: 11/25/2023 (Approximate), [facility] Expected: 11/25/2023 (Approximate), Expi res: 11/18/2024 Start: 11-25-2023 End: 11-18-2024 Protein creat ratio Protein creat ratio Lab Routine Stage 3b chronic kidney disease ([facility]) Expected: 11/25/2023 (Approximate), Expires: 11/18/2024 [facility] Comment on above: Expected: 11/25/2023 (Approximate), Expi res: 11/18/2024 Start: 11-25-2023 End: 11-18-2024 Urinalysis Urinalysis Lab Routine Stage 3b chronic kidney disease ([facility]) Expected: 11/25/2023 (Approximate), Expires: 11/18/2024 [facility] Comment on above: Expected: 11/25/2023 (Approximate), Expi res: 11/18/2024 Start: 11-25-2023 End: 11-18-2024 Vitamin D 25 hydroxy Vitamin D 25 hydroxy Lab Routine Stage 3b chronic kidney disease ([facility]) Expected: 11/25/2023 (Approximate), Expires: 11/18/2024 [facility] Comment on above: Expected: 11/25/2023 (Approximate), Expi res: 11/18/2024 Start: 11-19-2023 End: 11-19-2023 Patient encounter procedure 11/19/2023 10:30 AM EST Office Visit [facility] [address] [place] [phone] Kianna Bass MD [address] [place] [address], [address] [place] [phone] [facility] Start: 11-13-2023 End: 11-13-2023 Patient encounter procedure 11/13/2023 8:00 AM EST Office Visit [facility] [address] [place] [phone] Karmen Bagley MD [address] [place] [phone] [facility] Start: 07-12-2023 Influenza vaccination Influenza Vaccine [facility] Start: 01-02-2023 Superficial Wound Culture Superficial Wound Culture [facility] Start: 2021 Fall Risk Screening Fall Risk Screening [facility] Start: 2006 Administration of varicella zoster vaccine Zoster (Shingles) [facility] Start: 1975 DTaP,Tdap and Td Vaccines (1 - Tdap) DTaP,Tdap and Td Vaccines (1 - Tdap) [facility] Start: 1974 Adult BMI Follow Up Plan Adult BMI Follow Up Plan [facility] Start: 1974 Adult BMI Screening Adult BMI Screening [facility] Start: 1974 Diabetic foot examination Diabetic Foot Exam [facility] Start: 1968 Depression Screening Depression Screening [facility] Start: 1956 Glaucoma screening Diabetic Ophthalmology [facility]am [facility] Start: 1956 Medicare Annual Wellness Visit Medicare Annual Wellness [facility] Bacteria identified in Unspecified specimen by Aerobe culture [facility] End: 11-28-2024 Basic metabolic 2000 panel - Serum or Plasma Basic Metabolic Panel Lab Routine Stage 3a chronic kidney disease ([facility]) 1 Occurrences starting 11/28/2023 until 11/28/2024 [facility] Comment on above: 1 Occurrences starting 11/28/2023 until 11/28/2024 End: 01-15-2025 Basic metabolic 2000 panel - Serum or Plasma [facility] Work Phone: Comment on above: 1 Occurrences starting 01/16/2024 until 01/15/2025 weekly for 4 Occurre nces starting 01/16/2024 until 01/15/2025 End: 01-21-2025 Basic metabolic 2000 panel - Serum or Plasma Basic Metabolic Panel Lab Routine Stage 3b chronic kidney disease (CKD) ([facility]) 1 Occurrences starting 01/22/2024 until 01/21/2025 [employer] Comment on above: 1 Occurrences starting 01/22/2024 until 01/21/2025 End: 11-28-2024 CBC panel - Blood by Automated count CBC without diff Lab Routine Stage 3a chronic kidney disease ([facility]) 1 Occurrences starting 11/28/2023 until 11/28/2024 [employer] Comment on above: 1 Occurrences starting 11/28/2023 until 11/28/2024 End: 01-15-2025 CBC panel - Blood by Automated count CBC without diff Lab Routine Stage 3b chronic kidney disease ([facility]) 1 Occurrences starting 01/16/2024 until 01/15/2025 [employer] Comment on above: 1 Occurrences starting 01/16/2024 until 01/15/2025 End: 01-21-2025 CBC panel - Blood by Automated count CBC without diff Lab Routine Stage 3b chronic kidney disease (CKD) ([facility]) 1 Occurrences starting 01/22/2024 until 01/21/2025 [facility] Comment on above: 1 Occurrences starting 01/22/2024 until 01/21/2025 End: 01-21-2025 Cytology - Fine Needle Aspiration Cytology - Fine Needle Aspiration Pathology and Cytology Routine Stage 3b chronic kidney disease (CKD) ([facility]) 1 Occurrences starting 01/22/2024 until 01/21/2025 [facility] Comment on above: 1 Occurrences starting 01/22/2024 until 01/21/2025 End: 11-28-2024 Magnesium [Mass/volume] in Serum or Plasma Magnesium Lab Routine Stage 3a chronic kidney disease ([facility]) 1 Occurrences starting 11/28/2023 until 11/28/2024 [facility] Comment on above: 1 Occurrences starting 11/28/2023 until 11/28/2024 End: 01-15-2025 Magnesium [Mass/volume] in Serum or Plasma Magnesium Lab Routine Stage 3b chronic kidney disease ([facility]) 1 Occurrences starting 01/16/2024 until 01/15/2025 [employer] Comment on above: 1 Occurrences starting 01/16/2024 until 01/15/2025 End: 01-21-2025 Magnesium [Mass/volume] in Serum or Plasma Magnesium Lab Routine Stage 3b chronic kidney disease (CKD) ([facility]) 1 Occurrences starting 01/22/2024 until 01/21/2025 [employer] Comment on above: 1 Occurrences starting 01/22/2024 until 01/21/2025 End: 11-28-2024 Parathyroid Hormone, intact Parathyroid Hormone, intact Lab Routine Stage 3a chronic kidney disease ([facility]) 1 Occurrences starting 11/28/2023 until 11/28/2024 [facility] Work Phone: Comment on above: 1 Occurrences starting 11/28/2023 until 11/28/2024 End: 01-15-2025 Parathyroid Hormone, intact Parathyroid Hormone, intact Lab Routine Stage 3b chronic kidney disease ([facility]) 1 Occurrences starting 01/16/2024 until 01/15/2025 [employer] Comment on above: 1 Occurrences starting 01/16/2024 until 01/15/2025 End: 01-21-2025 Parathyroid Hormone, intact Parathyroid Hormone, intact Lab Routine Stage 3b chronic kidney disease (CKD) ([facility]) 1 Occurrences starting 01/22/2024 until 01/21/2025 [employer] Comment on above: 1 Occurrences starting 01/22/2024 until 01/21/2025 End: 11-28-2024 Phosphate [Mass/volume] in Serum or Plasma Phosphorus Lab Routine Stage 3a chronic kidney disease ([facility]) 1 Occurrences starting 11/28/2023 until 11/28/2024 [employer] Comment on above: 1 Occurrences starting 11/28/2023 until 11/28/2024 End: 01-15-2025 Phosphate [Mass/volume] in Serum or Plasma Phosphorus Lab Routine Stage 3b chronic kidney disease ([facility]) 1 Occurrences starting 01/16/2024 until 01/15/2025 [employer] Comment on above: 1 Occurrences starting 01/16/2024 until 01/15/2025 End: 01-21-2025 Phosphate [Mass/volume] in Serum or Plasma Phosphorus Lab Routine Stage 3b chronic kidney disease (CKD) ([facility]) 1 Occurrences starting 01/22/2024 until 01/21/2025 [employer] Comment on above: 1 Occurrences starting 01/22/2024 until 01/21/2025 End: 11-28-2024 Protein creat ratio Protein creat ratio Lab Routine Stage 3a chronic kidney disease ([facility]) 1 Occurrences starting 11/28/2023 until 11/28/2024 [employer] Comment on above: 1 Occurrences starting 11/28/2023 until 11/28/2024 End: 01-15-2025 Protein creat ratio Protein creat ratio Lab Routine Stage 3b chronic kidney disease ([facility]) 1 Occurrences starting 01/16/2024 until 01/15/2025 [facility] Comment on above: 1 Occurrences starting 01/16/2024 until 01/15/2025 End: 01-21-2025 Protein creat ratio Protein creat ratio Lab Routine Stage 3b chronic kidney disease (CKD) ([facility]) 1 Occurrences starting 01/22/2024 until 01/21/2025 [employer] Comment on above: 1 Occurrences starting 01/22/2024 until 01/21/2025 End: 01-21-2025 Surgical Pathology - Tissue (Biopsy) Surgical Pathology - Tissue (Biopsy) Pathology and Cytology Routine Stage 3b chronic kidney disease (CKD) ([facility]) 1 Occurrences starting 01/22/2024 until 01/21/2025 [employer] Comment on above: 1 Occurrences starting 01/22/2024 until 01/21/2025 End: 11-28-2024 Urinalysis Urinalysis Lab Routine Stage 3a chronic kidney disease ([facility]) 1 Occurrences starting 11/28/2023 until 11/28/2024 [employer] Comment on above: 1 Occurrences starting 11/28/2023 until 11/28/2024 End: 01-15-2025 Urinalysis Urinalysis Lab Routine Stage 3b chronic kidney disease ([facility]) 1 Occurrences starting 01/16/2024 until 01/15/2025 [employer] Comment on above: 1 Occurrences starting 01/16/2024 until 01/15/2025 End: 01-21-2025 Urinalysis Urinalysis Lab Routine Stage 3b chronic kidney disease (CKD) ([facility]) 1 Occurrences starting 01/22/2024 until 01/21/2025 [employer] Comment on above: 1 Occurrences starting 01/22/2024 until 01/21/2025 End: 11-28-2024 Vitamin D 25 hydroxy Vitamin D 25 hydroxy Lab Routine Stage 3a chronic kidney disease ([facility]) 1 Occurrences starting 11/28/2023 until 11/28/2024 [employer] Comment on above: 1 Occurrences starting 11/28/2023 until 11/28/2024 End: 01-15-2025 Vitamin D 25 hydroxy Vitamin D 25 hydroxy Lab Routine Stage 3b chronic kidney disease ([facility]) 1 Occurrences starting 01/16/2024 until 01/15/2025 [employer] Comment on above: 1 Occurrences starting 01/16/2024 until 01/15/2025 Problems Active Problems Problem Classification Problem Date Documented Date Episodic/Chronic Acute and unspecified renal failure (2 sources) Acute injury of kidney; Translations: [Acute kidney failure, unspecified] Onset: 11-13-2023 11-28-2023 Episodic Acute cerebrovascular disease (15 sources) Embolic stroke; Translations: [Cerebral infarction due to embolism of unspecified precerebral artery] Onset: 02-26-2018 02-26-2018 Chronic Chronic kidney disease (7 sources) Chronic kidney disease stage 3B ; Translations: [Stage 3b chronic kidney disease (CKD) ([facility])] Onset: 11-26-2023 11-10-2023 Chronic Chronic kidney disease (1 source) Chronic kidney disease; Translations: [Chronic kidney disease, stage 3b] Onset: 02-05-2024 Diseases of white blood cells (1 source) Elevated white blood cell count, unspecified; Translations: [Elevated white blood cell count, unspecified] Onset: 11-13-2023 Chronic E Codes: Adverse effects of medical drugs (1 source) Adverse effect of macrolides, initial encounter; Translations: [Adverse effect of macrolides, initial encounter] Onset: 11-13-2023 Episodic Essential hypertension (15 sources) Benign essential hypertension; Translations: [Essential (primary) hypertension] Onset: 02-26-2018 05-28-2018 Chronic Fluid and electrolyte disorders (2 sources) Other disorders of electrolyte and fluid balance, not elsewhere classified; Translations: [Hypo-osmolality and hyponatremia] Onset: 11-13-2023 Episodic Immunizations and screening for infectious disease (1 source) Anti-nuclear factor positive; Translations: [Other specified abnormal immunological findings in serum] 12-13-2023 Episodic Other and ill-defined cerebrovascular disease (15 sources) Moyamoya disease; 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] Onset: 02-26-2018 02-26-2018 Chronic Other circulatory disease (14 sources) Low blood pressure; Translations: [Hypotension, unspecified] Onset: 11-13-2023 11-13-2023 Episodic Other circulatory disease (1 source) Hypotension, unspecified; Translations: [Hypotension, unspecified] Onset: 11-13-2023 Episodic Other nutritional; endocrine; and metabolic disorders (15 sources) Disorder of mineral metabolism; 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 Onset: 11-13-2023 Past or Other Problems Problem Classification Problem Date Documented Da te Episodic/Chronic Calculus of urinary tract (20 sources) Kidney stone; Translations: [Calculus of kidney] Onset: 02-26-2018 10-21-2019 Episodic Other bone disease and musculoskeletal deformities (15 sources) Osteopenia; Translations: [Other specified disorders of bone density and structure, multiple sites] Onset: 03-24-2018 03-09-2020 Episodic Results Test Name Value Interpretation Reference Range Facility [facility] 04-04-2024 Anion gap [Moles/Vol] 16 mmol/L Normal 6-16 [facility] Comment on above: Performed By: #### 2 [id number] #### [facility] [address] [place] [address] Calcium [Mass/Vol] 8.9 mg/dL Normal 8.9-11.1 [facility] Comment on above: Performed By: #### 2 [id number] #### [facility] [address] [place] [address] Chloride [Moles/Vol] 107 mmol/L Normal 101-111 [facility] Comment on above: Performed By: #### 2 [id number] #### [facility] [address] [place] [address] CO2 [Moles/Vol] 25 mmol/L Normal 21-31 [facility] Comment on above: Performed By: #### 2 [id number] #### [facility] [address] [place] [address] Creatinine [Mass/Vol] 2.0 mg/dL High 0.5-1.3 [facility] Comment on above: Performed By: #### 2 [id number] #### [facility] [address] [place] [address] Glucose [Mass/Vol] 91 mg/dL Normal 55-199 [facility] Comment on above: Performed By: #### 2 [id number] #### [facility] [address] [place] [address] Potassium [Moles/Vol] 4.5 mmol/L Normal 3.5-5.3 [facility] Comment on above: Performed By: #### 2 [id number] #### [facility] [address] [place] [address] Sodium [Moles/Vol] 143 mmol/L Normal 135-145 [facility] Comment on above: Performed By: #### 2 [id number] #### [facility] [address] [place] [address] Urea nitrogen [Mass/Vol] 50 mg/dL High 5-21 [facility] Comment on above: Performed By: #### 2 [id number] #### [facility] [address] [place] [address] Urea nitrogen/Creatinine [Mass ratio] 25 No Units High 10-20 [facility] Comment on above: Performed By: #### 2 [id number] #### [facility] [address] [place] [address] CHEMISTRYOrdered By: Lukas Calderon on 04-04-2024 Anion gap [Moles/Vol] 16 mmol/L Normal 6 - 16 mEq/L R emisol Chem Calcium [Mass/Vol] 8.9 mg/dL Normal 8.9 - 11. 1 mg/dL [facility] Chloride [Moles/Vol] 107 mmol/L Normal 101 - 1 11 mmol/L [facility] CO2 [Moles/Vol] 25 mmol/L Normal 21 - 31 mmol/L [facility] Creatinine [Mass/Vol] 2.0 mg/dL High 0.5 - 1.3 mg/dL [facility] eGFR 27 mL/min/1.73 m2 Low >=59mL/min /1. 73 m2 [facility] Glucose [Mass/Vol] 91 mg/dL Normal 55 - 199 mg/dL [facility] Potassium [Moles/Vol] 4.5 mmol/L Normal 3.5 - 5.3 mmol/L [facility] Sodium [Moles/Vol] 143 mmol/L Normal 135 - 145 mmol/L [facility] Urea nitrogen [Mass/Vol] 50 mg/dL High 5 - 21 mg/d L [facility] Urea nitrogen/Creatinine [Mass ratio] 25 mg/mg High 10 - 20 [facility] 04-04-2024 Forms [id number]#[id number] Normal [facility] Order[facility] 04-04-2024 Physician Order [id number]#1.00TIFF Normal [facility] eGFRon 04-04-2024 eGFR 27 mL/min/1.73 m2 Low >=59 [facility] Comment on above: Order Comment: Order added by Discern Expert. Performed By: #### 1 [id number] #### [facility] [address] [place] [address] BASIC METABOLIC PANLon 02-04 Anion gap [Moles/Vol] 9 mmol/L Normal 5-15 [facility] Comment on above: Performed By: #### C BCA, 98115-5, CMP, THYR, 6873-4 #### [facility] ([id number]) [address], [address] [place] [address] Calcium [Mass/Vol] 8.7 mg/dL Normal 8.5-10.5 [facility] Comment on above: Performed By: #### C BCA, 94685-9, CMP, THYR, 6873-4 #### [facility] ([id number]) [address], [address] [place] [address] Chloride [Moles/Vol] 112 mmol/L High 98-109 [facility] Comment on above: Performed By: #### C BCA, 56613-2, CMP, THYR, 6873-4 #### [facility] ([id number]) [address], [address] [place] [address] CO2 [Moles/Vol] 20 mmol/L Low 22-32 [facility] Comment on above: Performed By: #### C BCA, 21339-7, CMP, THYR, 6873-4 #### [facility] ([id number]) [address], [address] [place] [address] Creatinine [Mass/Vol] 1.69 mg/dL High 0.40-1.[address] [facility] Comment on above: Result Comment: METH OD TRACEABLE TO IDMS STANDARD Performed By: #### C BCA, 29974-5, CMP, THYR, 6873-4 #### [facility] ([id number]) [address], [facility] [address] [place] [address] GFR/1.73 sq M.predicted among non-blacks MDRD (S/P/Bld) [Vol rate/Area] 33 mL/min/{1.73_m2} Low >59 [facility] Comment on above: Result Comment: Reported eGFR is based on the CKD-EPI 2020 equation that does not use a race coefficient. Performed By: #### C BCA, 29755-6, CMP, THYR, 6873-4 #### [facility] ([id number]) [address] [address] [place] [address] Glucose [Mass/Vol] 93 mg/dL Normal 65-99 [facility] Comment on above: Performed By: #### C BCA, 24306-9, CMP, THYR, 6873-4 #### [facility] ([id number]) [address] [address] [place] [address] Potassium [Moles/Vol] 5.5 mmol/L High 3.5-5.[address] [facility] Comment on above: Performed By: #### C BCA, 38373-5, CMP, THYR, 6873-4 #### [facility] ([id number]) [address], [address] [place] [address] Sodium [Moles/Vol] 141 mmol/L Normal 134-146 [facility] Comment on above: Performed By: #### C BCA, 93913-9, CMP, THYR, 6873-4 #### [facility] ([id number]) [address], [facility] [address] [place] [address] Urea nitrogen [Mass/Vol] 58 mg/dL High 5-27 [facility] Comment on above: Performed By: #### C BCA, 87140-5, CMP, THYR, 6873-4 #### [facility] ([id number]) [address], [address] [address] COMPLETE BLOOD COUNTon 02-04 Erythrocyte distribution width (RBC) [Ratio] 18.2 % High 11.5-15.0 [facility] Comment on above: Performed By: #### C BCA, 81770-5, CMP, THYR, 6873-4 #### [facility] ([id number]) [address], [facility] [address] [place] [address] Hematocrit (Bld) [Volume fraction] 30.4 % Low 35-47 [facility] Comment on above: Performed By: #### C BCA, 01203-5, CMP, THYR, 6873-4 #### [facility] ([id number]) [address], [facility] [address] [place] [address] Hemoglobin (Bld) [Mass/Vol] 9.9 g/dL Low 11.7-15.5 [facility] Comment on above: Performed By: #### C BCA, 17244-8, CMP, THYR, 6873-4 #### [facility] ([id number]) [address], [address] [place] [address] MCH (RBC) [Entitic mass] 30.1 pg Normal 27-34 [facility] Comment on above: Performed By: #### C BCA, 53886-4, CMP, THYR, 6873-4 #### [facility] ([id number]) [address] [address] [place] [address] MCHC (RBC) [Mass/Vol] 32.5 g/dL Normal 32-[address] [facility] Comment on above: Performed By: #### C BCA, 46980-5, CMP, THYR, 6873-4 #### [facility] ([id number]) [address] [address] MCV (RBC) [Entitic vol] 93 fL Normal 80-100 [facility] Comment on above: Performed By: #### C BCA, 60951-9, CMP, THYR, 6873-4 #### [facility] ([id number]) [address] [address] [place] [address] Platelet mean volume (Bld) [Entitic vol] 7.8 fL Normal 7-12 [facility] Comment on above: Performed By: #### C BCA, 14583-3, CMP, THYR, 6873-4 #### [facility] ([id number]) [address] [address] Platelets (Bld) [#/Vol] 417 10*3/uL Normal 150-450 [facility] Comment on above: Performed By: #### C BCA, 69715-5, CMP, THYR, 6873-4 #### [facility] ([id number]) [address] [address] [place] [address] RBC COUNT 3.29 X10E12/L Low 3.80-5.20 [facility] Comment on above: Performed By: #### C BCA, 12668-6, CMP, THYR, 6873-4 #### [facility] ([id number]) [address] [address] [place] [address] WBC (Bld) [#/Vol] 10.1 10*3/uL Normal 4.0-11.0 [facility] Comment on above: Performed By: #### C JAVIER, 14538-6, CMP, THYR, 6873-4 #### [facility] ([id number]) [address], [address] [place] [address] MAGNESIUMon 02-05-2024 Magnesium [Mass/Vol] 2.3 mg/dL Normal 1.8-2.6 [facility] Comment on above: Performed By: #### C JAVIER, 71721-8, CMP, THYR, 6873-4 #### [facility] ([id number]) [address], [address] [place] [address] PHOSPHORUSon 02-05-2024 Phosphate [Mass/Vol] 3.6 mg/dL Normal 2.4-4.9 [facility] Comment on above: Performed By: #### C JAVIER, 12982-6, CMP, THYR, 6873-4 #### [facility] ([id number]) [address], [address] [place] [address] PROTIME AND INRon 02-05-2024 INR Coag (PPP) [Relative time] 1.1 {INR} Normal 0.8-1.1 [facility] Comment on above: Performed By: #### C JAVIER, 97549-0, CMP, THYR, 6873-4 #### [facility] ([id number]) [address], [address] [place] [address] PT Coag (PPP) [Time] 12.6 s Normal 9.8-13.2 [facility] Comment on above: Performed By: #### C BCA, 19059-2, CMP, THYR, 6873-4 #### [facility] ([id number]) [address], [address] [place] [address] Parathyrin.intact [Mass/Vol] on 02-05-2024 PTH INTACT 111 pg/mL High 12-88 [facility] Comment on above: Performed By: #### C BCA, 27142-1, CMP, THYR, 6873-4 #### [facility] ([id number]) [address] [facility], [address] [place] [address] Vitamin D+Metabolites [Mass/ Vol]on 02-05-2024 VITAMIN D 25 HYD TOT 72.6 ng/mL Normal 30-100 [facility] Comment on above: Result Comment: Vitamin D status 25 [place] Vitamin D Deficiency <20 ng/mL Insufficiency 20-29 ng/mL Sufficiency 30-100 ng/mL Toxicity >100 ng/mL NOTE: A pediatric reference range has not been established by the simulation software engineer of this kit. The [place] [employer] recommends a Vitamin D level of = or >20ng/mL in infants and children. Performed By: #### C BCA, 74156-0, CMP, THYR, 6873-4 #### [facility] ([id number]) [address] [facility], [address] [place] [address] Comprehensive metabolic 2000 panelon 01-12-2024 Albumin BCP dye [Mass/Vol] 3.1 g/dL Low 3.4-5.0 [facility] Comment on above: Performed By: #### 2 4323-8 #### KATLIN ANGLIN ([id number]) [facility] ([facility]) [address] [place] [address] ALP [Catalytic activity/Vol] 60 U/L Normal 33-136 [facility] Comment on above: Performed By: #### 2 4323-8 #### KATLIN ANGLIN ([id number]) [facility] ([facility]) [address] [place] [address] ALT With P-5'-P [Catalytic activity/Vol] 5 U/L Low 7-45 [facility] Comment on above: Result Comment: Kanchan ents treated with Sulfasalazine may generate falsely decreased results for ALT. Performed By: #### 2 4323-8 #### KATLIN ANGLIN ([id number]) [facility] ([facility]) [address] [place] [address] Anion gap [Moles/Vol] 13 mmol/L Normal 10-20 [facility] Comment on above: Performed By: #### 2 432-8 #### KATLIN ANGLIN ([id number]) [facility] ([facility]) [address] [place] [address] AST With P-5'-P [Catalytic activity/Vol] 10 U/L Normal 9-39 [facility] Comment on above: Performed By: #### 2 432-8 #### KATLIN ANGLIN ([id number]) [facility] ([facility]) [address] [place] [address] Bilirubin [Mass/Vol] 0.2 mg/dL Normal 0.0-1.2 [facility] Comment on above: Performed By: #### 2 432-8 #### KATLIN ANGLIN ([id number]) [facility] ([facility]) [address] [place] [address] Calcium [Mass/Vol] 8.1 mg/dL Low 8.6-10.3 [facility] Comment on above: Performed By: #### 2 4323-8 #### KATLIN ANGLIN ([id number]) [facility] ([facility]) [address] [place] [address] Chloride [Moles/Vol] 106 mmol/L Normal 98-107 [facility] Comment on above: Performed By: #### 2 4323-8 #### KATLIN ANGLIN ([id number]) [facility] ([facility]) [address] [place] [address] CO2 [Moles/Vol] 27 mmol/L Normal 21-32 [facility] Comment on above: Performed By: #### 2 4323-8 #### KATLIN ANGLIN ([id number]) [facility] ([facility]) [address] [place] [address] Creatinine [Mass/Vol] 2.03 mg/dL High 0.50-1.05 [facility] Comment on above: Performed By: #### 2 4323-8 #### KATLIN ANGLIN ([id number]) [facility] ([facility]) [address] [place] [address] Glomerular filtration rate/1.73 sq M.predicted 26 mL/min/1.73m*2 Low >60 [facility] Comment on above: Result Comment: Calc ulations of estimated GFR are performed using the 2020 CKD-EPI Study Refit equation without the race variable for the IDMS-Traceable creatinine methods. https://jasn.asnjournals.org/content/early//ASN.524 8022160 Performed By: #### 2 4323-8 #### KATLIN ANGLIN ([id number]) [facility] ([facility]) [address] [place] [address] Glucose [Mass/Vol] 82 mg/dL Normal 74-99 [facility] Comment on above: Performed By: #### 2 432-8 #### KATLIN ANGLIN ([id number]) [facility] ([facility]) [address] [place] [address] Potassium [Moles/Vol] 4.6 mmol/L Normal 3.5-5.3 [facility] Comment on above: Performed By: #### 2 432-8 #### KATLIN ANGLIN ([id number]) [facility] ([facility]) [address] [place] [address] Protein [Mass/Vol] 6.0 g/dL Low 6.4-8.2 [facility] Comment on above: Performed By: #### 2 432-8 #### KATLIN ANGLIN ([id number]) [facility] ([facility]) [address] [place] [address] Sodium [Moles/Vol] 141 mmol/L Normal 136-145 [facility] Comment on above: Performed By: #### 2 432-8 #### KATLIN ANGLIN ([id number]) [facility] ([facility]) [address] [place] [address] Urea nitrogen [Mass/Vol] 62 mg/dL High 05-03 [facility] Comment on above: Performed By: #### 2 4323-8 #### KATLIN ANGLIN ([id number]) [facility] ([facility]) [address] [place] [address] Potassiumon 12-22-2023 Potassium [Moles/Vol] 4.8 mmol/L Normal 3.4-4.9 [facility] Comment on above: Order Comment: CALL doctor [phone] tel. [phone], Fax results to [facility] Ass CALL doctor LB832 tel. [phone], [place]ax [place] to [facility] Performed By: #### K #### [facility] [address] [place] [id number] 36on 12-03-2023 36 I think monitoring would be ok. She has no oral options. Seeing as initial infection was from urinary source I would be less worried Normal [facility] Potassiumon 11-27-2023 Potassium [Moles/Vol] 5.7 mmol/L High 3.5-5.1 [facility] Comment on above: Result Comment: Crit ical Result Called to and read back by: LIZANDRO MCPHERSON at: 11/27/2023 17:45:10 by:[id number] PERFORMED BY: [place] [address] PATHOLOGIST CLASSIFIED AD CLERK JONG SORENSON M.D. Performed By: #### K #### [address] Potassium [Moles/volume] in Serum or PlasmaOrdered By: Lizandro Mcpherson on 11-27-2023 Potassium [Moles/Vol] 5.7 mmol/L 3.5-5.1 [facility] Comment on above: Critical Result Call ed to and read back by: LIZANDRO MCPHERSON at: 11/27/2023 17:45:10 by:[id number] Basic Metabolic Panel 11-11 Anion gap [Moles/Vol] 14.0 mmol/L Normal 6.0-15.0 [facility] Comment on above: Performed By: #### B MP, CBC, MG, PHOS #### [facility] [address] Calcium [Mass/Vol] 9.0 mg/dL Normal 8.6-10.3 [facility] Comment on above: Performed By: #### B MP, CBC, MG, PHOS #### [facility] [address] Chloride [Moles/Vol] 109 mmol/L High 98-107 [place] Comment on above: Performed By: #### B MP, CBC, MG, PHOS #### [facility] [address] CO2 [Moles/Vol] 23.1 mmol/L Normal 21.0-31.0 [facility] Comment on above: Performed By: #### B MP, CBC, MG, PHOS #### [facility] [address] [place] [address] [place] Creatinine [Mass/Vol] 1.61 mg/dL High 0.60-1.20 [facility] Comment on above: Performed By: #### B MP, CBC, MG, PHOS #### [facility] [address] [place] [address] [place] GFR/1.73 sq M.predicted MDRD (S/P/Bld) [Vol rate/Area] 34.868 mL/min/{1.73_m2} Normal [facility] Comment on above: Performed By: #### B MP, CBC, MG, PHOS #### [facility] [address] Glucose [Mass/Vol] 91 mg/dL Normal 70-100 [facility] Comment on above: Result Comment: [facility] Glucose Reference Range is dependent on time and content of last meal. Glucose of more than 200 mg/dL in a nonstressed, ambulatory subject supports the diagnosis of Diabetes Mellitus. ADA recommended reference range Performed By: #### B MP, CBC, MG, PHOS #### [facility] [address] Potassium [Moles/Vol] 6.1 mmol/L Off scale high 3.5-5.1 [facility] Comment on above: Result Comment: Crit ical Result Called to and read back by: MARIA T CHING at: 11/26/2023 21:14:05 by:HELADIO Performed By: #### B MP, CBC, MG, PHOS #### [facility] [address] Sodium [Moles/Vol] 140 mmol/L Normal 136-145 [facility] Comment on above: Performed By: #### B MP, CBC, MG, PHOS #### [facility] [address] Urea nitrogen [Mass/Vol] 30 mg/dL High 7-25 [facility] Comment on above: Performed By: #### B MP, CBC, MG, PHOS #### [facility] [address] Basophils Auto (Bld) [#/Vol] Ordered By: Lizandro Mcpherson on 11-26-2023 Basophils (Bld) [#/Vol] 0.1 10*3/uL 0.0-0.2 [facility] Basophils/100 WBC Auto (Bld) Ordered By: Lizandro Mcpherson on 11-26-2023 Basophils/100 WBC (Bld) 1.6 % . [facility] Calcium [Mass/volume] in Ser um or PlasmaOrdered By: Lizandro Mcpherson on 11-26-2023 Calcium [Mass/Vol] 9.0 mg/dL 8.6-10.3 [facility] Carbon dioxide, total [Moles /volume] in Serum or PlasmaOrdered By: Lizandro Mcpherson on 11-26-2023 CO2 [Moles/Vol] 23.1 mmol/L 21.0-31.0 [facility] Chloride [Moles/volume] in [place] or PlasmaOrdered By: Lizandro Mcpherson on 11-26-2023 Chloride [Moles/Vol] 109 mmol/L 98-107 [place] Complete Blood Count Auto Di ffon 11-26-2023 Basophils (Bld) [#/Vol] 0.1 10*3/uL Normal 0.0-0.2 [facility] Comment on above: Result Comment: PERF ORMED BY: [place] [address] PATHOLOGIST CLASSIFIED AD CLERK JONG SORENSON M.D. Performed By: #### B MP, CBC, MG, PHOS #### [facility] [address] Basophils/100 WBC (Bld) 1.6 % Normal . [facility] Comment on above: Performed By: #### B MP, CBC, MG, PHOS #### [facility] [address] Eosinophils (Bld) [#/Vol] 0.2 10*3/uL Normal 0.0-0.45 [facility] Comment on above: Performed By: #### B MP, CBC, MG, PHOS #### [facility] [address] [place] [address] Eosinophils/100 WBC (Bld) 3.0 % Normal . [facility] Comment on above: Performed By: #### B MP, CBC, MG, PHOS #### [facility] [address] [place] [address] Erythrocyte distribution width (RBC) [Ratio] 16.9 % High 11.9-15.3 [facility] Comment on above: Performed By: #### B MP, CBC, MG, PHOS #### [facility] [address] Hematocrit (Bld) [Volume fraction] 26.7 % Low 34.0-46.4 [facility] Comment on above: Performed By: #### B MP, CBC, MG, PHOS #### [facility] [address] [place] [address] Hemoglobin (Bld) [Mass/Vol] 8.5 g/dL Low 11.8-15.4 [facility] Comment on above: Performed By: #### B MP, CBC, MG, PHOS #### [address] Lymphocytes (Bld) [#/Vol] 1.8 10*3/uL Normal 1.00-4.8 [facility] Comment on above: Performed By: #### B MP, CBC, MG, PHOS #### [address] Lymphocytes/100 WBC (Bld) 24.2 % Normal . [facility] Comment on above: Performed By: #### B MP, CBC, MG, PHOS #### [address] MCH (RBC) [Entitic mass] 30.3 pg Normal 24.7-34.3 [facility] Comment on above: Performed By: #### B MP, CBC, MG, PHOS #### [address] MCV (RBC) [Entitic vol] 95.5 fL Normal 80-100 [facility] Comment on above: Performed By: #### B MP, CBC, MG, PHOS #### [address] Mean Corpuscular HGB Conc 31.8 g/dL Low 32.0-35.0 [facility] Comment on above: Performed By: #### B MP, CBC, MG, PHOS #### [address] Monocytes (Bld) [#/Vol] 0.3 10*3/uL Normal 0.0-0.8 [facility] Comment on above: Performed By: #### B MP, CBC, MG, PHOS #### [address] Monocytes/100 WBC (Bld) 4.2 % Normal . [facility] Comment on above: Performed By: #### B MP, CBC, MG, PHOS #### [address] Neutrophils (Bld) [#/Vol] 4.9 10*3/uL Normal 1.8-7.7 [facility] Comment on above: Performed By: #### B MP, CBC, MG, PHOS #### [address] Neutrophils/100 WBC (Bld) 67.0 % Normal . [facility] Comment on above: Performed By: #### B MP, CBC, MG, PHOS #### [address] NRBC% 0.1 /100{WBC} Normal 0-0.5 [facility] Comment on above: Performed By: #### B MP, CBC, MG, PHOS #### [address] Platelet mean volume (Bld) [Entitic vol] 8.4 fL Normal 6.3-10.7 [facility] Comment on above: Performed By: #### B MP, CBC, MG, PHOS #### [place] [address] [place] Platelets (Bld) [#/Vol] 585 10*3/uL High 150-450 [facility] Comment on above: Performed By: #### B MP, CBC, MG, PHOS #### [address] RBC (Bld) [#/Vol] 2.80 10*6/uL Low 3.60-5.00 [facility] Comment on above: Performed By: #### B MP, CBC, MG, PHOS #### [address] WBC (Bld) [#/Vol] 7.3 10*3/uL Normal 3.8-11.6 [facility] Comment on above: Performed By: #### B MP, CBC, MG, PHOS #### [place] [id number] [facility] Creatinine [Mass/volume] in Serum or PlasmaOrdered By: Lizandro Mcpherson on 11-26-2023 Creatinine [Mass/Vol] 1.61 mg/dL 0.60-1.20 [facility] Eosinophils Auto (Bld) [#/Vo l]Ordered By: Lizandro Mcpherson on 11-26-2023 Eosinophils (Bld) [#/Vol] 0.2 10*3/uL 0.0-0.45 [facility] Eosinophils/100 WBC Auto (Bl d)Ordered By: Lizandro Mcpherson on 11-26-2023 Eosinophils/100 WBC (Bld) 3.0 % . [facility] Erythrocyte distribution wid th Auto (RBC) [Ratio]Ordered By: Lizandro Mcpherson on 11-26-2023 Erythrocyte distribution width (RBC) [Ratio] 16.9 % 11.9-15.3 [facility] Glucose [Mass/volume] in Ser um or PlasmaOrdered By: Lizandro Mcpherson on 11-26-2023 Glucose [Mass/Vol] 91 mg/dL 70-100 [facility] Comment on above: ADA recommended refe rence rangeRandom Glucose Reference Range is dependent on time and content of last meal. Glucose of more than 200 mg/dL in a nonstressed, ambulatory subject supports the diagnosis of Diabetes Mellitus. Hematocrit Auto (Bld) [Volum e fraction]Ordered By: Lizandro Mcpherson on 11-26-2023 Hematocrit (Bld) [Volume fraction] 26.7 % 34.0-46.4 [facility] Hemoglobin [Mass/volume] in BloodOrdered By: Lizandro Mcpherson on 11-26-2023 Hemoglobin (Bld) [Mass/Vol] 8.5 g/dL 11.8-15.4 [facility] Leukocytes [#/volume] correc dominick for nucleated erythrocytes in Blood by Automated counOrdered By: Lizandro Mcpherson on 11-26-2023 WBC corrected for nucl RBC Auto (Bld) [#/Vol] 7.3 10*3/uL 3.8-11.6 [facility] Lymphocytes Auto (Bld) [#/Vo l]Ordered By: Lizandro Mcpherson on 11-26-2023 Lymphocytes (Bld) [#/Vol] 1.8 10*3/uL 1.00-4.8 [facility] Lymphocytes/100 WBC Auto (Bl d)Ordered By: Lizandro Mcpherson on 11-26-2023 Lymphocytes/100 WBC (Bld) 24.2 % . [facility] MCH Auto (RBC) [Entitic mass ]Ordered By: Lizandro Mcpherson on 11-26-2023 MCH (RBC) [Entitic mass] 30.3 pg 24.7-34.3 [facility] MCHC Auto (RBC) [Mass/Vol]Or dered By: Lizandro Mcpherson on 11-26-2023 MCHC (RBC) [Mass/Vol] 31.8 g/dL 32.0-35.0 [facility] MCV Auto (RBC) [Entitic vol] Ordered By: Lizandro Mcpherson on 11-26-2023 MCV (RBC) [Entitic vol] 95.5 fL 80-100 [facility] Magnesiumon 11-26-2023 Magnesium [Mass/Vol] 1.9 mg/dL Normal 1.9-2.7 [place] Comment on above: Result Comment: PERF ORMED BY: [place] [address] PATHOLOGIST CLASSIFIED AD CLERK JONG SORENSON M.D. Performed By: #### B MP, CBC, MG, PHOS #### [facility] [address] [place] [address] Magnesium [Mass/volume] in [place] or PlasmaOrdered By: Lizandro Mcpherson on 11-26-2023 Magnesium [Mass/Vol] 1.9 mg/dL 1.9-2.7 [place] Monocytes Auto (Bld) [#/Vol] Ordered By: Lizandro Mcpherson on 11-26-2023 Monocytes (Bld) [#/Vol] 0.3 10*3/uL 0.0-0.8 [facility] Monocytes/100 WBC Auto (Bld) Ordered By: Lizandro Mcpherson on 11-26-2023 Monocytes/100 WBC (Bld) 4.2 % . [facility] Neutrophils Auto (Bld) [#/Vo l]Ordered By: Lizandro Mcpherson on 11-26-2023 Neutrophils (Bld) [#/Vol] 4.9 10*3/uL 1.8-7.7 [facility] Neutrophils/100 WBC Auto (Bl d)Ordered By: Lizandro Mcpherson on 11-26-2023 Neutrophils/100 WBC (Bld) 67.0 % . [facility] No Panel InformationOrdered By: Lizandro Mcpherson on 11-26-2023 Estimated GFR (CKD-EPI) 34.868 mL/Min [facility] Creatinine Clearance (Chem N/A [facility] Nucleated erythrocytes [Pres ence] in Blood by Automated countOrdered By: Lizandro Mcpherson on 11-26-2023 Nucleated RBC Auto Ql (Bld) 0.1 /100{WBC} 0-0.5 [facility] Phosphate [Mass/volume] in [place] or PlasmaOrdered By: Lizandro Mcpherson on 11-26-2023 Phosphate [Mass/Vol] 5.2 mg/dL 2.5-4.5 [place] Phosphoruson 11-26-2023 Phosphate [Mass/Vol] 5.2 mg/dL High 2.5-4.5 [place] Comment on above: Performed By: #### B MP, CBC, MG, PHOS #### [address] Platelet mean volume Auto (B ld) [Entitic vol]Ordered By: Lizandro Mcpherson on 11-26-2023 Platelet mean volume (Bld) [Entitic vol] 8.4 fL 6.3-10.7 [facility] Platelets Auto (Bld) [#/Vol] Ordered By: Lizandro Mcpherson on 11-26-2023 Platelets (Bld) [#/Vol] 585 10*3/uL 150-450 [facility] Potassium [Moles/volume] in Serum or PlasmaOrdered By: Lizandro Mcpherson on 11-26-2023 Potassium [Moles/Vol] 6.1 mmol/L 3.5-5.1 [facility] Comment on above: Critical Result Call ed to and read back by: MARIA T CHING at: 11/26/2023 21:14:05 by:HELADIO RBC Auto (Bld) [#/Vol]Ordere d By: Lizandro Mcpherson on 11-26-2023 RBC (Bld) [#/Vol] 2.80 10*6/uL 3.60-5.00 [facility] Serum or plasma anion gap de terminationOrdered By: Lizandro Mcpherson on 11-26-2023 Anion gap [Moles/Vol] 14.0 mmol/L 6.0-15.0 [facility] Sodium [Moles/volume] in Ser um or PlasmaOrdered By: Lizandro Mcpherson on 11-26-2023 Sodium [Moles/Vol] 140 mmol/L 136-145 [facility] Urea nitrogen [Mass/volume] in Serum or PlasmaOrdered By: Lizandro Mcpherson on 11-26-2023 Urea nitrogen [Mass/Vol] 30 mg/dL 7-25 [facility] WBC Auto (Bld) [#/Vol]Ordere d By: Lizandro Mcpherson on 11-26-2023 WBC (Bld) [#/Vol] 7.3 10*3/uL 3.8-11.6 [facility] CBC AND AUTO DIFFon 11-17-19 24 ABSOLUTE BASOPHIL 0.0 X10E9/L Normal 0.0-0.2 [facility] Comment on above: Performed By: #### C BCA, 21301-3, CMP, THYR, 6873-4 #### [facility] ([id number]) [address], [address] [place] [address] ABSOLUTE NEUTROPHIL 6.9 X10E9/L High 1.5-6.6 [facility] Comment on above: Performed By: #### C BCA, 81264-7, CMP, THYR, 6873-4 #### [facility] ([id number]) [address], [address] [place] [address] Basophils/100 WBC (Bld) 0.3 % Normal [facility] Comment on above: Performed By: #### C BCA, 16867-0, CMP, THYR, 6873-4 #### [facility] ([id number]) [address] [address] [place] [address] Eosinophils (Bld) [#/Vol] 0.4 10*3/uL Normal 0.0-0.4 [facility] Comment on above: Performed By: #### C BCA, 38409-9, CMP, THYR, 6873-4 #### [facility] ([id number]) [address] [address] [place] [address] Eosinophils/100 WBC (Bld) 4.0 % Normal [facility] Comment on above: Performed By: #### C BCA, 26735-3, CMP, THYR, 6873-4 #### [facility] ([id number]) [address] [address] [place] [address] Erythrocyte distribution width (RBC) [Ratio] 16.1 % High 11.5-15.0 [facility] Comment on above: Performed By: #### C BCA, 26736-1, CMP, THYR, 6873-4 #### [facility] ([id number]) [address] [address] [place] [address] Hematocrit (Bld) [Volume fraction] 21.5 % Low 35-47 [facility] Comment on above: Performed By: #### C BCA, 95807-9, CMP, THYR, 6873-4 #### [facility] ([id number]) [address] [address] [place] [address] Hemoglobin (Bld) [Mass/Vol] 7.2 g/dL Low 11.7-15.5 [facility] Comment on above: Performed By: #### C BCA, 04576-3, CMP, THYR, 6873-4 #### [facility] ([id number]) [address] [place] [address] Lymphocytes (Bld) [#/Vol] 1.5 10*3/uL Normal 1.0-3.5 [facility] Comment on above: Performed By: #### C BCA, 83047-4, CMP, THYR, 6873-4 #### [facility] ([id number]) [address] [address] Lymphocytes/100 WBC (Bld) 15.8 % Normal [facility] Comment on above: Performed By: #### C BCA, 19208-9, CMP, THYR, 6873-4 #### [facility] ([id number]) [address] [address] MCH (RBC) [Entitic mass] 30.6 pg Normal 27-34 [facility] Comment on above: Performed By: #### Rohith BCA, 15399-3, CMP, THYR, 6873-4 #### [facility] ([id number]) [address] [address] MCHC (RBC) [Mass/Vol] 33.4 g/dL Normal 32-36 [facility] Comment on above: Performed By: #### C BCA, 04499-6, CMP, THYR, 73-4 #### [facility] ([id number]) [address] [address] MCV (RBC) [Entitic vol] 92 fL Normal 80-100 [facility] Comment on above: Performed By: #### C BCA, 48947-4, CMP, THYR, 6873-4 #### [facility] ([id number]) [address] [address] Monocytes (Bld) [#/Vol] 0.6 10*3/uL Normal 0-0.9 [facility] Comment on above: Performed By: #### Rohith BCA, 39406-6, CMP, THYR, 6873-4 #### [facility] ([id number]) [address] [place] [address] Monocytes/100 WBC (Bld) 6.4 % Normal [facility] Comment on above: Performed By: #### C BCA, 03413-7, CMP, THYR, 6873-4 #### [facility] ([id number]) [address] [place] [address] Neutrophils/100 WBC (Bld) 73.5 % Normal [facility] Comment on above: Performed By: #### C BCA, 96345-5, CMP, THYR, 6873-4 #### [facility] ([id number]) [address] [place] [address] Platelet mean volume (Bld) [Entitic vol] 8.1 fL Normal 7-12 [facility] Comment on above: Performed By: #### C BCA, 60449-7, CMP, THYR, 6873-4 #### [facility] ([id number]) [address], [address] [place] [address] Platelets (Bld) [#/Vol] 611 10*3/uL High 150-450 [facility] Comment on above: Performed By: #### C BCA, 44742-0, CMP, THYR, 6873-4 #### [facility] ([id number]) [address], [address] [place] [address] RBC COUNT 2.34 X10E12/L Low 3.80-5.20 [facility] Comment on above: Performed By: #### C BCA, 55448-6, CMP, THYR, 6873-4 #### [facility] ([id number]) [address], [address] [place] [address] WBC (Bld) [#/Vol] 9.4 10*3/uL Normal 4.0-11.0 [facility] Comment on above: Performed By: #### C BCA, 58677-0, CMP, THYR, 6873-4 #### [facility] ([id number]) [address], [address] [place] [address] COMPREHENSIVE METABOLIC PANE Destin 11-17-2023 Albumin [Mass/Vol] 2.3 g/dL Low 3.2-5.3 [facility] Comment on above: Performed By: #### C BCA, 55453-9, CMP, THYR, 6873-4 #### [facility] ([id number]) [address], [address] [place] [address] ALP [Catalytic activity/Vol] 91 U/L Normal 39-130 [facility] Comment on above: Performed By: #### C BCA, 70559-4, CMP, THYR, 6873-4 #### [facility] ([id number]) [address], [address] [place] [address] ALT [Catalytic activity/Vol] 6 U/L Normal 0-31 [facility] Comment on above: Performed By: #### C BCA, 06659-5, CMP, THYR, 6873-4 #### [facility] ([id number]) [address], [address] [place] [address] Anion gap [Moles/Vol] 8 mmol/L Normal 5-[address] [facility] Comment on above: Performed By: #### C BCA, 90447-4, CMP, THYR, 6873-4 #### [facility] ([id number]) [address], [address] [place] [address] AST [Catalytic activity/Vol] 17 U/L Normal 0-41 [facility] Comment on above: Performed By: #### C BCA, 56449-5, CMP, THYR, 6873-4 #### [facility] ([id number]) [address], [address] [place] [address] Bilirubin [Mass/Vol] 0.2 mg/dL Low 0.3-1.2 [facility] Comment on above: Performed By: #### C BCA, 05284-5, CMP, THYR, 6873-4 #### [facility] ([id number]) [address], [address] [place] [address] Calcium [Mass/Vol] 7.3 mg/dL Low 8.5-10.5 [facility] Comment on above: Performed By: #### C BCA, 37887-0, CMP, THYR, 6873-4 #### [facility] ([id number]) [address], [address] [place] [address] Chloride [Moles/Vol] 110 mmol/L High 98-109 [facility] Comment on above: Performed By: #### C BCA, 47457-1, CMP, THYR, 6873-4 #### [facility] ([id number]) [address], [address] [place] [address] CO2 [Moles/Vol] 22 mmol/L Normal 22-32 [facility] Comment on above: Performed By: #### C BCA, 81965-6, CMP, THYR, 6873-4 #### [facility] ([id number]) [address], [address] [place] [address] Creatinine [Mass/Vol] 1.16 mg/dL High 0.40-1.[address] [facility] Comment on above: Result Comment: METH OD TRACEABLE TO IDMS STANDARD Performed By: #### C BCA, 53122-0, CMP, THYR, 6873-4 #### [facility] ([id number]) [address], [address] [place] [address] GFR/1.73 sq M.predicted among non-blacks MDRD (S/P/Bld) [Vol rate/Area] 52 mL/min/{1.73_m2} Low >59 [facility] Comment on above: Result Comment: Reported eGFR is based on the CKD-EPI 2020 equation that does not use a race coefficient. Performed By: #### C BCA, 80328-5, CMP, THYR, 6873-4 #### [facility] ([id number]) [address], [address] [place] [address] Glucose [Mass/Vol] 115 mg/dL High 65-99 [facility] Comment on above: Performed By: #### C BCA, 17215-8, CMP, THYR, 6873-4 #### [facility] ([id number]) [address] [address] [place] [address] Potassium [Moles/Vol] 4.4 mmol/L Normal 3.5-5.[address] [facility] Comment on above: Performed By: #### C BCA, 53399-0, CMP, THYR, 6873-4 #### [facility] ([id number]) [address] [place] [address] Protein [Mass/Vol] 5.4 g/dL Low 6.0-8.0 [facility] Comment on above: Performed By: #### C BCA, 21006-5, CMP, THYR, 6873-4 #### [facility] ([id number]) [address] [address] [place] [address] Sodium [Moles/Vol] 140 mmol/L Normal 134-146 [facility] Comment on above: Performed By: #### C BCA, 52984-0, CMP, THYR, 6873-4 #### [facility] ([id number]) [address] [address] [place] [address] Urea nitrogen [Mass/Vol] 32 mg/dL High 5-27 [facility] Comment on above: Performed By: #### C BCA, 19562-4, CMP, THYR, 6873-4 #### [facility] ([id number]) [address], [address] [address] FERRITINon 11-17-2023 Ferritin [Mass/Vol] 1382 ng/mL High 11-307 [facility] Comment on above: Performed By: #### C BCA, 96156-7, CMP, THYR, 6873-4 #### [facility] ([id number]) [address] [address] IRON PROFILEon 11-17-2023 Iron [Mass/Vol] 31 ug/dL Low 50-170 [facility] Comment on above: Performed By: #### C BCA, 53999-3, CMP, THYR, 6873-4 #### [facility] ([id number]) [address] [address] IRON BINDING <105 Low 250-425 [facility] Comment on above: Performed By: #### C BCA, 78048-3, CMP, THYR, 6873-4 #### [facility] ([id number]) [address] [address] IRON SATURATION >30 Normal 15-50 [facility] Comment on above: Performed By: #### C BCA, 00382-2, CMP, THYR, 6873-4 #### [facility] ([id number]) [address] [address] MAGNESIUMon 11-17-2023 Magnesium [Mass/Vol] 2.8 mg/dL High 1.8-2.6 [facility] Comment on above: Performed By: #### C BCA, 96977-0, CMP, THYR, 6873-4 #### [facility] ([id number]) [address] [address] CBC AND AUTO DIFFon 11-16-19 24 ABSOLUTE BASOPHIL 0.2 X10E9/L Normal 0.0-0.2 [facility] Comment on above: Performed By: #### C BCA, 41713-1, CMP, THYR, 6873-4 #### [facility] ([id number]) [address], [address] [place] [address] ABSOLUTE NEUTROPHIL 11.0 X10E9/L High 1.5-6.[address] [facility] Comment on above: Performed By: #### C BCA, 05495-6, CMP, THYR, 6873-4 #### [facility] ([id number]) [address], [address] [place] [address] Basophils/100 WBC (Bld) 1.4 % Normal [facility] Comment on above: Performed By: #### C BCA, 63104-9, CMP, THYR, 6873-4 #### [facility] ([id number]) [address] [place] [address] Eosinophils (Bld) [#/Vol] 0.3 10*3/uL Normal 0.0-0.4 [facility] Comment on above: Performed By: #### C BCA, 76562-8, CMP, THYR, 6873-4 #### [facility] ([id number]) [address], [address] [place] [address] Eosinophils/100 WBC (Bld) 2.3 % Normal [facility] Comment on above: Performed By: #### C BCA, 42187-2, CMP, THYR, 6873-4 #### [facility] ([id number]) [address], [address] [place] [address] Erythrocyte distribution width (RBC) [Ratio] 15.9 % High 11.5-15.0 [facility] Comment on above: Performed By: #### C BCA, 92330-0, CMP, THYR, 6873-4 #### [facility] ([id number]) [address], [address] [place] [address] Hematocrit (Bld) [Volume fraction] 22.4 % Low 35-47 [facility] Comment on above: Performed By: #### C BCA, 98274-9, CMP, THYR, 6873-4 #### [facility] ([id number]) [address], [address] [place] [address] Hemoglobin (Bld) [Mass/Vol] 7.4 g/dL Low 11.7-15.5 [facility] Comment on above: Performed By: #### C BCA, 92634-2, CMP, THYR, 6873-4 #### [facility] ([id number]) [address], [facility] [address] [place] [address] Lymphocytes (Bld) [#/Vol] 1.1 10*3/uL Normal 1.0-3.5 [facility] Comment on above: Performed By: #### C BCA, 53015-2, CMP, THYR, 6873-4 #### [facility] ([id number]) [address], [address] [place] [address] Lymphocytes/100 WBC (Bld) 8.2 % Normal [facility] Comment on above: Performed By: #### C BCA, 89507-1, CMP, THYR, 6873-4 #### [facility] ([id number]) [address], [address] [place] [address] MCH (RBC) [Entitic mass] 30.1 pg Normal 27-34 [facility] Comment on above: Performed By: #### C BCA, 80901-1, CMP, THYR, 6873-4 #### [facility] ([id number]) [address], [address] [place] [address] MCHC (RBC) [Mass/Vol] 32.9 g/dL Normal 32-[address] [facility] Comment on above: Performed By: #### C BCA, 88964-6, CMP, THYR, 6873-4 #### [facility] ([id number]) [address], [address] [place] [address] MCV (RBC) [Entitic vol] 91 fL Normal 80-100 [facility] Comment on above: Performed By: #### C BCA, 61213-4, CMP, THYR, 6873-4 #### [facility] ([id number]) [address], [facility] [address] [place] [address] Monocytes (Bld) [#/Vol] 0.7 10*3/uL Normal 0-0.9 [facility] Comment on above: Performed By: #### C BCA, 86568-0, CMP, THYR, 6873-4 #### [facility] ([id number]) [address], [facility] [address] [place] [address] Monocytes/100 WBC (Bld) 5.5 % Normal [facility] Comment on above: Performed By: #### Rohith BCA, 26536-3, CMP, THYR, 6873-4 #### [facility] ([id number]) [address], [facility] [address] [place] [address] Neutrophils/100 WBC (Bld) 82.6 % Normal [facility] Comment on above: Performed By: #### C BCA, 57615-5, CMP, THYR, 6873-4 #### [facility] ([id number]) [address], [address] [place] [address] Platelet mean volume (Bld) [Entitic vol] 8.5 fL Normal 7-12 [facility] Comment on above: Performed By: #### C BCA, 92986-6, CMP, THYR, 6873-4 #### [facility] ([id number]) [address], [address] [place] [address] Platelets (Bld) [#/Vol] 632 10*3/uL High 150-450 [facility] Comment on above: Performed By: #### C BCA, 42702-7, CMP, THYR, 6873-4 #### [facility] ([id number]) [address], [address] [place] [address] RBC COUNT 2.46 X10E12/L Low 3.80-5.20 [facility] Comment on above: Performed By: #### C BCA, 92686-6, CMP, THYR, 6873-4 #### [facility] ([id number]) [address], [address] [place] [address] WBC (Bld) [#/Vol] 13.3 10*3/uL High 4.0-11.0 [facility] Comment on above: Performed By: #### C BCA, 66579-5, CMP, THYR, 6873-4 #### [facility] ([id number]) [address], [address] [place] [address] COMPREHENSIVE METABOLIC PANE Destin 11-16-2023 Albumin [Mass/Vol] 2.3 g/dL Low 3.2-5.3 [facility] Comment on above: Performed By: #### C BCA, 44915-6, CMP, THYR, 6873-4 #### [facility] ([id number]) [address], [address] [place] [address] ALP [Catalytic activity/Vol] 107 U/L Normal 39-130 [facility] Comment on above: Performed By: #### C BCA, 75793-3, CMP, THYR, 6873-4 #### [facility] ([id number]) [address], [address] [place] [address] ALT [Catalytic activity/Vol] 7 U/L Normal 0-31 [facility] Comment on above: Performed By: #### C BCA, 70765-1, CMP, THYR, 6873-4 #### [facility] ([id number]) [address], [address] [place] [address] Anion gap [Moles/Vol] 8 mmol/L Normal 5-[address] [facility] Comment on above: Performed By: #### C BCA, 55226-6, CMP, THYR, 6873-4 #### [facility] ([id number]) [address], [address] [place] [address] AST [Catalytic activity/Vol] 17 U/L Normal 0-41 [facility] Comment on above: Performed By: #### C BCA, 28948-5, CMP, THYR, 6873-4 #### [facility] ([id number]) [address], [address] [place] [address] Bilirubin [Mass/Vol] 0.2 mg/dL Low 0.3-1.2 [facility] Comment on above: Performed By: #### C BCA, 48019-9, CMP, THYR, 6873-4 #### [facility] ([id number]) [address], [address] [place] [address] Calcium [Mass/Vol] 7.2 mg/dL Low 8.5-10.5 [facility] Comment on above: Performed By: #### C BCA, 97932-4, CMP, THYR, 6873-4 #### [facility] ([id number]) [address], [address] [place] [address] Chloride [Moles/Vol] 114 mmol/L High 98-109 [facility] Comment on above: Performed By: #### C BCA, 40706-5, CMP, THYR, 6873-4 #### [facility] ([id number]) [address], [address] [place] [address] CO2 [Moles/Vol] 19 mmol/L Low 22-32 [facility] Comment on above: Performed By: #### C BCA, 37921-8, CMP, THYR, 6873-4 #### [facility] ([id number]) [address], [address] [place] [address] Creatinine [Mass/Vol] 1.30 mg/dL High 0.40-1.[address] [facility] Comment on above: Result Comment: METH OD TRACEABLE TO IDMS STANDARD Performed By: #### C BCA, 40676-4, CMP, THYR, 6873-4 #### [facility] ([id number]) [address] [address] GFR/1.73 sq M.predicted among non-blacks MDRD (S/P/Bld) [Vol rate/Area] 45 mL/min/{1.73_m2} Low >59 [facility] Comment on above: Result Comment: Reported eGFR is based on the CKD-EPI 2020 equation that does not use a race coefficient. Performed By: #### C BCA, 47461-2, CMP, THYR, 6873-4 #### [facility] ([id number]) [address] [address] Glucose [Mass/Vol] 121 mg/dL High 65-99 [facility] Comment on above: Performed By: #### C BCA, 39498-6, CMP, THYR, 6873-4 #### [facility] ([id number]) [address] [address] Potassium [Moles/Vol] 4.3 mmol/L Normal 3.5-5.[address] [facility] Comment on above: Performed By: #### C BCA, 98590-7, CMP, THYR, 6873-4 #### [facility] ([id number]) [address] [address] Protein [Mass/Vol] 5.5 g/dL Low 6.0-8.0 [facility] Comment on above: Performed By: #### C BCA, 31247-8, CMP, THYR, 6873-4 #### [facility] ([id number]) [address] [address] Sodium [Moles/Vol] 141 mmol/L Normal 134-146 [facility] Comment on above: Performed By: #### C BCA, 42303-5, CMP, THYR, 6873-4 #### [facility] ([id number]) [address], [address] [place] [address] Urea nitrogen [Mass/Vol] 38 mg/dL High 5-27 [facility] Comment on above: Performed By: #### C BCA, 77806-7, CMP, THYR, 6873-4 #### [facility] ([id number]) [address], [facility] [address] [place] [address] Lactate (P abida) [Moles/Vol]o n 11-16-2023 LACTATE W/REFLEX 1.3 mmol/L Normal 0.4-2.[address] [facility] Comment on above: Result Comment: Result did not trigger repeat Lactate, re-order if needed. Performed By: #### C BCA, 96534-7, CMP, THYR, 6873-4 #### [facility] ([id number]) [address], [address] [place] [address] MAGNESIUMon 11-16-2023 Magnesium [Mass/Vol] 1.6 mg/dL Low 1.8-2.6 [facility] Comment on above: Performed By: #### C BCA, 78870-3, CMP, THYR, 6873-4 #### [facility] ([id number]) [address], [address] [place] [address] BLOOD CULTUREon 11-15-2023 Bacteria identified Aer cx Nom (Bld) SPECIMEN NOTES SUBOPTIMAL VOLUME OF BLOOD COLLECTED, RESULTS MAY BE AFFECTED. CULTURE RESULTS NO GROWTH 5 DAYS Normal [facility] Comment on above: Performed By: #### C BCA, 84803-9, CMP, THYR, 6873-4 #### [facility] ([id number]) [address], [address] [place] [address] CBC AND AUTO DIFFon 11-15-19 24 ABSOLUTE BASOPHIL 0.1 X10E9/L Normal 0.0-0.2 [facility] Comment on above: Performed By: #### C BCA, 43651-7, CMP, THYR, 6873-4 #### [facility] ([id number]) [address], [address] [place] [address] ABSOLUTE NEUTROPHIL 15.3 X10E9/L High 1.5-6.[address] [facility] Comment on above: Performed By: #### C BCA, 19787-9, CMP, THYR, 6873-4 #### [facility] ([id number]) [address], [facility] [address] [place] [address] Basophils/100 WBC (Bld) 0.5 % Normal [facility] Comment on above: Performed By: #### C BCA, 73850-3, CMP, THYR, 6873-4 #### [facility] ([id number]) [address], [address] [place] [address] Eosinophils (Bld) [#/Vol] 0.2 10*3/uL Normal 0.0-0.4 [facility] Comment on above: Performed By: #### C BCA, 44853-6, CMP, THYR, 6873-4 #### [facility] ([id number]) [address], [address] [address] Eosinophils/100 WBC (Bld) 1.3 % Normal [facility] Comment on above: Performed By: #### C BCA, 66271-4, CMP, THYR, 6873-4 #### [facility] ([id number]) [address], [address] [place] [address] Erythrocyte distribution width (RBC) [Ratio] 15.9 % High 11.5-15.0 [facility] Comment on above: Performed By: #### C BCA, 62878-9, CMP, THYR, 6873-4 #### [facility] ([id number]) [address], [address] [place] [address] Hematocrit (Bld) [Volume fraction] 22.9 % Low 35-47 [facility] Comment on above: Performed By: #### C BCA, 91544-3, CMP, THYR, 6873-4 #### [facility] ([id number]) [address] [address] [place] [address] Hemoglobin (Bld) [Mass/Vol] 7.7 g/dL Low 11.7-15.5 [facility] Comment on above: Performed By: #### C BCA, 62582-4, CMP, THYR, 6873-4 #### [facility] ([id number]) [address] [address] [place] [address] Lymphocytes (Bld) [#/Vol] 1.0 10*3/uL Normal 1.0-3.5 [facility] Comment on above: Performed By: #### C BCA, 03184-1, CMP, THYR, 6873-4 #### [facility] ([id number]) [address] [address] [place] [address] Lymphocytes/100 WBC (Bld) 5.6 % Normal [facility] Comment on above: Performed By: #### C BCA, 51163-7, CMP, THYR, 6873-4 #### [facility] ([id number]) [address] [place] [address] MCH (RBC) [Entitic mass] 30.8 pg Normal 27-34 [facility] Comment on above: Performed By: #### C BCA, 87797-2, CMP, THYR, 6873-4 #### [facility] ([id number]) [address], [address] [place] [address] MCHC (RBC) [Mass/Vol] 33.6 g/dL Normal 32-[address] [facility] Comment on above: Performed By: #### C BCA, 35483-7, CMP, THYR, 6873-4 #### [facility] ([id number]) [address], [address] [place] [address] MCV (RBC) [Entitic vol] 92 fL Normal 80-100 [facility] Comment on above: Performed By: #### Rohith BCA, 57485-1, CMP, THYR, 6873-4 #### [facility] ([id number]) [address], [address] [place] [address] Monocytes (Bld) [#/Vol] 0.9 10*3/uL Normal 0-0.9 [facility] Comment on above: Performed By: #### C BCA, 80474-4, CMP, THYR, 6873-4 #### [facility] ([id number]) [address] [place] [address] Monocytes/100 WBC (Bld) 5.1 % Normal [facility] Comment on above: Performed By: #### Rohith BCA, 91780-1, CMP, THYR, 6873-4 #### [facility] ([id number]) [address], [address] [place] [address] Neutrophils/100 WBC (Bld) 87.5 % Normal [facility] Comment on above: Performed By: #### Rohith BCA, 25959-9, CMP, THYR, 6873-4 #### [facility] ([id number]) [address], [address] [place] [address] Platelet mean volume (Bld) [Entitic vol] 8.5 fL Normal 7-12 [facility] Comment on above: Performed By: #### C BCA, 36485-4, CMP, THYR, 6873-4 #### [facility] ([id number]) [address], [address] [place] [address] Platelets (Bld) [#/Vol] 559 10*3/uL High 150-450 [facility] Comment on above: Performed By: #### C BCA, 57648-3, CMP, THYR, 6873-4 #### [facility] ([id number]) [address] [place] [address] RBC COUNT 2.49 X10E12/L Low 3.80-5.20 [facility] Comment on above: Performed By: #### C BCA, 67093-4, CMP, THYR, 6873-4 #### [facility] ([id number]) [address], [address] [place] [address] WBC (Bld) [#/Vol] 17.5 10*3/uL High 4.0-11.0 [facility] Comment on above: Performed By: #### C BCA, 06347-8, CMP, THYR, 6873-4 #### [facility] ([id number]) [address], [address] [place] [address] COMPREHENSIVE METABOLIC PANE [place] 11-15-2023 Albumin [Mass/Vol] 2.4 g/dL Low 3.2-5.3 [facility] Comment on above: Performed By: #### C BCA, 81124-9, CMP, THYR, 6873-4 #### [facility] ([id number]) [address], [address] [place] [address] ALP [Catalytic activity/Vol] 109 U/L Normal 39-130 [facility] Comment on above: Performed By: #### C BCA, 60620-2, CMP, THYR, 6873-4 #### [facility] ([id number]) [address], [address] [place] [address] ALT [Catalytic activity/Vol] 5 U/L Normal 0-31 [facility] Comment on above: Performed By: #### C BCA, 65665-3, CMP, THYR, 6873-4 #### [facility] ([id number]) [address], [address] [place] [address] Anion gap [Moles/Vol] 9 mmol/L Normal 5-[address] [facility] Comment on above: Performed By: #### C BCA, 56393-4, CMP, THYR, 6873-4 #### [facility] ([id number]) [address], [address] [place] [address] AST [Catalytic activity/Vol] 10 U/L Normal 0-41 [facility] Comment on above: Performed By: #### C BCA, 09355-4, CMP, THYR, 6873-4 #### [facility] ([id number]) [address], [address] [place] [address] Bilirubin [Mass/Vol] 0.2 mg/dL Low 0.3-1.2 [facility] Comment on above: Performed By: #### C BCA, 15991-9, CMP, THYR, 6873-4 #### [facility] ([id number]) [address], [address] [place] [address] Calcium [Mass/Vol] 7.4 mg/dL Low 8.5-10.5 [facility] Comment on above: Performed By: #### C BCA, 33188-2, CMP, THYR, 6873-4 #### [facility] ([id number]) [address], [address] [place] [address] Chloride [Moles/Vol] 112 mmol/L High 98-109 [facility] Comment on above: Performed By: #### C BCA, 82998-9, CMP, THYR, 6873-4 #### [facility] ([id number]) [address], [address] [place] [address] CO2 [Moles/Vol] 16 mmol/L Low 22-32 [facility] Comment on above: Performed By: #### C BCA, 87893-5, CMP, THYR, 6873-4 #### [facility] ([id number]) [address], [address] [place] [address] Creatinine [Mass/Vol] 1.59 mg/dL High 0.40-1.[address] [facility] Comment on above: Result Comment: METH OD TRACEABLE TO IDMS STANDARD Performed By: #### C BCA, 89662-6, CMP, THYR, 6873-4 #### [facility] ([id number]) [address], [facility] [address] [place] [address] GFR/1.73 sq M.predicted among non-blacks MDRD (S/P/Bld) [Vol rate/Area] 35 mL/min/{1.73_m2} Low >59 [facility] Comment on above: Result Comment: Reported eGFR is based on the CKD-EPI 2020 equation that does not use a race coefficient. Performed By: #### C BCA, 03755-0, CMP, THYR, 6873-4 #### [facility] ([id number]) [address], [address] [place] [address] Glucose [Mass/Vol] 124 mg/dL High 65-99 [facility] Comment on above: Performed By: #### C BCA, 47943-9, CMP, THYR, 6873-4 #### [facility] ([id number]) [address], [address] [place] [address] Potassium [Moles/Vol] 4.1 mmol/L Normal 3.5-5.[address] [facility] Comment on above: Performed By: #### C BCA, 82702-0, CMP, THYR, 6873-4 #### [facility] ([id number]) [address], [address] [place] [address] Protein [Mass/Vol] 5.6 g/dL Low 6.0-8.0 [facility] Comment on above: Performed By: #### C BCA, 12241-9, CMP, THYR, 6873-4 #### [facility] ([id number]) [address], [address] [place] [address] Sodium [Moles/Vol] 137 mmol/L Normal 134-146 [facility] Comment on above: Performed By: #### C BCA, 63806-2, CMP, THYR, 6873-4 #### [facility] ([id number]) [address], [address] [place] [address] Urea nitrogen [Mass/Vol] 49 mg/dL High 5-27 [facility] Comment on above: Performed By: #### C BCA, 64394-8, CMP, THYR, 6873-4 #### [facility] ([id number]) [address], [address] [place] [address] MAGNESIUMon 11-15-2023 Magnesium [Mass/Vol] 1.8 mg/dL Normal 1.8-2.6 [facility] Comment on above: Performed By: #### C BCA, 29509-1, CMP, THYR, 6873-4 #### [facility] ([id number]) [address] [address] CBC AND AUTO DIFFon 11-14-19 24 ABSOLUTE BASOPHIL 0.1 X10E9/L Normal 0.0-0.2 [facility] Comment on above: Performed By: #### C BCA, 38061-0, CMP, THYR, 6873-4 #### [facility] ([id number]) [address] [place] [address] ABSOLUTE NEUTROPHIL 15.6 X10E9/L High 1.5-6.[address] [facility] Comment on above: Performed By: #### C BCA, 76953-2, CMP, THYR, 6873-4 #### [facility] ([id number]) [address], [address] [place] [address] Basophils/100 WBC (Bld) 0.4 % Normal [facility] Comment on above: Performed By: #### C BCA, 66320-5, CMP, THYR, 6873-4 #### [facility] ([id number]) [address], [address] [place] [address] Eosinophils (Bld) [#/Vol] 0.2 10*3/uL Normal 0.0-0.4 [facility] Comment on above: Performed By: #### C BCA, 30561-3, CMP, THYR, 6873-4 #### [facility] ([id number]) [address], [facility] [address] [place] [address] Eosinophils/100 WBC (Bld) 1.2 % Normal [facility] Comment on above: Performed By: #### C BCA, 52933-3, CMP, THYR, 6873-4 #### [facility] ([id number]) [address], [address] [place] [address] Erythrocyte distribution width (RBC) [Ratio] 15.6 % High 11.5-15.0 [facility] Comment on above: Performed By: #### C BCA, 55874-5, CMP, THYR, 6873-4 #### [facility] ([id number]) [address], [address] [place] [address] Hematocrit (Bld) [Volume fraction] 21.1 % Low 35-47 [facility] Comment on above: Performed By: #### C BCA, 51703-0, CMP, THYR, 6873-4 #### [facility] ([id number]) [address], [address] [place] [address] Hemoglobin (Bld) [Mass/Vol] 6.8 g/dL Critically low 11.7-15.5 [facility] Comment on above: Performed By: #### C BCA, 62389-8, CMP, THYR, 6873-4 #### [facility] ([id number]) [address], [address] [place] [address] Lymphocytes (Bld) [#/Vol] 1.0 10*3/uL Normal 1.0-3.5 [facility] Comment on above: Performed By: #### C BCA, 01326-2, CMP, THYR, 6873-4 #### [facility] ([id number]) [address], [address] [place] [address] Lymphocytes/100 WBC (Bld) 5.4 % Normal [facility] Comment on above: Performed By: #### C BCA, 14568-6, CMP, THYR, 6873-4 #### [facility] ([id number]) [address], [address] [place] [address] MCH (RBC) [Entitic mass] 29.9 pg Normal 27-34 [facility] Comment on above: Performed By: #### C BCA, 01415-1, CMP, THYR, 6873-4 #### [facility] ([id number]) [address], [address] [place] [address] MCHC (RBC) [Mass/Vol] 32.3 g/dL Normal 32-36 [facility] Comment on above: Performed By: #### C BCA, 51560-1, CMP, THYR, 6873-4 #### [facility] ([id number]) [address], [address] [place] [address] MCV (RBC) [Entitic vol] 93 fL Normal 80-100 [facility] Comment on above: Performed By: #### C BCA, 55533-0, CMP, THYR, 6873-4 #### [facility] ([id number]) [address], [address] [place] [address] Monocytes (Bld) [#/Vol] 1.0 10*3/uL High 0-0.9 [facility] Comment on above: Performed By: #### C BCA, 46067-2, CMP, THYR, 6873-4 #### [facility] ([id number]) [address], [address] [place] [address] Monocytes/100 WBC (Bld) 5.4 % Normal [facility] Comment on above: Performed By: #### C BCA, 53587-4, CMP, THYR, 6873-4 #### [facility] ([id number]) [address], [address] [place] [address] Neutrophils/100 WBC (Bld) 87.6 % Normal [facility] Comment on above: Performed By: #### C BCA, 78384-3, CMP, THYR, 6873-4 #### [facility] ([id number]) [address], [address] [place] [address] Platelet mean volume (Bld) [Entitic vol] 8.8 fL Normal 7-12 [facility] Comment on above: Performed By: #### C BCA, 96001-2, CMP, THYR, 6873-4 #### [facility] ([id number]) [address], [address] [place] [address] Platelets (Bld) [#/Vol] 493 10*3/uL High 150-450 [facility] Comment on above: Performed By: #### C BCA, 93928-0, CMP, THYR, 6873-4 #### [facility] ([id number]) [address], [address] [place] [address] RBC COUNT 2.28 X10E12/L Low 3.80-5.20 [facility] Comment on above: Performed By: #### C BCA, 08041-6, CMP, THYR, 6873-4 #### [facility] ([id number]) [address], [address] [place] [address] WBC (Bld) [#/Vol] 17.8 10*3/uL High 4.0-11.0 [facility] Comment on above: Performed By: #### C BCA, 68550-2, CMP, THYR, 6873-4 #### [facility] ([id number]) [address], [address] [place] [address] COMPREHENSIVE METABOLIC PANE Destin 11-14-2023 Albumin [Mass/Vol] 2.4 g/dL Low 3.2-5.3 [facility] Comment on above: Performed By: #### C BCA, 03939-7, CMP, THYR, 6873-4 #### [facility] ([id number]) [address], [address] [place] [address] ALP [Catalytic activity/Vol] 97 U/L Normal 39-130 [facility] Comment on above: Performed By: #### C BCA, 72500-0, CMP, THYR, 6873-4 #### [facility] ([id number]) [address], [address] [place] [address] ALT [Catalytic activity/Vol] 5 U/L Normal 0-31 [facility] Comment on above: Performed By: #### C BCA, 30742-7, CMP, THYR, 6873-4 #### [facility] ([id number]) [address], [address] [place] [address] Anion gap [Moles/Vol] 11 mmol/L Normal 5-[address] [facility] Comment on above: Performed By: #### C BCA, 10668-0, CMP, THYR, 6873-4 #### [facility] ([id number]) [address], [address] [place] [address] AST [Catalytic activity/Vol] 9 U/L Normal 0-41 [facility] Comment on above: Performed By: #### C BCA, 13530-2, CMP, THYR, 6873-4 #### [facility] ([id number]) [address], [address] [place] [address] Bilirubin [Mass/Vol] 0.2 mg/dL Low 0.3-1.2 [facility] Comment on above: Performed By: #### C BCA, 89039-4, CMP, THYR, 6873-4 #### [facility] ([id number]) [address], [address] [place] [address] Calcium [Mass/Vol] 7.4 mg/dL Low 8.5-10.5 [facility] Comment on above: Performed By: #### C BCA, 57452-9, CMP, THYR, 6873-4 #### [facility] ([id number]) [address], [address] [place] [address] Chloride [Moles/Vol] 107 mmol/L Normal 98-109 [facility] Comment on above: Performed By: #### C BCA, 26730-9, CMP, THYR, 6873-4 #### [facility] ([id number]) [address], [address] [place] [address] CO2 [Moles/Vol] 16 mmol/L Low 22-32 [facility] Comment on above: Performed By: #### C BCA, 18490-0, CMP, THYR, 6873-4 #### [facility] ([id number]) [address], [address] [place] [address] Creatinine [Mass/Vol] 2.06 mg/dL High 0.40-1.[address] [facility] Comment on above: Result Comment: METH OD TRACEABLE TO IDMS STANDARD Performed By: #### C BCA, 55299-3, CMP, THYR, 6873-4 #### [facility] ([id number]) [address], [address] [place] [address] GFR/1.73 sq M.predicted among non-blacks MDRD (S/P/Bld) [Vol rate/Area] 26 mL/min/{1.73_m2} Low >59 [facility] Comment on above: Result Comment: Reported eGFR is based on the CKD-EPI 2020 equation that does not use a race coefficient. Performed By: #### C BCA, 93853-2, CMP, THYR, 6873-4 #### [facility] ([id number]) [address], [address] [place] [address] Glucose [Mass/Vol] 103 mg/dL High 65-99 [facility] Comment on above: Performed By: #### C BCA, 71340-1, CMP, THYR, 6873-4 #### [facility] ([id number]) [address], [address] [place] [address] Potassium [Moles/Vol] 3.9 mmol/L Normal 3.5-5.[address] [facility] Comment on above: Performed By: #### C BCA, 92058-0, CMP, THYR, 6873-4 #### [facility] ([id number]) [address], [address] [place] [address] Protein [Mass/Vol] 5.3 g/dL Low 6.0-8.0 [facility] Comment on above: Performed By: #### C BCA, 05116-0, CMP, THYR, 6873-4 #### [facility] ([id number]) [address], [address] [place] [address] Sodium [Moles/Vol] 134 mmol/L Normal 134-146 [facility] Comment on above: Performed By: #### C BCA, 89408-3, CMP, THYR, 6873-4 #### [facility] ([id number]) [address], [address] [place] [address] Urea nitrogen [Mass/Vol] 61 mg/dL High 5-27 [facility] Comment on above: Performed By: #### C BCA, 35058-7, CMP, THYR, 6873-4 #### [facility] ([id number]) [address], [address] [place] [address] HGB AND HCTon 11-14-2023 Hematocrit (Bld) [Volume fraction] 23.7 % Low 35-47 [facility] Comment on above: Performed By: #### Rohith BCA, 60020-6, CMP, THYR, 6873-4 #### [facility] ([id number]) [address], [address] [place] [address] Hemoglobin (Bld) [Mass/Vol] 7.7 g/dL Low 11.7-15.5 [facility] Comment on above: Performed By: #### Rohith BCA, 99453-5, CMP, THYR, 6873-4 #### [facility] ([id number]) [address], [address] [place] [address] MAGNESIUMon 11-14-2023 Magnesium [Mass/Vol] 1.8 mg/dL Normal 1.8-2.6 [facility] Comment on above: Performed By: #### Rohith BCA, 40774-6, CMP, THYR, 6873-4 #### [facility] ([id number]) [address], [address] [place] [address] PHOSPHORUSon 11-14-2023 Phosphate [Mass/Vol] 3.8 mg/dL Normal 2.4-4.9 [facility] Comment on above: Performed By: #### C BCA, 65906-0, CMP, THYR, 6873-4 #### [facility] ([id number]) [address], [address] [place] [address] BLOOD CULTUREon 11-13-2023 Bacteria identified Aer cx Nom (Bld) CULTURE RESULTS NO GROWTH 5 DAYS Normal [facility] Bacteria identified Aer cx Nom (Bld) SPECIMEN [...] required. F ERTAPENEM S <=0.5 F Susceptible [facility] Comment on above: Performed By: #### Rohith HERRERA, 89601-4, CMP, THYR, 6873-4 #### [facility] ([id number]) [address], [address] [place] [address] Beta hydroxybutyrate [Moles/ Vol]on 11-13-2023 BetaHydroxybutyrate 0.16 mmol/L Normal 0.02-0.27 [facility] Comment on above: Performed By: #### Rohith HERRERA, 78848-6, CMP, THYR, 6873-4 #### [facility] ([id number]) [address], [address] [place] [address] CBC AND AUTO DIFFon 11-13-19 ABSOLUTE BASOPHIL 0.0 X10E9/L Normal 0.0-0.2 [facility] Comment on above: Performed By: #### Rohith HERRERA, 53085-0, CMP, THYR, 6873-4 #### [facility] ([id number]) [address], [address] [place] [address] ABSOLUTE NEUTROPHIL 17.3 X10E9/L High 1.5-6.[address] [facility] Comment on above: Performed By: #### Rohith HERRERA, 93272-5, CMP, THYR, 6873-4 #### [facility] ([id number]) [address], [address] [place] [address] Basophils/100 WBC (Bld) 0.2 % Normal [facility] Comment on above: Performed By: #### C BCA, 72273-4, CMP, THYR, 6873-4 #### [facility] ([id number]) [address], [facility] [address] [place] [address] Eosinophils (Bld) [#/Vol] 0.1 10*3/uL Normal 0.0-0.4 [facility] Comment on above: Performed By: #### C BCA, 09117-1, CMP, THYR, 6873-4 #### [facility] ([id number]) [address], [facility] [address] [place] [address] Eosinophils/100 WBC (Bld) 0.3 % Normal [facility] Comment on above: Performed By: #### C BCA, 53422-9, CMP, THYR, 6873-4 #### [facility] ([id number]) [address] [address] [place] [address] Erythrocyte distribution width (RBC) [Ratio] 15.6 % High 11.5-15.0 [facility] Comment on above: Performed By: #### C BCA, 87328-9, CMP, THYR, 6873-4 #### [facility] ([id number]) [address] [address] [place] [address] Hematocrit (Bld) [Volume fraction] 24.1 % Low 35-47 [facility] Comment on above: Performed By: #### C BCA, 90609-5, CMP, THYR, 6873-4 #### [facility] ([id number]) [address] [address] [place] [address] Hemoglobin (Bld) [Mass/Vol] 7.8 g/dL Low 11.7-15.5 [facility] Comment on above: Performed By: #### C BCA, 30647-1, CMP, THYR, 6873-4 #### [facility] ([id number]) [address] [place] [address] Lymphocytes (Bld) [#/Vol] 1.2 10*3/uL Normal 1.0-3.5 [facility] Comment on above: Performed By: #### C BCA, 09436-2, CMP, THYR, 6873-4 #### [facility] ([id number]) [address], [facility] [address] [place] [address] Lymphocytes/100 WBC (Bld) 6.1 % Normal [facility] Comment on above: Performed By: #### Rohith BCA, 42705-4, CMP, THYR, 6873-4 #### [facility] ([id number]) [address] [place] [address] MCH (RBC) [Entitic mass] 29.7 pg Normal 27-34 [facility] Comment on above: Performed By: #### C BCA, 64687-7, CMP, THYR, 6873-4 #### [facility] ([id number]) [address], [address] [place] [address] MCHC (RBC) [Mass/Vol] 32.4 g/dL Normal 32-[address] [facility] Comment on above: Performed By: #### Rohith BCA, 40729-8, CMP, THYR, 6873-4 #### [facility] ([id number]) [address] [place] [address] MCV (RBC) [Entitic vol] 92 fL Normal 80-100 [facility] Comment on above: Performed By: #### C BCA, 35310-8, CMP, THYR, 6873-4 #### [facility] ([id number]) [address] [place] [address] Monocytes (Bld) [#/Vol] 0.7 10*3/uL Normal 0-0.9 [facility] Comment on above: Performed By: #### C BCA, 27348-6, CMP, THYR, 6873-4 #### [facility] ([id number]) [address], [address] [place] [address] Monocytes/100 WBC (Bld) 3.8 % Normal [facility] Comment on above: Performed By: #### C BCA, 95128-7, CMP, THYR, 6873-4 #### [facility] ([id number]) [address], [address] [place] [address] Neutrophils/100 WBC (Bld) 89.6 % Normal [facility] Comment on above: Performed By: #### C BCA, 00133-8, CMP, THYR, 6873-4 #### [facility] ([id number]) [address] [place] [address] Platelet mean volume (Bld) [Entitic vol] 8.8 fL Normal 7-12 [facility] Comment on above: Performed By: #### C BCA, 49805-0, CMP, THYR, 6873-4 #### [facility] ([id number]) [address], [address] [place] [address] Platelets (Bld) [#/Vol] 508 10*3/uL High 150-450 [facility] Comment on above: Performed By: #### C BCA, 31650-7, CMP, THYR, 6873-4 #### [facility] ([id number]) [address], [address] [place] [address] RBC COUNT 2.63 X10E12/L Low 3.80-5.20 [facility] Comment on above: Performed By: #### C BCA, 62036-3, CMP, THYR, 6873-4 #### [facility] ([id number]) [address], [address] [place] [address] WBC (Bld) [#/Vol] 19.3 10*3/uL High 4.0-11.0 [facility] Comment on above: Performed By: #### C BCA, 86214-2, CMP, THYR, 6873-4 #### [facility] ([id number]) [address], [address] [place] [address] COMPREHENSIVE METABOLIC PANE [place]in 11-13-2023 Albumin [Mass/Vol] 2.9 g/dL Low 3.2-5.3 [facility] Comment on above: Performed By: #### C BCA, 96797-4, CMP, THYR, 6873-4 #### [facility] ([id number]) [address] [place] [address] ALP [Catalytic activity/Vol] 111 U/L Normal 39-130 [facility] Comment on above: Performed By: #### C BCA, 91321-4, CMP, THYR, 6873-4 #### [facility] ([id number]) [address] [place] [address] ALT [Catalytic activity/Vol] 5 U/L Normal 0-31 [facility] Comment on above: Performed By: #### C BCA, 26845-5, CMP, THYR, 6873-4 #### [facility] ([id number]) [address], [address] [place] [address] Anion gap [Moles/Vol] 12 mmol/L Normal 5-[address] [facility] Comment on above: Performed By: #### C BCA, 22634-1, CMP, THYR, 6873-4 #### [facility] ([id number]) [address], [address] [place] [address] AST [Catalytic activity/Vol] 10 U/L Normal 0-41 [facility] Comment on above: Performed By: #### C BCA, 32708-7, CMP, THYR, 6873-4 #### [facility] ([id number]) [address] [place] [address] Bilirubin [Mass/Vol] 0.3 mg/dL Normal 0.3-1.2 [facility] Comment on above: Performed By: #### C BCA, 33302-7, CMP, THYR, 6873-4 #### [facility] ([id number]) [address], [address] [place] [address] Calcium [Mass/Vol] 8.1 mg/dL Low 8.5-10.5 [facility] Comment on above: Performed By: #### C BCA, 98713-5, CMP, THYR, 6873-4 #### [facility] ([id number]) [address] [place] [address] Chloride [Moles/Vol] 103 mmol/L Normal 98-109 [facility] Comment on above: Performed By: #### C BCA, 48555-0, CMP, THYR, 6873-4 #### [facility] ([id number]) [address] [place] [address] CO2 [Moles/Vol] 16 mmol/L Low 22-32 [facility] Comment on above: Performed By: #### C BCA, 10993-5, CMP, THYR, 6873-4 #### [facility] ([id number]) [address] [place] [address] Creatinine [Mass/Vol] 2.34 mg/dL High 0.40-1.[address] [facility] Comment on above: Result Comment: METH OD TRACEABLE TO IDMS STANDARD Performed By: #### C BCA, 21866-8, CMP, THYR, 6873-4 #### [facility] ([id number]) [address] [place] [address] GFR/1.73 sq M.predicted among non-blacks MDRD (S/P/Bld) [Vol rate/Area] 22 mL/min/{1.73_m2} Low >59 [facility] Comment on above: Result Comment: Reported eGFR is based on the CKD-EPI 2020 equation that does not use a race coefficient. Performed By: #### C BCA, 45662-6, CMP, THYR, 6873-4 #### [facility] ([id number]) [address] [place] [address] Glucose [Mass/Vol] 147 mg/dL High 65-99 [facility] Comment on above: Performed By: #### C BCA, 20755-1, CMP, THYR, 6873-4 #### [facility] ([id number]) [address] [place] [address] Potassium [Moles/Vol] 4.3 mmol/L Normal 3.5-5.[address] [facility] Comment on above: Performed By: #### C BCA, 71281-9, CMP, THYR, 6873-4 #### [facility] ([id number]) [address] [place] [address] Protein [Mass/Vol] 6.4 g/dL Normal 6.0-8.0 [facility] Comment on above: Performed By: #### C BCA, 79774-8, CMP, THYR, 6873-4 #### [facility] ([id number]) [address], [address] [place] [address] Sodium [Moles/Vol] 131 mmol/L Low 134-146 [facility] Comment on above: Performed By: #### C BCA, 03568-2, CMP, THYR, 6873-4 #### [facility] ([id number]) [address], [address] [place] [address] Urea nitrogen [Mass/Vol] 67 mg/dL High 5-27 [facility] Comment on above: Performed By: #### C BCA, 72685-2, CMP, THYR, 6873-4 #### [facility] ([id number]) [address], [address] [place] [address] Creatinine (U) [Mass/Vol]on 11-13-2023 URINE CREATININE,RDM 60.20 mg/dL Normal [facility] Comment on above: Performed By: #### C BCA, 75326-6, CMP, THYR, 6873-4 #### [facility] ([id number]) [address], [address] [place] [address] Lactate (P abida) [Moles/Vol]o n 11-13-2023 LACTATE W/REFLEX 0.8 mmol/L Normal 0.4-2.[address] [facility] Comment on above: Result Comment: Result did not trigger repeat Lactate, re-order if needed. Performed By: #### C BCA, 67976-7, CMP, THYR, 6873-4 #### [facility] ([id number]) [address], [address] [place] [address] Protein (U) [Mass/Vol]on RANDOM URINE PROTEIN 1280 mg/L High <120 [facility] Comment on above: Performed By: #### C BCA, 42171-8, CMP, THYR, 6873-4 #### [facility] ([id number]) [address], [address] [address] THYROID PROFILEon 11-13-2023 Free T4 [Mass/Vol] 1.07 ng/dL Normal 0.61-1.60 [facility] Comment on above: Performed By: #### C BCA, 37899-9, CMP, THYR, 6873-4 #### [facility] ([id number]) [address], [address] [place] [address] TSH 1.09 uIU/mL Normal 0.49-4.67 [facility] Comment on above: Performed By: #### C BCA, 03618-5, CMP, THYR, 6873-4 #### [facility] ([id number]) [address], [address] [place] [address] Troponin I.cardiac (Bld) [Ma ss/Vol]on 11-13-2023 PORTABLE TROPONIN <0.01 Normal 0.00-0.08 [facility] Comment on above: Result Comment: NEW REFERENCE RANGE Performed By: #### 4 2757-5 #### [facility] ([id number]) [address] [place] [address] URINALYSISon 11-13-2023 Bilirubin Ql (U) Negative Normal NEG [facility] Comment on above: Performed By: #### U A #### [facility] ([id number]) [address], [address] [place] [address] BLOOD/HGB MODERATE Abnormal NEG [facility] Comment on above: Performed By: #### U A #### [facility] ([id number]) 0 [address] [place] [address] Color (U) YELLOW Normal YELLOW [facility] Comment on above: Performed By: #### U A #### [facility] ([id number]) [address], [address] [place] [address] Glucose Ql (U) Negative Normal NEG [facility] Comment on above: Performed By: #### U A #### [facility] ([id number]) [address], [address] [place] [address] Ketones Ql (U) Negative Normal NEG [facility] Comment on above: Performed By: #### U A #### [facility] ([id number]) [address] [place] [address] Leukocyte esterase Test strip Ql (U) Large Abnormal NEG [facility] Comment on above: Performed By: #### U A #### [facility] ([id number]) [address] [place] [address] MUCOUS PRESENT Abnormal NONE [facility] Comment on above: Performed By: #### U A #### [facility] ([id number]) [address] [place] [address] Nitrite Ql (U) Negative Normal NEG [facility] Comment on above: Performed By: #### U A #### [facility] ([id number]) [address] [place] [address] pH (U) 5.5 [pH] Normal 5.0-8.5 [facility] Comment on above: Performed By: #### U A #### [facility] ([id number]) [address] [place] [address] Protein Ql (U) 70 mg/dL Abnormal NEG [facility] Comment on above: Performed By: #### U A #### [facility] ([id number]) [address] [place] [address] R.B.CELLS 16 /hpf High 0-5 [facility] Comment on above: Performed By: #### U A #### [facility] ([id number]) [address] [place] [address] Specific gravity (U) [Rel density] 1.013 Normal 1.003-1.035 [facility] Comment on above: Performed By: #### U A #### [facility] ([id number]) [address] [place] [address] TURBIDITY HAZY Abnormal CLEAR [facility] Comment on above: Performed By: #### U A #### [facility] ([id number]) [address] [place] [address] Urinalysis dipstick W Reflex Microscopic panel (U) URINE RECEIVED WITHOUT PRESERVATIVE-DELAYS IN TRANSPORT MAY AFFECT RESULTS.INTERPRET WITH CAUTION AND CLINICAL CORRELATION IS RECOMMENDED. Normal [facility] Comment on above: Performed By: #### U A #### [facility] ([id number]) [address] [place] [address] Urobilinogen (U) [Mass/Vol] mg/dL Normal <1.1 [facility] Comment on above: Performed By: #### U A #### [facility] ([id number]) [address] [place] [address] W.B.CELLS 493 /hpf High 0-5 [facility] Comment on above: Performed By: #### U A #### [facility] ([id number]) [address] [place] [address] URINE CULTUREon 11-13-2023 Bacteria identified Cx Nom [...] required. F ERTAPENEM S <=0.5 F Susceptible [facility] Comment on above: Performed By: #### C BCA, 49573-1, CMP, THYR, 6873-4 #### [facility] ([id number]) [address] [place] [address] URN MACROSCOPIC NURon 2023 BILIRUBIN CHLOE Negative Normal NEG [facility] Comment on above: Performed By: #### N UM #### [facility] ([id number]) [address] [place] [address] BLOOD/HGB CHLOE Large Abnormal NEG [facility] Comment on above: Performed By: #### N UM #### [facility] ([id number]) [address] [facility] [place] [address] GLUCOSE CHLOE Negative Normal NEG [facility] Comment on above: Performed By: #### N UM #### [facility] ([id number]) [address] [place] [address] KETONES CHLOE Negative Normal NEG [facility] Comment on above: Performed By: #### N UM #### [facility] ([id number]) [address] [place] [address] LEUKOCYTE ESTERASE CHLOE Large Abnormal NEG [facility] Comment on above: Performed By: #### N UM #### [facility] ([id number]) [address] [place] [address] NITRITE CHLOE Negative Normal NEG [facility] Comment on above: Performed By: #### N UM #### [facility] ([id number]) [address] [place] [address] PH CHLOE 5.5 Normal 5.0-8.5 [facility] Comment on above: Performed By: #### N UM #### [facility] ([id number]) [address] [place] [address] PROTEIN CHLOE 100 mg/dL Abnormal NEG [facility] Comment on above: Performed By: #### N UM #### [facility] ([id number]) [address] [place] [address] SPECIFIC GRAVITY CHLOE 1.015 Normal 1.003-1.[address] [facility] Comment on above: Performed By: #### N UM #### [facility] ([id number]) [address] [place] [address] UROBILINOGEN CHLOE 0.2 eu/dL Normal <1.[address] [facility] Comment on above: Performed By: #### N #### [facility] ([id number]) [address] [place] [address] US RETROPERITONEAL COMPLETEo n 11-13-2023 US RETROPERITONEAL [...] Card MD on 11/13/2023 9:46 PM Normal [facility] Urea nitrogen (U) [Mass/Vol] on 11-13-2023 URINE UREA NITROGEN,RANDOM 420 mg/dL Normal [facility] Comment on above: Performed By: #### C BCA, 22719-4, CMP, THYR, 6873-4 #### [facility] ([id number]) [address] [place] [address] Urine collection deviceon ER EXTRA URINES ER EXTRA URINE ORDER IN PROCESS Normal [facility] XR CHEST 1 VWon 11-13-2023 XR [...] Mcnair MD on 11/13/2023 2:32 PM Normal [facility] aPTT Coag (PPP) [Time]on aPTT Coag (Bld) [Time] 32 s Normal 26-37 [facility] Comment on above: Performed By: #### C BCA, 47800-0, CMP, THYR, 6873-4 #### [facility] ([id number]) [address], [address] [place] [address] Social History Date Type Detail Facility Start: 12-22-2020 End: 08-20-2023 History of Social function [facility] Start: 12-22-2020 End: 08-20-2023 Tobacco use panel [facility] Start: 03-12-2018 End: 11-28-2023 Tobacco smoking status NHIS Never smoked tobacco [facility] Start: 03-12-2018 End: 11-28-2023 Tobacco use and exposure Smokeless tobacco non-user [facility] Start: 1955 Sex Assigned At Female F [facility] Start: 1955 Sex Assigned At Not on file P [facility] Tobacco smoking stat us NHIS Unknown if ever smoked [facility] Work Phone: Housing Instability Unknown [facility] Tobacco smoking status No Smokin g Status Entered [facility] Vital Signs Date Time Vital Sign Value Performing Clinician Faci lity 01-16-2024 08:11-0500 Body mass index (BMI) [Ratio] 22.47 kg/m2 January Wolfe APRNSencera Work Phone: [facility] 01-16-2024 08:11-0500 Body weight 61.24 kg January Wolfe APRNSencera Work Phone: [facility] 01-16-2024 08:11-0500 Diastolic blood pressure 75 mm[Hg] January Wolfe APRNSencera [facility] 01-16-2024 08:11-0500 Heart rate 54 /min January Oberneder FOOD SERVICE SPECIALIST-VOCATIONAL CASE MANAGER [facility] 01-16-2024 08:11-0500 SaO2% (BldA) [Mass fraction] 98 % January Oberneder FOOD SERVICE SPECIALIST-VOCATIONAL CASE MANAGER [facility] 01-16-2024 08:11-0500 Systolic blood pressure 181 mm[Hg] January Oberneder FOOD SERVICE SPECIALIST-VOCATIONAL CASE MANAGER [facility] 11-28-2023 08:40-0500 Body height 165.1 cm January Oberneder FOOD SERVICE SPECIALIST-VOCATIONAL CASE MANAGER [facility] 11-28-2023 08:40-0500 Body mass index (BMI) [Ratio] 23.53 kg/m2 January Oberneder FOOD SERVICE SPECIALIST-VOCATIONAL CASE MANAGER [facility] 11-28-2023 08:40-0500 Body weight 64.14 kg January Oberneder FOOD SERVICE SPECIALIST-VOCATIONAL CASE MANAGER Work [facility] 11-28-2023 08:40-0500 Diastolic blood pressure 68 mm[Hg] January Oberneder FOOD SERVICE SPECIALIST-VOCATIONAL CASE MANAGER [facility] 11-28-2023 08:40-0500 Heart rate 62 /min January Oberneder FOOD SERVICE SPECIALIST-VOCATIONAL CASE MANAGER Work [facility] 11-28-2023 08:40-0500 Systolic blood pressure 132 mm[Hg] January Oberneder FOOD SERVICE SPECIALIST-VOCATIONAL CASE MANAGER [facility] 11-13-2023 08:09-0500 Body height 152.4 cm Karmen Bagley MD [facility] 11-13-2023 08:09-0500 Body mass index (BMI) [Ratio] 26.17 kg/m2 Karmen Bagley MD [facility] 11-13-2023 08:09-0500 Body weight 60.78 kg Karmen Bagley MD [facility] 11-13-2023 08:09-0500 Diastolic blood pressure 42 mm[Hg] Karmen Bagley MD [facility] 11-13-2023 08:09-0500 Heart rate 58 /min Karmen Bagley MD [facility] 11-13-2023 08:09-0500 SaO2% (BldA) [Mass fraction] 95 % Karmen Bagley MD [facility] 11-13-2023 08:09-0500 Systolic blood pressure 73 mm[Hg] Karmen Bagley MD [facility] Clinical Notes 10-29-2023 to 02-05-2024 Telephone Encounter - Beatrice Goldstein RN - 02/05/2024 12:26 PM EDTTelephone Encounter - Beatrice Goldstein RN - 02/05/2024 12:26 PM EDTTelephone Encounter - Beatrice Goldstein RN - 02/05/2024 12:26 PM EDT Note Date & Type Note Facility 02-05-2024 Note IR LMTD OR LOCALIZED FU STUDY Pre-procedure diagnosis: See history below Post-procedure diagnosis: Same as above Assistants/resident: See the technologist's notes above Consent/pre-procedure evaluation: See below. [place] protocol timeout verification performed. Estimated blood loss: Less than 10 mL Procedure/complications: See below Radiation dosage measurements: See below and see technologist's notes above Conscious sedation: If conscious sedation was administered, preprocedure evaluation for conscious sedation was performed and documented. History: needs biopsy of kidney for cores. Renal insufficiency. Procedure, after explanation of the procedure, indications, risks, benefits, and alternatives to biopsy under intravenous conscious sedation to the patient and to the son, the patient gave consent. The risks that were stressed include bleeding, infection, allergic reaction, pain, damage to adjacent organs, bleeding from the kidney, and cardio-pulmonary compromise due to conscious sedation. The added risk of bleeding after core kidney biopsy and the necessity to have a low blood pressure during and after the biopsy were emphasized to the patient and to the patient's son. The blood pressure was 165 systolic and the recovery room before the procedure. When the patient was placed in the standard position on the CT table, the blood pressure was 220 systolic. The patient received 100 micrograms of intravenous Fentanyl, 20 mg intravenous hydralazine, and 2.5 mg of intravenous Lopressor , and 30 minutes of intravenous conscious sedation by an independent, trained observer with monitoring of blood pressure, heart rate, pulse oximetry, and mental status. No images were obtained for localization purposes. After the above medicines were administered, the patient fell asleep and appeared very relaxed. The blood pressure was over 170 systolic. The interventional radiology nurse monitoring the patient denied both felt that the procedure could not be performed safely unless the blood pressure was considerably lower during and for several hours after the procedure. Accordingly, no procedure was performed and no imaging was performed. Impression: No biopsy was performed because of hypertension. The blood pressure before the procedure in the radiology recovery room was 165 systolic, which increased to [address]. Multiple medicines were administered in this patient with a complicated medical history without satisfactory lowering the blood pressure. Our concern is that, since the medicines that we use have a relatively short half-life, even performing the procedure with temporary normotensive status, the patient would be at considerable risk of bleeding at home after the procedure when the blood pressure becomes hypertensive again. Options include more aggressive blood pressure medicine control before the procedure or possibly having anesthesia lower the blood pressure before and for several hours after the procedure to minimize the risk of bleed. Finalized by Mahesh Castañeda MD on 02/05/2024 2:02 PM [facility] 02-05-2024 Miscellaneous Notes ----- Message from RACHELLE Horton sent at 02/05/2024 12:05 PM EDT ----- Increase Lokelma to daily Faina john @ [facility] given new order to increase Lokelma 5g to daily. Med list updated. Images from the original note were not included. Pt's renal bx canceled d/t HTN- per MIGUEL ANGEL Crum RN 02/05/2024 3:24 PM EDT Back to Top Order faxed to [facility] and spoke with nurse Eisenberg to increase hydralazine to 50mg tid, fax weekly BP/HR x 1 month. Per HRO- will reschedule renal bx within 1 month. RACHELLE Horton 02/05/2024 2:17 PM EDT Increase hydralazine to 50 mg 3 times a day. Please make sure patient gets rescheduled for biopsy. documented in this encounter [facility] 02-05-2024 Telephone encounter Note ----- Message from RACHELLE Horton sent at 02/05/2024 12:05 PM EDT ----- Increase Lokelma to daily [facility] 02-05-2024 [facility] Lokelma 5g to daily. Med list updated. [facility] 02-05-2024 Telephone encounter Note Images from the original note were not included. Pt's renal bx canceled d/t HTN- per MIGUEL ANGEL Crum RN 02/05/2024 3:24 PM EDT Back to Top Order faxed to [facility] and spoke with nurse Eisenberg to increase hydralazine to 50mg tid, fax weekly BP/HR x 1 month. Per HRO- will reschedule renal bx within 1 month. RACHELLE Horton 02/05/2024 2:17 PM EDT Increase hydralazine to 50 mg 3 times a day. Please make sure patient gets rescheduled for biopsy. [facility] 01-22-2024 Miscellaneous Notes ----- Message from RACHELLE Horton sent at 01/21/2024 2:33 PM EDT ----- And urinalysis. Repeat serologies to see if patient needs biopsy can we please see if this is been done RACHELLE Horton 01/21/241433 ----- Message ----- From: Fadia Spencer Sent: 01/21/2024 8:13 AM EDT To: RACHELLE Horton Orders sent via fax to [facility] documented in this encounter [facility] 01-22-2024 Telephone encounter Note ----- Message from RACHELLE Horton sent at 01/21/2024 2:33 PM EDT ----- And urinalysis. Repeat serologies to see if patient needs biopsy can we please see if this is been done RACHELLE Horton 01/21/241433 ----- Message ----- From: Faida Spencer Sent: 01/21/2024 8:13 AM EDT To: RACHELLE Horton [facility] 01-22-2024 Telephone encounter Note Orders sent via fax to [facility] 01-16-2024 History of Present illness Narrative Images [...] fluid intake as well as Urocit-K. 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 Multi-infarct dementia ([facility]) Renal artery stenosis ([facility]) Rickets Seizures ([facility]) Urinary tract infection Visual impairment glasses Surgical History: Past Surgical History: Procedure Laterality Date BILATERAL CYSTOSCOPY URETEROSCOPY / BILATERAL STENT INSERTION / BILATERAL LASER LITHOTRIPSY Bilateral 11/27/2018 Performed by Juan Pablo Cross MD at [facility] BRAIN SURGERY CYSTOSCOPY REMOVAL STENT Bilateral 12/31/2018 Performed by Juan Pablo Cross MD at [facility] CYTOSCOPY WITH INSERTION BALLOON OCCLUSION CATHETER N/A 10/09/2018 Performed by Juan Pablo Cross MD at [facility] CYTOSCOPY WITH INSERTION BALLOON OCCLUSION CATHETER RIGHT/RETROGRADE PYLEGRAM Right 2018 Performed by Juan Pablo Cross MD at [facility] PERCUTANEOUS NEPHROLITHOTOMY KIDNEY, URETERAL STENT PLACEMENT, LASER Left 10/10/2018 Performed by Juan Pablo Cross MD at [facility] PERCUTANEOUS NEPHROLITHOTOMY RIGHT WITH HOLMIUM LASER Right 06/05/2018 Performed by Juan Pablo Cross MD at [facility] TOOTH EXTRACTION Social History: Social History Socioeconomic [...] be elevated. I will start her on Lokelok Saturday with weekly BMPs. 5. Hyperphosphatemia: On Renvela. No recent phosphorus level. Check phosphorus soon. 6. Secondary hyperparathyroidism of renal origin. No recent vitamin-D level. Increase calcitriol to 1 mcg daily. 7. Metabolic acidosis: Decrease bicarb to once a day. Thank you LIZANDRO MCPHERSON MD for the allowing us to continue participant in the care of this patient. Please contact me at [phone] (Office) or [phone] (Answering service) with any questions. RACHELLE Pineda [facility] This note was created with the assistance of a speech-recognition program. Although the intention is to generate a document that actually reflects the content of the visit, no guarantees can be provided that every mistake has been identified and corrected by editing. RACHELLE Horton 11/28/23 0906 RACHELLE Horton 01/16/24 0850 documented in this encounter [facility] 01-07-2024 Miscellaneous Notes Call and spoke with Nurse at [facility] to confirm appt for 01/16/24 with [employer] January at 8:20 as well faxed labs over. documented in this encounter [facility] 01-07-2024 Telephone encounter Note Call and spoke with Nurse at [facility] to confirm appt for 01/16/24 with [employer] January at 8:20 as well faxed labs over. [facility] 12-26-2023 Miscellaneous Notes Orders faxed to [facility] documented in this encounter [facility] 12-26-2023 Telephone encounter Note Orders faxed to [facility] 12-26-2023 Miscellaneous Notes ----- Message from RACHELLE Horton sent at 12/24/2023 8:23 AM EST ----- K is 6.1 needs 30 g dose of kayexe or lokelma 10 g tid for 3 doses then start 10 g daily with weekly bmp RACHELLE Horton 12/24/23823 ----- Message ----- From: Fadia Spencer Sent: 12/23/2023 4:27 PM EST To: RACHELLE Horton documented in this encounter [facility] 12-26-2023 Telephone encounter Note ----- Message from RACHELLE Horton sent at 12/24/2023 8:23 AM EST ----- K is 6.1 needs 30 g dose of kayexe or lokelma 10 g tid for 3 doses then start 10 g daily with weekly bmp RACHELLE Horton 12/24/23823 ----- Message ----- From: Fadia Spencer Sent: 12/23/2023 4:27 PM EST To: RACHELLE Horton [facility] 12-11-2023 Miscellaneous Notes ----- Message from Fadia Spencer sent at 12/11/2023 12:25 PM EST ----- January is off Positive FELIX screen and positive C-ANCA although MPO and PR3 are negative. She is not on hydralazine that can cause a false positive. Please refer to rheumatology for further workup Referral placed for Rheumatology. Called [facility]-message will be given to DON-based off of positive FELIX and C-ANCA referral to Rheumatology was made. [facility]23 Telephone encounter Note ----- Message from Fadia Spencer sent at 12/11/2023 12:25 PM EST ----- January is off [employer] Work Phone: 12-11-2023 Telephone encounter Note Positive FELIX screen and positive C-ANCA although MPO and PR3 are negative. She is not on hydralazine that can cause a false positive. Please refer to rheumatology for further workup [facility]23 Telephone encounter Note Referral placed for Rheumatology. Called [facility]-message will be given to DON-based off of positive FELIX and C-ANCA referral to Rheumatology was made. [facility] 12-02-2023 Miscellaneous Notes Mahad from [facility] or [facility] called in and wanting to know about a order that was for a fluid restriction she didn't state who wrote the other she would like for someone to call her back to recheck the order . [id number] she stated that she is on the 2nd floor documented in this encounter [facility] 12-02-2023 Telephone encounter Note Mahad from [facility] or [facility] called in and wanting to know about a order that was for a fluid restriction she didn't state who wrote the other she would like for someone to call her back to recheck the order . [id number] she stated that she is on the 2nd floor [facility] 11-29-2023 Miscellaneous Notes ----- Message from Karmen Bagley MD sent at 11/27/2023 4:36 PM EST ----- Regarding: Hyperkalemia Note laboratories from the showing potassium of 6.1 and creatinine of 1.6 at [facility] in [place]. It is unclear whether she was admitted to that hospital and what was done to treat the patient's hyperkalemia. I have asked that the patient's sister, extended care facility and or [facility] be contacted to see what was done about the hyperkalemia or if the patient was admitted to the hospital. Her discharge med rec does not include potassium chloride. Karmen Bagley MD PhD FACP ----- Message ----- From: Fadia Spencer Sent: 11/27/2023 10:16 AM EST To: Karmen Bagley MD Late entry: After speaking w/Dr. Bagley-called [facility] and was on hold for a nurse [...] notified of above. documented in this encounter [facility] [employer] [facility] 11-29-2023 Telephone encounter Note ----- Message from Karmen Bagley MD sent at 11/27/2023 4:36 PM EST ----- Regarding: Hyperkalemia Note laboratories from the showing potassium of 6.1 and creatinine of 1.6 at [facility] in [place]. It is unclear whether she was admitted to that hospital and what was done to treat the patient's hyperkalemia. I have asked that the patient's sister, extended care facility and or [facility] be contacted to see what was done about the hyperkalemia or if the patient was admitted to the hospital. Her discharge med rec does not include potassium chloride. Karmne Bagley MD PhD FACP ----- Message ----- From: Fadia Spencer Sent: 11/27/2023 10:16 AM EST To: Karmen Bagley [facility] 11-29-2023 Telephone encounter Note Late entry: After speaking w/Dr. Bagley-called [facility] and was on hold for a nurse [...] the morning-. Dr. Bagley notified of above. [facility] History of Present illness Narrative Images [...] in the past.with neurosurgical intervention at the [facility] or [facility] in the past History of [...] Chronic renal failure CVA (cerebral vascular accident) ([facility]) Depression Difficult intravenous access Gout attack HTN (hypertension) Hypothyroidism ICH (intracerebral hemorrhage) ([facility]) Intracerebral hemorrhage ([facility]) Kidney stones Moyamoya disease Multi-infarct dementia ([facility]) Renal artery stenosis ([facility]) Rickets Seizures ([facility]) Urinary tract infection Visual impairment glasses Surgical History: Past Surgical History: Procedure Laterality Date BILATERAL CYSTOSCOPY URETEROSCOPY / BILATERAL STENT INSERTION / BILATERAL LASER LITHOTRIPSY Bilateral 11/27/2018 Performed by Juan Pablo Cross MD at [facility] BRAIN SURGERY CYSTOSCOPY REMOVAL STENT Bilateral 12/31/2018 Performed by Juan Pablo Cross MD at [facility] CYTOSCOPY WITH INSERTION BALLOON OCCLUSION CATHETER N/A 10/09/2018 Performed by Juan Pablo Cross MD at [facility] CYTOSCOPY WITH INSERTION BALLOON OCCLUSION CATHETER RIGHT/RETROGRADE PYLEGRAM Right 2018 Performed by Juan Pablo Cross MD at [facility] PERCUTANEOUS NEPHROLITHOTOMY KIDNEY, URETERAL STENT PLACEMENT, LASER Left 10/10/2018 Performed by Juan Pablo Cross MD at [facility] PERCUTANEOUS NEPHROLITHOTOMY RIGHT WITH HOLMIUM LASER Right 06/05/2018 Performed by Juan Pablo Cross MD at [facility] TOOTH EXTRACTION Social History: Social History Socioeconomic [...] 4. Hyperkalemia. Potassium level was 6.1 per long-term records she received 3 doses of 5 g of Lokelma. I will repeat labs tomorrow. Low-potassium and salt diet was educated Thank you LIZANDRO MCPHERSON MD for the allowing us to continue participant in the care of this patient. Please contact me at [phone] (Office) or [phone] (Answering service) with any questions. RACHELLE Pineda [facility] This note was created with the assistance of a speech-recognition program. Although the intention is to generate a document that actually reflects the content of the visit, no guarantees can be provided that every mistake has been identified and corrected by editing. RACHELLE Horton 11/28/23 0906 documented in this encounter [facility] 11-28-2023 Evaluation note Diagnosis NIDIA (acute kidney injury) ([facility])- Primary Stage 3a chronic kidney disease ([facility]) documented in this encounter [facility]01-08-2024 Miscellaneous Notes* Telephone Encounter - Fadia Spencer - 11/18/2023 10:28 AM EST [facility] to schedule pts hos f/u appt in [place]. Appt scheduled and labs ordered and faxed to [place]. [facility] Telephone encounter Note* Telephone Encounter - Fadia Spencer - 11/18/2023 10:28 AM EST [facility] Rebeca to schedule pts hos f/u appt in [place]. Appt scheduled and labs ordered and faxed to [place]. [facility]01-03-2024 History of Present illness Narrative* Karmen [...] Cr 2.5 mg/dl. The patient resides at [facility]. She has a legal guardian. The patient was to have been transported [facility] to my office but the transportation company never showed. She therefore was transported by her daughter and son-in-law. The patient apparently was hypotensive at [facility]. Her daughter feels as though her mentation [...] Performed by Juan Pablo Cross MD at [facility] BRAIN SURGERY CYSTOSCOPY REMOVAL STENT Bilateral 12/31/2018 Performed by Juan Pablo Cross MD at [facility] CYTOSCOPY WITH INSERTION BALLOON OCCLUSION CATHETER N/A 10/09/2018 Performed by Juan Pablo Cross MD at [facility] CYTOSCOPY WITH INSERTION BALLOON OCCLUSION CATHETER RIGHT/RETROGRADE PYLEGRAM Right 2018 Performed by Juan Pablo Cross MD at [facility] PERCUTANEOUS NEPHROLITHOTOMY KIDNEY, URETERAL STENT PLACEMENT, LASER Left 10/10/2018 Performed by Juan Pablo Cross MD at [facility] PERCUTANEOUS NEPHROLITHOTOMY RIGHT WITH HOLMIUM LASER Right 06/05/2018 Performed by Juan Pablo Cross MD at [facility] TOOTH EXTRACTION Social History: Social History Socioeconomic [...] of your patients! Please contact me at [phone] (Office) or [phone] (Answering service) with any questions. KARMEN BAGLEY MD [facility] This note was created with the assistance of a speech-recognition program. Although the intention is to generate a document that actually reflects the content of the visit, no guarantees can be provided that every mistake has been identified and corrected by editing. [facility] note* Diagnosis Stage 3b chronic kidney disease (CKD) ([facility])- Primary Stage 3 chronic kidney disease, unspecified whether stage 3a or 3b CKD ([facility]) documented in this encounter [facility]01-03-2024 Reason for visit Narrative* Consultation (Routine) - Pending Review Specialty Diagnoses / Procedures Referred By Tory t Referred To Contact Nephrology Diagnoses Stage 3 chronic kidney disease, unspecified whether stage 3a or 3b CKD ([facility]) n Nephrology [facility] [address] [place] [address] n Nephrology [facility] [address] [place] [address] Referral ID Status Reason Start Date Expiration Date Visits Requested Visits Authorized [id number] Pending Review Specialty Services Required 3 10/28/2024 1 1 [facility]12-19-2023 Miscellaneous Notes* Telephone Encounter - Fadia Spencer - 10/29/2023 11:39 AM EST Spoke to nurse for pt who stated they were willing to bring her to [place]. I informed of add on clinics and that I would call around 11/06/23 to schedule. * Telephone Encounter - Fadia Spencer - 10/29/2023 11:39 AM EST Called and spoke to pts nurse to schedule new pt appt. Nephro- No Other Spec- No Echo- No Abd Img- Epic Labs- in referral in media Reminders- Given [facility] Telephone encounter Note* Telephone Encounter - Fadia Ramirezkenney - 10/29/2023 11:39 AM EST Spoke to nurse for pt who stated they were willing to bring her to [place]. I informed of add on clinics and that I would call around 11/06/23 to schedule. [facility]12-19-2023 Telephone encounter Note* Telephone Encounter - Fadia Ramirezkenney - 10/29/2023 11:39 AM EST Called and spoke to pts nurse to schedule new pt appt. Nephro- No Other Spec- No Echo- No Abd Img- Epic Labs- in referral in media Reminders- Given [facility] No data available for this section [facility] assessment information available [facility] Work Phone: Evaluation note* Diagnosis Stage 3b chronic kidney disease (CMS-HCC)- Primary [facility] Diagnosis Positive FELIX (antinuclear antibody)- Primary Other and unspecified nonspecific immunological findings documented [facility]* Diagnosis Stage 3b chronic kidney disease (CMS-HCC)- Primary [facility]* Diagnosis Stage 3b chronic kidney disease (CKD) ([facility])- Primary [facility] this encounter [facility] No data available for this section [facility]ructionsNot on filedocumented in this encounter [facility] filedocumented in this encounter [facility] on filedocumented in this encounter [facility]Not on filedocumented in this encounter [facility]Not on filedocumented in this encounter [facility]Not on filedocumented in this encounter [facility] No data available for this section [facility] Advance Directives No Advanced Directives Records FoundDocuments on File Type Date Recorded 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 08/23/2023 10:19 AM Advance Directive 08/20/2023 6:16 PM DNR Latest Code Status on File Code Status Date Activated Date Inactivated Comments Full Code 10/10/2018 7:13 PM 10/12/2018 8:28 PM Code Status History Code Status Date Activated Date Inactivated Comments Full Code 06/05/2018 7:51 PM 06/07/2018 5:14 PM Documents on File Type Date Recorded 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 08/23/2023 10:19 AM Advance [...] Activated Date Inactivated Comments Modified Code Status [place] 11/14/2023 2:57 PM 11/17/2023 9: 12 PM Question Answer Comments Code Limitations: No Intubation No Chest Compressions No Defibrillation or Cardioversion No Mechanical Ventilation Code Status History Code Status Date Activated Date Inactivated Comments DNR Comfort Care (DNRCC) [place] 11/13/2023 4:59 PM 2:57 PM Full Code 10/10/2018 7:13 PM 10/12/2018 8:28 PM Full Code 06/05/2018 7:51 PM 06/07/2018 5:14 PM Advance Directive Response Recorded Date/ Time Advance Directives No January 11 7:19pm Latest Code Status on File Code Status Date Activated Date Inactivated Comments Modified Code Status [place] 11/14/2023 2:57 PM 11/17/2023 9: 12 PM Question Answer Comments Code Limitations: No Intubation No Chest Compressions No Defibrillation or Cardioversion No Mechanical Ventilation Code Status History Code Status Date Activated Date Inactivated Comments DNR Comfort Care (DNRCC) [place] 11/13/2023 4:59 PM 1/4/202 4 2:57 PM Full Code 10/10/2018 7:13 PM 10/12/2018 8:28 PM Full Code 06/05/2018 7:51 PM 06/07/2018 5:14 PM Summary Purpose Family History No Family History Records FoundNo Family History Records FoundNo Family History Records FoundNo Family History Records FoundNo Family History Records Found No data available for this section No Family History Records FoundNo Family History Records FoundNo Family History Records Found Reason for Referral Specialty Diagnoses / Procedures Referred By Tory t Referred To Contact Radiology Diagnoses Stage 3b chronic kidney disease (CKD) ([facility]) Procedures IR percutaneous biopsy renal left January Wolfe, FOOD SERVICE SPECIALIST-VOCATIONAL CASE MANAGER [address] [place] [address] Referral ID Status Reason Start Date Expiration Date V isits Requested Visits Authorized [id number] Pending Review 01/22/2024 01/21/2025 1 1 Additional Source Comments Care Teams (unrecognized sec tion and content) Team Status: Inactive Member Role Status Dates Radha Santos NP Attending Provider Active Offset Press Operator Relationship Specialty Start Date End Date Lizandro Mcpherson MD [address] [place] [address] PCP - General Internal Medicine 10/29/23 Offset Press Operator Relationship Specialty Start Date End Date Lizandro Mchperson MD [address] [place] [address] PCP - General Internal Medicine 10/29/23 Offset Press Operator Relationship Specialty Start Date End Date Lizandro Mcpherson MD [address] [place] [address] PCP - General Internal Medicine 10/29/23 Offset Press Operator Relationship Specialty Start Date End Date Lizandro Mcpherson MD [address] [place] [address] PCP - General Internal Medicine 10/29/23 Team [...] November 27, 2023 End: November 27, 2023 Offset Press Operator Relationship Specialty Start Date End Date Lizandro Mcpherson MD [address] [place] [address] PCP - General Internal Medicine 10/29/23 Offset Press Operator Relationship Specialty Start Date End Date Lizandro Mcpherson MD [address] [place] [address] PCP - General Internal Medicine 10/29/23 Offset Press Operator Relationship Specialty Start Date End Date Lizandro Mcpherson MD [address] [place] [address] PCP - General Internal Medicine 10/29/23 Offset Press Operator Relationship Specialty Start Date End Date Lizandro Mcpherson MD [address] [place] [address] PCP - General Internal Medicine 10/29/23 Offset Press Operator Relationship Specialty Start Date End Date Lizandro Mcpherson MD [address] [place] [address] PCP - General Internal Medicine 10/29/23 Offset Press Operator Relationship Specialty Start Date End Date Lizandro Mcpherson MD [address] [place] [address] PCP - General Internal Medicine 10/29/23 Offset Press Operator Relationship Specialty Start Date End Date Lizandro Mcpherson MD [address] [place] [address] PCP - General Internal Medicine 10/29/23 Offset Press Operator Relationship Specialty Start Date End Date Lizandro Mcpherson MD [address] [place] [address] PCP - General Internal Medicine 10/29/23 Goals [...] encounterNot on filedocumented as of this encounter No data available for this section INFORMATION SOURCE (unrecogn ized section and content) DATE CREATED AUTHOR 12/07/2023 [facility] DATE CREATED AUTHOR AUTHOR'S ORGANIZ ATION 12/23/2023 [facility] DATE CREATED AUTHOR AUTHOR'S ORGANIZ ATION 01/11/2024 [facility] DATE CREATED AUTHOR AUTHOR'S ORGANIZ ATION 01/13/2024 [facility] DATE CREATED AUTHOR AUTHOR'S ORGANIZ ATION 02/06/2024 [facility] DATE CREATED AUTHOR AUTHOR'S ORGANIZ ATION 04/05/2024 [facility] FOR RECORDS PERTAINING TO PATIENTS WHO ARE [...] BE BASED ON THE PRIMARY CLINICAL RECORDS. [facility]. provides no warranty or guarantee of the accuracy or completeness of information in this document.
[2024-04-25 13:42] LABS: Basophils Absolute Auto 0.1 10^3/uL (0.0-0.1); Basophils Percent Auto 1.1 % (0.2-2.0); Eosinophils Absolute Auto 0.4 10^3/uL (0.0-0.7); Eosinophils Percent Auto 6.4 % (0.9-7.0); Hematocrit 26.3 % (36.0-48.0); Hemoglobin 7.8 g/dL (12.0-16.0); Immature Granulocytes Abs Auto 0.02 10^3/uL (0.00-0.03); Immature Granulocytes Pct Auto 0.4 % (0.0-0.5); Lymphocytes Absolute Auto 1.3 10^3/uL (1.2-3.8); Lymphocytes Percent Auto 24.4 % (20.5-60.0); Mean Corpuscular HGB Conc 29.7 g/dL (29.9-35.2); Mean Corpuscular Volume 104.4 fL (81.0-99.0); Mean Platelet Volume 10.9 fL (9.5-13.5); Monocytes Absolute Auto 0.5 10^3/uL (0.3-0.8); Monocytes Percent Auto 8.3 % (1.7-12.0); Neutrophils Absolute Auto 3.2 10^3/uL (1.4-6.5); Neutrophils Percent Auto 59.4 % (43.0-75.0); Platelet Count 401 10^3/uL (150-450); Red Blood Count 2.52 10^6/uL (4.20-5.40); Red Cell Distribution Width 15.7 % (11.0-15.0); White Blood Count 5.5 10^3/uL (4.0-11.0)
[2024-04-25 13:53] LABS: Anion Gap 11.1; BUN Creatinine Ratio 25.2; Calcium 9.6 mg/dL (8.5-10.1); Carbon Dioxide 26.9 mmol/L (21.0-32.0); Chloride 109 mmol/L (98-107); Estimated GFR (African America 24 (>=60); Estimated GFR (Non-African Ame 20 (>=60); Glucose 119 mg/dL (74-106); Sodium 142 mmol/L (136-145)
== END 2024-04-25 12:10 | disposition home or self-care (01) ==
LOC: LAB 12:09
PROVIDERS: Visit Provider Student in an Organized Health Care Education/Training Program
DX: D64.9 Anemia, unspecified (principal); E87.5 Hyperkalemia
CPT/HCPCS: 36415; 80048; 85025